=== PATIENT | male | born 1930 | race Caucasian/White ===

== ENCOUNTER 2018-12-07 16:25 | Inpatient (IN) | payer MEDICARE, BC, MEDICAID ==
--- NOTE | 2018-12-07 17:21 | PCM.HP ---
H&P History of Present Illness - General Date of Service: 12/07/18 Admit Problem/Dx: Admission Diagnosis/Problem Admission Diagnosis/Problem COPD, Severe chronic obstructive pulmonary disease Source of Information: Patient, Family, Old Records History Limitations: Reports: No Limitations - History of Present Illness Onset of Symptoms: Reports: Gradual Duration of Symptoms: Reports: Week(s):, Getting Worse Location: Reports: Chest Quality: Reports: Same as Previous Episode Severity: Severe Improves with: Reports: Medication (nebs, oxygen increased to 3L/m), Rest Worsens with: Reports: Other (talking, coughing), Movement Context: Reports: Other (exacerbation of chronic disease) Associated Symptoms: Reports: Cough, cough w sputum, Loss of Appetite, Malaise, Shortness of Breath, Weakness - Related Data Allergies/Adverse Reactions: Allergies Allergy/AdvReac Type Severity Reaction Status Date / Time Sulfa (Sulfonamide Allergy Cannot Verified 12/22/15 10:53 Antibiotics) Remember Home Medications: Home Meds Albuterol/Ipratropium [DuoNeb 3.0-0.5 MG/3 ML] 3 ml INH QID 01/12/15 [History] Aspirin [Halfprin] 81 mg PO DAILY 01/12/15 [History] Finasteride [Proscar] 5 mg PO DAILY 01/12/15 [History] Mometasone Furoate 100mcg [Asmanex HFA 100mcg] 2 puff INH BID 01/12/15 [History] Simvastatin [Zocor] 40 mg PO BEDTIME 01/12/15 [History] Budesonide [Pulmicort] 0.5 mg NEB BIDRT 05/29/15 [History] Albuterol/Ipratropium [DuoNeb 3.0-0.5 MG/3 ML] 3 ml NEB Q4HRRT PRN #1 box [Rx] Albuterol [Ventolin HFA] 2.5 gm INH Q2H PRN #1 inhaler 06/24/15 [Rx] Bisacodyl [Dulcolax] 10 mg PO DAILY PRN 12/22/15 [History] Fluticasone Propionate [Flonase] 1 spray NASBOTH BID 12/22/15 [History] Furosemide [Lasix] 40 mg PO DAILY 12/22/15 [History] Omeprazole 20 mg PO DAILY PRN 12/22/15 [History] Potassium Chloride [Klor-Con M20] 20 meq PO DAILY 12/22/15 [History] Prednisone [IJD: Prednisone] 2.5 mg PO DAILY 12/22/15 [History] Warfarin Sodium [Coumadin] 6 mg PO TU 12/22/15 [History] predniSONE 7 mg PO SUMOWETHFRSA 12/22/15 [History] Past Medical History HEENT History: Reports: Impaired Vision Other HEENT History: Glasses Cardiovascular History: Reports: Blood Clots/VTE/DVT, CAD, Heart Failure, High Cholesterol, Hypertension, SOB on Exertion Other Cardiovascular History: h/o DVT and PE Respiratory History: Reports: COPD, PE, Pulmonary Fibrosis, SOB Other Respiratory History: Oxygen-dependent Gastrointestinal History: Reports: GERD Genitourinary History: Reports: BPH Other Genitourinary History: Bilateral renal cysts Musculoskeletal History: Reports: Osteoarthritis, Other (See Below) Other Musculoskeletal History: Right rotator cuff tear on 12/10/08 Social & Family History - Tobacco Use Tobacco Use Within Last Twelve Months: No Used Tobacco, but Quit: Yes - Alcohol Use Alcohol Use History: Yes Alcohol Use Frequency: Rarely - Recreational Drug Use Recreational Drug Use: No - Living Situation & Occupation Living situation: Reports: , with Family Occupation: Retired H&P Review of Systems - Review of Systems: Review Of Systems: See Below General: Reports: Weakness, Fatigue HEENT: Reports: No Symptoms Pulmonary: Reports: Shortness of Breath, Wheezing, Cough, Sputum Cardiovascular: Reports: No Symptoms Gastrointestinal: Reports: No Symptoms Genitourinary: Reports: No Symptoms Musculoskeletal: Reports: No Symptoms Skin: Reports: No Symptoms Psychiatric: Reports: No Symptoms Neurological: Reports: No Symptoms Hematologic/Lymphatic: Reports: Easy Bruising (chronic) Immunologic: Reports: No Symptoms Exam - Exam Exam: See Below - Vital Signs Vital Signs: Last Vital Signs Temp 99.1 F 12/07/18 16:58 Pulse 99 12/07/18 16:58 Resp 24 H 12/07/18 16:58 BP 155/75 H 12/07/18 16:58 Pulse Ox 93 L 12/07/18 16:58 - Exam Quality Assessment: Supplemental Oxygen, DVT Prophylaxis (on warfarin) General: Alert, Oriented, Moderate Distress HEENT: EOMI, Hearing Intact, Mucosa Moist & [place], Glasses Neck: Supple, Trachea Midline Lungs: Decreased Breath Sounds, Rhonchi, Wheezing GI/Abdominal Exam: Normal Bowel Sounds, Soft, Non-Tender, No Distention (Male) Exam: Deferred Rectal (Males) Exam: Deferred Back Exam: Normal Inspection Extremities: Pedal Edema (minimal) Skin: Warm, Dry, Intact Neuro Extensive - Mental Status: Alert, Oriented x3, Normal Mood/Affect, Normal Cognition, Memory Intact Psychiatric: Alert, Normal Affect, Normal Mood - Problem List (1) Pulmonary fibrosis SNOMED Code(s): 65516824 ICD Code: J84.10 - PULMONARY FIBROSIS, UNSPECIFIED Status: Chronic Priority: High Current Visit: Yes Problem Details: 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, oxygen-dependent (2) Comfort measures only status SNOMED Code(s): 33549108883242 ICD Code: Z51.5 - ENCOUNTER FOR PALLIATIVE CARE Status: Chronic Priority : Medium Current Visit: Yes Problem List Initiated/Reviewed/Updated: Yes Orders Last 24hrs: Active Orders 24 hr Category Date Time Status Patient Status [ADT] Routine ADT 12/07/18 16:42 Active Antiembolic Devices [RC] PER UNIT ROUTINE Care 12/07/18 16:48 Active Height and Weight [RC] DAILY Care 12/07/18 16:42 Active Intake and Output [RC] QSHIFT Care 12/07/18 16:46 Active May Shower [RC] ASDIRECTED Care 12/07/18 16:42 Active Oxygen Therapy [RC] 2300 Care 12/07/18 16:42 Active Peripheral IV Care [RC] . DIRECTED Care 12/07/18 16:48 Active Pulse Oximetry [RC] PRN Care 12/07/18 16:46 Active Up With Assistance [RC] ASDIRECTED Care 12/07/18 16:42 Active VTE/DVT Education [RC] PER UNIT ROUTINE Care 12/07/18 16:42 Active Vital Signs [RC] QID Care 12/07/18 16:42 Active Regular Diet [DIET] Diet 12/07/18 Dinner Active Chest 2V [CR] Routine Exams 12/07/18 16:42 Ordered C-REACTIVE PROTEIN [CHEM] AM Lab 12/08/18 05:11 Ordered C-REACTIVE PROTEIN [CHEM] AM Lab 12/09/18 05:11 Ordered C-REACTIVE PROTEIN [CHEM] AM Lab 12/10/18 05:11 Ordered C-REACTIVE PROTEIN [CHEM] AM Lab 12/11/18 05:11 Ordered CBC WITH AUTO DIFF [HEME] AM Lab 12/08/18 05:11 Ordered CBC WITH AUTO DIFF [HEME] AM Lab 12/09/18 05:11 Ordered CBC WITH AUTO DIFF [HEME] AM Lab 12/10/18 05:11 Ordered CBC WITH AUTO DIFF [HEME] AM Lab 12/11/18 05:11 Ordered COMPREHENSIVE METABOLIC PN,CMP [CHEM] AM Lab 12/08/18 05:11 Ordered COMPREHENSIVE METABOLIC PN,CMP [CHEM] AM Lab 12/09/18 05:11 Ordered COMPREHENSIVE METABOLIC PN,CMP [CHEM] AM Lab 12/10/18 05:11 Ordered COMPREHENSIVE METABOLIC PN,CMP [CHEM] AM Lab 12/11/18 05:11 Ordered CULTURE BLOOD [BC] Stat Lab 12/07/18 16:48 Ordered CULTURE BLOOD [BC] Stat Lab 12/07/18 16:48 Ordered CULTURE SPUTUM + SMEAR [RM] Stat Lab 12/07/18 16:42 Ordered D Dimer [D-DIMER QUANTITATIVE] [COAG] Routine Lab 12/07/18 16:57 Ordered INR,PT,PROTHROMBIN TIME [COAG] AM Lab 12/08/18 05:11 Ordered INR,PT,PROTHROMBIN TIME [COAG] AM Lab 12/09/18 05:11 Ordered INR,PT,PROTHROMBIN TIME [COAG] AM Lab 12/10/18 05:11 Ordered INR,PT,PROTHROMBIN TIME [COAG] AM Lab 12/11/18 05:11 Ordered Azithromycin [Zithromax] 500 mg Med 12/07/18 17:15 Ordered Sodium Chloride 0.9% [Normal Saline] 250 ml IV Q24H Sodium Chloride 0.9% [Saline Flush] Med 12/07/18 16:42 Active 10 ml FLUSH ASDIRECTED PRN cefTAZidime Pentahydrate [Fortaz] Med 12/08/18 00:00 Ordered 1 gm IVPUSH Q8HR methylPREDNISolone Sod Succ [Solu-MEDROL] Med 12/07/18 17:00 Ordered 40 mg IVPUSH Q8H metroNIDAZOLE/Normal Saline [Flagyl 500 MG in NS 100 ML Med 12/07/18 17:15 Ordered ] 500 mg Premix Bag 1 bag IV Q8H Antiembolic Hose [OM.PC] Per Unit Routine Oth 12/07/18 16:47 Ordered Blood Culture x2 Reflex Set [OM.PC] Stat Oth 12/07/18 16:42 Ordered CHF Questionnaire [COMM] Routine Ot 12/07/18 16:55 Ordered Peripheral IV Insertion Adult [OM.PC] Routine Ot 12/07/18 16:42 Ordered Resuscitation Status Routine Resus Stat 12/07/18 16:42 Ordered Medication Orders Ceftazidime (Fortaz) 1 gm IVPUSH Q8HR THELMA Azithromycin 500 mg/ Sodium (Chloride) 250 mls @ 250 mls/hr IV Q24H THELMA Metronidazole 500 mg/ Premix 100 mls @ 100 mls/hr IV Q8H THELMA Methylprednisolone Sodium Succinate (Solu-Medrol) 40 mg IVPUSH Q8H THELMA Sodium Chloride (Saline Flush) 10 ml FLUSH ASDIRECTED PRN PRN Reason: Keep Vein Open Assessment/Plan Comment:: Mookie Blankenship PA-C 88 yr-old male admitted IP to Dr. Rocha for acute exacerbation of COPD/ pulmonary, oxygen-dependent and pneumonia with OP therapy failure. He was seen last Wednesday for same and recommended for hospitalization but refused, he was treated with steroids and antibiotics but did see his Home Health nurse today who called me to say he has not improved. His two daughters were with him in the home as well and are here now. He normally wears his O2 at 2L/m but has increased this to 3 and still feels SOB and is hypoxic. He denies CP at any time. INR 3.0 today via Home Health. Will monitor daily. Does say was coughing a lot at home. Starting IV Metronidazole for possible aspiration component to pneumonia, as well as IV Zithromax and Fortaz. IV Solu- Medrol started at 40mg Q8H. PT-OT consults ordered for strengthening. This elderly chronically ill gentleman will require at least 96 hours of IP care to be able to return home to previous baseline level of health. He does have multiple comorbidities. One daughter has now moved into his house with him , and another one lives next door to him and has cared for him for years, and they will remain very involved in his health care. He also has Home Health services.
[2018-12-07] MEDS ORDERED: Albuterol/Ipratropium 3.0-0.5 MG/3 ML Neb Soln NEB PRN (17:46)
[2018-12-07] MEDS ORDERED: Albuterol 8 GM Inhaler INH PRN (17:46)
[2018-12-07] MEDS ORDERED: Benzonatate 100 MG Cap PO PRN (17:46)
[2018-12-07] MEDS ORDERED: methylPREDNISolone Sodium Succinate 40 MG/1 ML SDV IVPUSH SCH (18:00)
[2018-12-07] MEDS ORDERED: Mometasone Furoate HFA 100mcg/Puff 13 GM Inhaler INH SCH (18:00)
[2018-12-07] MEDS: Fluticasone Propionate Nasal Spray 16 GM Bottle NASBOTH SCH (18:42)
[2018-12-07] MEDS: Bisacodyl 5 MG Tab PO PRN (18:42)
[2018-12-07] MEDS: Warfarin 2 MG Tab PO SCH (18:42)
[2018-12-07] MEDS: metroNIDAZOLE/Normal Saline 500 MG in Premix Bag 1 BAG IV SCH (18:42)
[2018-12-07] MEDS: Sodium Chloride 0.9% 10 ML Syringe FLUSH PRN (18:43)
[2018-12-07] MEDS: Azithromycin 500 MG in Sodium Chloride 0.9% 250 ML IV SCH (19:45)
[2018-12-07] MEDS: Albuterol/Ipratropium 3.0-0.5 MG/3 ML Neb Soln INH SCH (19:46)
[2018-12-07] MEDS: Budesonide 0.5 MG/2 ML Neb Susp NEB SCH (19:46)
[2018-12-08] MEDS: Sodium Chloride 0.9% 10 ML Syringe FLUSH PRN ×7 (01:37→17:21)
[2018-12-08] MEDS: metroNIDAZOLE/Normal Saline 500 MG in Premix Bag 1 BAG IV SCH ×3 (01:37→17:18)
[2018-12-08] MEDS: cefTAZidime 1 GM Vial IVPUSH SCH ×3 (01:38→16:12)
[2018-12-08 07:19] LABS: CHLORIDE,CL 102 mmol/L (98-107); SODIUM,NA 142 mmol/L (136-145)
[2018-12-08] MEDS: Budesonide 0.5 MG/2 ML Neb Susp NEB SCH ×2 (07:56→22:51)
[2018-12-08] MEDS: Furosemide 40 MG/4 ML VIAL IVPUSH SCH (07:58)
[2018-12-08] MEDS: Fluticasone Propionate Nasal Spray 16 GM Bottle NASBOTH SCH ×2 (08:01→17:18)
[2018-12-08] MEDS: Albuterol/Ipratropium 3.0-0.5 MG/3 ML Neb Soln INH SCH ×4 (08:15→22:50)
[2018-12-08] MEDS: methylPREDNISolone Sodium Succinate 40 MG/1 ML SDV IVPUSH SCH ×2 (08:23→22:51)
[2018-12-08] MEDS ORDERED: Sodium Chloride 0.9% 10 ML Syringe FLUSH PRN (08:26)
[2018-12-08] MEDS ORDERED: Iopamidol 612 MG/ML 100 ML Bottle IVPUSH ONE (08:26)
[2018-12-08] MEDS: Finasteride 5 MG Tab PO SCH (11:00)
[2018-12-08] MEDS: Potassium Chloride 20 MEQ Tab.ER PO SCH (11:00)
[2018-12-08] MEDS: Aspirin 81 MG Tab.EC PO SCH (11:01)
--- NOTE | 2018-12-08 17:35 | PCM.PN ---
- General Info Date of Service: 12/08/18 Admission Dx/Problem (Free Text): Admission Diagnosis/Problem Admission Diagnosis/Problem COPD, Severe chronic obstructive pulmonary disease Functional Status: Reports: Pain Controlled, Tolerating Diet, Ambulating - Review of Systems General: Reports: Weakness HEENT: Reports: No Symptoms Pulmonary: Reports: Shortness of Breath, Cough Cardiovascular: Reports: No Symptoms Gastrointestinal: Reports: No Symptoms Genitourinary: Reports: No Symptoms Musculoskeletal: Reports: No Symptoms Skin: Reports: No Symptoms Neurological: Reports: No Symptoms Psychiatric: Reports: No Symptoms - Patient Data Vitals - Most Recent: Last Vital Signs Temp 97.0 F 12/08/18 16:00 Pulse 70 12/08/18 16:00 Resp 17 12/08/18 16:00 BP 143/69 H 12/08/18 16:00 Pulse Ox 96 12/08/18 16:00 Weight - Most Recent: 151 lb 4.8 oz I&O - Last 24 Hours: Intake & Output 12/08/18 12/08/18 12/08/18 06:59 14:59 22:59 Intake Total 765 Output Total 400 1400 Balance -400 -635 Lab Results Last 24 Hours: Laboratory Results - last 24 hr 12/07/18 12/08/18 12/08/18 Range/Units 17:00 07:00 07:00 WBC 6.5 (4.0-10.2) K/uL RBC 4.33 (4.33-5.41) M/uL Hgb 13.8 (13.1-16.8) g/dL Hct 43.5 (39.0-49.0) % MCV 100.5 H (84.0-98.0) fL MCH 31.9 (28.2-33.3) pg MCHC 31.7 (31.7-36.0) g/dL RDW 13.3 (11.2-14.1) % Plt Count 180 (150-350) K/uL Neut % (Auto) 94.2 H (45.0-80.0) % Lymph % (Auto) 3.1 L (10.0-50.0) % [place] % (Auto) 2.5 (2.0-14.0) % Eos % (Auto) 0.0 (0.0-5.0) % Baso % (Auto) 0.2 (0.0-2.0) % Neut # (Auto) 6.11 (1.40-7.00) K/uL Lymph # (Auto) 0.20 L (0.50-3.50) K/uL [place] # (Auto) 0.16 (0.00-1.00) K/uL Eos # (Auto) 0.00 (0.00-0.50) K/uL Baso # (Auto) 0.01 (0.00-0.20) K/uL PT (9.5-12.0) SEC INR D-Dimer, Quantitative < 100 (0-400) ng/mL Sodium 142 (136-145) mmol/L Potassium 4.8 (3.5-5.1) mmol/L Chloride 102 (98-107) mmol/L Carbon Dioxide 38.9 H (21.0-32.0) mmol/L BUN 17 (7-18) mg/dL Creatinine 0.56 (0.51-1.17) mg/dL Est Cr Clr Drug Dosing 94.69 mL/min Estimated GFR (MDRD) > 60 mL/min Glucose 246 H (74-106) mg/dL Calcium 8.9 (8.5-10.1) mg/dL Total Bilirubin 0.4 (0.2-1.0) mg/dL AST 20 (15-37) U/L ALT 31 (12-78) U/L Alkaline Phosphatase 90 (46-116) IU/L C-Reactive Protein 2.3 H (<=0.9) mg/dL Total Protein 6.0 L (6.4-8.2) g/dL Albumin 3.0 L (3.4-5.0) g/dL 12/08/18 Range/Units 07:00 WBC (4.0-10.2) K/uL RBC (4.33-5.41) M/uL Hgb (13.1-16.8) g/dL Hct (39.0-49.0) % MCV (84.0-98.0) fL MCH (28.2-33.3) pg MCHC (31.7-36.0) g/dL RDW (11.2-14.1) % Plt Count (150-350) K/uL Neut % (Auto) (45.0-80.0) % Lymph % (Auto) (10.0-50.0) % [place] % (Auto) (2.0-14.0) % Eos % (Auto) (0.0-5.0) % Baso % (Auto) (0.0-2.0) % Neut # (Auto) (1.40-7.00) K/uL Lymph # (Auto) (0.50-3.50) K/uL [place] # (Auto) (0.00-1.00) K/uL Eos # (Auto) (0.00-0.50) K/uL Baso # (Auto) (0.00-0.20) K/uL PT 28.1 H (9.5-12.0) SEC INR 2.6 D-Dimer, Quantitative (0-400) ng/mL Sodium (136-145) mmol/L Potassium (3.5-5.1) mmol/L Chloride (98-107) mmol/L Carbon Dioxide (21.0-32.0) mmol/L BUN (7-18) mg/dL Creatinine (0.51-1.17) mg/dL Est Cr Clr Drug Dosing mL/min Estimated GFR (MDRD) mL/min Glucose (74-106) mg/dL Calcium (8.5-10.1) mg/dL Total Bilirubin (0.2-1.0) mg/dL AST (15-37) U/L ALT (12-78) U/L Alkaline Phosphatase (46-116) IU/L C-Reactive Protein (<=0.9) mg/dL Total Protein (6.4-8.2) g/dL Albumin (3.4-5.0) g/dL Jarret Results Last 24 Hours: Microbiology 12/07/18 17:10 Aerobic Blood Culture - Preliminary Blood - Venous - Lab Draw NO GROWTH AFTER 1 DAY Anaerobic Blood Culture - Preliminary NO GROWTH AFTER 1 DAY 12/07/18 17:00 Aerobic Blood Culture - Preliminary Blood - Venous NO GROWTH AFTER 1 DAY Anaerobic Blood Culture - Preliminary NO GROWTH AFTER 1 DAY 12/07/18 16:42 Gram Stain - Final Sputum - Expectorated Med Orders - Current: Current Medications Albuterol/Ipratropium (Duoneb 3.0-0.5 Mg/3 Ml) 3 ml INH QID THELMA Last Admin: 05/02/19 16:12 Dose: 3 ml Albuterol/Ipratropium (Duoneb 3.0-0.5 Mg/3 Ml) 3 ml NEB Q4HRRT PRN PRN Reason: Shortness of Breath Last Admin: 12/08/18 05:34 Dose: 3 ml Aspirin (Halfprin) 81 mg PO DAILY [facility] Last Admin: 12/08/18 11:01 Dose: 81 mg Benzonatate (Tessalon Perles) 200 mg PO TID PRN PRN Reason: Cough Bisacodyl (Dulcolax) 10 mg PO BEDTIME PRN PRN Reason: Constipation Last Admin: 12/07/18 18:42 Dose: 10 mg Budesonide (Pulmicort) 0.5 mg NEB BIDRT [facility] Last Admin: 12/08/18 07:56 Dose: 0.5 mg Ceftazidime (Fortaz) 1 gm IVPUSH Q8HR [facility] Last Admin: 12/08/18 16:12 Dose: 1 gm Finasteride (Proscar) 5 mg PO DAILY [facility] Last Admin: 12/08/18 11:00 Dose: 5 mg Fluticasone Propionate (Flonase) 0 gm NASBOTH BID [facility] Last Admin: 12/08/18 17:18 Dose: 1 spray Furosemide (Lasix) 40 mg IVPUSH DAILY [facility] Last Admin: 12/08/18 07:58 Dose: 40 mg Azithromycin 500 mg/ Sodium (Chloride) 250 mls @ 250 mls/hr IV Q24H [facility] Last Admin: 12/07/18 19:45 Dose: 250 mls/hr Metronidazole 500 mg/ Premix 100 mls @ 100 mls/hr IV Q8H [facility] Last Admin: 12/08/18 17:18 Dose: 100 mls/hr Methylprednisolone Sodium Succinate (Solu-Medrol) 40 mg IVPUSH Q12HR [facility] Last Admin: 12/08/18 08:23 Dose: 40 mg Potassium Chloride (Klor-Con M20) 20 meq PO DAILY [facility] Last Admin: 12/08/18 11:00 Dose: 20 meq Sodium Chloride (Saline Flush) 10 ml FLUSH ASDIRECTED PRN PRN Reason: Keep Vein Open Last Admin: 12/08/18 17:21 Dose: 10 ml Warfarin Sodium (Coumadin) 6 mg PO DAILY@1800 [facility] Last Admin: 12/07/18 18:42 Dose: 6 mg Discontinued Medications Iopamidol (Isovue-300 (61%)) 100 ml IVPUSH ONETIME ONE Stop: 12/08/18 08:27 Last Admin: 12/08/18 09:55 Dose: 100 ml Methylprednisolone Sodium Succinate (Solu-Medrol) 40 mg IVPUSH Q8H [facility] Last Admin: 12/07/18 18:42 Dose: 40 mg - Exam Quality Assessment: Supplemental Oxygen General: Alert, Oriented, Cooperative HEENT: Pupils Equal, Pupils Reactive Neck: Supple, Trachea Midline Lungs: Normal Respiratory Effort, Decreased Breath Sounds, Wheezing Cardiovascular: Regular Rate, Regular Rhythm GI/Abdominal Exam: Normal Bowel Sounds, Soft, Non-Tender, No Organomegaly Back Exam: Normal Inspection, Full Range of Motion Extremities: Normal Inspection, Normal Range of Motion, Non-Tender, Normal Capillary Refill Peripheral Pulses: 1+: Dorsalis Pedis (L), Dorsalis Pedis (R) Skin: Warm, Dry, Intact Neurological: No New Focal Deficit Psy/Mental Status: Alert, Normal Affect, Normal Mood - Problem List & Annotations (1) Pneumonia SNOMED Code(s): 273283441 Code(s): J18.9 - PNEUMONIA, UNSPECIFIED ORGANISM Status: Acute Current Visit: No Annotation/Comment:: Continue with the antibiotics. WBC increased however could be reflection from pneumonia as well as blood clots in the lung. (2) COPD (chronic obstructive pulmonary disease) SNOMED Code(s): 08052065 Code(s): J44.9 - CHRONIC OBSTRUCTIVE PULMONARY DISEASE, UNSPECIFIED Status : Acute Current Visit: No Qualifiers: COPD type: COPD with acute lower respiratory infection Qualified Code(s): J44.0 - Chronic obstructive pulmonary disease with acute lower respiratory infection (3) Pulmonary nodules SNOMED Code(s): 581441002 Code(s): R91.8 - OTHER NONSPECIFIC ABNORMAL FINDING OF LUNG FIELD Status: Chronic Priority: High Current Visit: No - Problem List Review Problem List Initiated/Reviewed/Updated: Yes - My Orders Last 24 Hours: My Active Orders 12/08/18 Lunch Regular Diet [DIET] - Plan Plan:: Mookie Blankenship PA-C 88 yr-old male admitted IP to Dr. Rocha for acute exacerbation of COPD/ pulmonary, oxygen-dependent and pneumonia with OP therapy failure. He was seen last Wednesday for same and recommended for hospitalization but refused, he was treated with steroids and antibiotics but did see his Home Health nurse today who called me to say he has not improved. His two daughters were with him in the home as well and are here now. He normally wears his O2 at 2L/m but has increased this to 3 and still feels SOB and is hypoxic. He denies CP at any time. INR 3.0 today via Home Health. Will monitor daily. Does say was coughing a lot at home. Starting IV Metronidazole for possible aspiration component to pneumonia, as well as IV Zithromax and Fortaz. IV Solu- Medrol started at 40mg Q8H. PT-OT consults ordered for strengthening. This elderly chronically ill gentleman will require at least 96 hours of IP care to be able to return home to previous baseline level of health. He does have multiple comorbidities. One daughter has now moved into his house with him , and another one lives next door to him and has cared for him for years, and they will remain very involved in his health care. He also has Home Health services. 12/08/2018 Patient still short of breath, but some better. Chest CT scan this morning showed some new nodules in the right lobe, possible cyst on pancreatic head will need further imaging. will discuss with Dr Rocha. Discussed labs and chest CT scan findings with patient and daughter. Patient states he was seen by pulmonology years ago for possible cancer, but he cant remember what they said to him. will continue to treat with IV antibiotics and steroids. Patient having issues with swallowing and coughing, ordered speech consult. PT seeing the patient but states the patient doesnt qualify for swingbed. Recheck labs in morning. patient has lesion on left ear lobe, will need to follow this up at the clinic. Nohelia Cohen,[employer]
[2018-12-08] MEDS: Warfarin 2 MG Tab PO SCH (18:11)
[2018-12-08] MEDS: Azithromycin 500 MG in Sodium Chloride 0.9% 250 ML IV SCH (18:19)
[2018-12-09] MEDS: cefTAZidime 1 GM Vial IVPUSH SCH ×3 (01:14→16:02)
[2018-12-09] MEDS: Sodium Chloride 0.9% 10 ML Syringe FLUSH PRN ×7 (01:14→19:26)
[2018-12-09] MEDS: metroNIDAZOLE/Normal Saline 500 MG in Premix Bag 1 BAG IV SCH ×3 (01:14→17:07)
[2018-12-09 07:37] LABS: CHLORIDE,CL 100 mmol/L (98-107); SODIUM,NA 140 mmol/L (136-145)
[2018-12-09] MEDS: Finasteride 5 MG Tab PO SCH (08:28)
[2018-12-09] MEDS: Aspirin 81 MG Tab.EC PO SCH (08:28)
[2018-12-09] MEDS: methylPREDNISolone Sodium Succinate 40 MG/1 ML SDV IVPUSH SCH ×2 (08:28→19:26)
[2018-12-09] MEDS: Potassium Chloride 20 MEQ Tab.ER PO SCH (08:28)
[2018-12-09] MEDS: Furosemide 40 MG/4 ML VIAL IVPUSH SCH (08:29)
[2018-12-09] MEDS: Fluticasone Propionate Nasal Spray 16 GM Bottle NASBOTH SCH ×2 (08:29→17:06)
[2018-12-09] MEDS: Albuterol/Ipratropium 3.0-0.5 MG/3 ML Neb Soln INH SCH ×4 (08:29→19:26)
[2018-12-09] MEDS: Budesonide 0.5 MG/2 ML Neb Susp NEB SCH (08:29)
--- NOTE | 2018-12-09 15:25 | PCM.PN ---
- General Info Date of Service: 12/09/18 Admission Dx/Problem (Free Text): Admission Diagnosis/Problem Admission Diagnosis/Problem COPD, Severe chronic obstructive pulmonary disease Functional Status: Reports: Tolerating Diet, Ambulating - Review of Systems General: Reports: No Symptoms HEENT: Reports: No Symptoms Pulmonary: Reports: No Symptoms Cardiovascular: Reports: No Symptoms Gastrointestinal: Reports: No Symptoms Genitourinary: Reports: No Symptoms Musculoskeletal: Reports: No Symptoms Skin: Reports: No Symptoms Neurological: Reports: No Symptoms Psychiatric: Reports: No Symptoms - Patient Data Vitals - Most Recent: Last Vital Signs Temp 97.2 F 12/09/18 11:12 Pulse 88 12/09/18 11:12 Resp 18 12/09/18 11:12 BP 150/86 H 12/09/18 11:12 Pulse Ox 92 L 12/09/18 11:12 Weight - Most Recent: 152 lb 11.216 oz I&O - Last 24 Hours: Intake & Output 12/09/18 12/09/18 12/09/18 06:59 14:59 22:59 Intake Total 480 Output Total 100 1100 Balance -100 -620 Lab Results Last 24 Hours: Laboratory Results - last 24 hr 12/09/18 12/09/18 12/09/18 Range/Units 07:02 07:02 07:02 WBC 10.0 (4.0-10.2) K/uL RBC 4.44 (4.33-5.41) M/uL Hgb 14.3 (13.1-16.8) g/dL Hct 44.3 (39.0-49.0) % MCV 99.8 H (84.0-98.0) fL MCH 32.2 (28.2-33.3) pg MCHC 32.3 (31.7-36.0) g/dL RDW 13.3 (11.2-14.1) % Plt Count 212 (150-350) K/uL Neut % (Auto) 89.8 H (45.0-80.0) % Lymph % (Auto) 3.9 L (10.0-50.0) % [place] % (Auto) 6.2 (2.0-14.0) % Eos % (Auto) 0.0 (0.0-5.0) % Baso % (Auto) 0.1 (0.0-2.0) % Neut # (Auto) 9.01 H (1.40-7.00) K/uL Lymph # (Auto) 0.39 L (0.50-3.50) K/uL [place] # (Auto) 0.62 (0.00-1.00) K/uL Eos # (Auto) 0.00 (0.00-0.50) K/uL Baso # (Auto) 0.01 (0.00-0.20) K/uL PT 34.1 H (9.5-12.0) SEC INR 3.2 Sodium 140 (136-145) mmol/L Potassium 4.8 (3.5-5.1) mmol/L Chloride 100 (98-107) mmol/L Carbon Dioxide 40.0 H (21.0-32.0) mmol/L BUN 25 H (7-18) mg/dL Creatinine 0.62 (0.51-1.17) mg/dL Est Cr Clr Drug Dosing 83.02 mL/min Estimated GFR (MDRD) > 60 mL/min Glucose 228 H (74-106) mg/dL Calcium 9.1 (8.5-10.1) mg/dL Total Bilirubin 0.4 (0.2-1.0) mg/dL AST 17 (15-37) U/L ALT 32 (12-78) U/L Alkaline Phosphatase 92 (46-116) IU/L C-Reactive Protein 1.2 H (<=0.9) mg/dL Total Protein 6.2 L (6.4-8.2) g/dL Albumin 3.2 L (3.4-5.0) g/dL Jarret Results Last 24 Hours: Microbiology 12/07/18 16:42 Gram Stain - Final Sputum - Expectorated Sputum Culture - Preliminary 12/07/18 17:10 Aerobic Blood Culture - Preliminary Blood - Venous - Lab Draw NO GROWTH AFTER 1 DAY Anaerobic Blood Culture - Preliminary NO GROWTH AFTER 1 DAY 12/07/18 17:00 Aerobic Blood Culture - Preliminary Blood - Venous NO GROWTH AFTER 1 DAY Anaerobic Blood Culture - Preliminary NO GROWTH AFTER 1 DAY Med Orders - Current: Current Medications Albuterol/Ipratropium (Duoneb 3.0-0.5 Mg/3 Ml) 3 ml INH QID THELMA Last Admin: 12/09/18 11:01 Dose: 3 ml Albuterol/Ipratropium (Duoneb 3.0-0.5 Mg/3 Ml) 3 ml NEB Q4HRRT PRN PRN Reason: Shortness of Breath Last Admin: 12/08/18 05:34 Dose: 3 ml Aspirin (Halfprin) 81 mg PO DAILY [facility] Last Admin: 12/09/18 08:28 Dose: 81 mg Benzonatate (Tessalon Perles) 200 mg PO TID PRN PRN Reason: Cough Bisacodyl (Dulcolax) 10 mg PO BEDTIME PRN PRN Reason: Constipation Last Admin: 12/07/18 18:42 Dose: 10 mg Ceftazidime (Fortaz) 1 gm IVPUSH Q8HR [facility] Last Admin: 12/09/18 08:29 Dose: 1 gm Finasteride (Proscar) 5 mg PO DAILY [facility] Last Admin: 12/09/18 08:28 Dose: 5 mg Fluticasone Propionate (Flonase) 0 gm NASBOTH BID [facility] Last Admin: 12/09/18 08:29 Dose: 1 spray Furosemide (Lasix) 40 mg IVPUSH DAILY [facility] Last Admin: 12/09/18 08:29 Dose: 40 mg Azithromycin 500 mg/ Sodium (Chloride) 250 mls @ 250 mls/hr IV Q24H [facility] Last Admin: 12/08/18 18:19 Dose: 250 mls/hr Metronidazole 500 mg/ Premix 100 mls @ 100 mls/hr IV Q8H [facility] Last Admin: 12/09/18 11:01 Dose: 100 mls/hr Methylprednisolone Sodium Succinate (Solu-Medrol) 40 mg IVPUSH Q12HR [facility] Last Admin: 12/09/18 08:28 Dose: 40 mg Potassium Chloride (Klor-Con M20) 20 meq PO DAILY [facility] Last Admin: 12/09/18 08:28 Dose: 20 meq Sodium Chloride (Saline Flush) 10 ml FLUSH ASDIRECTED PRN PRN Reason: Keep Vein Open Last Admin: 12/09/18 11:04 Dose: 10 ml Discontinued Medications Budesonide (Pulmicort) 0.5 mg NEB BIDRT [facility] Last Admin: 12/09/18 08:29 Dose: 0.5 mg Iopamidol (Isovue-300 (61%)) 100 ml IVPUSH ONETIME ONE Stop: 12/08/18 08:27 Last Admin: 12/08/18 09:55 Dose: 100 ml Methylprednisolone Sodium Succinate (Solu-Medrol) 40 mg IVPUSH Q8H [facility] Last Admin: 12/07/18 18:42 Dose: 40 mg Warfarin Sodium (Coumadin) 6 mg PO DAILY@1800 [facility] Last Admin: 12/08/18 18:11 Dose: 6 mg - Exam Quality Assessment: DVT Prophylaxis (coumadin) General: Alert, Cooperative, No Acute Distress HEENT: Mucous Membr. Moist/[place] Neck: Trachea Midline, No JVD Lungs: Normal Respiratory Effort, Decreased Breath Sounds Cardiovascular: Regular Rate, Regular Rhythm GI/Abdominal Exam: Soft, Non-Tender, No Distention (Male) Exam: Deferred Back Exam: Normal Inspection Extremities: Normal Inspection, Non-Tender Skin: Warm, Dry, Intact, Ecchymosis Neurological: No New Focal Deficit Psy/Mental Status: Alert, Normal Affect, Normal Mood - Problem List & Annotations (1) Comfort measures only status SNOMED Code(s): 97444112245491 Code(s): Z51.5 - ENCOUNTER FOR PALLIATIVE CARE Status: Chronic Priority: Medium Current Visit: Yes (2) Pulmonary fibrosis SNOMED Code(s): 09329838 Code(s): J84.10 - PULMONARY FIBROSIS, UNSPECIFIED Status: Chronic Priority: High Current Visit: Yes Annotation/Comment:: 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, oxygen-dependent (3) CHF (congestive heart failure) SNOMED Code(s): 07883794 Code(s): I50.9 - HEART FAILURE, UNSPECIFIED Status: Acute Current Visit: No Qualifiers: Qualified Code(s): I50.9 - Heart failure, unspecified (4) COPD (chronic obstructive pulmonary disease) SNOMED Code(s): 43687258 Code(s): J44.9 - CHRONIC OBSTRUCTIVE PULMONARY DISEASE, UNSPECIFIED Status : Acute Current Visit: No Qualifiers: COPD type: COPD with acute lower respiratory infection Qualified Code(s): J44.0 - Chronic obstructive pulmonary disease with acute lower respiratory infection (5) Osteoarthritis SNOMED Code(s): 007569450 Code(s): M19.90 - UNSPECIFIED OSTEOARTHRITIS, UNSPECIFIED SITE Status: Acute Current Visit: No Qualifiers: Osteoarthritis location: multiple joints Osteoarthritis type: primary Qualified Code(s): M15.0 - Primary generalized (osteo)arthritis (6) Weakness generalized SNOMED Code(s): 17642844 Code(s): R53.1 - WEAKNESS Status: Acute Current Visit: No (7) Heart disease SNOMED Code(s): 58054259 Code(s): I51.9 - HEART DISEASE, UNSPECIFIED Status: Chronic Priority: High Current Visit: No Onset Date: 06/04/15 (8) Peptic reflux disease SNOMED Code(s): 227405915 Code(s): K21.9 - GASTRO-ESOPHAGEAL REFLUX DISEASE WITHOUT ESOPHAGITIS Status: Chronic Priority: High Current Visit: No Onset Date: 06/04/15 (9) Pulmonary nodules SNOMED Code(s): 259496715 Code(s): R91.8 - OTHER NONSPECIFIC ABNORMAL FINDING OF LUNG FIELD Status: Chronic Priority: High Current Visit: No - Problem List Review Problem List Initiated/Reviewed/Updated: Yes - My Orders Last 24 Hours: My Active Orders 12/10/18 05:11 MYCOPLASMA IGM RAPID [MREF] Routine - Plan Plan:: Mookie Blankenship PA-C 88 yr-old male admitted IP to Dr. Rocha for acute exacerbation of COPD/ pulmonary, oxygen-dependent and pneumonia with OP therapy failure. He was seen last Wednesday for same and recommended for hospitalization but refused, he was treated with steroids and antibiotics but did see his Home Health nurse today who called me to say he has not improved. His two daughters were with him in the home as well and are here now. He normally wears his O2 at 2L/m but has increased this to 3 and still feels SOB and is hypoxic. He denies CP at any time. INR 3.0 today via Home Health. Will monitor daily. Does say was coughing a lot at home. Starting IV Metronidazole for possible aspiration component to pneumonia, as well as IV Zithromax and Fortaz. IV Solu- Medrol started at 40mg Q8H. PT-OT consults ordered for strengthening. This elderly chronically ill gentleman will require at least 96 hours of IP care to be able to return home to previous baseline level of health. He does have multiple comorbidities. One daughter has now moved into his house with him , and another one lives next door to him and has cared for him for years, and they will remain very involved in his health care. He also has Home Health services. 12/08/2018 Patient still short of breath, but some better. Chest CT scan this morning showed some new nodules in the right lobe, possible cyst on pancreatic head will need further imaging. will discuss with Dr Rocha. Discussed labs and chest CT scan findings with patient and daughter. Patient states he was seen by pulmonology years ago for possible cancer, but he cant remember what they said to him. will continue to treat with IV antibiotics and steroids. Patient having issues with swallowing and coughing, ordered speech consult. PT seeing the patient but states the patient doesnt qualify for swingbed. Recheck labs in morning. patient has lesion on left ear lobe, will need to follow this up at the clinic. Nohelia Cohen,SHANA 12/09/18 Aj Small MD fells better. Continue medical regiment.
[2018-12-09] MEDS: Azithromycin 500 MG in Sodium Chloride 0.9% 250 ML IV SCH (19:26)
[2018-12-10] MEDS: metroNIDAZOLE/Normal Saline 500 MG in Premix Bag 1 BAG IV SCH ×3 (01:01→17:10)
[2018-12-10] MEDS: Sodium Chloride 0.9% 10 ML Syringe FLUSH PRN (01:02)
[2018-12-10] MEDS: cefTAZidime 1 GM Vial IVPUSH SCH ×2 (01:02→07:34)
[2018-12-10] MEDS: Fluticasone Propionate Nasal Spray 16 GM Bottle NASBOTH SCH ×2 (07:31→17:17)
[2018-12-10] MEDS: Albuterol/Ipratropium 3.0-0.5 MG/3 ML Neb Soln INH SCH ×5 (07:31→19:37)
[2018-12-10] MEDS: Finasteride 5 MG Tab PO SCH (07:32)
[2018-12-10] MEDS: Potassium Chloride 20 MEQ Tab.ER PO SCH (07:32)
[2018-12-10] MEDS: Aspirin 81 MG Tab.EC PO SCH (07:32)
[2018-12-10] MEDS: Furosemide 40 MG/4 ML VIAL IVPUSH SCH (07:37)
[2018-12-10 07:39] LABS: CHLORIDE,CL 100 mmol/L (98-107); SODIUM,NA 140 mmol/L (136-145)
[2018-12-10] MEDS: methylPREDNISolone Sodium Succinate 40 MG/1 ML SDV IVPUSH SCH (07:39)
--- NOTE | 2018-12-10 08:16 | PCM.PN ---
- General Info Date of Service: 12/10/18 Admission Dx/Problem (Free Text): Admission Diagnosis/Problem Admission Diagnosis/Problem COPD, Severe chronic obstructive pulmonary disease Functional Status: Reports: Pain Controlled, Tolerating Diet, Ambulating - Review of Systems General: Reports: Weakness HEENT: Reports: No Symptoms Pulmonary: Reports: Shortness of Breath, Cough, Sputum Cardiovascular: Reports: No Symptoms Gastrointestinal: Reports: No Symptoms Genitourinary: Reports: No Symptoms Musculoskeletal: Reports: No Symptoms Skin: Reports: No Symptoms Neurological: Reports: No Symptoms Psychiatric: Reports: No Symptoms - Patient Data Vitals - Most Recent: Last Vital Signs Temp 98.0 F 12/10/18 07:42 Pulse 93 12/10/18 07:42 Resp 18 12/10/18 07:42 BP 141/90 H 12/10/18 07:42 Pulse Ox 95 12/10/18 07:42 Weight - Most Recent: 153 lb I&O - Last 24 Hours: Intake & Output 12/09/18 12/10/18 12/10/18 22:59 06:59 14:59 Intake Total 1330 500 Output Total 750 800 Balance 580 -300 Lab Results Last 24 Hours: Laboratory Results - last 24 hr 12/10/18 12/10/18 12/10/18 Range/Units 07:10 07:10 07:10 WBC 10.1 (4.0-10.2) K/uL RBC 4.63 (4.33-5.41) M/uL Hgb 14.8 (13.1-16.8) g/dL Hct 46.1 (39.0-49.0) % MCV 99.6 H (84.0-98.0) fL MCH 32.0 (28.2-33.3) pg MCHC 32.1 (31.7-36.0) g/dL RDW 13.3 (11.2-14.1) % Plt Count 214 (150-350) K/uL Neut % (Auto) 88.6 H (45.0-80.0) % Lymph % (Auto) 3.7 L (10.0-50.0) % [place] % (Auto) 7.6 (2.0-14.0) % Eos % (Auto) 0.0 (0.0-5.0) % Baso % (Auto) 0.1 (0.0-2.0) % Neut # (Auto) 8.94 H (1.40-7.00) K/uL Lymph # (Auto) 0.37 L (0.50-3.50) K/uL [place] # (Auto) 0.77 (0.00-1.00) K/uL Eos # (Auto) 0.00 (0.00-0.50) K/uL Baso # (Auto) 0.01 (0.00-0.20) K/uL PT 31.2 H (9.5-12.0) SEC INR 2.9 Sodium 140 (136-145) mmol/L Potassium 5.0 (3.5-5.1) mmol/L Chloride 100 (98-107) mmol/L Carbon Dioxide 40.5 H* (21.0-32.0) mmol/L BUN 25 H (7-18) mg/dL Creatinine 0.61 (0.51-1.17) mg/dL Est Cr Clr Drug Dosing 85.16 mL/min Estimated GFR (MDRD) > 60 mL/min Glucose 241 H (74-106) mg/dL Calcium 9.1 (8.5-10.1) mg/dL Total Bilirubin 0.5 (0.2-1.0) mg/dL AST 18 (15-37) U/L ALT 33 (12-78) U/L Alkaline Phosphatase 97 (46-116) IU/L C-Reactive Protein 0.6 (<=0.9) mg/dL Total Protein 6.6 (6.4-8.2) g/dL Albumin 3.4 (3.4-5.0) g/dL Jarret Results Last 24 Hours: Microbiology 12/07/18 17:10 Aerobic Blood Culture - Preliminary Blood - Venous - Lab Draw NO GROWTH AFTER 2 DAYS Anaerobic Blood Culture - Preliminary NO GROWTH AFTER 2 DAYS 12/07/18 17:00 Aerobic Blood Culture - Preliminary Blood - Venous NO GROWTH AFTER 2 DAYS Anaerobic Blood Culture - Preliminary NO GROWTH AFTER 2 DAYS 12/07/18 16:42 Gram Stain - Final Sputum - Expectorated Sputum Culture - Preliminary Med Orders - Current: Current Medications Albuterol/Ipratropium (Duoneb 3.0-0.5 Mg/3 Ml) 3 ml INH QID [facility] Last Admin: 12/10/18 07:31 Dose: 3 ml Albuterol/Ipratropium (Duoneb 3.0-0.5 Mg/3 Ml) 3 ml NEB Q4HRRT PRN PRN Reason: Shortness of Breath Last Admin: 12/08/18 05:34 Dose: 3 ml Aspirin (Halfprin) 81 mg PO DAILY [facility] Last Admin: 12/10/18 07:32 Dose: 81 mg Benzonatate (Tessalon Perles) 200 mg PO TID PRN PRN Reason: Cough Bisacodyl (Dulcolax) 10 mg PO BEDTIME PRN PRN Reason: Constipation Last Admin: 12/07/18 18:42 Dose: 10 mg Ceftazidime (Fortaz) 1 gm IVPUSH Q8HR [facility] Last Admin: 12/10/18 07:34 Dose: 1 gm Finasteride (Proscar) 5 mg PO DAILY [facility] Last Admin: 12/10/18 07:32 Dose: 5 mg Fluticasone Propionate (Flonase) 0 gm NASBOTH BID [facility] Last Admin: 12/10/18 07:31 Dose: 1 spray Furosemide (Lasix) 40 mg IVPUSH DAILY [facility] Last Admin: 12/10/18 07:37 Dose: 40 mg Azithromycin 500 mg/ Sodium (Chloride) 250 mls @ 250 mls/hr IV Q24H [facility] Last Admin: 12/09/18 19:26 Dose: 250 mls/hr Metronidazole 500 mg/ Premix 100 mls @ 100 mls/hr IV Q8H [facility] Last Admin: 12/10/18 01:01 Dose: 100 mls/hr Methylprednisolone Sodium Succinate (Solu-Medrol) 40 mg IVPUSH Q12HR [facility] Last Admin: 12/10/18 07:39 Dose: 40 mg Potassium Chloride (Klor-Con M20) 20 meq PO DAILY [facility] Last Admin: 12/10/18 07:32 Dose: 20 meq Sodium Chloride (Saline Flush) 10 ml FLUSH ASDIRECTED PRN PRN Reason: Keep Vein Open Last Admin: 12/10/18 01:02 Dose: 10 ml Discontinued Medications Budesonide (Pulmicort) 0.5 mg NEB BIDRT [facility] Last Admin: 12/09/18 08:29 Dose: 0.5 mg Iopamidol (Isovue-300 (61%)) 100 ml IVPUSH ONETIME ONE Stop: 12/08/18 08:27 Last Admin: 12/08/18 09:55 Dose: 100 ml Methylprednisolone Sodium Succinate (Solu-Medrol) 40 mg IVPUSH Q8H [facility] Last Admin: 12/07/18 18:42 Dose: 40 mg Warfarin Sodium (Coumadin) 6 mg PO DAILY@1800 [facility] Last Admin: 12/08/18 18:11 Dose: 6 mg - Exam Quality Assessment: Supplemental Oxygen General: Alert, Oriented, Cooperative, No Acute Distress HEENT: Pupils Equal, Pupils Reactive, EOMI, Mucous Membr. Moist/[place] Neck: Supple Lungs: Normal Respiratory Effort, Decreased Breath Sounds Cardiovascular: Regular Rate, Regular Rhythm GI/Abdominal Exam: Normal Bowel Sounds, Soft, Non-Tender Peripheral Pulses: 1+: Dorsalis Pedis (L), Dorsalis Pedis (R) Skin: Warm, Dry, Intact Neurological: No New Focal Deficit Psy/Mental Status: Alert, Normal Affect, Normal Mood - Problem List & Annotations (1) Pneumonia SNOMED Code(s): 277952762 Code(s): J18.9 - PNEUMONIA, UNSPECIFIED ORGANISM Status: Acute Current Visit: No Annotation/Comment:: Continue with IV antibiotics (2) COPD (chronic obstructive pulmonary disease) SNOMED Code(s): 41751220 Code(s): J44.9 - CHRONIC OBSTRUCTIVE PULMONARY DISEASE, UNSPECIFIED Status : Acute Current Visit: No Qualifiers: COPD type: COPD with acute lower respiratory infection Qualified Code(s): J44.0 - Chronic obstructive pulmonary disease with acute lower respiratory infection (3) Pulmonary nodules SNOMED Code(s): 850337641 Code(s): R91.8 - OTHER NONSPECIFIC ABNORMAL FINDING OF LUNG FIELD Status: Chronic Priority: High Current Visit: No - Problem List Review Problem List Initiated/Reviewed/Updated: Yes - Plan Plan:: Mookie Blankenship PA-C 88 yr-old male admitted IP to Dr. Rocha for acute exacerbation of COPD/ pulmonary, oxygen-dependent and pneumonia with OP therapy failure. He was seen last Wednesday for same and recommended for hospitalization but refused, he was treated with steroids and antibiotics but did see his Home Health nurse today who called me to say he has not improved. His two daughters were with him in the home as well and are here now. He normally wears his O2 at 2L/m but has increased this to 3 and still feels SOB and is hypoxic. He denies CP at any time. INR 3.0 today via Home Health. Will monitor daily. Does say was coughing a lot at home. Starting IV Metronidazole for possible aspiration component to pneumonia, as well as IV Zithromax and Fortaz. IV Solu- Medrol started at 40mg Q8H. PT-OT consults ordered for strengthening. This elderly chronically ill gentleman will require at least 96 hours of IP care to be able to return home to previous baseline level of health. He does have multiple comorbidities. One daughter has now moved into his house with him , and another one lives next door to him and has cared for him for years, and they will remain very involved in his health care. He also has Home Health services. 12/08/2018 Patient still short of breath, but some better. Chest CT scan this morning showed some new nodules in the right lobe, possible cyst on pancreatic head will need further imaging. will discuss with Dr Rocha. Discussed labs and chest CT scan findings with patient and daughter. Patient states he was seen by pulmonology years ago for possible cancer, but he cant remember what they said to him. will continue to treat with IV antibiotics and steroids. Patient having issues with swallowing and coughing, ordered speech consult. PT seeing the patient but states the patient doesnt qualify for swingbed. Recheck labs in morning. patient has lesion on left ear lobe, will need to follow this up at the clinic. Nohelia Cohen CNP 12/09/18 Aj Small MD fells better. Continue medical regiment. 12/10/2018 Patient continues with shortness of breath especially going to the bathroom. Patient was on 3 liters per nc, CO2 level increasing, will try to taper down to 2 liters today which is the patient's baseline. Patient states turning up his oxygen to 3 liters a few days prior to coming into the hospital. Discussion held with the patient and daughter in regards to the findings on the chest CT scan and pancreas. Patient is not sure if he wants to do MRI of abdomen but will talk to his daughters. Patient needing continual inpatient status for the treatment of pneumonia due to his end stage COPD and now with increasing CO2 levels. Recheck labs in the morning. Nohelia Cohen CNP
[2018-12-10] MEDS: Azithromycin 250 MG Tab PO SCH (19:37)
[2018-12-10] MEDS: Sodium Chloride 0.9% 10 ML Syringe FLUSH SCH (19:38)
[2018-12-10] MEDS: Bisacodyl 5 MG Tab PO PRN (19:43)
[2018-12-11] MEDS: metroNIDAZOLE/Normal Saline 500 MG in Premix Bag 1 BAG IV SCH ×3 (01:52→17:42)
[2018-12-11] MEDS: Sodium Chloride 0.9% 10 ML Syringe FLUSH PRN ×4 (01:53→17:51)
[2018-12-11 07:17] LABS: O2 DELIVERY DEVICE NASAL CANNULA
[2018-12-11 07:18] LABS: BASE EXCESS VENOUS 19 mmol/L ((-2)-3); BICARBONATE,VENOUS 45 mmol/L (23-28); O2 SATURATION VENOUS 73 %; PCO2 VENOUS 79 mmHG (41-51); PH,VENOUS 7.36 (7.31-7.41); PO2 VENOUS 43 mmHG
[2018-12-11] MEDS: Fluticasone Propionate Nasal Spray 16 GM Bottle NASBOTH SCH ×2 (07:25→17:44)
[2018-12-11] MEDS: Albuterol/Ipratropium 3.0-0.5 MG/3 ML Neb Soln INH SCH ×4 (07:25→19:16)
[2018-12-11] MEDS: Finasteride 5 MG Tab PO SCH (07:25)
[2018-12-11] MEDS: Aspirin 81 MG Tab.EC PO SCH (07:25)
[2018-12-11] MEDS: Sodium Chloride 0.9% 10 ML Syringe FLUSH SCH ×2 (07:27→19:16)
[2018-12-11] MEDS: Furosemide 40 MG/4 ML VIAL IVPUSH SCH (07:28)
[2018-12-11] MEDS: methylPREDNISolone Sodium Succinate 40 MG/1 ML SDV IVPUSH SCH (07:31)
[2018-12-11 07:34] LABS: CHLORIDE,CL 98 mmol/L (98-107); SODIUM,NA 141 mmol/L (136-145)
--- NOTE | 2018-12-11 09:08 | PCM.PN ---
- General Info Date of Service: 12/11/18 Admission Dx/Problem (Free Text): Admission Diagnosis/Problem Admission Diagnosis/Problem COPD, Severe chronic obstructive pulmonary disease Functional Status: Reports: Pain Controlled, Tolerating Diet, Ambulating - Review of Systems General: Reports: Weakness HEENT: Reports: No Symptoms Pulmonary: Reports: Cough, Sputum Cardiovascular: Reports: No Symptoms Gastrointestinal: Reports: No Symptoms Genitourinary: Reports: No Symptoms Musculoskeletal: Reports: No Symptoms Skin: Reports: No Symptoms Neurological: Reports: No Symptoms Psychiatric: Reports: No Symptoms - Patient Data Vitals - Most Recent: Last Vital Signs Temp 97.7 F 12/11/18 07:33 Pulse 105 H 12/11/18 07:33 Resp 17 12/11/18 07:33 BP 161/95 H 12/11/18 07:33 Pulse Ox 89 L 12/11/18 07:33 Weight - Most Recent: 152 lb 7 oz I&O - Last 24 Hours: Intake & Output 12/10/18 12/11/18 12/11/18 22:59 06:59 14:59 Intake Total 400 Output Total 400 500 Balance -400 -100 Lab Results Last 24 Hours: Laboratory Results - last 24 hr 12/11/18 12/11/18 12/11/18 Range/Units 07:10 07:10 07:10 WBC 11.0 H (4.0-10.2) K/uL RBC 4.41 (4.33-5.41) M/uL Hgb 14.1 (13.1-16.8) g/dL Hct 43.8 (39.0-49.0) % MCV 99.3 H (84.0-98.0) fL MCH 32.0 (28.2-33.3) pg MCHC 32.2 (31.7-36.0) g/dL RDW 13.1 (11.2-14.1) % Plt Count 218 (150-350) K/uL Neut % (Auto) 84.5 H (45.0-80.0) % Lymph % (Auto) 4.7 L (10.0-50.0) % Cooper % (Auto) 10.5 (2.0-14.0) % Eos % (Auto) 0.2 (0.0-5.0) % Baso % (Auto) 0.1 (0.0-2.0) % Neut # (Auto) 9.31 H (1.40-7.00) K/uL Lymph # (Auto) 0.52 (0.50-3.50) K/uL Cooper # (Auto) 1.16 H (0.00-1.00) K/uL Eos # (Auto) 0.02 (0.00-0.50) K/uL Baso # (Auto) 0.01 (0.00-0.20) K/uL PT 22.3 H (9.5-12.0) SEC INR 2.1 VBG pH (7.31-7.41) VBG pCO2 (41-51) mmHG VBG pO2 mmHG VBG HCO3 (23-28) mmol/L VBG Total CO2 mmol/L VBG O2 Saturation % VBG Base Excess ((-2)-3) mmol/L O2 Delivery Device Sodium 141 (136-145) mmol/L Potassium 4.5 (3.5-5.1) mmol/L Chloride 98 (98-107) mmol/L Carbon Dioxide 41.4 H* (21.0-32.0) mmol/L BUN 25 H (7-18) mg/dL Creatinine 0.62 (0.51-1.17) mg/dL Est Cr Clr Drug Dosing 83.64 mL/min Estimated GFR (MDRD) > 60 mL/min Glucose 176 H (74-106) mg/dL Calcium 9.0 (8.5-10.1) mg/dL Total Bilirubin 0.6 (0.2-1.0) mg/dL AST 18 (15-37) U/L ALT 32 (12-78) U/L Alkaline Phosphatase 85 (46-116) IU/L C-Reactive Protein 0.5 (<=0.9) mg/dL Total Protein 5.9 L (6.4-8.2) g/dL Albumin 3.0 L (3.4-5.0) g/dL 12/11/18 Range/Units 07:10 WBC (4.0-10.2) K/uL RBC (4.33-5.41) M/uL Hgb (13.1-16.8) g/dL Hct (39.0-49.0) % MCV (84.0-98.0) fL MCH (28.2-33.3) pg MCHC (31.7-36.0) g/dL RDW (11.2-14.1) % Plt Count (150-350) K/uL Neut % (Auto) (45.0-80.0) % Lymph % (Auto) (10.0-50.0) % Cooper % (Auto) (2.0-14.0) % Eos % (Auto) (0.0-5.0) % Baso % (Auto) (0.0-2.0) % Neut # (Auto) (1.40-7.00) K/uL Lymph # (Auto) (0.50-3.50) K/uL Cooper # (Auto) (0.00-1.00) K/uL Eos # (Auto) (0.00-0.50) K/uL Baso # (Auto) (0.00-0.20) K/uL PT (9.5-12.0) SEC INR VBG pH 7.36 (7.31-7.41) VBG pCO2 79 H (41-51) mmHG VBG pO2 43 mmHG VBG HCO3 45 H (23-28) mmol/L VBG Total CO2 47 mmol/L VBG O2 Saturation 73 % VBG Base Excess 19 H ((-2)-3) mmol/L O2 Delivery Device Nasal cannula Sodium (136-145) mmol/L Potassium (3.5-5.1) mmol/L Chloride (98-107) mmol/L Carbon Dioxide (21.0-32.0) mmol/L BUN (7-18) mg/dL Creatinine (0.51-1.17) mg/dL Est Cr Clr Drug Dosing mL/min Estimated GFR (MDRD) mL/min Glucose (74-106) mg/dL Calcium (8.5-10.1) mg/dL Total Bilirubin (0.2-1.0) mg/dL AST (15-37) U/L ALT (12-78) U/L Alkaline Phosphatase (46-116) IU/L C-Reactive Protein (<=0.9) mg/dL Total Protein (6.4-8.2) g/dL Albumin (3.4-5.0) g/dL Jarret Results Last 24 Hours: Microbiology 12/07/18 17:10 Aerobic Blood Culture - Preliminary Blood - Venous - Lab Draw NO GROWTH AFTER 3 DAYS Anaerobic Blood Culture - Preliminary NO GROWTH AFTER 3 DAYS 12/07/18 17:00 Aerobic Blood Culture - Preliminary Blood - Venous NO GROWTH AFTER 3 DAYS Anaerobic Blood Culture - Preliminary NO GROWTH AFTER 3 DAYS 12/07/18 16:42 Gram Stain - Final Sputum - Expectorated Sputum Culture - Preliminary (Mrsa) Staphylococcus Aureus Gram Negative Rods Med Orders - Current: Current Medications Albuterol/Ipratropium (Duoneb 3.0-0.5 Mg/3 Ml) 3 ml INH QID [facility] Last Admin: 12/11/18 07:25 Dose: 3 ml Albuterol/Ipratropium (Duoneb 3.0-0.5 Mg/3 Ml) 3 ml NEB Q4HRRT PRN PRN Reason: Shortness of Breath Last Admin: 12/08/18 05:34 Dose: 3 ml Aspirin (Halfprin) 81 mg PO DAILY [facility] Last Admin: 12/11/18 07:25 Dose: 81 mg Azithromycin (Zithromax) 500 mg PO DAILY@1900 [facility] Last Admin: 12/10/18 19:37 Dose: 500 mg Benzonatate (Tessalon Perles) 200 mg PO TID PRN PRN Reason: Cough Bisacodyl (Dulcolax) 10 mg PO BEDTIME PRN PRN Reason: Constipation Last Admin: 12/10/18 19:43 Dose: 10 mg Finasteride (Proscar) 5 mg PO DAILY [facility] Last Admin: 12/11/18 07:25 Dose: 5 mg Fluticasone Propionate (Flonase) 0 gm NASBOTH BID [facility] Last Admin: 12/11/18 07:25 Dose: 1 spray Furosemide (Lasix) 40 mg IVPUSH DAILY [facility] Last Admin: 12/11/18 07:28 Dose: 40 mg Metronidazole 500 mg/ Premix 100 mls @ 100 mls/hr IV Q8H [facility] Last Admin: 12/11/18 01:52 Dose: 100 mls/hr Vancomycin HCl 1 gm/ Sodium (Chloride) 250 mls @ 165 mls/hr IV Q24H [facility] Last Admin: 12/10/18 13:19 Dose: 165 mls/hr Methylprednisolone Sodium Succinate (Solu-Medrol) 40 mg IVPUSH DAILY [facility] Last Admin: 12/11/18 07:31 Dose: 40 mg Sodium Chloride (Saline Flush) 10 ml FLUSH ASDIRECTED PRN PRN Reason: Keep Vein Open Last Admin: 12/11/18 07:32 Dose: 10 ml Sodium Chloride (Saline Flush) 10 ml FLUSH Q12HR [facility] Last Admin: 12/11/18 07:27 Dose: 10 ml Vancomycin HCl (Pharmacy To Dose - Vancomycin) 1 dose .XX ASDIRECTED [facility] Discontinued Medications Budesonide (Pulmicort) 0.5 mg NEB BIDRT [facility] Last Admin: 12/09/18 08:29 Dose: 0.5 mg Ceftazidime (Fortaz) 1 gm IVPUSH Q8HR [facility] Last Admin: 12/10/18 07:34 Dose: 1 gm Azithromycin 500 mg/ Sodium (Chloride) 250 mls @ 250 mls/hr IV Q24H [facility] Last Admin: 12/09/18 19:26 Dose: 250 mls/hr Iopamidol (Isovue-300 (61%)) 100 ml IVPUSH ONETIME ONE Stop: 12/08/18 08:27 Last Admin: 12/08/18 09:55 Dose: 100 ml Methylprednisolone Sodium Succinate (Solu-Medrol) 40 mg IVPUSH Q8H [facility] Last Admin: 12/07/18 18:42 Dose: 40 mg Methylprednisolone Sodium Succinate (Solu-Medrol) 40 mg IVPUSH Q12HR [facility] Last Admin: 12/10/18 07:39 Dose: 40 mg Pharmacy Consult (Consult To Pharmacy) 1 each .XX ASDIRECTED [facility] Potassium Chloride (Klor-Con M20) 20 meq PO DAILY [facility] Last Admin: 12/10/18 07:32 Dose: 20 meq Warfarin Sodium (Coumadin) 6 mg PO DAILY@1800 [facility] Last Admin: 12/08/18 18:11 Dose: 6 mg - Exam Quality Assessment: Supplemental Oxygen General: Alert, Oriented, Cooperative, No Acute Distress HEENT: Pupils Equal, Pupils Reactive, EOMI, Mucous Membr. Moist/[place] Neck: Supple, Trachea Midline Lungs: Normal Respiratory Effort, Decreased Breath Sounds, Crackles (crackles throughout lung marquez with expiratory wheezes noted to upper lobes) GI/Abdominal Exam: Normal Bowel Sounds Peripheral Pulses: 1+: Dorsalis Pedis (L), Dorsalis Pedis (R) Skin: Warm, Dry, Intact Neurological: No New Focal Deficit Psy/Mental Status: Alert, Normal Affect, Normal Mood - Problem List & Annotations (1) Pneumonia SNOMED Code(s): 486336918 Code(s): J18.9 - PNEUMONIA, UNSPECIFIED ORGANISM Status: Acute Current Visit: No Annotation/Comment:: Continue with IV antibiotics, pnuemonia due to MRSA. Antibiotics changed to IV vanco (2) COPD (chronic obstructive pulmonary disease) SNOMED Code(s): 85343913 Code(s): J44.9 - CHRONIC OBSTRUCTIVE PULMONARY DISEASE, UNSPECIFIED Status : Acute Current Visit: No Qualifiers: COPD type: COPD with acute lower respiratory infection Qualified Code(s): J44.0 - Chronic obstructive pulmonary disease with acute lower respiratory infection (3) Pulmonary nodules SNOMED Code(s): 099420545 Code(s): R91.8 - OTHER NONSPECIFIC ABNORMAL FINDING OF LUNG FIELD Status: Chronic Priority: High Current Visit: No - Problem List Review Problem List Initiated/Reviewed/Updated: Yes - My Orders Last 24 Hours: My Active Orders 12/10/18 19:00 Azithromycin [Zithromax] 500 mg PO DAILY@1900 - Plan Plan:: Mookie Blankenship PA-C 88 yr-old male admitted IP to Dr. Rocha for acute exacerbation of COPD/ pulmonary, oxygen-dependent and pneumonia with OP therapy failure. He was seen last Wednesday for same and recommended for hospitalization but refused, he was treated with steroids and antibiotics but did see his Home Health nurse today who called me to say he has not improved. His two daughters were with him in the home as well and are here now. He normally wears his O2 at 2L/m but has increased this to 3 and still feels SOB and is hypoxic. He denies CP at any time. INR 3.0 today via Home Health. Will monitor daily. Does say was coughing a lot at home. Starting IV Metronidazole for possible aspiration component to pneumonia, as well as IV Zithromax and Fortaz. IV Solu- Medrol started at 40mg Q8H. PT-OT consults ordered for strengthening. This elderly chronically ill gentleman will require at least 96 hours of IP care to be able to return home to previous baseline level of health. He does have multiple comorbidities. One daughter has now moved into his house with him , and another one lives next door to him and has cared for him for years, and they will remain very involved in his health care. He also has Home Health services. 12/08/2018 Patient still short of breath, but some better. Chest CT scan this morning showed some new nodules in the right lobe, possible cyst on pancreatic head will need further imaging. will discuss with Dr Rocha. Discussed labs and chest CT scan findings with patient and daughter. Patient states he was seen by pulmonology years ago for possible cancer, but he cant remember what they said to him. will continue to treat with IV antibiotics and steroids. Patient having issues with swallowing and coughing, ordered speech consult. PT seeing the patient but states the patient doesnt qualify for swingbed. Recheck labs in morning. patient has lesion on left ear lobe, will need to follow this up at the clinic. Nohelia Cohen CNP 12/09/18 Aj Small MD fells better. Continue medical regiment. 12/10/2018 Patient continues with shortness of breath especially going to the bathroom. Patient was on 3 liters per nc, CO2 level increasing, will try to taper down to 2 liters today which is the patient's baseline. Patient states turning up his oxygen to 3 liters a few days prior to coming into the hospital. Discussion held with the patient and daughter in regards to the findings on the chest CT scan and pancreas. Patient is not sure if he wants to do MRI of abdomen but will talk to his daughters. Patient needing continual inpatient status for the treatment of pneumonia due to his end stage COPD and now with increasing CO2 levels. Recheck labs in the morning. Nohelia Cohen CNP 12/11/2018 Some shortness of breath with activity, CO2 continues to rise. Oxygen as 2 liters per nasal cannula, patient alert and oriented. Culture final obtained yesterday which showed MRSA. antibiotics changed and patient started on IV Vanco. Discussed with patient and family the plan of care, patient is needing further inpatient stay due to change in antibiotics and his complexity increases due to his age and COPD with increasing CO2 levels. Will consult with Dr Rocha. Start percussion to see if that would help for the patient to cough up sputum, his daughter would do this at home with improvement. Patient is refusing to go to [place]. Nohelia Cohen CNP
[2018-12-11] MEDS: guaiFENesin 600 MG Tab.ER PO SCH (17:41)
[2018-12-11] MEDS: Azithromycin 250 MG Tab PO SCH (19:15)
[2018-12-11] MEDS: Bisacodyl 5 MG Tab PO SCH (19:16)
[2018-12-11] MEDS ORDERED: Warfarin 2 MG Tab PO ONE (21:04)
[2018-12-12] MEDS: Sodium Chloride 0.9% 10 ML Syringe FLUSH PRN ×4 (01:48→17:29)
[2018-12-12] MEDS: metroNIDAZOLE/Normal Saline 500 MG in Premix Bag 1 BAG IV SCH ×3 (01:48→17:28)
[2018-12-12 07:01] LABS: O2 DELIVERY DEVICE NASAL CANNULA
[2018-12-12 07:05] LABS: BASE EXCESS VENOUS 19 mmol/L ((-2)-3); BICARBONATE,VENOUS 44 mmol/L (23-28); O2 SATURATION VENOUS 65 %; PCO2 VENOUS 83 mmHG (41-51); PH,VENOUS 7.34 (7.31-7.41); PO2 VENOUS 38 mmHG
[2018-12-12] MEDS: guaiFENesin 600 MG Tab.ER PO SCH ×2 (07:35→17:28)
[2018-12-12] MEDS: Furosemide 40 MG/4 ML VIAL IVPUSH SCH (07:36)
[2018-12-12] MEDS: Finasteride 5 MG Tab PO SCH (07:36)
[2018-12-12] MEDS: Albuterol/Ipratropium 3.0-0.5 MG/3 ML Neb Soln INH SCH ×4 (07:36→20:01)
[2018-12-12] MEDS: Aspirin 81 MG Tab.EC PO SCH (07:36)
[2018-12-12] MEDS: methylPREDNISolone Sodium Succinate 40 MG/1 ML SDV IVPUSH SCH (07:36)
[2018-12-12] MEDS: Fluticasone Propionate Nasal Spray 16 GM Bottle NASBOTH SCH ×2 (07:36→17:36)
[2018-12-12] MEDS: Sodium Chloride 0.9% 10 ML Syringe FLUSH SCH ×2 (07:37→20:02)
[2018-12-12 07:55] LABS: CHLORIDE,CL 100 mmol/L (98-107); SODIUM,NA 142 mmol/L (136-145)
[2018-12-12] MEDS ORDERED: Warfarin 2 MG Tab PO SCH (18:00)
[2018-12-12] MEDS: Bisacodyl 5 MG Tab PO SCH (20:00)
[2018-12-12] MEDS: Azithromycin 250 MG Tab PO SCH (20:00)
--- NOTE | 2018-12-13 00:19 | PCM.PN ---
- General Info Date of Service: 12/12/18 Admission Dx/Problem (Free Text): Admission Diagnosis/Problem Admission Diagnosis/Problem COPD, Severe chronic obstructive pulmonary disease Functional Status: Reports: Ambulating - Review of Systems General: Reports: Other (still with deep cough) HEENT: Reports: No Symptoms Pulmonary: Reports: Shortness of Breath, Cough, Sputum Cardiovascular: Reports: No Symptoms Gastrointestinal: Reports: No Symptoms Genitourinary: Reports: No Symptoms Musculoskeletal: Reports: No Symptoms Skin: Reports: No Symptoms Neurological: Reports: Weakness Psychiatric: Reports: No Symptoms - Patient Data Vitals - Most Recent: Last Vital Signs Temp 97.9 F 12/12/18 20:00 Pulse 110 H 12/12/18 20:00 Resp 24 H 12/12/18 20:00 BP 157/81 H 12/12/18 20:00 Pulse Ox 95 12/12/18 20:00 Weight - Most Recent: 152 lb 1.6 oz I&O - Last 24 Hours: Intake & Output 12/12/18 12/12/18 12/13/18 14:59 22:59 06:59 Intake Total 1380 340 300 Output Total 450 450 Balance 930 -110 300 Lab Results Last 24 Hours: Laboratory Results - last 24 hr 12/12/18 12/12/18 12/12/18 Range/Units 06:55 06:55 06:55 WBC 9.2 (4.0-10.2) K/uL RBC 4.44 (4.33-5.41) M/uL Hgb 14.0 (13.1-16.8) g/dL Hct 44.2 (39.0-49.0) % MCV 99.5 H (84.0-98.0) fL MCH 31.5 (28.2-33.3) pg MCHC 31.7 (31.7-36.0) g/dL RDW 13.0 (11.2-14.1) % Plt Count 220 (150-350) K/uL Neut % (Auto) 81.4 H (45.0-80.0) % Lymph % (Auto) 5.0 L (10.0-50.0) % [place] % (Auto) 13.2 (2.0-14.0) % Eos % (Auto) 0.3 (0.0-5.0) % Baso % (Auto) 0.1 (0.0-2.0) % Neut # (Auto) 7.44 H (1.40-7.00) K/uL Lymph # (Auto) 0.46 L (0.50-3.50) K/uL Frederick # (Auto) 1.21 H (0.00-1.00) K/uL Eos # (Auto) 0.03 (0.00-0.50) K/uL Baso # (Auto) 0.01 (0.00-0.20) K/uL PT 16.1 H (9.5-12.0) SEC INR 1.5 VBG pH (7.31-7.41) VBG pCO2 (41-51) mmHG VBG pO2 mmHG VBG HCO3 (23-28) mmol/L VBG Total CO2 mmol/L VBG O2 Saturation % VBG Base Excess ((-2)-3) mmol/L O2 Delivery Device Sodium 142 (136-145) mmol/L Potassium 4.8 (3.5-5.1) mmol/L Chloride 100 (98-107) mmol/L Carbon Dioxide 42.9 H* (21.0-32.0) mmol/L BUN 22 H (7-18) mg/dL Creatinine 0.60 (0.51-1.17) mg/dL Est Cr Clr Drug Dosing 86.24 mL/min Estimated GFR (MDRD) > 60 mL/min Glucose 180 H (74-106) mg/dL Calcium 8.7 (8.5-10.1) mg/dL Total Bilirubin 0.5 (0.2-1.0) mg/dL AST 17 (15-37) U/L ALT 29 (12-78) U/L Alkaline Phosphatase 82 (46-116) IU/L C-Reactive Protein < 0.1 (<=0.9) mg/dL Total Protein 5.7 L (6.4-8.2) g/dL Albumin 2.9 L (3.4-5.0) g/dL Vitamin B12 683 (193-986) pg/mL Folate (8.6-58.9) ng/mL 12/12/18 12/12/18 Range/Units 06:55 06:55 WBC (4.0-10.2) K/uL RBC (4.33-5.41) M/uL Hgb (13.1-16.8) g/dL Hct (39.0-49.0) % MCV (84.0-98.0) fL MCH (28.2-33.3) pg MCHC (31.7-36.0) g/dL RDW (11.2-14.1) % Plt Count (150-350) K/uL Neut % (Auto) (45.0-80.0) % Lymph % (Auto) (10.0-50.0) % Frederick % (Auto) (2.0-14.0) % Eos % (Auto) (0.0-5.0) % Baso % (Auto) (0.0-2.0) % Neut # (Auto) (1.40-7.00) K/uL Lymph # (Auto) (0.50-3.50) K/uL Frederick # (Auto) (0.00-1.00) K/uL Eos # (Auto) (0.00-0.50) K/uL Baso # (Auto) (0.00-0.20) K/uL PT (9.5-12.0) SEC INR VBG pH 7.34 (7.31-7.41) VBG pCO2 83 H (41-51) mmHG VBG pO2 38 mmHG VBG HCO3 44 H (23-28) mmol/L VBG Total CO2 47 mmol/L VBG O2 Saturation 65 % VBG Base Excess 19 H ((-2)-3) mmol/L O2 Delivery Device Nasal cannula Sodium (136-145) mmol/L Potassium (3.5-5.1) mmol/L Chloride (98-107) mmol/L Carbon Dioxide (21.0-32.0) mmol/L BUN (7-18) mg/dL Creatinine (0.51-1.17) mg/dL Est Cr Clr Drug Dosing mL/min Estimated GFR (MDRD) mL/min Glucose (74-106) mg/dL Calcium (8.5-10.1) mg/dL Total Bilirubin (0.2-1.0) mg/dL AST (15-37) U/L ALT (12-78) U/L Alkaline Phosphatase (46-116) IU/L C-Reactive Protein (<=0.9) mg/dL Total Protein (6.4-8.2) g/dL Albumin (3.4-5.0) g/dL Vitamin B12 (193-986) pg/mL Folate 10.9 (8.6-58.9) ng/mL Jarret Results Last 24 Hours: Microbiology 12/07/18 17:10 Aerobic Blood Culture - Final Blood - Venous - Lab Draw NO GROWTH AFTER 5 DAYS Anaerobic Blood Culture - Final NO GROWTH AFTER 5 DAYS 12/07/18 17:00 Aerobic Blood Culture - Final Blood - Venous NO GROWTH AFTER 5 DAYS Anaerobic Blood Culture - Final NO GROWTH AFTER 5 DAYS 12/07/18 16:42 Bacterial Identification - Preliminary Sputum - Expectorated Gram Negative Rods Med Orders - Current: Current Medications Albuterol/Ipratropium (Duoneb 3.0-0.5 Mg/3 Ml) 3 ml INH QID [facility] Last Admin: 12/12/18 20:01 Dose: 3 ml Albuterol/Ipratropium (Duoneb 3.0-0.5 Mg/3 Ml) 3 ml NEB Q4HRRT PRN PRN Reason: Shortness of Breath Last Admin: 12/08/18 05:34 Dose: 3 ml Aspirin (Halfprin) 81 mg PO DAILY [facility] Last Admin: 12/12/18 07:36 Dose: 81 mg Azithromycin (Zithromax) 500 mg PO DAILY@1900 [facility] Last Admin: 12/12/18 20:00 Dose: 500 mg Benzonatate (Tessalon Perles) 200 mg PO TID PRN PRN Reason: Cough Bisacodyl (Dulcolax) 10 mg PO BEDTIME [facility] Last Admin: 12/12/18 20:00 Dose: 10 mg Finasteride (Proscar) 5 mg PO DAILY [facility] Last Admin: 12/12/18 07:36 Dose: 5 mg Fluticasone Propionate (Flonase) 0 gm NASBOTH BID [facility] Last Admin: 12/12/18 17:36 Dose: 1 spray Furosemide (Lasix) 40 mg IVPUSH DAILY [facility] Last Admin: 12/12/18 07:36 Dose: 40 mg Guaifenesin (Mucinex) 600 mg PO BID [facility] Last Admin: 12/12/18 17:28 Dose: 600 mg Metronidazole 500 mg/ Premix 100 mls @ 100 mls/hr IV Q8H [facility] Last Admin: 12/12/18 17:28 Dose: 100 mls/hr Vancomycin HCl 1 gm/ Sodium (Chloride) 250 mls @ 165 mls/hr IV Q24H [facility] Last Admin: 12/12/18 13:28 Dose: 165 mls/hr Methylprednisolone Sodium Succinate (Solu-Medrol) 40 mg IVPUSH DAILY [facility] Last Admin: 12/12/18 07:36 Dose: 40 mg Sodium Chloride (Saline Flush) 10 ml FLUSH ASDIRECTED PRN PRN Reason: Keep Vein Open Last Admin: 12/12/18 17:29 Dose: 10 ml Sodium Chloride (Saline Flush) 10 ml FLUSH Q12HR [facility] Last Admin: 12/12/18 20:02 Dose: 10 ml Vancomycin HCl (Pharmacy To Dose - Vancomycin) 1 dose .XX ASDIRECTED [facility] Warfarin Sodium (Coumadin) 6 mg PO DAILY@1800 [facility] Last Admin: 12/12/18 17:28 Dose: 6 mg Discontinued Medications Bisacodyl (Dulcolax) 10 mg PO BEDTIME PRN PRN Reason: Constipation Last Admin: 12/10/18 19:43 Dose: 10 mg Budesonide (Pulmicort) 0.5 mg NEB BIDRT [facility] Last Admin: 12/09/18 08:29 Dose: 0.5 mg Ceftazidime (Fortaz) 1 gm IVPUSH Q8HR [facility] Last Admin: 12/10/18 07:34 Dose: 1 gm Azithromycin 500 mg/ Sodium (Chloride) 250 mls @ 250 mls/hr IV Q24H [facility] Last Admin: 12/09/18 19:26 Dose: 250 mls/hr Iopamidol (Isovue-300 (61%)) 100 ml IVPUSH ONETIME ONE Stop: 12/08/18 08:27 Last Admin: 12/08/18 09:55 Dose: 100 ml Methylprednisolone Sodium Succinate (Solu-Medrol) 40 mg IVPUSH Q8H [facility] Last Admin: 12/07/18 18:42 Dose: 40 mg Methylprednisolone Sodium Succinate (Solu-Medrol) 40 mg IVPUSH Q12HR [facility] Last Admin: 12/10/18 07:39 Dose: 40 mg Pharmacy Consult (Consult To Pharmacy) 1 each .XX ASDIRECTED [facility] Potassium Chloride (Klor-Con M20) 20 meq PO DAILY [facility] Last Admin: 12/10/18 07:32 Dose: 20 meq Warfarin Sodium (Coumadin) 6 mg PO DAILY@1800 [facility] Last Admin: 12/08/18 18:11 Dose: 6 mg Warfarin Sodium (Coumadin) 6 mg PO ONETIME ONE Stop: 12/11/18 21:05 Last Admin: 12/11/18 21:45 Dose: 6 mg - Exam Quality Assessment: Supplemental Oxygen, DVT Prophylaxis (on coumadin) General: Alert, Cooperative HEENT: Mucous Membr. Moist/[place] Neck: Trachea Midline, No JVD Lungs: Normal Respiratory Effort, Decreased Breath Sounds Cardiovascular: Regular Rate, Regular Rhythm GI/Abdominal Exam: Non-Tender (Male) Exam: Deferred Back Exam: Normal Inspection Extremities: Non-Tender Skin: Warm, Dry, Intact Neurological: No New Focal Deficit Psy/Mental Status: Alert, Normal Affect, Normal Mood - Problem List & Annotations (1) MRSA (methicillin resistant staphylococcus aureus) pneumonia SNOMED Code(s): 130861291561049 Code(s): J15.212 - PNEUMONIA DUE TO METHICILLIN RESISTANT STAPHYLOCOCCUS AUREUS Status: Acute Priority: High Current Visit: Yes Qualifiers: Laterality: bilateral Lung location: lower lobe of lung Qualified Code(s) : J15.212 - Pneumonia due to Methicillin resistant Staphylococcus aureus (2) Pulmonary fibrosis SNOMED Code(s): 53579055 Code(s): J84.10 - PULMONARY FIBROSIS, UNSPECIFIED Status: Chronic Priority: High Current Visit: Yes Annotation/Comment:: 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, oxygen-dependent (3) Comfort measures only status SNOMED Code(s): 32069060596782 Code(s): Z51.5 - ENCOUNTER FOR PALLIATIVE CARE Status: Chronic Priority: Medium Current Visit: Yes (4) CHF (congestive heart failure) SNOMED Code(s): 95601642 Code(s): I50.9 - HEART FAILURE, UNSPECIFIED Status: Acute Current Visit: No Qualifiers: Qualified Code(s): I50.9 - Heart failure, unspecified (5) COPD (chronic obstructive pulmonary disease) SNOMED Code(s): 35230254 Code(s): J44.9 - CHRONIC OBSTRUCTIVE PULMONARY DISEASE, UNSPECIFIED Status : Acute Current Visit: No Qualifiers: COPD type: COPD with acute lower respiratory infection Qualified Code(s): J44.0 - Chronic obstructive pulmonary disease with acute lower respiratory infection (6) Osteoarthritis SNOMED Code(s): 534118096 Code(s): M19.90 - UNSPECIFIED OSTEOARTHRITIS, UNSPECIFIED SITE Status: Acute Current Visit: No Qualifiers: Osteoarthritis location: multiple joints Osteoarthritis type: primary Qualified Code(s): M15.0 - Primary generalized (osteo)arthritis (7) Weakness generalized SNOMED Code(s): 61738997 Code(s): R53.1 - WEAKNESS Status: Acute Current Visit: No (8) Heart disease SNOMED Code(s): 68382315 Code(s): I51.9 - HEART DISEASE, UNSPECIFIED Status: Chronic Priority: High Current Visit: No Onset Date: 06/04/15 (9) Peptic reflux disease SNOMED Code(s): 056028072 Code(s): K21.9 - GASTRO-ESOPHAGEAL REFLUX DISEASE WITHOUT ESOPHAGITIS Status: Chronic Priority: High Current Visit: No Onset Date: 06/04/15 (10) Pulmonary nodules SNOMED Code(s): 450161635 Code(s): R91.8 - OTHER NONSPECIFIC ABNORMAL FINDING OF LUNG FIELD Status: Chronic Priority: High Current Visit: No (11) Cyst of pancreas SNOMED Code(s): 29369255 Code(s): K86.2 - CYST OF PANCREAS Status: Acute Priority: Medium Current Visit: Yes (12) Metabolic alkalosis with respiratory acidosis SNOMED Code(s): 155146042 Code(s): E87.4 - MIXED DISORDER OF ACID-BASE BALANCE Status: Acute Priority: High Current Visit: Yes (13) Compensated respiratory acidosis SNOMED Code(s): 92397735 Code(s): E87.2 - ACIDOSIS Status: Acute Priority: High Current Visit: Yes (14) Compensated metabolic alkalosis SNOMED Code(s): 5759391 Code(s): E87.3 - ALKALOSIS Status: Acute Priority: High Current Visit: Yes - Problem List Review Problem List Initiated/Reviewed/Updated: Yes - My Orders Last 24 Hours: My Active Orders 12/12/18 18:00 Warfarin [Coumadin] 6 mg PO DAILY@1800 - Plan Plan:: Mookie Blankenship PA-C 88 yr-old male admitted IP to Dr. Rocha for acute exacerbation of COPD/ pulmonary, oxygen-dependent and pneumonia with OP therapy failure. He was seen last Wednesday for same and recommended for hospitalization but refused, he was treated with steroids and antibiotics but did see his Home Health nurse today who called me to say he has not improved. His two daughters were with him in the home as well and are here now. He normally wears his O2 at 2L/m but has increased this to 3 and still feels SOB and is hypoxic. He denies CP at any time. INR 3.0 today via Home Health. Will monitor daily. Does say was coughing a lot at home. Starting IV Metronidazole for possible aspiration component to pneumonia, as well as IV Zithromax and Fortaz. IV Solu- Medrol started at 40mg Q8H. PT-OT consults ordered for strengthening. This elderly chronically ill gentleman will require at least 96 hours of IP care to be able to return home to previous baseline level of health. He does have multiple comorbidities. One daughter has now moved into his house with him , and another one lives next door to him and has cared for him for years, and they will remain very involved in his health care. He also has Home Health services. 12/08/2018 Patient still short of breath, but some better. Chest CT scan this morning showed some new nodules in the right lobe, possible cyst on pancreatic head will need further imaging. will discuss with Dr Rocha. Discussed labs and chest CT scan findings with patient and daughter. Patient states he was seen by pulmonology years ago for possible cancer, but he cant remember what they said to him. will continue to treat with IV antibiotics and steroids. Patient having issues with swallowing and coughing, ordered speech consult. PT seeing the patient but states the patient doesnt qualify for swingbed. Recheck labs in morning. patient has lesion on left ear lobe, will need to follow this up at the clinic. Nohelia Cohen,SHANA 12/09/18 Aj Small MD fells better. Continue medical regiment. 12/10/2018 Patient continues with shortness of breath especially going to the bathroom. Patient was on 3 liters per nc, CO2 level increasing, will try to taper down to 2 liters today which is the patient's baseline. Patient states turning up his oxygen to 3 liters a few days prior to coming into the hospital. Discussion held with the patient and daughter in regards to the findings on the chest CT scan and pancreas. Patient is not sure if he wants to do MRI of abdomen but will talk to his daughters. Patient needing continual inpatient status for the treatment of pneumonia due to his end stage COPD and now with increasing CO2 levels. Recheck labs in the morning. Nohelia Cohen CNP 12/11/2018 Some shortness of breath with activity, CO2 continues to rise. Oxygen as 2 liters per nasal cannula, patient alert and oriented. Culture final obtained yesterday which showed MRSA. antibiotics changed and patient started on IV Vanco. Discussed with patient and family the plan of care, patient is needing further inpatient stay due to change in antibiotics and his complexity increases due to his age and COPD with increasing CO2 levels. Will consult with Dr Rocha. Start percussion to see if that would help for the patient to cough up sputum, his daughter would do this at home with improvement. Patient is refusing to go to [facility]. Nohelia Cohen CNP 12/12/18 late entry Aj Small MD Still with cough. MRSA pneumonia. He needs to continue IV vancomycin. Also sputum culture showing gram negative rods which are not identified and mycoplasma is still pending. He may need another adjustment in his antibiotics. CO2 retention. Respiratory acidosis with compensating metabolic alkalosis. Cough is looser on current medical regiment and chest percussion. Aspiration is an issue so he is requiring speech therapy. He needs to continue IV metronidazole. Video swallow ordered. CT confirms severe panlobilar emphysema. He is requiring continued inpatient status for continued complexity of medical illness, IV antibiotics, IV solumedrol and speech therapy.
[2018-12-13] MEDS: Sodium Chloride 0.9% 10 ML Syringe FLUSH PRN (01:31)
[2018-12-13] MEDS: metroNIDAZOLE/Normal Saline 500 MG in Premix Bag 1 BAG IV SCH ×2 (01:31→09:18)
[2018-12-13] MEDS: Finasteride 5 MG Tab PO SCH (07:35)
[2018-12-13] MEDS: Furosemide 40 MG/4 ML VIAL IVPUSH SCH (07:35)
[2018-12-13] MEDS: methylPREDNISolone Sodium Succinate 40 MG/1 ML SDV IVPUSH SCH (07:35)
[2018-12-13] MEDS: Albuterol/Ipratropium 3.0-0.5 MG/3 ML Neb Soln INH SCH ×2 (07:36→12:07)
[2018-12-13] MEDS: Sodium Chloride 0.9% 10 ML Syringe FLUSH SCH (07:36)
[2018-12-13] MEDS: Aspirin 81 MG Tab.EC PO SCH (07:36)
[2018-12-13] MEDS: Fluticasone Propionate Nasal Spray 16 GM Bottle NASBOTH SCH (07:36)
[2018-12-13] MEDS: guaiFENesin 600 MG Tab.ER PO SCH (07:36)
[2018-12-13 11:51] VITALS: BP 145/80
--- NOTE | 2018-12-13 23:29 | PCM.PN ---
- General Info Date of Service: 12/13/18 Admission Dx/Problem (Free Text): Admission Diagnosis/Problem Admission Diagnosis/Problem COPD, Severe chronic obstructive pulmonary disease Functional Status: Reports: Pain Controlled - Review of Systems General: Reports: Weakness HEENT: Reports: No Symptoms Pulmonary: Reports: Shortness of Breath, Cough, Sputum Cardiovascular: Reports: No Symptoms Gastrointestinal: Reports: No Symptoms Genitourinary: Reports: No Symptoms Musculoskeletal: Reports: No Symptoms Skin: Reports: No Symptoms Neurological: Reports: Weakness Psychiatric: Reports: No Symptoms - Patient Data Vitals - Most Recent: Last Vital Signs Temp 96.9 F 12/13/18 11:49 Pulse 104 H 12/13/18 11:49 Resp 22 H 12/13/18 11:49 BP 145/80 H 12/13/18 11:49 Pulse Ox 94 L 12/13/18 11:49 Weight - Most Recent: 154 lb 12.8 oz I&O - Last 24 Hours: Intake & Output 12/13/18 12/13/18 12/14/18 14:59 22:59 06:59 Intake Total 780 Output Total 725 Balance 55 Lab Results Last 24 Hours: Laboratory Results - last 24 hr 12/13/18 12/13/18 12/13/18 Range/Units 12:26 12:26 12:26 ESR 0 (0-30) mm/hr PT 18.7 H (9.5-12.0) SEC INR 1.7 Vancomycin Trough 4.8 L (10-20) ug/mL Jarret Results Last 24 Hours: Microbiology 12/10/18 07:10 Mycoplasma Serology - Final Blood Med Orders - Current: Current Medications Discontinued Medications Albuterol/Ipratropium (Duoneb 3.0-0.5 Mg/3 Ml) 3 ml INH QID [facility] Last Admin: 12/13/18 12:07 Dose: 3 ml Albuterol/Ipratropium (Duoneb 3.0-0.5 Mg/3 Ml) 3 ml NEB Q4HRRT PRN PRN Reason: Shortness of Breath Last Admin: 12/08/18 05:34 Dose: 3 ml Aspirin (Halfprin) 81 mg PO DAILY [facility] Last Admin: 12/13/18 07:36 Dose: 81 mg Azithromycin (Zithromax) 500 mg PO DAILY@1900 [facility] Last Admin: 12/12/18 20:00 Dose: 500 mg Benzonatate (Tessalon Perles) 200 mg PO TID PRN PRN Reason: Cough Bisacodyl (Dulcolax) 10 mg PO BEDTIME PRN PRN Reason: Constipation Last Admin: 12/10/18 19:43 Dose: 10 mg Bisacodyl (Dulcolax) 10 mg PO BEDTIME [facility] Last Admin: 12/12/18 20:00 Dose: 10 mg Budesonide (Pulmicort) 0.5 mg NEB BIDRT [facility] Last Admin: 12/09/18 08:29 Dose: 0.5 mg Ceftazidime (Fortaz) 1 gm IVPUSH Q8HR [facility] Last Admin: 12/10/18 07:34 Dose: 1 gm Finasteride (Proscar) 5 mg PO DAILY [facility] Last Admin: 12/13/18 07:35 Dose: 5 mg Fluticasone Propionate (Flonase) 0 gm NASBOTH BID [facility] Last Admin: 12/13/18 07:36 Dose: 1 spray Furosemide (Lasix) 40 mg IVPUSH DAILY [facility] Last Admin: 12/13/18 07:35 Dose: 40 mg Guaifenesin (Mucinex) 600 mg PO BID [facility] Last Admin: 12/13/18 07:36 Dose: 600 mg Azithromycin 500 mg/ Sodium (Chloride) 250 mls @ 250 mls/hr IV Q24H [facility] Last Admin: 12/09/18 19:26 Dose: 250 mls/hr Metronidazole 500 mg/ Premix 100 mls @ 100 mls/hr IV Q8H [facility] Last Admin: 12/13/18 09:18 Dose: 100 mls/hr Vancomycin HCl 1 gm/ Sodium (Chloride) 250 mls @ 165 mls/hr IV Q24H [facility] Last Admin: 12/12/18 13:28 Dose: 165 mls/hr Vancomycin HCl 1.5 gm/ Sodium (Chloride) 250 mls @ 170 mls/hr IV Q24H [facility] Last Admin: 12/13/18 13:49 Dose: 170 mls/hr Iopamidol (Isovue-300 (61%)) 100 ml IVPUSH ONETIME ONE Stop: 12/08/18 08:27 Last Admin: 12/08/18 09:55 Dose: 100 ml Methylprednisolone Sodium Succinate (Solu-Medrol) 40 mg IVPUSH Q8H [facility] Last Admin: 12/07/18 18:42 Dose: 40 mg Methylprednisolone Sodium Succinate (Solu-Medrol) 40 mg IVPUSH Q12HR [facility] Last Admin: 12/10/18 07:39 Dose: 40 mg Methylprednisolone Sodium Succinate (Solu-Medrol) 40 mg IVPUSH DAILY [facility] Last Admin: 12/13/18 07:35 Dose: 40 mg Pharmacy Consult (Consult To Pharmacy) 1 each .XX ASDIRECTED [facility] Potassium Chloride (Klor-Con M20) 20 meq PO DAILY [facility] Last Admin: 12/10/18 07:32 Dose: 20 meq Sodium Chloride (Saline Flush) 10 ml FLUSH ASDIRECTED PRN PRN Reason: Keep Vein Open Last Admin: 12/13/18 01:31 Dose: 10 ml Sodium Chloride (Saline Flush) 10 ml FLUSH Q12HR [facility] Last Admin: 12/13/18 07:36 Dose: 10 ml Vancomycin HCl (Pharmacy To Dose - Vancomycin) 1 dose .XX ASDIRECTED [facility] Warfarin Sodium (Coumadin) 6 mg PO DAILY@1800 [facility] Last Admin: 12/08/18 18:11 Dose: 6 mg Warfarin Sodium (Coumadin) 6 mg PO ONETIME ONE Stop: 12/11/18 21:05 Last Admin: 12/11/18 21:45 Dose: 6 mg Warfarin Sodium (Coumadin) 6 mg PO DAILY@1800 [facility] Last Admin: 12/12/18 17:28 Dose: 6 mg - Exam Quality Assessment: Supplemental Oxygen, DVT Prophylaxis (coumadin) General: Alert, Cooperative HEENT: EOMI, Mucous Membr. Moist/[place] Neck: Trachea Midline, No JVD Lungs: Normal Respiratory Effort, Decreased Breath Sounds Cardiovascular: Regular Rate, Regular Rhythm GI/Abdominal Exam: Soft, Non-Tender, No Distention (Male) Exam: Deferred Back Exam: Normal Inspection Extremities: Normal Inspection, Non-Tender Skin: Warm, Dry, Intact Neurological: No New Focal Deficit, Other (generalized weakness) Psy/Mental Status: Alert, Normal Affect, Normal Mood - Problem List & Annotations (1) MRSA (methicillin resistant staphylococcus aureus) pneumonia SNOMED Code(s): 097754563269126 Code(s): J15.212 - PNEUMONIA DUE TO METHICILLIN RESISTANT STAPHYLOCOCCUS AUREUS Status: Acute Priority: High Qualifiers: Laterality: bilateral Lung location: lower lobe of lung Qualified Code(s) : J15.212 - Pneumonia due to Methicillin resistant Staphylococcus aureus (2) Weakness generalized SNOMED Code(s): 79582354 Code(s): R53.1 - WEAKNESS Status: Acute (3) Pulmonary fibrosis SNOMED Code(s): 72231008 Code(s): J84.10 - PULMONARY FIBROSIS, UNSPECIFIED Status: Chronic Priority: High Annotation/Comment:: 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, oxygen-dependent (4) Comfort measures only status SNOMED Code(s): 47957729341271 Code(s): Z51.5 - ENCOUNTER FOR PALLIATIVE CARE Status: Chronic Priority: Medium (5) CHF (congestive heart failure) SNOMED Code(s): 29489897 Code(s): I50.9 - HEART FAILURE, UNSPECIFIED Status: Acute Qualifiers: Qualified Code(s): I50.9 - Heart failure, unspecified (6) COPD (chronic obstructive pulmonary disease) SNOMED Code(s): 56846235 Code(s): J44.9 - CHRONIC OBSTRUCTIVE PULMONARY DISEASE, UNSPECIFIED Status : Acute Priority: High Qualifiers: COPD type: COPD with acute lower respiratory infection Qualified Code(s): J44.0 - Chronic obstructive pulmonary disease with acute lower respiratory infection (7) Osteoarthritis SNOMED Code(s): 338868471 Code(s): M19.90 - UNSPECIFIED OSTEOARTHRITIS, UNSPECIFIED SITE Status: Acute Qualifiers: Osteoarthritis location: multiple joints Osteoarthritis type: primary Qualified Code(s): M15.0 - Primary generalized (osteo)arthritis (8) Heart disease SNOMED Code(s): 88477410 Code(s): I51.9 - HEART DISEASE, UNSPECIFIED Status: Chronic Priority: High Onset Date: 06/04/15 (9) Peptic reflux disease SNOMED Code(s): 230552799 Code(s): K21.9 - GASTRO-ESOPHAGEAL REFLUX DISEASE WITHOUT ESOPHAGITIS Status: Chronic Priority: High Onset Date: 06/04/15 (10) Pulmonary nodules SNOMED Code(s): 135948461 Code(s): R91.8 - OTHER NONSPECIFIC ABNORMAL FINDING OF LUNG FIELD Status: Chronic Priority: High (11) Cyst of pancreas SNOMED Code(s): 54178630 Code(s): K86.2 - CYST OF PANCREAS Status: Acute Priority: Medium (12) Metabolic alkalosis with respiratory acidosis SNOMED Code(s): 871840822 Code(s): E87.4 - MIXED DISORDER OF ACID-BASE BALANCE Status: Acute Priority: High (13) Compensated respiratory acidosis SNOMED Code(s): 14216055 Code(s): E87.2 - ACIDOSIS Status: Acute Priority: High (14) Compensated metabolic alkalosis SNOMED Code(s): 7691128 Code(s): E87.3 - ALKALOSIS Status: Acute Priority: High (15) Hypoxemia SNOMED Code(s): 688452946 Code(s): R09.02 - HYPOXEMIA Status: Acute Priority: High - Problem List Review Problem List Initiated/Reviewed/Updated: Yes - My Orders Last 24 Hours: My Active Orders 12/13/18 15:57 Ready for Discharge [RC] PER UNIT ROUTINE - Plan Plan:: Mookie Blankenship PA-C 88 yr-old male admitted IP to Dr. Rocha for acute exacerbation of COPD/ pulmonary, oxygen-dependent and pneumonia with OP therapy failure. He was seen last Wednesday for same and recommended for hospitalization but refused, he was treated with steroids and antibiotics but did see his Home Health nurse today who called me to say he has not improved. His two daughters were with him in the home as well and are here now. He normally wears his O2 at 2L/m but has increased this to 3 and still feels SOB and is hypoxic. He denies CP at any time. INR 3.0 today via Home Health. Will monitor daily. Does say was coughing a lot at home. Starting IV Metronidazole for possible aspiration component to pneumonia, as well as IV Zithromax and Fortaz. IV Solu- Medrol started at 40mg Q8H. PT-OT consults ordered for strengthening. This elderly chronically ill gentleman will require at least 96 hours of IP care to be able to return home to previous baseline level of health. He does have multiple comorbidities. One daughter has now moved into his house with him , and another one lives next door to him and has cared for him for years, and they will remain very involved in his health care. He also has Home Health services. 12/08/2018 Patient still short of breath, but some better. Chest CT scan this morning showed some new nodules in the right lobe, possible cyst on pancreatic head will need further imaging. will discuss with Dr Rocha. Discussed labs and chest CT scan findings with patient and daughter. Patient states he was seen by pulmonology years ago for possible cancer, but he cant remember what they said to him. will continue to treat with IV antibiotics and steroids. Patient having issues with swallowing and coughing, ordered speech consult. PT seeing the patient but states the patient doesnt qualify for swingbed. Recheck labs in morning. patient has lesion on left ear lobe, will need to follow this up at the clinic. Nohelia Cohen CNP 12/09/18 Aj Small MD fells better. Continue medical regiment. 12/10/2018 Patient continues with shortness of breath especially going to the bathroom. Patient was on 3 liters per nc, CO2 level increasing, will try to taper down to 2 liters today which is the patient's baseline. Patient states turning up his oxygen to 3 liters a few days prior to coming into the hospital. Discussion held with the patient and daughter in regards to the findings on the chest CT scan and pancreas. Patient is not sure if he wants to do MRI of abdomen but will talk to his daughters. Patient needing continual inpatient status for the treatment of pneumonia due to his end stage COPD and now with increasing CO2 levels. Recheck labs in the morning. Nohelia Cohen CNP 12/11/2018 Some shortness of breath with activity, CO2 continues to rise. Oxygen as 2 liters per nasal cannula, patient alert and oriented. Culture final obtained yesterday which showed MRSA. antibiotics changed and patient started on IV Vanco. Discussed with patient and family the plan of care, patient is needing further inpatient stay due to change in antibiotics and his complexity increases due to his age and COPD with increasing CO2 levels. Will consult with Dr Rocha. Start percussion to see if that would help for the patient to cough up sputum, his daughter would do this at home with improvement. Patient is refusing to go to [place]. Nohelia Cohen CNP 12/12/18 late entry Aj Small MD Still with cough. MRSA pneumonia. He needs to continue IV vancomycin. Also sputum culture showing gram negative rods which are not identified and mycoplasma is still pending. He may need another adjustment in his antibiotics. CO2 retention. Respiratory acidosis with compensating metabolic alkalosis. Cough is looser on current medical regiment and chest percussion. Aspiration is an issue so he is requiring speech therapy. He needs to continue IV metronidazole. Video swallow ordered. CT confirms severe panlobilar emphysema. He is requiring continued inpatient status for continued complexity of medical illness, IV antibiotics, IV solumedrol and speech therapy. 12/13/18 Aj Small MD Still with cough deep and harsh. Knees buckled last night and he is weak. He needs longer IV antibiotics and PT-OT-ST so he qualifies for swing bed status.
--- NOTE | 2018-12-13 23:31 | PCM.DCSUM1 ---
Discharge Summary - Hospital Course Diagnosis: Stroke: No - Discharge Data Discharge Date: 12/13/18 Discharge Disposition: DC/Tfer W/I Hosp To Swing 61 Condition: Good - Discharge Diagnosis/Problem(s) (1) MRSA (methicillin resistant staphylococcus aureus) pneumonia SNOMED Code(s): 639682842470877 ICD Code: J15.212 - PNEUMONIA DUE TO METHICILLIN RESISTANT STAPHYLOCOCCUS AUREUS Status: Acute Priority: High Qualifiers: Laterality: bilateral Lung location: lower lobe of lung Qualified Code(s) : J15.212 - Pneumonia due to Methicillin resistant Staphylococcus aureus (2) Weakness generalized SNOMED Code(s): 34447285 ICD Code: R53.1 - WEAKNESS Status: Acute (3) Pulmonary fibrosis SNOMED Code(s): 41806506 ICD Code: J84.10 - PULMONARY FIBROSIS, UNSPECIFIED Status: Chronic Priority: High Problem Details: 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, oxygen-dependent (4) Comfort measures only status SNOMED Code(s): 45112710460255 ICD Code: Z51.5 - ENCOUNTER FOR PALLIATIVE CARE Status: Chronic Priority : Medium (5) CHF (congestive heart failure) SNOMED Code(s): 20748515 ICD Code: I50.9 - HEART FAILURE, UNSPECIFIED Status: Acute Qualifiers: Qualified Code(s): I50.9 - Heart failure, unspecified (6) COPD (chronic obstructive pulmonary disease) SNOMED Code(s): 61929226 ICD Code: J44.9 - CHRONIC OBSTRUCTIVE PULMONARY DISEASE, UNSPECIFIED Status : Acute Priority: High Qualifiers: COPD type: COPD with acute lower respiratory infection Qualified Code(s): J44.0 - Chronic obstructive pulmonary disease with acute lower respiratory infection (7) Osteoarthritis SNOMED Code(s): 326822100 ICD Code: M19.90 - UNSPECIFIED OSTEOARTHRITIS, UNSPECIFIED SITE Status: Acute Qualifiers: Osteoarthritis location: multiple joints Osteoarthritis type: primary Qualified Code(s): M15.0 - Primary generalized (osteo)arthritis (8) Heart disease SNOMED Code(s): 22759998 ICD Code: I51.9 - HEART DISEASE, UNSPECIFIED Status: Chronic Priority: High Onset Date: 06/04/15 (9) Peptic reflux disease SNOMED Code(s): 701086281 ICD Code: K21.9 - GASTRO-ESOPHAGEAL REFLUX DISEASE WITHOUT ESOPHAGITIS Status: Chronic Priority: High Onset Date: 06/04/15 (10) Pulmonary nodules SNOMED Code(s): 403351907 ICD Code: R91.8 - OTHER NONSPECIFIC ABNORMAL FINDING OF LUNG FIELD Status: Chronic Priority: High (11) Cyst of pancreas SNOMED Code(s): 07888068 ICD Code: K86.2 - CYST OF PANCREAS Status: Acute Priority: Medium (12) Metabolic alkalosis with respiratory acidosis SNOMED Code(s): 666140804 ICD Code: E87.4 - MIXED DISORDER OF ACID-BASE BALANCE Status: Acute Priority: High (13) Compensated respiratory acidosis SNOMED Code(s): 47426072 ICD Code: E87.2 - ACIDOSIS Status: Acute Priority: High (14) Compensated metabolic alkalosis SNOMED Code(s): 7691998 ICD Code: E87.3 - ALKALOSIS Status: Acute Priority: High (15) Hypoxemia SNOMED Code(s): 248836067 ICD Code: R09.02 - HYPOXEMIA Status: Acute Priority: High - Patient Summary/Data Consults: Consultations 12/08/18 17:42 Consult to Speech Language Pathology [[employer] Evaluation and Treatment] [CONS] Routine 12/13/18 08:41 PT Evaluation and Treatment [CONS] Routine 12/13/18 08:42 OT Evaluation and Treatment [CONS] Routine - Patient Instructions Diet: Regular Diet as Tolerated Activity: As Tolerated, Cough & Deep Breathe Driving: Do Not Drive Showering/Bathing: May Shower - Discharge Plan *PRESCRIPTION DRUG MONITORING PROGRAM REVIEWED*: Not Applicable *COPY OF PRESCRIPTION DRUG MONITORING REPORT IN PATIENT OLENA: Not Applicable Home Medications: Home Meds Albuterol/Ipratropium [DuoNeb 3.0-0.5 MG/3 ML] 3 ml INH QID 01/12/15 [History] Aspirin [Halfprin] 81 mg PO DAILY 01/12/15 [History] Finasteride [Proscar] 5 mg PO DAILY 01/12/15 [History] Albuterol/Ipratropium [DuoNeb 3.0-0.5 MG/3 ML] 3 ml NEB Q4HRRT PRN #1 box [Rx] Bisacodyl [Dulcolax] 10 mg PO BEDTIME PRN 12/22/15 [History] Fluticasone Propionate [Flonase] 1 spray NASBOTH BID 12/22/15 [History] Furosemide [Lasix] 40 mg PO DAILY 12/22/15 [History] Warfarin Sodium [Coumadin] 6 mg PO DAILY@1800 12/22/15 [History] Benzonatate 200 mg PO TID PRN 12/07/18 [History] Azithromycin 500 mg PO DAILY@1800 12/12/18 [History] Sodium Chloride 0.9% [Saline Flush] 10 ml FLUSH ASDIRECTED 12/12/18 [History] Sodium Chloride 0.9% [Saline Flush] 10 ml FLUSH Q12HR 12/12/18 [History] Vancomycin/0.9 % Sod Chloride [Vanco 1 Gram/250 ml-0.9% NaCl] 1 gm IV DAILY 01/25 [History] guaiFENesin [Mucinex] 600 mg PO BID@08,20 12/12/18 [History] methylPREDNISolone Sod Succ [Solu-MEDROL] 40 mg IVPUSH DAILY 12/12/18 [History] metroNIDAZOLE/Sodium Chloride [metroNIDAZOLE] 100 ml IV Q8HR 12/12/18 [History] Oxygen Therapy Mode: Nasal Cannula Oxygen Flow Rate (L/min): 2 - Discharge Summary/Plan Comment DC Time >30 min.: No - Patient Data Vitals - Most Recent: Last Vital Signs Temp 96.9 F 12/13/18 11:49 Pulse 104 H 12/13/18 11:49 Resp 22 H 12/13/18 11:49 BP 145/80 H 12/13/18 11:49 Pulse Ox 94 L 12/13/18 11:49 Weight - Most Recent: 154 lb 12.8 oz I&O - Last 24 hours: Intake & Output 12/13/18 12/13/18 12/14/18 14:59 22:59 06:59 Intake Total 780 Output Total 725 Balance 55 Lab Results - Last 24 hrs: Laboratory Results - last 24 hr 12/13/18 12/13/18 12/13/18 Range/Units 12:26 12:26 12:26 ESR 0 (0-30) mm/hr PT 18.7 H (9.5-12.0) SEC INR 1.7 Vancomycin Trough 4.8 L (10-20) ug/mL JEANINE Results - Last 24 hrs: Microbiology 12/10/18 07:10 Mycoplasma Serology - Final Blood Med Orders - Current: Current Medications Discontinued Medications Albuterol/Ipratropium (Duoneb 3.0-0.5 Mg/3 Ml) 3 ml INH QID [facility] Last Admin: 12/13/18 12:07 Dose: 3 ml Albuterol/Ipratropium (Duoneb 3.0-0.5 Mg/3 Ml) 3 ml NEB Q4HRRT PRN PRN Reason: Shortness of Breath Last Admin: 12/08/18 05:34 Dose: 3 ml Aspirin (Halfprin) 81 mg PO DAILY [facility] Last Admin: 12/13/18 07:36 Dose: 81 mg Azithromycin (Zithromax) 500 mg PO DAILY@1900 [facility] Last Admin: 12/12/18 20:00 Dose: 500 mg Benzonatate (Tessalon Perles) 200 mg PO TID PRN PRN Reason: Cough Bisacodyl (Dulcolax) 10 mg PO BEDTIME PRN PRN Reason: Constipation Last Admin: 12/10/18 19:43 Dose: 10 mg Bisacodyl (Dulcolax) 10 mg PO BEDTIME [facility] Last Admin: 12/12/18 20:00 Dose: 10 mg Budesonide (Pulmicort) 0.5 mg NEB BIDRT [facility] Last Admin: 12/09/18 08:29 Dose: 0.5 mg Ceftazidime (Fortaz) 1 gm IVPUSH Q8HR [facility] Last Admin: 12/10/18 07:34 Dose: 1 gm Finasteride (Proscar) 5 mg PO DAILY [facility] Last Admin: 12/13/18 07:35 Dose: 5 mg Fluticasone Propionate (Flonase) 0 gm NASBOTH BID [facility] Last Admin: 12/13/18 07:36 Dose: 1 spray Furosemide (Lasix) 40 mg IVPUSH DAILY [facility] Last Admin: 12/13/18 07:35 Dose: 40 mg Guaifenesin (Mucinex) 600 mg PO BID [facility] Last Admin: 12/13/18 07:36 Dose: 600 mg Azithromycin 500 mg/ Sodium (Chloride) 250 mls @ 250 mls/hr IV Q24H [facility] Last Admin: 12/09/18 19:26 Dose: 250 mls/hr Metronidazole 500 mg/ Premix 100 mls @ 100 mls/hr IV Q8H [facility] Last Admin: 12/13/18 09:18 Dose: 100 mls/hr Vancomycin HCl 1 gm/ Sodium (Chloride) 250 mls @ 165 mls/hr IV Q24H [facility] Last Admin: 12/12/18 13:28 Dose: 165 mls/hr Vancomycin HCl 1.5 gm/ Sodium (Chloride) 250 mls @ 170 mls/hr IV Q24H [facility] Last Admin: 12/13/18 13:49 Dose: 170 mls/hr Iopamidol (Isovue-300 (61%)) 100 ml IVPUSH ONETIME ONE Stop: 12/08/18 08:27 Last Admin: 12/08/18 09:55 Dose: 100 ml Methylprednisolone Sodium Succinate (Solu-Medrol) 40 mg IVPUSH Q8H [facility] Last Admin: 12/07/18 18:42 Dose: 40 mg Methylprednisolone Sodium Succinate (Solu-Medrol) 40 mg IVPUSH Q12HR [facility] Last Admin: 12/10/18 07:39 Dose: 40 mg Methylprednisolone Sodium Succinate (Solu-Medrol) 40 mg IVPUSH DAILY [facility] Last Admin: 12/13/18 07:35 Dose: 40 mg Pharmacy Consult (Consult To Pharmacy) 1 each .XX ASDIRECTED [facility] Potassium Chloride (Klor-Con M20) 20 meq PO DAILY [facility] Last Admin: 12/10/18 07:32 Dose: 20 meq Sodium Chloride (Saline Flush) 10 ml FLUSH ASDIRECTED PRN PRN Reason: Keep Vein Open Last Admin: 12/13/18 01:31 Dose: 10 ml Sodium Chloride (Saline Flush) 10 ml FLUSH Q12HR [facility] Last Admin: 12/13/18 07:36 Dose: 10 ml Vancomycin HCl (Pharmacy To Dose - Vancomycin) 1 dose .XX ASDIRECTED [facility] Warfarin Sodium (Coumadin) 6 mg PO DAILY@1800 [facility] Last Admin: 12/08/18 18:11 Dose: 6 mg Warfarin Sodium (Coumadin) 6 mg PO ONETIME ONE Stop: 12/11/18 21:05 Last Admin: 12/11/18 21:45 Dose: 6 mg Warfarin Sodium (Coumadin) 6 mg PO DAILY@1800 [facility] Last Admin: 12/12/18 17:28 Dose: 6 mg
== END 2018-12-13 16:00 | disposition swing bed (61) | DRG 178 ==
LOC: LL.MS 16:25 → UNDODISIN 12-12 17:49
PROVIDERS: ADMIT Physician Assistant; ATTEND Family Medicine
DX: J15.212 Pneumonia due to Methicillin resistant Staphylococcus aureus (principal); J44.0 Chronic obstructive pulmonary disease with (acute) lower respiratory infection; K86.2 Cyst of pancreas; E87.2 Acidosis; J44.1 Chronic obstructive pulmonary disease with (acute) exacerbation; H54.7 Unspecified visual loss; E78.00 Pure hypercholesterolemia, unspecified; K21.9 Gastro-esophageal reflux disease without esophagitis; M19.91 Primary osteoarthritis, unspecified site; I50.9 Heart failure, unspecified; I25.10 Atherosclerotic heart disease of native coronary artery without angina pectoris; Z51.5 Encounter for palliative care; J84.10 Pulmonary fibrosis, unspecified; R09.02 Hypoxemia; Z86.718 Personal history of other venous thrombosis and embolism; Z88.2 Allergy status to sulfonamides; Z79.82 Long term (current) use of aspirin; Z79.01 Long term (current) use of anticoagulants; Z79.52 Long term (current) use of systemic steroids; Z86.711 Personal history of pulmonary embolism
CPT/HCPCS: 36415; 71046; 71260; 80053; 80202; 82607; 82746; 82803; 85025; 85379; 85610; 85652; 86140; 86738; 87040; 87070; 87077; 87186; 87205; 92526-GN; 92610-GN; 94640; 94667; 94668; 97116-GP; 97161-GP; 97164-GP; 97530-GP; A9270-GY; J0456; J0713; J1940; J2920; J3370; J3490; J7050; J7620-GY; Q9967

== ENCOUNTER 2018-12-12 17:08 | Inpatient (IN) | payer MEDICARE, BC, MEDICAID ==
[2018-12-13] MEDS ORDERED: Albuterol/Ipratropium 3.0-0.5 MG/3 ML Neb Soln NEB PRN (14:41)
[2018-12-13] MEDS ORDERED: Benzonatate 100 MG Cap PO PRN (14:41)
[2018-12-13] MEDS ORDERED: Sodium Chloride 0.9% 10 ML Syringe FLUSH PRN (14:41)
[2018-12-13] MEDS: guaiFENesin 600 MG Tab.ER PO SCH (17:17)
[2018-12-13] MEDS: metroNIDAZOLE/Normal Saline 500 MG in Premix Bag 1 BAG IV SCH (17:19)
[2018-12-13] MEDS: Albuterol/Ipratropium 3.0-0.5 MG/3 ML Neb Soln INH SCH ×2 (17:19→20:05)
[2018-12-13] MEDS: Fluticasone Propionate Nasal Spray 16 GM Bottle NASBOTH SCH (17:54)
[2018-12-13] MEDS ORDERED: Warfarin 2 MG Tab PO SCH (18:00)
[2018-12-13] MEDS ORDERED: Azithromycin 250 MG Tab PO SCH (19:00)
[2018-12-13] MEDS: Sodium Chloride 0.9% 10 ML Syringe FLUSH SCH (20:05)
[2018-12-13] MEDS: Bisacodyl 5 MG Tab PO SCH (20:05)
--- NOTE | 2018-12-13 23:13 | PCM.HP ---
H&P History of Present Illness - General Date of Service: 12/13/18 Admit Problem/Dx: Admission Diagnosis/Problem Admission Diagnosis/Problem COPD, Severe chronic obstructive pulmonary disease Source of Information: Patient, Family, Old Records History Limitations: Reports: No Limitations - History of Present Illness Initial Comments - Free Text/Narative: 88 year old white male with known advanced emphysema, oxygen dependent, coughing and increasing shortness of breath and requiring more oxygen even though he is CO2 retainer. He was hospitalized and sputum grew MRSA and gram negative rods not yet identified and aspiration pneumonia. Last night his knees buckled. Associated Symptoms: Reports: Cough, cough w sputum, Shortness of Breath - Related Data Allergies/Adverse Reactions: Allergies Allergy/AdvReac Type Severity Reaction Status Date / Time Sulfa (Sulfonamide Allergy Cannot Verified 12/22/15 10:53 Antibiotics) Remember Home Medications: Home Meds Albuterol/Ipratropium [DuoNeb 3.0-0.5 MG/3 ML] 3 ml INH QID 01/12/15 [History] Aspirin [Halfprin] 81 mg PO DAILY 01/12/15 [History] Finasteride [Proscar] 5 mg PO DAILY 01/12/15 [History] Albuterol/Ipratropium [DuoNeb 3.0-0.5 MG/3 ML] 3 ml NEB Q4HRRT PRN #1 box [Rx] Bisacodyl [Dulcolax] 10 mg PO BEDTIME PRN 12/22/15 [History] Fluticasone Propionate [Flonase] 1 spray NASBOTH BID 12/22/15 [History] Furosemide [Lasix] 40 mg PO DAILY 12/22/15 [History] Warfarin Sodium [Coumadin] 6 mg PO DAILY@1800 12/22/15 [History] Benzonatate 200 mg PO TID PRN 12/07/18 [History] Azithromycin 500 mg PO DAILY@1800 12/12/18 [History] Sodium Chloride 0.9% [Saline Flush] 10 ml FLUSH ASDIRECTED 12/12/18 [History] Sodium Chloride 0.9% [Saline Flush] 10 ml FLUSH Q12HR 12/12/18 [History] Vancomycin/0.9 % Sod Chloride [Vanco 1 Gram/250 ml-0.9% NaCl] 1 gm IV DAILY 01/25 [History] guaiFENesin [Mucinex] 600 mg PO BID@08,20 12/12/18 [History] methylPREDNISolone Sod Succ [Solu-MEDROL] 40 mg IVPUSH DAILY 12/12/18 [History] metroNIDAZOLE/Sodium Chloride [metroNIDAZOLE] 100 ml IV Q8HR 12/12/18 [History] Past Medical History HEENT History: Reports: Impaired Vision Other HEENT History: Glasses Cardiovascular History: Reports: Blood Clots/VTE/DVT, CAD, Heart Failure, High Cholesterol, Hypertension, SOB on Exertion Other Cardiovascular History: h/o DVT and PE Respiratory History: Reports: COPD, PE, Pulmonary Fibrosis, SOB Other Respiratory History: Oxygen-dependent Gastrointestinal History: Reports: GERD Genitourinary History: Reports: BPH Other Genitourinary History: Bilateral renal cysts Musculoskeletal History: Reports: Osteoarthritis, Other (See Below) Other Musculoskeletal History: Right rotator cuff tear on 12/10/08 Social & Family History - Family History Family Medical History: Unobtainable - Tobacco Use Used Tobacco, but Quit: No Second Hand Smoke Exposure: No - Caffeine Use Caffeine Use: Reports: None - Recreational Drug Use Recreational Drug Use: No - Living Situation & Occupation Living situation: Reports: , with Family Occupation: Retired H&P Review of Systems - Review of Systems: Review Of Systems: See Below General: Reports: Weakness HEENT: Reports: Glasses Pulmonary: Reports: Shortness of Breath, Cough, Sputum Cardiovascular: Reports: No Symptoms Gastrointestinal: Reports: No Symptoms Genitourinary: Reports: No Symptoms Musculoskeletal: Reports: No Symptoms Skin: Reports: No Symptoms Psychiatric: Reports: No Symptoms Neurological: Reports: Weakness Hematologic/Lymphatic: Reports: No Symptoms Immunologic: Reports: No Symptoms Exam - Exam Exam: See Below - Vital Signs Vital Signs: Last Vital Signs Temp 97.6 F 12/13/18 16:22 Pulse 101 H 12/13/18 16:22 Resp 19 12/13/18 16:22 BP 140/89 12/13/18 16:22 Pulse Ox 97 12/13/18 16:22 Weight: 154 lb - Exam Quality Assessment: Supplemental Oxygen, DVT Prophylaxis (coumadin) General: Alert, Cooperative HEENT: Conjunctiva Clear, Hearing Intact, Mucosa Moist & [place] Neck: Trachea Midline Lungs: Normal Respiratory Effort, Decreased Breath Sounds Cardiovascular: Regular Rate, Regular Rhythm GI/Abdominal Exam: Soft, Non-Tender, No Distention (Male) Exam: Deferred Rectal (Males) Exam: Deferred Back Exam: Normal Inspection Extremities: Non-Tender Skin: Warm, Dry, Intact Neuro Extensive - Mental Status: Alert, Normal Mood/Affect, Normal Cognition Psychiatric: Alert, Normal Affect, Normal Mood *Q Meaningful Use (ADM) - VTE *Q VTE Mechanical Contraindications *Q: Tx/Proc Refused byPt - Problem List (1) MRSA (methicillin resistant staphylococcus aureus) pneumonia SNOMED Code(s): 445098520124854 ICD Code: J15.212 - PNEUMONIA DUE TO METHICILLIN RESISTANT STAPHYLOCOCCUS AUREUS Status: Acute Priority: High Current Visit: No Qualifiers: Laterality: bilateral Lung location: lower lobe of lung Qualified Code(s) : J15.212 - Pneumonia due to Methicillin resistant Staphylococcus aureus (2) COPD (chronic obstructive pulmonary disease) SNOMED Code(s): 96149011 ICD Code: J44.9 - CHRONIC OBSTRUCTIVE PULMONARY DISEASE, UNSPECIFIED Status : Acute Priority: High Current Visit: No Qualifiers: COPD type: COPD with acute lower respiratory infection Qualified Code(s): J44.0 - Chronic obstructive pulmonary disease with acute lower respiratory infection (3) CHF (congestive heart failure) SNOMED Code(s): 10948388 ICD Code: I50.9 - HEART FAILURE, UNSPECIFIED Status: Acute Current Visit : No Qualifiers: Qualified Code(s): I50.9 - Heart failure, unspecified (4) Compensated metabolic alkalosis SNOMED Code(s): 3228606 ICD Code: E87.3 - ALKALOSIS Status: Acute Priority: High Current Visit : No (5) Compensated respiratory acidosis SNOMED Code(s): 69530118 ICD Code: E87.2 - ACIDOSIS Status: Acute Priority: High Current Visit: No (6) Cyst of pancreas SNOMED Code(s): 61466057 ICD Code: K86.2 - CYST OF PANCREAS Status: Acute Priority: Medium Current Visit: No (7) Metabolic alkalosis with respiratory acidosis SNOMED Code(s): 840744103 ICD Code: E87.4 - MIXED DISORDER OF ACID-BASE BALANCE Status: Acute Priority: High Current Visit: No (8) Osteoarthritis SNOMED Code(s): 633538359 ICD Code: M19.90 - UNSPECIFIED OSTEOARTHRITIS, UNSPECIFIED SITE Status: Acute Current Visit: No Qualifiers: Osteoarthritis location: multiple joints Osteoarthritis type: primary Qualified Code(s): M15.0 - Primary generalized (osteo)arthritis (9) Weakness generalized SNOMED Code(s): 81817907 ICD Code: R53.1 - WEAKNESS Status: Acute Current Visit: No (10) Comfort measures only status SNOMED Code(s): 80526084519695 ICD Code: Z51.5 - ENCOUNTER FOR PALLIATIVE CARE Status: Chronic Priority : Medium Current Visit: No (11) Heart disease SNOMED Code(s): 86026829 ICD Code: I51.9 - HEART DISEASE, UNSPECIFIED Status: Chronic Priority: High Current Visit: No Onset Date: 06/04/15 (12) Peptic reflux disease SNOMED Code(s): 673565966 ICD Code: K21.9 - GASTRO-ESOPHAGEAL REFLUX DISEASE WITHOUT ESOPHAGITIS Status: Chronic Priority: High Current Visit: No Onset Date: 06/04/15 (13) Pulmonary fibrosis SNOMED Code(s): 82060442 ICD Code: J84.10 - PULMONARY FIBROSIS, UNSPECIFIED Status: Chronic Priority: High Current Visit: No Problem Details: 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, oxygen-dependent (14) Pulmonary nodules SNOMED Code(s): 443881440 ICD Code: R91.8 - OTHER NONSPECIFIC ABNORMAL FINDING OF LUNG FIELD Status: Chronic Priority: High Current Visit: No (15) Dysphagia SNOMED Code(s): 48562204, 555344152 ICD Code: R13.10 - DYSPHAGIA, UNSPECIFIED Status: Acute Priority: High Current Visit: Yes Qualifiers: Dysphagia type: unspecified Qualified Code(s): R13.10 - Dysphagia, unspecified (16) BPH loc w/o ur obs/LUTS SNOMED Code(s): 592728875 ICD Code: N40.0 - BENIGN PROSTATIC HYPERPLASIA WITHOUT LOWER URINRY TRACT SYMP Status: Acute Priority: Medium Current Visit: Yes Problem List Initiated/Reviewed/Updated: Yes Orders Last 24hrs: Active Orders 24 hr Category Date Time Status Patient Status [ADT] Routine ADT 12/13/18 14:45 Active Antiembolic Devices [RC] PER UNIT ROUTINE Care 12/13/18 14:41 Active Antiembolic Devices [RC] PER UNIT ROUTINE Care 12/13/18 14:41 Inactive Communication Order [RC] ,18 Care 12/13/18 14:41 Active Communication Order [RC] STAT Care 12/13/18 14:41 Active Height and Weight [RC] DAILY Care 12/13/18 14:41 Active Intake and Output [RC] QSHIFT Care 12/13/18 14:41 Inactive May Shower [RC] ASDIRECTED Care 12/13/18 14:41 Active Oxygen Therapy [RC] 23 Care 12/13/18 14:41 Active Peripheral IV Care [RC] . DIRECTED Care 12/13/18 14:41 Active Peripheral IV Care [RC] . DIRECTED Care 12/13/18 14:41 Inactive Pulse Oximetry [RC] PRN Care 12/13/18 14:41 Active RT Aerosol Therapy [RC] 08,12,16,20 Care 12/13/18 14:41 Active Up With Assistance [RC] ASDIRECTED Care 12/13/18 14:41 Active VTE/DVT Education [RC] PER UNIT ROUTINE Care 12/13/18 14:41 Active Vital Signs [RC] BID Care 12/13/18 16:00 Active Consult to Speech Language Pathology [STORES ASSISTANT Evaluation Cons 12/13/18 14:41 Active and Treatment] [CONS] Routine OT Evaluation and Treatment [CONS] Routine Cons 12/13/18 14:41 Active PT Evaluation and Treatment [CONS] Routine Cons 12/13/18 14:41 Active Regular Diet [DIET] Diet 12/13/18 Dinner Active Swallowing Function w Video [CR] Routine Exams 12/15/18 09:00 Ordered INR,PT,PROTHROMBIN TIME [COAG] Routine Lab 12/15/18 12:30 Ordered VANCOMYCIN TROUGH [CHEM] Routine Lab 12/15/18 12:30 Ordered Albuterol/Ipratropium [DuoNeb 3.0-0.5 MG/3 ML] Med 12/13/18 16:00 Active 3 ml INH QID Albuterol/Ipratropium [DuoNeb 3.0-0.5 MG/3 ML] Med 12/13/18 14:41 Active 3 ml NEB Q4HRRT PRN Aspirin [Halfprin] Med 12/14/18 08:00 Active 81 mg PO DAILY Azithromycin [Zithromax] Med 12/13/18 19:00 Active 500 mg PO DAILY@1900 Benzonatate [Tessalon Perles] Med 12/13/18 14:41 Active 200 mg PO TID PRN Bisacodyl [Dulcolax] Med 12/13/18 20:00 Active 10 mg PO BEDTIME Finasteride [Proscar] Med 12/14/18 08:00 Active 5 mg PO DAILY Fluticasone Propionate [Flonase] Med 12/13/18 18:00 Active 0 gm NASBOTH BID Furosemide [Lasix] Med 12/14/18 08:00 Active 40 mg IVPUSH DAILY Pharmacy to Dose - Vancomycin Med 12/13/18 14:41 Pending 1 dose .XX ASDIRECTED Sodium Chloride 0.9% [Saline Flush] Med 12/13/18 14:41 Active 10 ml FLUSH ASDIRECTED PRN Sodium Chloride 0.9% [Saline Flush] Med 12/13/18 20:00 Active 10 ml FLUSH Q12HR Vancomycin 1.5 gm Med 12/14/18 13:00 Active Sodium Chloride 0.9% [Normal Saline] 250 ml IV Q24H Warfarin [Coumadin] Med 12/13/18 18:00 Active 6 mg PO DAILY@1800 guaiFENesin [Mucinex] Med 12/13/18 18:00 Active 600 mg PO BID methylPREDNISolone Sod Succ [Solu-MEDROL] Med 12/14/18 08:00 Active 40 mg IVPUSH DAILY metroNIDAZOLE/Normal Saline [Flagyl 500 MG in NS 100 ML Med 12/13/18 18:00 Active ] 500 mg Premix Bag 1 bag IV Q8H CHF Questionnaire [COMM] Routine Oth 12/13/18 14:41 Ordered Peripheral IV Insertion Adult [OM.PC] Routine Oth 12/13/18 14:41 Ordered Resuscitation Status Routine Resus Stat 12/13/18 14:44 Ordered Medication Orders Albuterol/Ipratropium (Duoneb 3.0-0.5 Mg/3 Ml) 3 ml INH QID [facility] Last Admin: 12/13/18 20:05 Dose: 3 ml Admin: 12/13/18 17:19 Dose: 3 ml Albuterol/Ipratropium (Duoneb 3.0-0.5 Mg/3 Ml) 3 ml NEB Q4HRRT PRN PRN Reason: Shortness of Breath Aspirin (Halfprin) 81 mg PO DAILY [facility] Azithromycin (Zithromax) 500 mg PO DAILY@1900 [facility] Last Admin: 12/13/18 18:36 Dose: 500 mg Benzonatate (Tessalon Perles) 200 mg PO TID PRN PRN Reason: Cough Bisacodyl (Dulcolax) 10 mg PO BEDTIME [facility] Last Admin: 12/13/18 20:05 Dose: 10 mg Finasteride (Proscar) 5 mg PO DAILY [facility] Fluticasone Propionate (Flonase) 0 gm NASBOTH BID [facility] Last Admin: 12/13/18 17:54 Dose: 2 inh Furosemide (Lasix) 40 mg IVPUSH DAILY [facility] Guaifenesin (Mucinex) 600 mg PO BID [facility] Last Admin: 12/13/18 17:17 Dose: 600 mg Metronidazole 500 mg/ Premix 100 mls @ 100 mls/hr IV Q8H [facility] Last Admin: 12/13/18 17:19 Dose: 100 mls/hr Vancomycin HCl 1.5 gm/ Sodium (Chloride) 250 mls @ 170 mls/hr IV Q24H [facility] Methylprednisolone Sodium Succinate (Solu-Medrol) 40 mg IVPUSH DAILY [facility] Sodium Chloride (Saline Flush) 10 ml FLUSH ASDIRECTED PRN PRN Reason: Keep Vein Open Sodium Chloride (Saline Flush) 10 ml FLUSH Q12HR [facility] Last Admin: 12/13/18 20:05 Dose: Vancomycin HCl (Pharmacy To Dose - Vancomycin) 1 dose .XX ASDIRECTED [facility] Warfarin Sodium (Coumadin) 6 mg PO DAILY@1800 [facility] Last Admin: 12/13/18 17:17 Dose: 6 mg Assessment/Plan Comment:: 12/13/18 Aj Small MD Admitted to swing bed status for IV antibiotics, PT, OT, ST,
[2018-12-14] MEDS: metroNIDAZOLE/Normal Saline 500 MG in Premix Bag 1 BAG IV SCH ×2 (01:53→10:50)
[2018-12-14] MEDS: Sodium Chloride 0.9% 10 ML Syringe FLUSH PRN ×3 (01:54→15:15)
[2018-12-14] MEDS: Fluticasone Propionate Nasal Spray 16 GM Bottle NASBOTH SCH ×2 (07:37→17:34)
[2018-12-14] MEDS: Furosemide 40 MG/4 ML VIAL IVPUSH SCH (07:37)
[2018-12-14] MEDS: Albuterol/Ipratropium 3.0-0.5 MG/3 ML Neb Soln INH SCH ×4 (07:37→19:37)
[2018-12-14] MEDS: Aspirin 81 MG Tab.EC PO SCH (07:37)
[2018-12-14] MEDS: Finasteride 5 MG Tab PO SCH (07:38)
[2018-12-14] MEDS: guaiFENesin 600 MG Tab.ER PO SCH ×2 (07:38→17:34)
[2018-12-14] MEDS: methylPREDNISolone Sodium Succinate 40 MG/1 ML SDV IVPUSH SCH (07:38)
[2018-12-14] MEDS: Sodium Chloride 0.9% 10 ML Syringe FLUSH SCH ×2 (07:39→19:37)
[2018-12-14] MEDS: cefTAZidime 1 GM Vial IVPUSH SCH (15:15)
[2018-12-14] MEDS: Levofloxacin/Dextrose 5%-Water 500 MG in Premix Bag 1 BAG IV SCH (15:16)
[2018-12-14] MEDS: metroNIDAZOLE 500 MG Tab PO SCH (17:34)
[2018-12-14] MEDS: Bisacodyl 5 MG Tab PO SCH (19:36)
[2018-12-15] MEDS: cefTAZidime 1 GM Vial IVPUSH SCH (04:52)
[2018-12-15] MEDS: Finasteride 5 MG Tab PO SCH (08:04)
[2018-12-15] MEDS: metroNIDAZOLE 500 MG Tab PO SCH (08:04)
[2018-12-15] MEDS: Aspirin 81 MG Tab.EC PO SCH (08:04)
[2018-12-15] MEDS: guaiFENesin 600 MG Tab.ER PO SCH ×2 (08:04→17:31)
[2018-12-15] MEDS: Furosemide 40 MG/4 ML VIAL IVPUSH SCH (08:04)
[2018-12-15] MEDS: methylPREDNISolone Sodium Succinate 40 MG/1 ML SDV IVPUSH SCH (08:04)
[2018-12-15] MEDS: Albuterol/Ipratropium 3.0-0.5 MG/3 ML Neb Soln INH SCH ×4 (08:04→19:20)
[2018-12-15] MEDS: Fluticasone Propionate Nasal Spray 16 GM Bottle NASBOTH SCH ×2 (08:05→17:31)
[2018-12-15] MEDS: Sodium Chloride 0.9% 10 ML Syringe FLUSH SCH ×2 (12:45→19:20)
[2018-12-15 12:50] LABS: CHLORIDE,CL 93 mmol/L (98-107); SODIUM,NA 134 mmol/L (136-145)
[2018-12-15] MEDS ORDERED: Furosemide 40 MG/4 ML VIAL IVPUSH ONE (13:06)
[2018-12-15] MEDS ORDERED: Insulin Lispro 100 Units/ML 3 ML Vial SUBCUT ONE (14:00)
[2018-12-15] MEDS: Sodium Chloride 0.9% 10 ML Syringe FLUSH PRN ×3 (14:13→17:31)
[2018-12-15] MEDS ORDERED: Insulin Lispro 100 Units/ML 3 ML Vial ONE (14:26)
[2018-12-15] MEDS: Levofloxacin/Dextrose 5%-Water 500 MG in Premix Bag 1 BAG IV SCH (16:13)
[2018-12-15] MEDS: Bisacodyl 5 MG Tab PO SCH (19:19)
[2018-12-16] MEDS: Sodium Chloride 0.9% 10 ML Syringe FLUSH PRN ×2 (00:16→15:57)
[2018-12-16] MEDS: predniSONE 20 MG Tab PO SCH (09:00)
[2018-12-16] MEDS: Finasteride 5 MG Tab PO SCH (09:00)
[2018-12-16] MEDS: guaiFENesin 600 MG Tab.ER PO SCH ×2 (09:00→17:54)
[2018-12-16] MEDS: Albuterol/Ipratropium 3.0-0.5 MG/3 ML Neb Soln INH SCH ×4 (09:00→19:09)
[2018-12-16] MEDS: Fluticasone Propionate Nasal Spray 16 GM Bottle NASBOTH SCH ×2 (09:00→17:54)
[2018-12-16] MEDS: Sodium Chloride 0.9% 10 ML Syringe FLUSH SCH ×2 (09:01→19:09)
[2018-12-16] MEDS: Furosemide 40 MG/4 ML VIAL IVPUSH SCH (09:01)
[2018-12-16] MEDS: Levofloxacin/Dextrose 5%-Water 500 MG in Premix Bag 1 BAG IV SCH (15:57)
[2018-12-16] MEDS ORDERED: Insulin Lispro 100 Units/ML 3 ML Vial SUBCUT ONE (18:00)
[2018-12-16] MEDS: Bisacodyl 5 MG Tab PO SCH (19:09)
[2018-12-17] MEDS: Sodium Chloride 0.9% 10 ML Syringe FLUSH PRN (01:26)
[2018-12-17] MEDS: Furosemide 40 MG/4 ML VIAL IVPUSH SCH (07:25)
[2018-12-17] MEDS: predniSONE 20 MG Tab PO SCH (07:25)
[2018-12-17] MEDS: guaiFENesin 600 MG Tab.ER PO SCH ×2 (07:25→17:39)
[2018-12-17] MEDS: Finasteride 5 MG Tab PO SCH (07:25)
[2018-12-17] MEDS: Sodium Chloride 0.9% 10 ML Syringe FLUSH SCH ×3 (07:26→19:03)
[2018-12-17] MEDS: Albuterol/Ipratropium 3.0-0.5 MG/3 ML Neb Soln INH SCH ×4 (07:26→19:02)
[2018-12-17] MEDS: Fluticasone Propionate Nasal Spray 16 GM Bottle NASBOTH SCH ×2 (07:32→17:39)
[2018-12-17] MEDS: Acetaminophen 650 MG Tab.ER PO PRN (10:54)
[2018-12-17 12:47] LABS: CHLORIDE,CL 96 mmol/L (98-107); SODIUM,NA 136 mmol/L (136-145)
[2018-12-17] MEDS: Levofloxacin/Dextrose 5%-Water 500 MG in Premix Bag 1 BAG IV SCH (15:40)
[2018-12-17] MEDS ORDERED: Insulin Lispro 100 Units/ML 3 ML Vial SUBCUT ONE (16:15)
[2018-12-17] MEDS: Warfarin 2 MG Tab PO SCH (17:53)
[2018-12-17] MEDS: Bisacodyl 5 MG Tab PO SCH (19:02)
[2018-12-18] MEDS: Sodium Chloride 0.9% 10 ML Syringe FLUSH PRN (00:48)
[2018-12-18] MEDS: Furosemide 40 MG/4 ML VIAL IVPUSH SCH (07:38)
[2018-12-18] MEDS: Sodium Chloride 0.9% 10 ML Syringe FLUSH SCH ×3 (07:38→19:54)
[2018-12-18] MEDS: Fluticasone Propionate Nasal Spray 16 GM Bottle NASBOTH SCH ×2 (07:38→17:56)
[2018-12-18] MEDS: Albuterol/Ipratropium 3.0-0.5 MG/3 ML Neb Soln INH SCH ×4 (07:39→19:56)
[2018-12-18] MEDS: predniSONE 20 MG Tab PO SCH (07:39)
[2018-12-18] MEDS: Finasteride 5 MG Tab PO SCH (07:39)
[2018-12-18] MEDS: guaiFENesin 600 MG Tab.ER PO SCH ×2 (07:39→17:56)
[2018-12-18] MEDS: Acetaminophen 650 MG Tab.ER PO PRN ×2 (08:10→19:53)
[2018-12-18] MEDS: Levofloxacin/Dextrose 5%-Water 500 MG in Premix Bag 1 BAG IV SCH (15:18)
[2018-12-18] MEDS ORDERED: Insulin Lispro 100 Units/ML 3 ML Vial SUBCUT STA (17:35)
[2018-12-18] MEDS: Warfarin 2 MG Tab PO SCH (17:57)
[2018-12-18] MEDS: Bisacodyl 5 MG Tab PO SCH (19:53)
[2018-12-19] MEDS: Fluticasone Propionate Nasal Spray 16 GM Bottle NASBOTH SCH ×2 (07:35→18:02)
[2018-12-19] MEDS: Sodium Chloride 0.9% 10 ML Syringe FLUSH SCH ×2 (07:36→19:48)
[2018-12-19] MEDS: Albuterol/Ipratropium 3.0-0.5 MG/3 ML Neb Soln INH SCH ×4 (07:36→19:48)
[2018-12-19] MEDS: Finasteride 5 MG Tab PO SCH (07:36)
[2018-12-19] MEDS: predniSONE 5 MG Tab PO SCH (07:36)
[2018-12-19] MEDS: guaiFENesin 600 MG Tab.ER PO SCH ×2 (07:36→18:01)
[2018-12-19] MEDS: Furosemide 40 MG/4 ML VIAL IVPUSH SCH (07:36)
[2018-12-19] MEDS: Acetaminophen 650 MG Tab.ER PO PRN ×2 (07:55→19:50)
[2018-12-19 13:08] LABS: CHLORIDE,CL 97 mmol/L (98-107); SODIUM,NA 137 mmol/L (136-145)
[2018-12-19] MEDS: Sodium Chloride 0.9% 10 ML Syringe FLUSH PRN ×2 (13:31→15:56)
[2018-12-19] MEDS ORDERED: Insulin Lispro 100 Units/ML 3 ML Vial SUBCUT ONE (14:30)
[2018-12-19] MEDS: Levofloxacin/Dextrose 5%-Water 500 MG in Premix Bag 1 BAG IV SCH (15:56)
[2018-12-19] MEDS: Warfarin 2 MG Tab PO SCH (18:01)
[2018-12-19] MEDS: Bisacodyl 5 MG Tab PO SCH (19:48)
--- NOTE | 2018-12-19 22:56 | PCM.PN ---
- General Info Date of Service: 12/19/18 Admission Dx/Problem (Free Text): Admission Diagnosis/Problem Admission Diagnosis/Problem COPD, Severe chronic obstructive pulmonary disease Functional Status: Reports: Tolerating Diet - Review of Systems General: Reports: No Symptoms HEENT: Reports: No Symptoms Pulmonary: Reports: Cough Cardiovascular: Reports: No Symptoms Gastrointestinal: Reports: No Symptoms Genitourinary: Reports: No Symptoms Musculoskeletal: Reports: No Symptoms Skin: Reports: No Symptoms Neurological: Reports: No Symptoms Psychiatric: Reports: No Symptoms - Patient Data Vitals - Most Recent: Last Vital Signs Temp 98.8 F 12/19/18 19:39 Pulse 109 H 12/19/18 19:39 Resp 15 12/19/18 19:39 BP 137/57 L 12/19/18 19:39 Pulse Ox 96 12/19/18 19:39 Weight - Most Recent: 158 lb 8 oz I&O - Last 24 Hours: Intake & Output 12/19/18 12/19/18 12/19/18 06:59 14:59 22:59 Intake Total 249 1600 1950 Output Total 550 Balance 249 1600 1400 Lab Results Last 24 Hours: Laboratory Results - last 24 hr 12/19/18 12/19/18 12/19/18 Range/Units 07:10 12:31 12:31 WBC 14.3 H (4.0-10.2) K/uL RBC 4.40 (4.33-5.41) M/uL Hgb 14.0 (13.1-16.8) g/dL Hct 43.9 (39.0-49.0) % MCV 99.8 H (84.0-98.0) fL MCH 31.8 (28.2-33.3) pg MCHC 31.9 (31.7-36.0) g/dL RDW 13.4 (11.2-14.1) % Plt Count 215 (150-350) K/uL Neut % (Auto) 93.5 H (45.0-80.0) % Lymph % (Auto) 1.8 L (10.0-50.0) % [place] % (Auto) 4.5 (2.0-14.0) % Eos % (Auto) 0.1 (0.0-5.0) % Baso % (Auto) 0.1 (0.0-2.0) % Neut # (Auto) 13.42 H (1.40-7.00) K/uL Lymph # (Auto) 0.26 L (0.50-3.50) K/uL [place] # (Auto) 0.64 (0.00-1.00) K/uL Eos # (Auto) 0.01 (0.00-0.50) K/uL Baso # (Auto) 0.01 (0.00-0.20) K/uL PT (9.5-12.0) SEC INR Sodium 137 (136-145) mmol/L Potassium 4.7 (3.5-5.1) mmol/L Chloride 97 L (98-107) mmol/L Carbon Dioxide 36.6 H (21.0-32.0) mmol/L BUN 25 H (7-18) mg/dL Creatinine 0.68 (0.51-1.17) mg/dL Est Cr Clr Drug Dosing 75.72 mL/min Estimated GFR (MDRD) > 60 mL/min Glucose 415 H* (74-106) mg/dL POC Glucose 194 H (65-110) mg/dl Calcium 8.7 (8.5-10.1) mg/dL Total Bilirubin 0.5 (0.2-1.0) mg/dL AST 24 (15-37) U/L ALT 36 (12-78) U/L Alkaline Phosphatase 78 (46-116) IU/L Total Protein 6.0 L (6.4-8.2) g/dL Albumin 3.0 L (3.4-5.0) g/dL Vancomycin Trough 17.7 (10-20) ug/mL 12/19/18 12/19/18 Range/Units 12:31 17:24 WBC (4.0-10.2) K/uL RBC (4.33-5.41) M/uL Hgb (13.1-16.8) g/dL Hct (39.0-49.0) % MCV (84.0-98.0) fL MCH (28.2-33.3) pg MCHC (31.7-36.0) g/dL RDW (11.2-14.1) % Plt Count (150-350) K/uL Neut % (Auto) (45.0-80.0) % Lymph % (Auto) (10.0-50.0) % [place] % (Auto) (2.0-14.0) % Eos % (Auto) (0.0-5.0) % Baso % (Auto) (0.0-2.0) % Neut # (Auto) (1.40-7.00) K/uL Lymph # (Auto) (0.50-3.50) K/uL [place] # (Auto) (0.00-1.00) K/uL Eos # (Auto) (0.00-0.50) K/uL Baso # (Auto) (0.00-0.20) K/uL PT 11.7 (9.5-12.0) SEC INR 1.1 Sodium (136-145) mmol/L Potassium (3.5-5.1) mmol/L Chloride (98-107) mmol/L Carbon Dioxide (21.0-32.0) mmol/L BUN (7-18) mg/dL Creatinine (0.51-1.17) mg/dL Est Cr Clr Drug Dosing mL/min Estimated GFR (MDRD) mL/min Glucose (74-106) mg/dL POC Glucose 327 H* (65-110) mg/dl Calcium (8.5-10.1) mg/dL Total Bilirubin (0.2-1.0) mg/dL AST (15-37) U/L ALT (12-78) U/L Alkaline Phosphatase (46-116) IU/L Total Protein (6.4-8.2) g/dL Albumin (3.4-5.0) g/dL Vancomycin Trough (10-20) ug/mL Med Orders - Current: Current Medications Acetaminophen (Tylenol Arthritis Pain) 650 mg PO Q8H PRN PRN Reason: Pain Last Admin: 12/19/18 19:50 Dose: 650 mg Albuterol/Ipratropium (Duoneb 3.0-0.5 Mg/3 Ml) 3 ml INH QID [facility] Last Admin: 12/19/18 19:48 Dose: 3 ml Albuterol/Ipratropium (Duoneb 3.0-0.5 Mg/3 Ml) 3 ml NEB Q4HRRT PRN PRN Reason: Shortness of Breath Benzonatate (Tessalon Perles) 200 mg PO TID PRN PRN Reason: Cough Bisacodyl (Dulcolax) 10 mg PO BEDTIME [facility] Last Admin: 12/19/18 19:48 Dose: 10 mg Finasteride (Proscar) 5 mg PO DAILY [facility] Last Admin: 12/19/18 07:36 Dose: 5 mg Fluticasone Propionate (Flonase) 0 gm NASBOTH BID [facility] Last Admin: 12/19/18 18:02 Dose: 1 spray Furosemide (Lasix) 40 mg IVPUSH DAILY [facility] Last Admin: 12/19/18 07:36 Dose: 40 mg Guaifenesin (Mucinex) 600 mg PO BID [facility] Last Admin: 12/19/18 18:01 Dose: 600 mg Levofloxacin/Dextrose 500 mg/ (Premix) 100 mls @ 100 mls/hr IV Q24H [facility] Stop: 12/21/18 15:01 Last Admin: 12/19/18 15:56 Dose: 100 mls/hr Vancomycin HCl 1 gm/ Sodium (Chloride) 250 mls @ 165 mls/hr IV Q12H [facility] Stop: 12/23/18 02:31 Last Admin: 12/19/18 13:31 Dose: 165 mls/hr Prednisone (Prednisone) 10 mg PO WITHBREAKFAST [facility] Last Admin: 12/19/18 07:36 Dose: 10 mg Sodium Chloride (Saline Flush) 10 ml FLUSH ASDIRECTED PRN PRN Reason: Keep Vein Open Last Admin: 12/19/18 15:56 Dose: 10 ml Sodium Chloride (Saline Flush) 10 ml FLUSH Q12HR [facility] Last Admin: 12/19/18 19:48 Dose: 10 ml Vancomycin HCl (Pharmacy To Dose - Vancomycin) 1 dose .XX ASDIRECTED [facility] Warfarin Sodium (Coumadin) 6 mg PO DAILY@1800 [facility] Last Admin: 12/19/18 18:01 Dose: 6 mg Discontinued Medications Aspirin (Halfprin) 81 mg PO DAILY [facility] Last Admin: 12/15/18 08:04 Dose: 81 mg Azithromycin (Zithromax) 500 mg PO DAILY@1900 [facility] Last Admin: 12/13/18 18:36 Dose: 500 mg Ceftazidime (Fortaz) 1 gm IVPUSH Q12H [facility] Stop: 12/21/18 15:01 Last Admin: 12/15/18 04:52 Dose: Not Given Furosemide (Lasix) 40 mg IVPUSH NOW ONE Stop: 12/15/18 13:07 Last Admin: 12/15/18 14:12 Dose: 40 mg Metronidazole 500 mg/ Premix 100 mls @ 100 mls/hr IV Q8H [facility] Last Admin: 12/14/18 10:50 Dose: 100 mls/hr Vancomycin HCl 1.5 gm/ Sodium (Chloride) 250 mls @ 170 mls/hr IV Q24H [facility] Stop: 12/21/18 13:01 Last Admin: 12/15/18 14:12 Dose: Not Given Insulin Human Lispro (Humalog) 8 unit SUBCUT ONETIME ONE Stop: 12/15/18 14:01 Last Admin: 12/15/18 14:29 Dose: 8 units Insulin Human Lispro (Humalog) Confirm Administered Dose 300 unit .ROUTE .STK- MED ONE Stop: 12/15/18 14:27 Last Admin: 12/15/18 14:36 Dose: Not Given Insulin Human Lispro (Humalog) 5 unit SUBCUT ONETIME ONE; Protocol Stop: 12/16/18 18:01 Last Admin: 12/16/18 17:58 Dose: 5 unit Insulin Human Lispro (Humalog) 5 unit SUBCUT ONETIME ONE Stop: 12/17/18 16:16 Last Admin: 12/17/18 17:39 Dose: 5 units Insulin Human Lispro (Humalog) 5 unit SUBCUT ONETIME [facility] Stop: 12/18/18 17:36 Last Admin: 12/18/18 17:58 Dose: 5 units Insulin Human Lispro (Humalog) 6 unit SUBCUT ONETIME ONE Stop: 12/19/18 14:31 Last Admin: 12/19/18 15:58 Dose: 6 units Methylprednisolone Sodium Succinate (Solu-Medrol) 40 mg IVPUSH DAILY [facility] Last Admin: 12/15/18 08:04 Dose: 40 mg Metronidazole (Flagyl) 500 mg PO TID [facility] Stop: 12/21/18 18:01 Last Admin: 12/15/18 08:04 Dose: 500 mg Prednisone (Prednisone) 20 mg PO WITHBREAKFAST [facility] Last Admin: 12/18/18 07:39 Dose: 20 mg Warfarin Sodium (Coumadin) 6 mg PO DAILY@1800 [facility] Last Admin: 12/13/18 17:17 Dose: 6 mg - Exam Quality Assessment: Supplemental Oxygen, DVT Prophylaxis General: Alert, Cooperative HEENT: Mucous Membr. Moist/[place] Neck: Trachea Midline, No JVD Lungs: Normal Respiratory Effort, Decreased Breath Sounds Cardiovascular: Regular Rate, Regular Rhythm GI/Abdominal Exam: Soft, Non-Tender, No Distention (Male) Exam: Deferred Back Exam: Normal Inspection Extremities: Non-Tender Skin: Warm, Dry, Intact Neurological: No New Focal Deficit Psy/Mental Status: Alert, Normal Affect, Normal Mood - Problem List & Annotations (1) MRSA (methicillin resistant staphylococcus aureus) pneumonia SNOMED Code(s): 160316475377253 Code(s): J15.212 - PNEUMONIA DUE TO METHICILLIN RESISTANT STAPHYLOCOCCUS AUREUS Status: Acute Priority: High Current Visit: No Qualifiers: Laterality: bilateral Lung location: lower lobe of lung Qualified Code(s) : J15.212 - Pneumonia due to Methicillin resistant Staphylococcus aureus (2) COPD (chronic obstructive pulmonary disease) SNOMED Code(s): 81961859 Code(s): J44.9 - CHRONIC OBSTRUCTIVE PULMONARY DISEASE, UNSPECIFIED Status : Acute Priority: High Current Visit: No Qualifiers: COPD type: COPD with acute lower respiratory infection Qualified Code(s): J44.0 - Chronic obstructive pulmonary disease with acute lower respiratory infection (3) CHF (congestive heart failure) SNOMED Code(s): 80685582 Code(s): I50.9 - HEART FAILURE, UNSPECIFIED Status: Acute Current Visit: No (4) Compensated metabolic alkalosis SNOMED Code(s): 8694962 Code(s): E87.3 - ALKALOSIS Status: Acute Priority: High Current Visit: No (5) Compensated respiratory acidosis SNOMED Code(s): 66935123 Code(s): E87.2 - ACIDOSIS Status: Acute Priority: High Current Visit: No (6) Cyst of pancreas SNOMED Code(s): 32400509 Code(s): K86.2 - CYST OF PANCREAS Status: Acute Priority: Medium Current Visit: No (7) Metabolic alkalosis with respiratory acidosis SNOMED Code(s): 126661189 Code(s): E87.4 - MIXED DISORDER OF ACID-BASE BALANCE Status: Acute Priority: High Current Visit: No (8) Osteoarthritis SNOMED Code(s): 187755200 Code(s): M19.90 - UNSPECIFIED OSTEOARTHRITIS, UNSPECIFIED SITE Status: Acute Current Visit: No Qualifiers: Osteoarthritis location: multiple joints Osteoarthritis type: primary Qualified Code(s): M15.0 - Primary generalized (osteo)arthritis (9) Weakness generalized SNOMED Code(s): 82876385 Code(s): R53.1 - WEAKNESS Status: Acute Current Visit: No (10) Comfort measures only status SNOMED Code(s): 74952023407739 Code(s): Z51.5 - ENCOUNTER FOR PALLIATIVE CARE Status: Chronic Priority: Medium Current Visit: No (11) Heart disease SNOMED Code(s): 07354149 Code(s): I51.9 - HEART DISEASE, UNSPECIFIED Status: Chronic Priority: High Current Visit: No Onset Date: 06/04/15 (12) Peptic reflux disease SNOMED Code(s): 397167327 Code(s): K21.9 - GASTRO-ESOPHAGEAL REFLUX DISEASE WITHOUT ESOPHAGITIS Status: Chronic Priority: High Current Visit: No Onset Date: 06/04/15 (13) Pulmonary fibrosis SNOMED Code(s): 59311178 Code(s): J84.10 - PULMONARY FIBROSIS, UNSPECIFIED Status: Chronic Priority: High Current Visit: No Annotation/Comment:: 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, oxygen-dependent (14) Pulmonary nodules SNOMED Code(s): 139317980 Code(s): R91.8 - OTHER NONSPECIFIC ABNORMAL FINDING OF LUNG FIELD Status: Chronic Priority: High Current Visit: No (15) Dysphagia SNOMED Code(s): 47350548, 657199668 Code(s): R13.10 - DYSPHAGIA, UNSPECIFIED Status: Acute Priority: High Current Visit: Yes Qualifiers: Dysphagia type: unspecified Qualified Code(s): R13.10 - Dysphagia, unspecified (16) BPH loc w/o ur obs/LUTS SNOMED Code(s): 598541124 Code(s): N40.0 - BENIGN PROSTATIC HYPERPLASIA WITHOUT LOWER URINRY TRACT SYMP Status: Acute Priority: Medium Current Visit: Yes - Problem List Review Problem List Initiated/Reviewed/Updated: Yes - My Orders Last 24 Hours: My Active Orders 12/19/18 08:00 predniSONE 10 mg PO WITHBREAKFAST 12/21/18 05:11 Chest 2V [CR] Routine 12/21/18 12:30 VANCOMYCIN TROUGH [CHEM] Routine - Plan Plan:: 12/13/18 Aj Small MD Admitted to swing bed status for IV antibiotics, PT, OT, ST, 12/19/18 Aj Small MD Still with deep harsh cough but he is feeling better. Daughter Paris here also. Medical therapy discussed and tentative discharge plans discussed.
[2018-12-20] MEDS: Sodium Chloride 0.9% 10 ML Syringe FLUSH PRN ×2 (01:38→12:19)
[2018-12-20] MEDS: Furosemide 40 MG/4 ML VIAL IVPUSH SCH (07:51)
[2018-12-20] MEDS: Fluticasone Propionate Nasal Spray 16 GM Bottle NASBOTH SCH ×2 (07:51→17:37)
[2018-12-20] MEDS: predniSONE 5 MG Tab PO SCH (07:52)
[2018-12-20] MEDS: Albuterol/Ipratropium 3.0-0.5 MG/3 ML Neb Soln INH SCH ×4 (07:52→20:00)
[2018-12-20] MEDS: guaiFENesin 600 MG Tab.ER PO SCH ×2 (07:52→17:37)
[2018-12-20] MEDS: Acetaminophen 650 MG Tab.ER PO PRN ×2 (07:52→17:37)
[2018-12-20] MEDS: Finasteride 5 MG Tab PO SCH (07:52)
[2018-12-20] MEDS: Sodium Chloride 0.9% 10 ML Syringe FLUSH SCH ×2 (07:52→20:00)
[2018-12-20] MEDS: Levofloxacin/Dextrose 5%-Water 500 MG in Premix Bag 1 BAG IV SCH (14:25)
[2018-12-20 15:26] LABS: CHLORIDE,CL 98 mmol/L (98-107); SODIUM,NA 136 mmol/L (136-145)
[2018-12-20] MEDS: Warfarin 2 MG Tab PO SCH (17:36)
[2018-12-20] MEDS: Bisacodyl 5 MG Tab PO SCH (20:00)
[2018-12-21] MEDS: Sodium Chloride 0.9% 10 ML Syringe FLUSH PRN ×4 (00:43→15:52)
[2018-12-21] MEDS: Fluticasone Propionate Nasal Spray 16 GM Bottle NASBOTH SCH ×2 (07:42→17:18)
[2018-12-21] MEDS: predniSONE 5 MG Tab PO SCH (07:42)
[2018-12-21] MEDS: Finasteride 5 MG Tab PO SCH (07:42)
[2018-12-21] MEDS: guaiFENesin 600 MG Tab.ER PO SCH ×2 (07:42→17:20)
[2018-12-21] MEDS: Furosemide 40 MG/4 ML VIAL IVPUSH SCH (07:44)
[2018-12-21] MEDS: Albuterol/Ipratropium 3.0-0.5 MG/3 ML Neb Soln INH SCH ×4 (07:45→19:16)
[2018-12-21] MEDS: Sodium Chloride 0.9% 10 ML Syringe FLUSH SCH ×2 (07:45→19:17)
[2018-12-21] MEDS: Acetaminophen 650 MG Tab.ER PO PRN ×2 (07:54→17:20)
[2018-12-21 12:48] LABS: CHLORIDE,CL 97 mmol/L (98-107); SODIUM,NA 138 mmol/L (136-145)
--- NOTE | 2018-12-21 12:59 | PCM.SN ---
- Free Text/Narrative Note: 12-21-18 Mookie Blankenship PA-C RN called to say BS 413, Humalog 4 units subcut given now. Accu-cheks changed to TIDmeals.
[2018-12-21] MEDS ORDERED: Insulin Lispro 100 Units/ML 3 ML Vial SUBCUT ONE (13:05)
[2018-12-21] MEDS: Levofloxacin/Dextrose 5%-Water 500 MG in Premix Bag 1 BAG IV SCH (15:51)
[2018-12-21] MEDS: Warfarin 2 MG Tab PO SCH (17:19)
[2018-12-21] MEDS: Bisacodyl 5 MG Tab PO SCH (19:16)
[2018-12-22] MEDS: Sodium Chloride 0.9% 10 ML Syringe FLUSH PRN (01:15)
[2018-12-22] MEDS: guaiFENesin 600 MG Tab.ER PO SCH ×2 (08:07→18:42)
[2018-12-22] MEDS: Albuterol/Ipratropium 3.0-0.5 MG/3 ML Neb Soln INH SCH ×4 (08:07→21:02)
[2018-12-22] MEDS: Furosemide 40 MG/4 ML VIAL IVPUSH SCH (08:07)
[2018-12-22] MEDS: Fluticasone Propionate Nasal Spray 16 GM Bottle NASBOTH SCH ×2 (08:07→18:42)
[2018-12-22] MEDS: Sodium Chloride 0.9% 10 ML Syringe FLUSH SCH ×2 (08:08→21:02)
[2018-12-22] MEDS: predniSONE 5 MG Tab PO SCH (08:08)
[2018-12-22] MEDS: Finasteride 5 MG Tab PO SCH (08:08)
[2018-12-22] MEDS: Warfarin 2 MG Tab PO SCH (18:42)
[2018-12-22] MEDS ORDERED: Insulin Lispro 100 Units/ML 3 ML Vial SUBCUT ONE (19:25)
[2018-12-22] MEDS: Bisacodyl 5 MG Tab PO SCH (21:02)
--- NOTE | 2018-12-22 23:25 | PCM.PN ---
- General Info Date of Service: 12/22/18 Admission Dx/Problem (Free Text): Admission Diagnosis/Problem Admission Diagnosis/Problem COPD, Severe chronic obstructive pulmonary disease Functional Status: Reports: Pain Controlled - Review of Systems General: Reports: No Symptoms HEENT: Reports: No Symptoms Pulmonary: Reports: Cough (improved) Cardiovascular: Reports: No Symptoms Gastrointestinal: Reports: No Symptoms Genitourinary: Reports: No Symptoms Musculoskeletal: Reports: No Symptoms Skin: Reports: No Symptoms Neurological: Reports: No Symptoms Psychiatric: Reports: No Symptoms - Patient Data Vitals - Most Recent: Last Vital Signs Temp 98.4 F 12/22/18 20:00 Pulse 104 H 12/22/18 20:00 Resp 17 12/22/18 20:00 BP 148/78 H 12/22/18 20:00 Pulse Ox 93 L 12/22/18 20:00 Weight - Most Recent: 161 lb 1.6 oz I&O - Last 24 Hours: Intake & Output 12/22/18 12/22/18 12/23/18 14:59 22:59 06:59 Intake Total 960 500 Balance 960 500 Lab Results Last 24 Hours: Laboratory Results - last 24 hr 12/22/18 12/22/18 12/22/18 Range/Units 07:15 11:13 17:09 POC Glucose 203 H 277 H* 407 H* (65-110) mg/dl 12/22/18 Range/Units 22:57 POC Glucose 134 H (65-110) mg/dl Med Orders - Current: Current Medications Acetaminophen (Tylenol Arthritis Pain) 650 mg PO Q8H PRN PRN Reason: Pain Last Admin: 12/21/18 17:20 Dose: 650 mg Albuterol/Ipratropium (Duoneb 3.0-0.5 Mg/3 Ml) 3 ml INH QID [facility] Last Admin: 12/22/18 21:02 Dose: Not Given Albuterol/Ipratropium (Duoneb 3.0-0.5 Mg/3 Ml) 3 ml NEB Q4HRRT PRN PRN Reason: Shortness of Breath Benzonatate (Tessalon Perles) 200 mg PO TID PRN PRN Reason: Cough Bisacodyl (Dulcolax) [address] [facility] Last Admin: 12/22/18 21:02 Dose: Not Given Finasteride (Proscar) [address] [facility] Last Admin: 12/22/18 08:08 Dose: 5 mg Fluticasone Propionate (Flonase) [address] [facility] Last Admin: 12/22/18 18:42 Dose: 1 spray Furosemide (Lasix) [address] [facility] Last Admin: 12/22/18 08:07 Dose: 40 mg Guaifenesin (Mucinex) [address] [facility] Last Admin: 12/22/18 18:42 Dose: 600 mg Vancomycin HCl 1 gm/ Sodium (Chloride) 250 mls @ 165 mls/hr IV Q12H [facility] Stop: 12/23/18 14:31 Last Admin: 12/22/18 13:06 Dose: 165 mls/hr Prednisone (Prednisone) [address] [facility] Last Admin: 12/22/18 08:08 Dose: 10 mg Sodium Chloride (Saline Flush) 10 ml FLUSH ASDIRECTED PRN PRN Reason: Keep Vein Open Last Admin: 12/22/18 01:15 Dose: 10 ml Sodium Chloride (Saline Flush) [address] [facility] Last Admin: 12/22/18 21:02 Dose: Not Given Vancomycin HCl (Pharmacy To Dose - Vancomycin) [address] [facility] Warfarin Sodium (Coumadin) 6 mg PO DAILY@1800 [facility] Last Admin: 12/22/18 18:42 Dose: 6 mg Discontinued Medications Aspirin (Halfprin) [address] [facility] Last Admin: 12/15/18 08:04 Dose: 81 mg Azithromycin (Zithromax) 500 mg PO DAILY@1900 [facility] Last Admin: 12/13/18 18:36 Dose: 500 mg Ceftazidime (Fortaz) [address] [facility] Stop: 12/21/18 15:01 Last Admin: 12/15/18 04:52 Dose: Not Given Furosemide (Lasix) 40 mg IVPUSH NOW ONE Stop: 12/15/18 13:07 Last Admin: 12/15/18 14:12 Dose: 40 mg Metronidazole 500 mg/ Premix 100 mls @ 100 mls/hr IV Q8H [facility] Last Admin: 12/14/18 10:50 Dose: 100 mls/hr Vancomycin HCl 1.5 gm/ Sodium (Chloride) 250 mls @ 170 mls/hr IV Q24H [facility] Stop: 12/21/18 13:01 Last Admin: 12/15/18 14:12 Dose: Not Given Levofloxacin/Dextrose 500 mg/ (Premix) 100 mls @ 100 mls/hr IV Q24H [facility] Stop: 12/21/18 15:01 Last Admin: 12/21/18 15:51 Dose: 100 mls/hr Insulin Human Lispro (Humalog) 8 unit SUBCUT ONETIME ONE Stop: 12/15/18 14:01 Last Admin: 12/15/18 14:29 Dose: 8 units Insulin Human Lispro (Humalog) Confirm Administered Dose 300 unit .ROUTE .STK- MED ONE Stop: 12/15/18 14:27 Last Admin: 12/15/18 14:36 Dose: Not Given Insulin Human Lispro (Humalog) 5 unit SUBCUT ONETIME ONE; Protocol Stop: 12/16/18 18:01 Last Admin: 12/16/18 17:58 Dose: 5 unit Insulin Human Lispro (Humalog) 5 unit SUBCUT ONETIME ONE Stop: 12/17/18 16:16 Last Admin: 12/17/18 17:39 Dose: 5 units Insulin Human Lispro (Humalog) 5 unit SUBCUT ONETIME [facility] Stop: 12/18/18 17:36 Last Admin: 12/18/18 17:58 Dose: 5 units Insulin Human Lispro (Humalog) 6 unit SUBCUT ONETIME ONE Stop: 12/19/18 14:31 Last Admin: 12/19/18 15:58 Dose: 6 units Insulin Human Lispro (Humalog) 4 unit SUBCUT NOW ONE Stop: 12/21/18 13:06 Last Admin: 12/21/18 13:25 Dose: 4 unit Insulin Human Lispro (Humalog) 5 unit SUBCUT ONETIME ONE Stop: 12/22/18 19:26 Last Admin: 12/22/18 22:54 Dose: Not Given Methylprednisolone Sodium Succinate (Solu-Medrol) [address] [facility] Last Admin: 12/15/18 08:04 Dose: 40 mg Metronidazole (Flagyl) [address] [facility] Stop: 12/21/18 18:01 Last Admin: 12/15/18 08:04 Dose: 500 mg Prednisone (Prednisone) [address] [facility] Last Admin: 12/18/18 07:39 Dose: 20 mg Warfarin Sodium (Coumadin) 6 mg PO DAILY@1800 [facility] Last Admin: 12/13/18 17:17 Dose: 6 mg - Exam Quality Assessment: Supplemental Oxygen General: Alert, Cooperative, No Acute Distress HEENT: EOMI, Mucous Membr. Moist/[place] Neck: Trachea Midline, No JVD Lungs: Normal Respiratory Effort, Decreased Breath Sounds Cardiovascular: Regular Rate, Regular Rhythm GI/Abdominal Exam: Soft, Non-Tender, No Distention (Male) Exam: Deferred Back Exam: Normal Inspection Extremities: Pedal Edema Skin: Warm, Dry, Intact, Ecchymosis Neurological: No New Focal Deficit Psy/Mental Status: Alert, Normal Affect, Normal Mood - Problem List & Annotations (1) MRSA (methicillin resistant staphylococcus aureus) pneumonia SNOMED Code(s): 550378596424152 Code(s): J15.212 - PNEUMONIA DUE TO METHICILLIN RESISTANT STAPHYLOCOCCUS AUREUS Status: Acute Priority: High Current Visit: No Qualifiers: Laterality: bilateral Lung location: lower lobe of lung Qualified Code(s) : J15.212 - Pneumonia due to Methicillin resistant Staphylococcus aureus (2) COPD (chronic obstructive pulmonary disease) SNOMED Code(s): 08290745 Code(s): J44.9 - CHRONIC OBSTRUCTIVE PULMONARY DISEASE, UNSPECIFIED Status : Acute Priority: High Current Visit: No Qualifiers: COPD type: COPD with acute lower respiratory infection Qualified Code(s): J44.0 - Chronic obstructive pulmonary disease with acute lower respiratory infection (3) CHF (congestive heart failure) SNOMED Code(s): 09124851 Code(s): I50.9 - HEART FAILURE, UNSPECIFIED Status: Acute Current Visit: No (4) Compensated metabolic alkalosis SNOMED Code(s): 5736427 Code(s): E87.3 - ALKALOSIS Status: Acute Priority: High Current Visit: No (5) Compensated respiratory acidosis SNOMED Code(s): 01336446 Code(s): E87.2 - ACIDOSIS Status: Acute Priority: High Current Visit: No (6) Cyst of pancreas SNOMED Code(s): 20173353 Code(s): K86.2 - CYST OF PANCREAS Status: Acute Priority: Medium Current Visit: No (7) Metabolic alkalosis with respiratory acidosis SNOMED Code(s): 502226930 Code(s): E87.4 - MIXED DISORDER OF ACID-BASE BALANCE Status: Acute Priority: High Current Visit: No (8) Osteoarthritis SNOMED Code(s): 684708829 Code(s): M19.90 - UNSPECIFIED OSTEOARTHRITIS, UNSPECIFIED SITE Status: Acute Current Visit: No Qualifiers: Osteoarthritis location: multiple joints Osteoarthritis type: primary Qualified Code(s): M15.0 - Primary generalized (osteo)arthritis (9) Weakness generalized SNOMED Code(s): 31559005 Code(s): R53.1 - WEAKNESS Status: Acute Current Visit: No (10) Comfort measures only status SNOMED Code(s): 56744196263462 Code(s): Z51.5 - ENCOUNTER FOR PALLIATIVE CARE Status: Chronic Priority: Medium Current Visit: No (11) Heart disease SNOMED Code(s): 59770521 Code(s): I51.9 - HEART DISEASE, UNSPECIFIED Status: Chronic Priority: High Current Visit: No Onset Date: 06/04/15 (12) Peptic reflux disease SNOMED Code(s): 426671138 Code(s): K21.9 - GASTRO-ESOPHAGEAL REFLUX DISEASE WITHOUT ESOPHAGITIS Status: Chronic Priority: High Current Visit: No Onset Date: 06/04/15 (13) Pulmonary fibrosis SNOMED Code(s): 61701257 Code(s): J84.10 - PULMONARY FIBROSIS, UNSPECIFIED Status: Chronic Priority: High Current Visit: No Annotation/Comment:: 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, oxygen-dependent (14) Pulmonary nodules SNOMED Code(s): 043997748 Code(s): R91.8 - OTHER NONSPECIFIC ABNORMAL FINDING OF LUNG FIELD Status: Chronic Priority: High Current Visit: No (15) Dysphagia SNOMED Code(s): 51326529, 973561354 Code(s): R13.10 - DYSPHAGIA, UNSPECIFIED Status: Acute Priority: High Current Visit: Yes Qualifiers: Dysphagia type: unspecified Qualified Code(s): R13.10 - Dysphagia, unspecified (16) BPH loc w/o ur obs/LUTS SNOMED Code(s): 230063517 Code(s): N40.0 - BENIGN PROSTATIC HYPERPLASIA WITHOUT LOWER URINRY TRACT SYMP Status: Acute Priority: Medium Current Visit: Yes - Problem List Review Problem List Initiated/Reviewed/Updated: Yes - Plan Plan:: 12/13/18 Aj Small MD Admitted to swing bed status for IV antibiotics, PT, OT, ST, 12/19/18 Aj Small MD Still with deep harsh cough but he is feeling better. Daughter Paris here also. Medical therapy discussed and tentative discharge plans discussed. 12/22/18 Aj Small MD Feels better. Breathing better. Ankle edema but he thinks because he does not have his legs elevated like he does at home. Discharge plans discussed with him , daughter Paris and son-in-law.
[2018-12-23] MEDS: Sodium Chloride 0.9% 10 ML Syringe FLUSH PRN ×2 (00:52→13:16)
[2018-12-23] MEDS: predniSONE 5 MG Tab PO SCH (08:50)
[2018-12-23] MEDS: Fluticasone Propionate Nasal Spray 16 GM Bottle NASBOTH SCH (08:50)
[2018-12-23] MEDS: guaiFENesin 600 MG Tab.ER PO SCH (08:51)
[2018-12-23] MEDS: Finasteride 5 MG Tab PO SCH (08:51)
[2018-12-23] MEDS: Acetaminophen 650 MG Tab.ER PO PRN (08:51)
[2018-12-23] MEDS: Furosemide 40 MG/4 ML VIAL IVPUSH SCH (08:52)
[2018-12-23] MEDS: Albuterol/Ipratropium 3.0-0.5 MG/3 ML Neb Soln INH SCH ×2 (08:52→12:31)
[2018-12-23] MEDS: Sodium Chloride 0.9% 10 ML Syringe FLUSH SCH (08:52)
[2018-12-23 09:17] VITALS: BP 125/74
--- NOTE | 2018-12-23 23:47 | PCM.DCSUM1 ---
Discharge Summary - Hospital Course Diagnosis: Stroke: No - Discharge Data Discharge Date: 12/23/18 Discharge Disposition: Home, [facility] Condition: Good - Discharge Diagnosis/Problem(s) (1) MRSA (methicillin resistant staphylococcus aureus) pneumonia SNOMED Code(s): 651000157459826 ICD Code: J15.212 - PNEUMONIA DUE TO METHICILLIN RESISTANT STAPHYLOCOCCUS AUREUS Status: Acute Priority: High Qualifiers: Laterality: bilateral Lung location: lower lobe of lung Qualified Code(s) : J15.212 - Pneumonia due to Methicillin resistant Staphylococcus aureus (2) COPD (chronic obstructive pulmonary disease) SNOMED Code(s): 26886112 ICD Code: J44.9 - CHRONIC OBSTRUCTIVE PULMONARY DISEASE, UNSPECIFIED Status : Acute Priority: High Qualifiers: COPD type: COPD with acute lower respiratory infection Qualified Code(s): J44.0 - Chronic obstructive pulmonary disease with acute lower respiratory infection (3) CHF (congestive heart failure) SNOMED Code(s): 56465551 ICD Code: I50.9 - HEART FAILURE, UNSPECIFIED Status: Acute (4) Compensated metabolic alkalosis SNOMED Code(s): 0647786 ICD Code: E87.3 - ALKALOSIS Status: Acute Priority: High (5) Compensated respiratory acidosis SNOMED Code(s): 45937731 ICD Code: E87.2 - ACIDOSIS Status: Acute Priority: High (6) Cyst of pancreas SNOMED Code(s): 24581038 ICD Code: K86.2 - CYST OF PANCREAS Status: Acute Priority: Medium (7) Metabolic alkalosis with respiratory acidosis SNOMED Code(s): 662033380 ICD Code: E87.4 - MIXED DISORDER OF ACID-BASE BALANCE Status: Acute Priority: High (8) Osteoarthritis SNOMED Code(s): 146781376 ICD Code: M19.90 - UNSPECIFIED OSTEOARTHRITIS, UNSPECIFIED SITE Status: Acute Qualifiers: Osteoarthritis location: multiple joints Osteoarthritis type: primary Qualified Code(s): M15.0 - Primary generalized (osteo)arthritis (9) Weakness generalized SNOMED Code(s): 20228710 ICD Code: R53.1 - WEAKNESS Status: Acute (10) Comfort measures only status SNOMED Code(s): 71604217181767 ICD Code: Z51.5 - ENCOUNTER FOR PALLIATIVE CARE Status: Chronic Priority : Medium (11) Heart disease SNOMED Code(s): 10679029 ICD Code: I51.9 - HEART DISEASE, UNSPECIFIED Status: Chronic Priority: High Onset Date: 06/04/15 (12) Peptic reflux disease SNOMED Code(s): 034818388 ICD Code: K21.9 - GASTRO-ESOPHAGEAL REFLUX DISEASE WITHOUT ESOPHAGITIS Status: Chronic Priority: High Onset Date: 06/04/15 (13) Pulmonary fibrosis SNOMED Code(s): 39173138 ICD Code: J84.10 - PULMONARY FIBROSIS, UNSPECIFIED Status: Chronic Priority: High Problem Details: 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, oxygen-dependent (14) Pulmonary nodules SNOMED Code(s): 904997765 ICD Code: R91.8 - OTHER NONSPECIFIC ABNORMAL FINDING OF LUNG FIELD Status: Chronic Priority: High (15) Dysphagia SNOMED Code(s): 72077008, 917034129 ICD Code: R13.10 - DYSPHAGIA, UNSPECIFIED Status: Acute Priority: High Qualifiers: Dysphagia type: unspecified Qualified Code(s): R13.10 - Dysphagia, unspecified (16) BPH loc w/o ur obs/LUTS SNOMED Code(s): 534874097 ICD Code: N40.0 - BENIGN PROSTATIC HYPERPLASIA WITHOUT LOWER URINRY TRACT SYMP Status: Acute Priority: Medium - Patient Summary/Data Consults: Consultations 12/13/18 14:41 Consult to Speech Language Pathology [[employer] INSIDE Evaluation and Treatment] [CONS] Routine OT Evaluation and Treatment [CONS] Routine PT Evaluation and Treatment [CONS] Routine - Patient Instructions Diet: Diabetic Diet Activity: As Tolerated Driving: Do Not Drive Showering/Bathing: May Shower - Discharge Plan *PRESCRIPTION DRUG MONITORING PROGRAM REVIEWED*: Not Applicable *COPY OF PRESCRIPTION DRUG MONITORING REPORT IN PATIENT OLENA: Not Applicable Prescriptions/Med Rec: predniSONE [Prednisone] 10 mg PO DAILY #90 [email or web address] Home Medications: Home Meds Albuterol/Ipratropium [DuoNeb 3.0-0.5 MG/3 ML] 3 ml INH QID 01/12/15 [History] Aspirin [Halfprin] 81 mg PO DAILY 01/12/15 [History] Finasteride [Proscar] 5 mg PO DAILY 01/12/15 [History] Albuterol/Ipratropium [DuoNeb 3.0-0.5 MG/3 ML] 3 ml NEB Q4HRRT PRN #1 box 10/26/ 15 [Rx] Bisacodyl [Dulcolax] 10 mg PO BEDTIME PRN 12/22/15 [History] Fluticasone Propionate [Flonase] 1 spray NASBOTH BID 12/22/15 [History] Furosemide [Lasix] 40 mg PO DAILY 12/22/15 [History] Warfarin Sodium [Coumadin] 6 mg PO DAILY@1800 12/22/15 [History] Benzonatate 200 mg PO TID PRN 12/07/18 [History] guaiFENesin [Mucinex] 600 mg PO BID@08,20 12/12/18 [History] Bisacodyl [Dulcolax] 10 mg PO BEDTIME tablet 12/23/18 [Rx] predniSONE [Prednisone] 10 mg PO DAILY #90 tab.[email or web address] 12/23/18 [Rx] Oxygen Therapy Mode: Nasal Cannula Oxygen Flow Rate (L/min): 2 Patient Handouts: Levofloxacin injection, Ceftazidime injection, Vancomycin injection, Metronidazole tablets or capsules - Discharge Summary/Plan Comment DC Time >30 min.: No - Patient Data Vitals - Most Recent: Last Vital Signs Temp 97.6 F 12/23/18 08:00 Pulse 95 12/23/18 08:00 Resp 17 12/23/18 08:00 BP 125/74 12/23/18 08:00 Pulse Ox 99 12/23/18 08:00 Weight - Most Recent: 160 lb 8 oz I&O - Last 24 hours: Intake & Output 12/23/18 12/23/18 12/24/18 14:59 22:59 06:59 Intake Total 720 Balance 720 Lab Results - Last 24 hrs: Laboratory Results - last 24 hr 12/23/18 12/23/18 Range/Units 07:16 11:23 POC Glucose 188 H 268 H* (65-110) mg/dl Med Orders - Current: Current Medications Discontinued Medications Acetaminophen (Tylenol Arthritis Pain) 650 mg PO Q8H PRN PRN Reason: Pain Last Admin: 12/23/18 08:51 Dose: 650 mg Albuterol/Ipratropium (Duoneb 3.0-0.5 Mg/3 Ml) 3 ml INH QID [facility] Last Admin: 12/23/18 12:31 Dose: 3 ml Albuterol/Ipratropium (Duoneb 3.0-0.5 Mg/3 Ml) 3 ml NEB Q4HRRT PRN PRN Reason: Shortness of Breath Aspirin (Halfprin) 81 mg PO DAILY [facility] Last Admin: 12/15/18 08:04 Dose: 81 mg Azithromycin (Zithromax) 500 mg PO DAILY@1900 [facility] Last Admin: 12/13/18 18:36 Dose: 500 mg Benzonatate (Tessalon Perles) 200 mg PO TID PRN PRN Reason: Cough Bisacodyl (Dulcolax) 10 mg PO BEDTIME [facility] Last Admin: 12/22/18 21:02 Dose: Not Given Ceftazidime (Fortaz) 1 gm IVPUSH Q12H [facility] Stop: 12/21/18 15:01 Last Admin: 12/15/18 04:52 Dose: Not Given Finasteride (Proscar) 5 mg PO DAILY [facility] Last Admin: 12/23/18 08:51 Dose: 5 mg Fluticasone Propionate (Flonase) 0 gm NASBOTH BID [facility] Last Admin: 12/23/18 08:50 Dose: 1 spray Furosemide (Lasix) 40 mg IVPUSH DAILY [facility] Last Admin: 12/23/18 08:52 Dose: 40 mg Furosemide (Lasix) 40 mg IVPUSH NOW ONE Stop: 12/15/18 13:07 Last Admin: 12/15/18 14:12 Dose: 40 mg Guaifenesin (Mucinex) 600 mg PO BID [facility] Last Admin: 12/23/18 08:51 Dose: 600 mg Metronidazole 500 mg/ Premix 100 mls @ 100 mls/hr IV Q8H [facility] Last Admin: 12/14/18 10:50 Dose: 100 mls/hr Vancomycin HCl 1.5 gm/ Sodium (Chloride) 250 mls @ 170 mls/hr IV Q24H [facility] Stop: 12/21/18 13:01 Last Admin: 12/15/18 14:12 Dose: Not Given Levofloxacin/Dextrose 500 mg/ (Premix) 100 mls @ 100 mls/hr IV Q24H [facility] Stop: 12/21/18 15:01 Last Admin: 12/21/18 15:51 Dose: 100 mls/hr Vancomycin HCl 1 gm/ Sodium (Chloride) 250 mls @ 165 mls/hr IV Q12H [facility] Stop: 12/23/18 14:31 Last Admin: 12/23/18 13:15 Dose: 165 mls/hr Insulin Human Lispro (Humalog) 8 unit SUBCUT ONETIME ONE Stop: 12/15/18 14:01 Last Admin: 12/15/18 14:29 Dose: 8 units Insulin Human Lispro (Humalog) Confirm Administered Dose 300 unit .ROUTE .STK- MED ONE Stop: 12/15/18 14:27 Last Admin: 12/15/18 14:36 Dose: Not Given Insulin Human Lispro (Humalog) 5 unit SUBCUT ONETIME ONE; Protocol Stop: 12/16/18 18:01 Last Admin: 12/16/18 17:58 Dose: 5 unit Insulin Human Lispro (Humalog) 5 unit SUBCUT ONETIME ONE Stop: 12/17/18 16:16 Last Admin: 12/17/18 17:39 Dose: 5 units Insulin Human Lispro (Humalog) 5 unit SUBCUT ONETIME STA Stop: 12/18/18 17:36 Last Admin: 12/18/18 17:58 Dose: 5 units Insulin Human Lispro (Humalog) 6 unit SUBCUT ONETIME ONE Stop: 12/19/18 14:31 Last Admin: 12/19/18 15:58 Dose: 6 units Insulin Human Lispro (Humalog) 4 unit SUBCUT NOW ONE Stop: 12/21/18 13:06 Last Admin: 12/21/18 13:25 Dose: 4 unit Insulin Human Lispro (Humalog) 5 unit SUBCUT ONETIME ONE Stop: 12/22/18 19:26 Last Admin: 12/22/18 22:54 Dose: Not Given Methylprednisolone Sodium Succinate (Solu-Medrol) 40 mg IVPUSH DAILY [facility] Last Admin: 12/15/18 08:04 Dose: 40 mg Metronidazole (Flagyl) 500 mg PO TID [facility] Stop: 12/21/18 18:01 Last Admin: 12/15/18 08:04 Dose: 500 mg Prednisone (Prednisone) 20 mg PO WITHBREAKFAST [facility] Last Admin: 12/18/18 07:39 Dose: 20 mg Prednisone (Prednisone) 10 mg PO WITHBREAKFAST [facility] Last Admin: 12/23/18 08:50 Dose: 10 mg Sodium Chloride (Saline Flush) 10 ml FLUSH ASDIRECTED PRN PRN Reason: Keep Vein Open Last Admin: 12/23/18 13:16 Dose: 10 ml Sodium Chloride (Saline Flush) 10 ml FLUSH Q12HR [facility] Last Admin: 12/23/18 08:52 Dose: 10 ml Vancomycin HCl (Pharmacy To Dose - Vancomycin) 1 dose .XX ASDIRECTED [facility] Warfarin Sodium (Coumadin) 6 mg PO DAILY@1800 [facility] Last Admin: 12/13/18 17:17 Dose: 6 mg Warfarin Sodium (Coumadin) 6 mg PO DAILY@1800 [facility] Last Admin: 12/22/18 18:42 Dose: 6 mg *Q Meaningful Use (DIS) - VTE *Q VTE Mechanical Contraindications *Q: Tx/Proc Refused byPt
== END 2018-12-23 15:25 | disposition home health service (06) | DRG 178 ==
LOC: LL.MS 12-13 16:04
PROVIDERS: ADMIT Family Medicine; ATTEND Family Medicine
DX: J15.212 Pneumonia due to Methicillin resistant Staphylococcus aureus (principal); E87.3 Alkalosis; K86.2 Cyst of pancreas; E87.4 Mixed disorder of acid-base balance; I50.9 Heart failure, unspecified; M15.0 Primary generalized (osteo)arthritis; Z51.5 Encounter for palliative care; K21.9 Gastro-esophageal reflux disease without esophagitis; J84.10 Pulmonary fibrosis, unspecified; R91.8 Other nonspecific abnormal finding of lung field; R13.10 Dysphagia, unspecified; N40.0 Benign prostatic hyperplasia without lower urinary tract symptoms; H54.7 Unspecified visual loss; I25.10 Atherosclerotic heart disease of native coronary artery without angina pectoris; E78.00 Pure hypercholesterolemia, unspecified; Z79.82 Long term (current) use of aspirin; Z79.01 Long term (current) use of anticoagulants; Z99.81 Dependence on supplemental oxygen; Z88.2 Allergy status to sulfonamides; Z86.711 Personal history of pulmonary embolism; Z86.718 Personal history of other venous thrombosis and embolism
CPT/HCPCS: 36415; 71046; 74230; 80048; 80053; 80202; 82962; 83880; 85025; 85610; 92526-GN; 92611-GN; 94640; 94761; 97110-GO; 97110-GP; 97161-GP; 97165-GO; 97530-GO; 97530-GP; 97535-GO; A4217; A9270-GY; J0713; J1815; J1940; J1956; J2920; J3370; J3490; J7050; J7620-GY

== ENCOUNTER 2019-05-09 08:00 | Inpatient (IN) | payer MEDICARE, BC ==
[2019-05-09] MEDS ORDERED: Albuterol/Ipratropium 3.0-0.5 MG/3 ML Neb Soln NEB ONE (08:18)
[2019-05-09] MEDS ORDERED: Albuterol/Ipratropium 3.0-0.5 MG/3 ML Neb Soln ONE (08:20)
[2019-05-09] MEDS ORDERED: Budesonide 0.25 MG/2 ML Neb Susp NEB ONE (08:22)
[2019-05-09 09:17] LABS: CHLORIDE,CL 98 mmol/L (98-107); SODIUM,NA 140 mmol/L (136-145)
--- NOTE | 2019-05-09 09:17 | EDM.PDOC ---
ED HPI GENERAL MEDICAL PROBLEM - General Chief Complaint: General Stated Complaint: Tachycardia, Weakness Time Seen by Provider: 05/09/19 08:10 Source of Information: Reports: Patient, Family History Limitations: Reports: No Limitations, Respiratory Distress - History of Present Illness INITIAL COMMENTS - FREE TEXT/NARRATIVE: Kiet is a 88-year-old gentleman who is well known to myself history of COPD tachycardia yesterday presented at home generalized weakness daughter had a hard time managing him so they called 911 and was brought to the hospital for evaluation at this time Kiet feels warm to touch white count elevated so we proceeded with a chest x-ray that revealed upper lobe pneumonia we have concerns because of his past medical history of pulmonary embolus and will proceed with a CAT scan of the chest. 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 Treatments, Oxygen - Related Data Allergies Allergy/AdvReac Type Severity Reaction Status Date / Time Sulfa (Sulfonamide Allergy Cannot Verified 05/09/19 09:10 Antibiotics) Remember Home Meds: Home Meds Albuterol/Ipratropium [DuoNeb 3.0-0.5 MG/3 ML] 3 ml INH QID 01/12/15 [History] Aspirin [Halfprin] 81 mg PO DAILY 01/12/15 [History] Finasteride [Proscar] 5 mg PO DAILY 01/12/15 [History] Albuterol/Ipratropium [DuoNeb 3.0-0.5 MG/3 ML] 3 ml NEB Q4HRRT PRN #1 box [Rx] Fluticasone Propionate [Flonase] 1 spray NASBOTH BID 12/22/15 [History] Warfarin Sodium [Coumadin] 6 mg PO SUTUWETHFRSA@1800 12/22/15 [History] Benzonatate 200 mg PO TID PRN 12/07/18 [History] Bisacodyl [Dulcolax] 10 mg PO BEDTIME tablet 12/23/18 [Rx] predniSONE [Prednisone] 10 mg PO DAILY #90 tab.ds.pk 12/23/18 [Rx] Acetaminophen [Tylenol] 650 mg PO Q4H PRN tablet 05/09/19 [Rx] Albuterol [Ventolin HFA] 2 puff INH Q2H PRN 05/09/19 [History] Azithromycin [Zithromax] 500 mg IV Q24H vial 05/09/19 [Rx] Budesonide [Pulmicort] 0.5 mg INH BID 05/09/19 [History] Mometasone Furoate [Asmanex 220 MCG] 2 puff INH BID 05/09/19 [History] Morphine 1 mg IVPUSH Q2H PRN syringe 05/09/19 [Rx] Piperacillin/Tazobactam [Zosyn] 3.375 gm IV Q6H vial 05/09/19 [Rx] Potassium Chloride [Klor-Con M20] 20 meq PO DAILY 05/09/19 [History] Simvastatin [Zocor] 40 mg PO BEDTIME 05/09/19 [History] Sodium Chloride 0.9% [Saline Flush] 10 ml FLUSH ASDIRECTED PRN syringe [Rx] Warfarin Sodium [Coumadin] 5 mg PO MO@1800 05/09/19 [History] Past Medical History HEENT History: Reports: Impaired Vision Other HEENT History: Glasses Cardiovascular History: Reports: Blood Clots/VTE/DVT, CAD, Heart Failure, High Cholesterol, Hypertension, SOB on Exertion Other Cardiovascular History: h/o DVT and PE Respiratory History: Reports: COPD, PE, Pulmonary Fibrosis, SOB Other Respiratory History: Oxygen-dependent Gastrointestinal History: Reports: GERD Genitourinary History: Reports: BPH Other Genitourinary History: Bilateral renal cysts Musculoskeletal History: Reports: Osteoarthritis, Other (See Below) Other Musculoskeletal History: Right rotator cuff tear on 12/10/08 - Infectious Disease History Infectious Disease History: Reports: MRSA - Past Surgical History Cardiovascular Surgical History: Reports: None Social & Family History - Family History Family Medical History: Unobtainable - Caffeine Use Caffeine Use: Reports: Coffee - Living Situation & Occupation Living situation: Reports: , with Family Occupation: Retired ED ROS GENERAL - Review of Systems Review Of Systems: See Below Constitutional: Reports: Fever, Weakness HEENT: Reports: No Symptoms Respiratory: Reports: Shortness of Breath, Cough Cardiovascular: Reports: Dyspnea on Exertion, Orthopnea, Palpitations Endocrine: Reports: High Glucose GI/Abdominal: Reports: No Symptoms : Reports: No Symptoms Musculoskeletal: Reports: Joint Pain, Joint Swelling Skin: Reports: Other (Warm) Neurological: Reports: No Symptoms Psychiatric: Reports: No Symptoms Hematologic/Lymphatic: Reports: No Symptoms Immunologic: Reports: No Symptoms ED EXAM, GENERAL - Physical Exam Exam: See Below Exam Limited By: No Limitations General Appearance: Alert, WD/WN, Moderate Distress Ears: Normal External Exam, Normal Canal, Hearing Grossly Normal, Normal TMs Nose: Normal Inspection, Normal Mucosa, No Blood Throat/Mouth: Normal Inspection, Normal Lips, Normal Teeth, Normal Gums, Normal Oropharynx, Normal Voice, No Airway Compromise Head: Atraumatic, Normocephalic Neck: Normal Inspection Respiratory/Chest: Respiratory Distress, Decreased Breath Sounds Cardiovascular: Tachycardia, Irregularly Irregular GI/Abdominal: Normal Bowel Sounds, Soft, Non-Tender, No Organomegaly, No Distention, No Abnormal Bruit, No Mass (Male) Exam: Deferred Rectal (Males) Exam: Deferred Back Exam: Normal Inspection, Full Range of Motion, NT Extremities: Joint Swelling Neurological: Alert, Oriented, CN II-XII Intact, Normal Cognition, Normal Gait, Normal Reflexes, No Motor/Sensory Deficits Psychiatric: Normal Affect, Normal Mood Skin Exam: Warm, Dry, Intact, Normal Color, No Rash Lymphatic: No Adenopathy Course - Vital Signs Last Recorded V/S: Last Vital Signs Temp 97.9 F 05/09/19 10:18 Pulse 119 H 05/09/19 10:18 Resp 40 H 05/09/19 10:18 BP 115/57 L 05/09/19 10:18 Pulse Ox 93 L 05/09/19 10:18 - Orders/Labs/Meds Orders: Active Orders 24 hr Category Date Time Status Blood Glucose Check, Bedside [RC] TIDMEALS Care 05/09/19 09:29 Inactive Cardiac Monitoring [RC] CONTINUOUS Care 05/09/19 09:32 Inactive Communication Order [RC] ROUTINE Care 05/09/19 09:44 Active EKG Documentation Completion [RC] ASDIRECTED Care 05/09/19 08:40 Active Oxygen Therapy [RC] PRN Care 05/09/19 09:30 Inactive RT Aerosol Therapy [RC] ASDIRECTED Care 05/09/19 08:18 Active RT Aerosol Therapy [RC] ASDIRECTED Care 05/09/19 08:22 Active VTE/DVT Education [RC] PER UNIT ROUTINE Care 05/09/19 09:30 Inactive Ang Chest [CT] Stat Exams 05/09/19 08:52 Taken Chest 1V Frontal [CR] Stat Exams 05/09/19 08:37 Taken CULTURE BLOOD [BC] Stat Lab 05/09/19 08:40 Received CULTURE BLOOD [BC] Stat Lab 05/09/19 08:40 Received TROPONIN I [CHEM] Timed Lab 05/09/19 15:00 Ordered Acetaminophen [Tylenol] Med 05/09/19 09:29 Active 650 mg PO Q4H PRN Morphine Med 05/09/19 09:29 Active 1 mg IVPUSH Q2H PRN Sodium Chloride 0.9% [Saline Flush] Med 05/09/19 09:29 Active 10 ml FLUSH ASDIRECTED PRN Blood Culture x2 Reflex Set [OM.PC] Stat Oth 05/09/19 08:53 Ordered Saline Lock Insert [OM.PC] Routine Oth 05/09/19 09:29 Ordered Resuscitation Status Routine Resus Stat 05/09/19 09:29 Ordered Medication Orders Acetaminophen (Tylenol) 650 mg PO Q4H PRN PRN Reason: Pain (Mild 1-3)/fever Last Admin: 05/09/19 11:21 Dose: 650 mg Albuterol (Proventil Neb Soln) 2.5 mg NEB Q2H PRN PRN Reason: Dyspnea Albuterol/Ipratropium (Duoneb 3.0-0.5 Mg/3 Ml) 3 ml INH QID THELMA Albuterol/Ipratropium (Duoneb 3.0-0.5 Mg/3 Ml) 3 ml NEB Q4HRRT PRN PRN Reason: Shortness of Breath Benzonatate (Tessalon Perles) 200 mg PO TID PRN PRN Reason: Cough Bisacodyl (Dulcolax) 10 mg PO BEDTIME THELMA Fluticasone Propionate (Flonase) 0 gm NASBOTH BID THELMA Azithromycin 500 mg/ Sodium (Chloride) 250 mls @ 250 mls/hr IV Q24H THELMA Stop: 05/13/19 11:01 Last Admin: 05/09/19 11:16 Dose: 250 mls/hr Piperacillin Sod/Tazobactam (Sod 3.375 gm/ Sodium Chloride) 100 mls @ 200 mls/ hr IV Q6H [facility] Last Admin: 05/09/19 11:30 Dose: 200 mls/hr Metronidazole 500 mg/ Premix 100 mls @ 100 mls/hr IV Q8H [facility] Last Admin: 05/09/19 14:26 Dose: 100 mls/hr Methylprednisolone Sodium Succinate (Solu-Medrol) 40 mg IVPUSH Q12H [facility] Last Admin: 05/09/19 14:26 Dose: 40 mg Morphine Sulfate (Morphine) 1 mg IVPUSH Q2H PRN PRN Reason: Pain (severe 7-10) Last Admin: 05/09/19 11:26 Dose: 1 mg Sodium Chloride (Saline Flush) 10 ml FLUSH ASDIRECTED PRN PRN Reason: Keep Vein Open Last Admin: 05/09/19 14:26 Dose: 10 ml Admin: 05/09/19 11:33 Dose: 10 ml Admin: 05/09/19 11:20 Dose: 10 ml Sodium Chloride (Saline Flush) 10 ml FLUSH Q12HR [facility] Labs: Laboratory Tests 05/09/19 05/09/19 05/09/19 Range/Units 08:40 08:40 08:40 WBC 14.2 H (4.0-10.2) K/uL RBC 4.46 (4.33-5.41) M/uL Hgb 14.4 (13.1-16.8) g/dL Hct 45.1 (39.0-49.0) % MCV 101.1 H (84.0-98.0) fL MCH 32.3 (28.2-33.3) pg MCHC 31.9 (31.7-36.0) g/dL RDW 13.6 (11.2-14.1) % Plt Count 213 (150-350) K/uL Neut % (Auto) 84.3 H (45.0-80.0) % Lymph % (Auto) 6.9 L (10.0-50.0) % Rush % (Auto) 8.3 (2.0-14.0) % Eos % (Auto) 0.2 (0.0-5.0) % Baso % (Auto) 0.3 (0.0-2.0) % Neut # (Auto) 11.97 H (1.40-7.00) K/uL Lymph # (Auto) 0.98 (0.50-3.50) K/uL Rush # (Auto) 1.18 H (0.00-1.00) K/uL Eos # (Auto) 0.03 (0.00-0.50) K/uL Baso # (Auto) 0.04 (0.00-0.20) K/uL PT 16.5 H D (9.5-12.0) SEC INR 1.5 D-Dimer, Quantitative (0-400) ng/mL Sodium 140 (136-145) mmol/L Potassium 4.1 (3.5-5.1) mmol/L Chloride 98 (98-107) mmol/L Carbon Dioxide 34.8 H (21.0-32.0) mmol/L BUN 21 H (7-18) mg/dL Creatinine 0.73 (0.51-1.17) mg/dL Est Cr Clr Drug Dosing TNP Estimated GFR (MDRD) > 60 mL/min Glucose 239 H (74-106) mg/dL Lactic Acid (0.4-2.0) mmol/L Calcium 9.3 (8.5-10.1) mg/dL Total Bilirubin 1.2 H (0.2-1.0) mg/dL AST 28 (15-37) U/L ALT 35 (12-78) U/L Alkaline Phosphatase 86 (46-116) IU/L Troponin I (0.000-0.056) ng/mL C-Reactive Protein (<=0.9) mg/dL NT-Pro-B Natriuret Pep 402 H (0-125) pg/mL Total Protein 6.8 (6.4-8.2) g/dL Albumin 3.4 (3.4-5.0) g/dL 05/09/19 05/09/19 05/09/19 Range/Units 08:40 08:40 08:40 WBC (4.0-10.2) K/uL RBC (4.33-5.41) M/uL Hgb (13.1-16.8) g/dL Hct (39.0-49.0) % MCV (84.0-98.0) fL MCH (28.2-33.3) pg MCHC (31.7-36.0) g/dL RDW (11.2-14.1) % Plt Count (150-350) K/uL Neut % (Auto) (45.0-80.0) % Lymph % (Auto) (10.0-50.0) % Rush % (Auto) (2.0-14.0) % Eos % (Auto) (0.0-5.0) % Baso % (Auto) (0.0-2.0) % Neut # (Auto) (1.40-7.00) K/uL Lymph # (Auto) (0.50-3.50) K/uL Rush # (Auto) (0.00-1.00) K/uL Eos # (Auto) (0.00-0.50) K/uL Baso # (Auto) (0.00-0.20) K/uL PT (9.5-12.0) SEC INR D-Dimer, Quantitative 267 (0-400) ng/mL Sodium (136-145) mmol/L Potassium (3.5-5.1) mmol/L Chloride (98-107) mmol/L Carbon Dioxide (21.0-32.0) mmol/L BUN (7-18) mg/dL Creatinine (0.51-1.17) mg/dL Est Cr Clr Drug Dosing Estimated GFR (MDRD) mL/min Glucose (74-106) mg/dL Lactic Acid 1.1 (0.4-2.0) mmol/L Calcium (8.5-10.1) mg/dL Total Bilirubin (0.2-1.0) mg/dL AST (15-37) U/L ALT (12-78) U/L Alkaline Phosphatase (46-116) IU/L Troponin I 0.034 (0.000-0.056) ng/mL C-Reactive Protein (<=0.9) mg/dL NT-Pro-B Natriuret Pep (0-125) pg/mL Total Protein (6.4-8.2) g/dL Albumin (3.4-5.0) g/dL 05/09/19 Range/Units 08:40 WBC (4.0-10.2) K/uL RBC (4.33-5.41) M/uL Hgb (13.1-16.8) g/dL Hct (39.0-49.0) % MCV (84.0-98.0) fL MCH (28.2-33.3) pg MCHC (31.7-36.0) g/dL RDW (11.2-14.1) % Plt Count (150-350) K/uL Neut % (Auto) (45.0-80.0) % Lymph % (Auto) (10.0-50.0) % Rush % (Auto) (2.0-14.0) % Eos % (Auto) (0.0-5.0) % Baso % (Auto) (0.0-2.0) % Neut # (Auto) (1.40-7.00) K/uL Lymph # (Auto) (0.50-3.50) K/uL Rush # (Auto) (0.00-1.00) K/uL Eos # (Auto) (0.00-0.50) K/uL Baso # (Auto) (0.00-0.20) K/uL PT (9.5-12.0) SEC INR D-Dimer, Quantitative (0-400) ng/mL Sodium (136-145) mmol/L Potassium (3.5-5.1) mmol/L Chloride (98-107) mmol/L Carbon Dioxide (21.0-32.0) mmol/L BUN (7-18) mg/dL Creatinine (0.51-1.17) mg/dL Est Cr Clr Drug Dosing Estimated GFR (MDRD) mL/min Glucose (74-106) mg/dL Lactic Acid (0.4-2.0) mmol/L Calcium (8.5-10.1) mg/dL Total Bilirubin (0.2-1.0) mg/dL AST (15-37) U/L ALT (12-78) U/L Alkaline Phosphatase (46-116) IU/L Troponin I (0.000-0.056) ng/mL C-Reactive Protein 11.8 H (<=0.9) mg/dL NT-Pro-B Natriuret Pep (0-125) pg/mL Total Protein (6.4-8.2) g/dL Albumin (3.4-5.0) g/dL Meds: Medications Generic Name Dose Route Start Last Admin Trade Name Freq PRN Reason Stop Dose Admin Acetaminophen 650 mg 05/09/19 09:29 05/09/19 11:21 Tylenol PO 650 mg Q4H PRN Administration Pain (Mild 1-3)/fever Albuterol 2.5 mg 05/09/19 13:30 Proventil Neb Soln NEB Q2H PRN Dyspnea Albuterol/Ipratropium 3 ml 05/09/19 16:00 Duoneb 3.0-0.5 Mg/3 Ml INH QID THELMA Albuterol/Ipratropium 3 ml 05/09/19 13:22 Duoneb 3.0-0.5 Mg/3 Ml NEB Q4HRRT PRN Shortness of Breath Benzonatate 200 mg 05/09/19 13:22 Tessalon Perles PO TID PRN Cough Bisacodyl 10 mg 05/09/19 20:00 Dulcolax PO BEDTIME THELMA Fluticasone Propionate 0 gm 05/09/19 18:00 Flonase NASBOTH BID THELMA Azithromycin 500 mg/ Sodium 250 mls @ 250 mls/hr 05/09/19 11:00 05/09/19 11: 16 Chloride IV 05/13/19 11:01 250 mls/hr Q24H THELMA Administration Piperacillin Sod/Tazobactam 100 mls @ 200 mls/hr 05/09/19 12:00 05/09/19 11: 30 Sod 3.375 gm/ Sodium Chloride IV 200 mls/hr Q6H THELMA Administration Metronidazole 500 mg/ Premix 100 mls @ 100 mls/hr 05/09/19 15:00 05/09/19 14: 26 IV 100 mls/hr Q8H THELMA Administration Methylprednisolone Sodium Succinate 40 mg 05/09/19 15:00 05/09/19 14:26 Solu-Medrol IVPUSH 40 mg Q12H THELMA Administration Morphine Sulfate 1 mg 05/09/19 09:29 05/09/19 11:26 Morphine IVPUSH 1 mg Q2H PRN Administration Pain (severe 7-10) Sodium Chloride 10 ml 05/09/19 09:29 05/09/19 14:26 Saline Flush FLUSH 10 ml ASDIRECTED PRN Administration Keep Vein Open Sodium Chloride 10 ml 05/09/19 20:00 Saline Flush FLUSH Q12HR THELMA Discontinued Medications Generic Name Dose Route Start Last Admin Trade Name Torq PRN Reason Stop Dose Admin Albuterol/Ipratropium 3 ml 05/09/19 08:18 05/09/19 08:20 Duoneb 3.0-0.5 Mg/3 Ml NEB 05/09/19 08:19 3 ml ONETIME ONE Administration Albuterol/Ipratropium Confirm 05/09/19 08:20 05/09/19 10:54 Duoneb 3.0-0.5 Mg/3 Ml Administered 05/09/19 08:21 Not Given Dose 3 ml .ROUTE .STK-MED ONE Budesonide 0.25 mg 05/09/19 08:22 05/09/19 08:28 Pulmicort NEB 05/09/19 08:23 0.25 mg ONETIME ONE Administration Piperacillin Sod/Tazobactam 100 mls @ 200 mls/hr 05/09/19 09:45 05/09/19 11: 05 Sod 3.375 gm/ Sodium Chloride IV Not Given Q6H THELMA Azithromycin 500 mg/ Sodium 250 mls @ 250 mls/hr 05/09/19 09:45 05/09/19 11: 06 Chloride IV 05/13/19 23:00 Not Given Q24H THELMA Iopamidol 100 ml 05/09/19 09:21 05/09/19 09:43 Isovue-370 (76%) IVPUSH 05/09/19 09:22 100 ml ONETIME ONE Administration Departure - Departure Time of Disposition: 10:06 Disposition: Admitted As Inpatient 68 Clinical Impression: Pneumonia Qualifiers: Pneumonia type: due to unspecified organism Laterality: right Lung location: upper lobe of lung Qualified Code(s): J18.1 - Lobar pneumonia, unspecified organism - Discharge Information *PRESCRIPTION DRUG MONITORING PROGRAM REVIEWED*: Not Applicable *COPY OF PRESCRIPTION DRUG MONITORING REPORT IN PATIENT OLENA: Not Applicable - Problem List & Annotations (1) Pneumonia SNOMED Code(s): 770123897 Code(s): J18.9 - PNEUMONIA, UNSPECIFIED ORGANISM Status: Acute Current Visit: Yes Qualifiers: Pneumonia type: due to unspecified organism Laterality: right Lung location: upper lobe of lung Qualified Code(s): J18.1 - Lobar pneumonia, unspecified organism (2) Palliative care patient SNOMED Code(s): 091758712 Code(s): Z51.5 - ENCOUNTER FOR PALLIATIVE CARE Status: Acute Current Visit: Yes Annotation/Comment:: patient is receiving antibiotics. If he doesnt respond, we will consult hospice. Family in agreement of this plan. - Problem List Review Problem List Initiated/Reviewed/Updated: Yes - My Orders Last 24 Hours: My Active Orders 05/09/19 08:18 RT Aerosol Therapy [RC] ASDIRECTED 05/09/19 08:22 RT Aerosol Therapy [RC] ASDIRECTED 05/09/19 08:37 Chest 1V Frontal [CR] Stat 05/09/19 08:40 EKG Documentation Completion [RC] ASDIRECTED CULTURE BLOOD [BC] Stat CULTURE BLOOD [BC] Stat 05/09/19 08:52 Ang Chest [CT] Stat 05/09/19 08:53 Blood Culture x2 Reflex Set [OM.PC] Stat 05/09/19 09:29 Blood Glucose Check, Bedside [RC] TIDMEALS Acetaminophen [Tylenol] 650 mg PO Q4H PRN Morphine 1 mg IVPUSH Q2H PRN Sodium Chloride 0.9% [Saline Flush] 10 ml FLUSH ASDIRECTED PRN Saline Lock Insert [OM.PC] Routine Resuscitation Status Routine 05/09/19 09:30 Oxygen Therapy [RC] PRN VTE/DVT Education [RC] PER UNIT ROUTINE 05/09/19 09:32 Cardiac Monitoring [RC] CONTINUOUS 05/09/19 09:44 Communication Order [RC] ROUTINE 05/09/19 15:00 TROPONIN I [CHEM] Timed - Assessment/Plan Admission H&P: Please use this note as an admission H&P Last 24 Hours: My Active Orders 05/09/19 08:18 RT Aerosol Therapy [RC] ASDIRECTED 05/09/19 08:22 RT Aerosol Therapy [RC] ASDIRECTED 05/09/19 08:37 Chest 1V Frontal [CR] Stat 05/09/19 08:40 EKG Documentation Completion [RC] ASDIRECTED CULTURE BLOOD [BC] Stat CULTURE BLOOD [BC] Stat 05/09/19 08:52 Ang Chest [CT] Stat 05/09/19 08:53 Blood Culture x2 Reflex Set [OM.PC] Stat 05/09/19 09:29 Blood Glucose Check, Bedside [RC] TIDMEALS Acetaminophen [Tylenol] 650 mg PO Q4H PRN Morphine 1 mg IVPUSH Q2H PRN Sodium Chloride 0.9% [Saline Flush] 10 ml FLUSH ASDIRECTED PRN Saline Lock Insert [OM.PC] Routine Resuscitation Status Routine 05/09/19 09:30 Oxygen Therapy [RC] PRN VTE/DVT Education [RC] PER UNIT ROUTINE 05/09/19 09:32 Cardiac Monitoring [RC] CONTINUOUS 05/09/19 09:44 Communication Order [RC] ROUTINE 05/09/19 15:00 TROPONIN I [CHEM] Timed Plan: Admit patient to inpatient for antibiotic treatment. if patient does not respond to antibiotics he will be placed to hospice care. Spoke with family and they agreed. Patient is on breathing treatments as well.
[2019-05-09] MEDS ORDERED: Iopamidol 755 Mg/ML 100 ML Bottle IVPUSH ONE (09:21)
[2019-05-09] MEDS ORDERED: Azithromycin 500 MG in Sodium Chloride 0.9% 250 ML IV SCH (09:45)
[2019-05-09] MEDS ORDERED: Piperacillin/Tazobactam 3.375 GM in Sodium Chloride 0.9% 100 ML IV SCH (09:45)
[2019-05-09] MEDS: Azithromycin 500 MG in Sodium Chloride 0.9% 250 ML IV SCH (11:16)
[2019-05-09] MEDS: Sodium Chloride 0.9% 10 ML Syringe FLUSH PRN ×5 (11:20→23:21)
[2019-05-09] MEDS: Acetaminophen 325 MG Tab PO PRN (11:21)
[2019-05-09] MEDS: Morphine 2 MG/ML Syringe IVPUSH PRN ×2 (11:26→18:26)
[2019-05-09] MEDS: Piperacillin/Tazobactam 3.375 GM in Sodium Chloride 0.9% 100 ML IV SCH ×2 (11:30→18:25)
[2019-05-09] MEDS ORDERED: Benzonatate 100 MG Cap PO PRN (13:22)
[2019-05-09] MEDS ORDERED: Albuterol/Ipratropium 3.0-0.5 MG/3 ML Neb Soln NEB PRN (13:22)
[2019-05-09] MEDS ORDERED: Albuterol 0.083% 2.5 MG/3 ML Neb Soln NEB PRN (13:30)
[2019-05-09] MEDS: methylPREDNISolone Sodium Succinate 40 MG/1 ML SDV IVPUSH SCH (14:26)
[2019-05-09] MEDS: metroNIDAZOLE/Normal Saline 500 MG in Premix Bag 1 BAG IV SCH ×2 (14:26→23:20)
[2019-05-09] MEDS: Albuterol/Ipratropium 3.0-0.5 MG/3 ML Neb Soln INH SCH ×2 (16:27→19:23)
[2019-05-09] MEDS: Fluticasone Propionate Nasal Spray 16 GM Bottle NASBOTH SCH (18:24)
[2019-05-09] MEDS: Bisacodyl 5 MG Tab PO SCH (19:23)
[2019-05-09] MEDS: Sodium Chloride 0.9% 10 ML Syringe FLUSH SCH (19:23)
[2019-05-10] MEDS: Piperacillin/Tazobactam 3.375 GM in Sodium Chloride 0.9% 100 ML IV SCH ×4 (00:21→17:43)
[2019-05-10] MEDS: Sodium Chloride 0.9% 10 ML Syringe FLUSH PRN ×5 (03:01→15:23)
[2019-05-10] MEDS: methylPREDNISolone Sodium Succinate 40 MG/1 ML SDV IVPUSH SCH ×2 (03:01→15:22)
[2019-05-10] MEDS: Fluticasone Propionate Nasal Spray 16 GM Bottle NASBOTH SCH ×2 (08:12→17:44)
[2019-05-10] MEDS: metroNIDAZOLE/Normal Saline 500 MG in Premix Bag 1 BAG IV SCH ×2 (08:12→15:22)
[2019-05-10] MEDS: Albuterol/Ipratropium 3.0-0.5 MG/3 ML Neb Soln INH SCH ×4 (08:13→19:23)
[2019-05-10] MEDS: Sodium Chloride 0.9% 10 ML Syringe FLUSH SCH ×2 (08:13→19:22)
[2019-05-10 09:28] LABS: CHLORIDE,CL 102 mmol/L (98-107); SODIUM,NA 141 mmol/L (136-145)
[2019-05-10] MEDS: Azithromycin 500 MG in Sodium Chloride 0.9% 250 ML IV SCH (11:15)
[2019-05-10] MEDS ORDERED: Insulin Isophane NPH, Human 100 Units/ML 3 ML Vial SQ ONE (17:47)
[2019-05-10] MEDS ORDERED: Insulin Lispro 100 Units/ML 3 ML Vial SUBCUT ONE ×2 (18:00→21:12)
--- NOTE | 2019-05-10 18:19 | PCM.PN ---
- General Info Date of Service: 05/10/19 Functional Status: Reports: Pain Controlled (knees feel much better), Tolerating Diet, Ambulating, Urinating - Review of Systems General: Reports: Weakness HEENT: Reports: No Symptoms Pulmonary: Reports: Shortness of Breath (improved), Cough (chronic) Cardiovascular: Reports: No Symptoms Gastrointestinal: Reports: No Symptoms Genitourinary: Reports: No Symptoms Musculoskeletal: Reports: Joint Pain (bilateral knees improved today) Skin: Reports: Bruising Neurological: Reports: Weakness Psychiatric: Reports: No Symptoms - Patient Data Vitals - Most Recent: Last Vital Signs Temp 98.4 F 05/10/19 16:00 Pulse 110 H 05/10/19 16:00 Resp 20 05/10/19 16:00 BP 141/71 H 05/10/19 16:00 Pulse Ox 98 05/10/19 16:00 Weight - Most Recent: 150 lb 0.005 oz I&O - Last 24 Hours: Intake & Output 05/10/19 05/10/19 05/10/19 06:59 14:59 22:59 Intake Total 906 250 4371 Output Total 350 100 Balance 536 318 2944 Lab Results Last 24 Hours: Laboratory Results - last 24 hr 05/10/19 05/10/19 05/10/19 Range/Units 07:04 07:04 07:04 WBC 13.4 H (4.0-10.2) K/uL RBC 4.17 L (4.33-5.41) M/uL Hgb 13.4 (13.1-16.8) g/dL Hct 42.3 (39.0-49.0) % MCV 101.4 H (84.0-98.0) fL MCH 32.1 (28.2-33.3) pg MCHC 31.7 (31.7-36.0) g/dL RDW 13.4 (11.2-14.1) % Plt Count 207 (150-350) K/uL Neut % (Auto) 93.8 H (45.0-80.0) % Lymph % (Auto) 1.8 L (10.0-50.0) % Harney % (Auto) 4.3 (2.0-14.0) % Eos % (Auto) 0.0 (0.0-5.0) % Baso % (Auto) 0.1 (0.0-2.0) % Neut # (Auto) 12.56 H (1.40-7.00) K/uL Lymph # (Auto) 0.24 L (0.50-3.50) K/uL Harney # (Auto) 0.57 (0.00-1.00) K/uL Eos # (Auto) 0.00 (0.00-0.50) K/uL Baso # (Auto) 0.02 (0.00-0.20) K/uL PT 14.0 H (9.5-12.0) SEC INR 1.3 Sodium 141 (136-145) mmol/L Potassium 4.4 (3.5-5.1) mmol/L Chloride 102 (98-107) mmol/L Carbon Dioxide 32.9 H (21.0-32.0) mmol/L BUN 29 H (7-18) mg/dL Creatinine 0.67 (0.51-1.17) mg/dL Est Cr Clr Drug Dosing 76.16 mL/min Estimated GFR (MDRD) > 60 mL/min Glucose 323 H (74-106) mg/dL POC Glucose (65-110) mg/dl Calcium 9.0 (8.5-10.1) mg/dL C-Reactive Protein 16.2 H (<=0.9) mg/dL 05/10/19 05/10/19 Range/Units 07:49 17:37 WBC (4.0-10.2) K/uL RBC (4.33-5.41) M/uL Hgb (13.1-16.8) g/dL Hct (39.0-49.0) % MCV (84.0-98.0) fL MCH (28.2-33.3) pg MCHC (31.7-36.0) g/dL RDW (11.2-14.1) % Plt Count (150-350) K/uL Neut % (Auto) (45.0-80.0) % Lymph % (Auto) (10.0-50.0) % Har[place] % (Auto) (2.0-14.0) % Eos % (Auto) (0.0-5.0) % Baso % (Auto) (0.0-2.0) % Neut # (Auto) (1.40-7.00) K/uL Lymph # (Auto) (0.50-3.50) K/uL Harney # (Auto) (0.00-1.00) K/uL Eos # (Auto) (0.00-0.50) K/uL Baso # (Auto) (0.00-0.20) K/uL PT (9.5-12.0) SEC INR Sodium (136-145) mmol/L Potassium (3.5-5.1) mmol/L Chloride (98-107) mmol/L Carbon Dioxide (21.0-32.0) mmol/L BUN (7-18) mg/dL Creatinine (0.51-1.17) mg/dL Est Cr Clr Drug Dosing mL/min Estimated GFR (MDRD) mL/min Glucose (74-106) mg/dL POC Glucose 313 H* > 500 H* (65-110) mg/dl Calcium (8.5-10.1) mg/dL C-Reactive Protein (<=0.9) mg/dL Jarret Results Last 24 Hours: Microbiology 05/09/19 08:40 Aerobic Blood Culture - Preliminary Blood - Venous - Lab Draw NO GROWTH AFTER 1 DAY Anaerobic Blood Culture - Preliminary NO GROWTH AFTER 1 DAY 05/09/19 08:40 Aerobic Blood Culture - Preliminary Blood - Venous NO GROWTH AFTER 1 DAY Anaerobic Blood Culture - Preliminary NO GROWTH AFTER 1 DAY Med Orders - Current: Current Medications Acetaminophen (Tylenol) 650 mg PO Q4H PRN PRN Reason: Pain (Mild 1-3)/fever Last Admin: 05/09/19 11:21 Dose: 650 mg Albuterol (Proventil Neb Soln) 2.5 mg NEB Q2H PRN PRN Reason: Dyspnea Albuterol/Ipratropium (Duoneb 3.0-0.5 Mg/3 Ml) 3 ml INH QID THELMA Last Admin: 05/10/19 15:22 Dose: 3 ml Albuterol/Ipratropium (Duoneb 3.0-0.5 Mg/3 Ml) 3 ml NEB Q4HRRT PRN PRN Reason: Shortness of Breath Azithromycin (Zithromax) 500 mg PO ONETIME ONE Stop: 05/11/19 12:01 Benzonatate (Tessalon Perles) 200 mg PO TID PRN PRN Reason: Cough Bisacodyl (Dulcolax) 10 mg PO BEDTIME [facility] Last Admin: 05/09/19 19:23 Dose: 10 mg Fluticasone Propionate (Flonase) 0 gm NASBOTH BID [facility] Last Admin: 05/10/19 17:44 Dose: 1 spray Piperacillin Sod/Tazobactam (Sod 3.375 gm/ Sodium Chloride) 100 mls @ 200 mls/ hr IV Q6H [facility] Last Admin: 05/10/19 17:43 Dose: 200 mls/hr Vancomycin HCl 1 gm/ Sodium (Chloride) 250 mls @ 165 mls/hr IV Q24H [facility] Last Admin: 05/10/19 13:30 Dose: 165 mls/hr Methylprednisolone Sodium Succinate (Solu-Medrol) 40 mg IVPUSH DAILY [facility] Metronidazole (Flagyl) 500 mg PO TID@0800,1400,2000 [facility] Morphine Sulfate (Morphine) 1 mg IVPUSH Q2H PRN PRN Reason: Pain (severe 7-10) Last Admin: 05/09/19 18:26 Dose: 1 mg Sodium Chloride (Saline Flush) 10 ml FLUSH ASDIRECTED PRN PRN Reason: Keep Vein Open Last Admin: 05/10/19 15:23 Dose: 10 ml Sodium Chloride (Saline Flush) 10 ml FLUSH Q12HR [facility] Last Admin: 05/10/19 08:13 Dose: 10 ml Vancomycin HCl (Pharmacy To Dose - Vancomycin) 1 dose .XX ASDIRECTED [facility] Discontinued Medications Albuterol/Ipratropium (Duoneb 3.0-0.5 Mg/3 Ml) 3 ml NEB ONETIME ONE Stop: 05/09/19 08:19 Last Admin: 05/09/19 08:20 Dose: 3 ml Albuterol/Ipratropium (Duoneb 3.0-0.5 Mg/3 Ml) Confirm Administered Dose 3 ml .ROUTE .STK-MED ONE Stop: 05/09/19 08:21 Last Admin: 05/09/19 10:54 Dose: Not Given Budesonide (Pulmicort) 0.25 mg NEB ONETIME ONE Stop: 05/09/19 08:23 Last Admin: 05/09/19 08:28 Dose: 0.25 mg Piperacillin Sod/Tazobactam (Sod 3.375 gm/ Sodium Chloride) 100 mls @ 200 mls/ hr IV Q6H [facility] Last Admin: 05/09/19 11:05 Dose: Not Given Azithromycin 500 mg/ Sodium (Chloride) 250 mls @ 250 mls/hr IV Q24H [facility] Stop: 05/13/19 23:00 Last Admin: 05/09/19 11:06 Dose: Not Given Azithromycin 500 mg/ Sodium (Chloride) 250 mls @ 250 mls/hr IV Q24H [facility] Stop: 05/13/19 11:01 Last Admin: 05/10/19 11:15 Dose: 250 mls/hr Metronidazole 500 mg/ Premix 100 mls @ 100 mls/hr IV Q8H [facility] Last Admin: 05/10/19 15:22 Dose: 100 mls/hr Influenza Virus Vaccine (Pharmacy To Dose - Influenza Vaccine) 1 each IM ONETIME ONE Stop: 05/10/19 16:55 Influenza Virus Vaccine (Fluzone High-Dose 2019-20 Syringe) 180 mcg IM .ONCE ONE Stop: 05/10/19 17:16 Insulin Human Lispro (Humalog) 20 unit SUBCUT ONETIME ONE Stop: 05/10/19 18:01 Insulin Human NPH (Humulin N) 30 unit SQ ONETIME ONE Stop: 05/10/19 17:48 Iopamidol (Isovue-370 (76%)) 100 ml IVPUSH ONETIME ONE Stop: 05/09/19 09:22 Last Admin: 05/09/19 09:43 Dose: 100 ml Methylprednisolone Sodium Succinate (Solu-Medrol) 40 mg IVPUSH Q12H [facility] Last Admin: 05/10/19 15:22 Dose: 40 mg - Exam Quality Assessment: Supplemental Oxygen General: Alert, Cooperative, No Acute Distress HEENT: Mucous Membr. Moist/[place] Neck: Trachea Midline, No JVD Lungs: Normal Respiratory Effort, Decreased Breath Sounds, Rhonchi (RUL), Wheezing (RUL) Cardiovascular: Regular Rate, Regular Rhythm GI/Abdominal Exam: Soft, Non-Tender, No Distention (Male) Exam: Deferred Back Exam: Normal Inspection Extremities: Normal Inspection, Non-Tender, No Pedal Edema Skin: Warm, Dry, Intact, Ecchymosis Neurological: No New Focal Deficit Psy/Mental Status: Alert, Normal Affect (joking and teasing), Normal Mood - Problem List & Annotations (1) Pneumonia SNOMED Code(s): 800492620 Code(s): J18.9 - PNEUMONIA, UNSPECIFIED ORGANISM Status: Acute Current Visit: Yes Qualifiers: Pneumonia type: due to unspecified organism Laterality: right Lung location: upper lobe of lung Qualified Code(s): J18.1 - Lobar pneumonia, unspecified organism (2) Emphysema lung SNOMED Code(s): 40060737 Code(s): J43.9 - EMPHYSEMA, UNSPECIFIED Status: Chronic Priority: High Current Visit: Yes Qualifiers: Emphysema type: panlobular Qualified Code(s): J43.1 - Panlobular emphysema (3) Palliative care patient SNOMED Code(s): 135099341 Code(s): Z51.5 - ENCOUNTER FOR PALLIATIVE CARE Status: Acute Current Visit: Yes Annotation/Comment:: patient is receiving antibiotics. If he doesnt respond, we will consult hospice. Family in agreement of this plan. (4) COPD (chronic obstructive pulmonary disease) SNOMED Code(s): 28283309 Code(s): J44.9 - CHRONIC OBSTRUCTIVE PULMONARY DISEASE, UNSPECIFIED Status : Acute Priority: High Current Visit: No Qualifiers: COPD type: COPD with acute lower respiratory infection Qualified Code(s): J44.0 - Chronic obstructive pulmonary disease with (acute) lower respiratory infection (5) CHF (congestive heart failure) SNOMED Code(s): 62645305 Code(s): I50.9 - HEART FAILURE, UNSPECIFIED Status: Acute Current Visit: No (6) Compensated metabolic alkalosis SNOMED Code(s): 3363126 Code(s): E87.3 - ALKALOSIS Status: Acute Priority: High Current Visit: No (7) Compensated respiratory acidosis SNOMED Code(s): 38212740 Code(s): E87.2 - ACIDOSIS Status: Acute Priority: High Current Visit: No (8) Osteoarthritis SNOMED Code(s): 671882868 Code(s): M19.90 - UNSPECIFIED OSTEOARTHRITIS, UNSPECIFIED SITE Status: Acute Current Visit: No Qualifiers: Osteoarthritis location: multiple joints Osteoarthritis type: primary Qualified Code(s): M15.0 - Primary generalized (osteo)arthritis (9) Weakness generalized SNOMED Code(s): 89278210 Code(s): R53.1 - WEAKNESS Status: Acute Current Visit: No (10) Comfort measures only status SNOMED Code(s): 76938837210195 Code(s): Z51.5 - ENCOUNTER FOR PALLIATIVE CARE Status: Chronic Priority: Medium Current Visit: No (11) Heart disease SNOMED Code(s): 28558926 Code(s): I51.9 - HEART DISEASE, UNSPECIFIED Status: Chronic Priority: High Current Visit: No Onset Date: 06/04/15 (12) Peptic reflux disease SNOMED Code(s): 744420593 Code(s): K21.9 - GASTRO-ESOPHAGEAL REFLUX DISEASE WITHOUT ESOPHAGITIS Status: Chronic Priority: High Current Visit: No Onset Date: 06/04/15 (13) Pulmonary fibrosis SNOMED Code(s): 85470667 Code(s): J84.10 - PULMONARY FIBROSIS, UNSPECIFIED Status: Chronic Priority: High Current Visit: No Annotation/Comment:: 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, oxygen-dependent (14) Pulmonary nodules SNOMED Code(s): 429414851 Code(s): R91.8 - OTHER NONSPECIFIC ABNORMAL FINDING OF LUNG FIELD Status: Chronic Priority: High Current Visit: No (15) BPH loc w/o ur obs/LUTS SNOMED Code(s): 757920852 Code(s): N40.0 - BENIGN PROSTATIC HYPERPLASIA WITHOUT LOWER URINRY TRACT SYMP Status: Acute Priority: Medium Current Visit: No - Problem List Review Problem List Initiated/Reviewed/Updated: Yes - My Orders Last 24 Hours: My Active Orders 05/09/19 18:00 Fluticasone Propionate [Flonase] 0 gm NASBOTH BID 05/09/19 20:00 Bisacodyl [Dulcolax] 10 mg PO BEDTIME Sodium Chloride 0.9% [Saline Flush] 10 ml FLUSH Q12HR 05/09/19 Dinner Regular Diet [DIET] 05/10/19 07:04 MYCOPLASMA IGM RAPID [MREF] Routine 05/10/19 12:00 Pharmacy to Dose - Vancomycin 1 dose .XX ASDIRECTED 05/10/19 12:30 Vancomycin 1 gm Sodium Chloride 0.9% [Normal Saline] 250 ml IV Q24H 05/10/19 16:54 Influenza Vaccine Charge [RC] .DISCHARGE 05/10/19 17:54 CULTURE SPUTUM + SMEAR [RM] Routine 05/10/19 20:00 metroNIDAZOLE [Flagyl] 500 mg PO TID@0800,1400,199905/10/19 21:00 Accu Check [Blood Glucose Check, Bedside] [RC] ONETIME 05/11/19 05:11 CRP [C-REACTIVE PROTEIN] [CHEM] DAILY 05/11/19 08:00 methylPREDNISolone Sod Succ [Solu-MEDROL] 40 mg IVPUSH DAILY 05/11/19 12:00 Azithromycin [Zithromax] 500 mg PO ONETIME ONE 05/12/19 05:11 CRP [C-REACTIVE PROTEIN] [CHEM] DAILY 05/12/19 12:00 VANCOMYCIN TROUGH [CHEM] Routine - Plan Plan:: 05/10/19 Aj Small MD He feels much better today. Joking and teasing. He was able to walk to bathroom and back. Still weak. Breathing about the same. Blood sugars elevated. Discussed with him and his sons x2. Will order insulin. Continue IV antibiotics but switch some to oral due to difficult IV access and decrease IV solumedrol.
[2019-05-10] MEDS: Bisacodyl 5 MG Tab PO SCH (19:21)
[2019-05-10] MEDS: metroNIDAZOLE 500 MG Tab PO SCH (19:22)
[2019-05-11 07:34] LABS: CHLORIDE,CL 105 mmol/L (98-107); SODIUM,NA 142 mmol/L (136-145)
[2019-05-11] MEDS ORDERED: Furosemide 20 MG/2 ML VIAL IVPUSH ONE (08:00)
[2019-05-11] MEDS: metroNIDAZOLE 500 MG Tab PO SCH ×3 (08:21→19:50)
[2019-05-11] MEDS: Albuterol/Ipratropium 3.0-0.5 MG/3 ML Neb Soln INH SCH ×4 (08:21→19:54)
[2019-05-11] MEDS: Fluticasone Propionate Nasal Spray 16 GM Bottle NASBOTH SCH ×2 (08:22→17:10)
[2019-05-11] MEDS: methylPREDNISolone Sodium Succinate 40 MG/1 ML SDV IVPUSH SCH (08:22)
[2019-05-11] MEDS: Sodium Chloride 0.9% 10 ML Syringe FLUSH SCH ×2 (08:22→20:54)
[2019-05-11] MEDS ORDERED: Azithromycin 250 MG Tab PO ONE (12:00)
[2019-05-11] MEDS ORDERED: Insulin Lispro 100 Units/ML 3 ML Vial SUBCUT ONE ×2 (12:18→17:03)
[2019-05-11] MEDS ORDERED: Insulin Isophane NPH, Human 100 Units/ML 3 ML Vial SQ ONE ×2 (13:00→13:15)
--- NOTE | 2019-05-11 13:49 | PCM.PN ---
- General Info Date of Service: 05/11/19 Functional Status: Reports: Tolerating Diet, Ambulating, Other (pain in knees L> R) - Review of Systems General: Reports: Weakness HEENT: Reports: No Symptoms Pulmonary: Reports: Shortness of Breath, Cough Cardiovascular: Reports: No Symptoms Gastrointestinal: Reports: No Symptoms Genitourinary: Reports: No Symptoms Musculoskeletal: Reports: Joint Pain (knees) Skin: Reports: Bruising Neurological: Reports: Weakness (L>R leg) Psychiatric: Reports: No Symptoms - Patient Data Vitals - Most Recent: Last Vital Signs Temp 97.5 F 05/11/19 07:15 Pulse 87 05/11/19 07:15 Resp 18 05/11/19 07:15 BP 121/60 05/11/19 07:15 Pulse Ox 95 05/10/19 19:53 Weight - Most Recent: 150 lb 0.005 oz I&O - Last 24 Hours: Intake & Output 05/10/19 05/11/19 05/11/19 22:59 06:59 14:59 Intake Total 1850 360 Output Total 50 Balance 1850 -50 360 Lab Results Last 24 Hours: Laboratory Results - last 24 hr 05/10/19 05/10/19 05/11/19 Range/Units 17:37 21:03 03:02 WBC (4.0-10.2) K/uL RBC (4.33-5.41) M/uL Hgb (13.1-16.8) g/dL Hct (39.0-49.0) % MCV (84.0-98.0) fL MCH (28.2-33.3) pg MCHC (31.7-36.0) g/dL RDW (11.2-14.1) % Plt Count (150-350) K/uL Neut % (Auto) (45.0-80.0) % Lymph % (Auto) (10.0-50.0) % [place] % (Auto) (2.0-14.0) % Eos % (Auto) (0.0-5.0) % Baso % (Auto) (0.0-2.0) % Neut # (Auto) (1.40-7.00) K/uL Lymph # (Auto) (0.50-3.50) K/uL [place] # (Auto) (0.00-1.00) K/uL Eos # (Auto) (0.00-0.50) K/uL Baso # (Auto) (0.00-0.20) K/uL Sodium (136-145) mmol/L Potassium (3.5-5.1) mmol/L Chloride (98-107) mmol/L Carbon Dioxide (21.0-32.0) mmol/L BUN (7-18) mg/dL Creatinine (0.51-1.17) mg/dL Est Cr Clr Drug Dosing mL/min Estimated GFR (MDRD) mL/min Glucose (74-106) mg/dL POC Glucose > 500 H* 459 H* 101 (65-110) mg/dl Calcium (8.5-10.1) mg/dL C-Reactive Protein (<=0.9) mg/dL 05/11/19 05/11/19 05/11/19 Range/Units 07:05 07:05 07:08 WBC 13.5 H (4.0-10.2) K/uL RBC 3.57 L (4.33-5.41) M/uL Hgb 11.5 L D (13.1-16.8) g/dL Hct 35.6 L (39.0-49.0) % MCV 99.7 H (84.0-98.0) fL MCH 32.2 (28.2-33.3) pg MCHC 32.3 (31.7-36.0) g/dL RDW 12.9 (11.2-14.1) % Plt Count 202 (150-350) K/uL Neut % (Auto) 89.0 H (45.0-80.0) % Lymph % (Auto) 3.5 L (10.0-50.0) % [place] % (Auto) 7.4 (2.0-14.0) % Eos % (Auto) 0.0 (0.0-5.0) % Baso % (Auto) 0.1 (0.0-2.0) % Neut # (Auto) 12.02 H (1.40-7.00) K/uL Lymph # (Auto) 0.47 L (0.50-3.50) K/uL [place] # (Auto) 1.00 (0.00-1.00) K/uL Eos # (Auto) 0.00 (0.00-0.50) K/uL Baso # (Auto) 0.01 (0.00-0.20) K/uL Sodium 142 (136-145) mmol/L Potassium 4.2 (3.5-5.1) mmol/L Chloride 105 (98-107) mmol/L Carbon Dioxide 35.2 H (21.0-32.0) mmol/L BUN 34 H (7-18) mg/dL Creatinine 0.64 (0.51-1.17) mg/dL Est Cr Clr Drug Dosing 79.73 mL/min Estimated GFR (MDRD) > 60 mL/min Glucose 113 H (74-106) mg/dL POC Glucose 108 (65-110) mg/dl Calcium 9.0 (8.5-10.1) mg/dL C-Reactive Protein 18.6 H (<=0.9) mg/dL 05/11/19 Range/Units 11:43 WBC (4.0-10.2) K/uL RBC (4.33-5.41) M/uL Hgb (13.1-16.8) g/dL Hct (39.0-49.0) % MCV (84.0-98.0) fL MCH (28.2-33.3) pg MCHC (31.7-36.0) g/dL RDW (11.2-14.1) % Plt Count (150-350) K/uL Neut % (Auto) (45.0-80.0) % Lymph % (Auto) (10.0-50.0) % [place] % (Auto) (2.0-14.0) % Eos % (Auto) (0.0-5.0) % Baso % (Auto) (0.0-2.0) % Neut # (Auto) (1.40-7.00) K/uL Lymph # (Auto) (0.50-3.50) K/uL [place] # (Auto) (0.00-1.00) K/uL Eos # (Auto) (0.00-0.50) K/uL Baso # (Auto) (0.00-0.20) K/uL Sodium (136-145) mmol/L Potassium (3.5-5.1) mmol/L Chloride (98-107) mmol/L Carbon Dioxide (21.0-32.0) mmol/L BUN (7-18) mg/dL Creatinine (0.51-1.17) mg/dL Est Cr Clr Drug Dosing mL/min Estimated GFR (MDRD) mL/min Glucose (74-106) mg/dL POC Glucose 397 H* (65-110) mg/dl Calcium (8.5-10.1) mg/dL C-Reactive Protein (<=0.9) mg/dL Jarret Results Last 24 Hours: Microbiology 05/10/19 07:04 Mycoplasma Serology - Final Blood 05/09/19 08:40 Aerobic Blood Culture - Preliminary Blood - Venous - Lab Draw NO GROWTH AFTER 2 DAYS Anaerobic Blood Culture - Preliminary NO GROWTH AFTER 2 DAYS 05/09/19 08:40 Aerobic Blood Culture - Preliminary Blood - Venous NO GROWTH AFTER 2 DAYS Anaerobic Blood Culture - Preliminary NO GROWTH AFTER 2 DAYS Med Orders - Current: Current Medications Acetaminophen (Tylenol) 650 mg PO Q4H PRN PRN Reason: Pain (Mild 1-3)/fever Last Admin: 05/09/19 11:21 Dose: 650 mg Acetaminophen (Tylenol Arthritis Pain) 1,300 mg PO BID [facility] Albuterol (Proventil Neb Soln) 2.5 mg NEB Q2H PRN PRN Reason: Dyspnea Albuterol/Ipratropium (Duoneb 3.0-0.5 Mg/3 Ml) 3 ml INH QID [facility] Last Admin: 05/11/19 13:06 Dose: 3 ml Albuterol/Ipratropium (Duoneb 3.0-0.5 Mg/3 Ml) 3 ml NEB Q4HRRT PRN PRN Reason: Shortness of Breath Azithromycin (Zithromax) 500 mg PO DAILY@1200 [facility] Stop: 05/18/19 12:01 Benzonatate (Tessalon Perles) 200 mg PO TID PRN PRN Reason: Cough Bisacodyl (Dulcolax) 10 mg PO BEDTIME [facility] Last Admin: 05/10/19 19:21 Dose: 10 mg Cefprozil (Cefzil) 500 mg PO Q12HR [facility] Last Admin: 05/11/19 08:21 Dose: 500 mg Fluticasone Propionate (Flonase) 0 gm NASBOTH BID [facility] Last Admin: 05/11/19 08:22 Dose: 1 spray Vancomycin HCl 1 gm/ Sodium (Chloride) 250 mls @ 165 mls/hr IV Q24H [facility] Last Admin: 05/11/19 13:06 Dose: 165 mls/hr Methylprednisolone Sodium Succinate (Solu-Medrol) 40 mg IVPUSH DAILY [facility] Last Admin: 05/11/19 08:22 Dose: 40 mg Metronidazole (Flagyl) 500 mg PO TID@0800,1400,2000 [facility] Last Admin: 05/11/19 13:06 Dose: 500 mg Morphine Sulfate (Morphine) 1 mg IVPUSH Q2H PRN PRN Reason: Pain (severe 7-10) Last Admin: 05/09/19 18:26 Dose: 1 mg Sodium Chloride (Saline Flush) 10 ml FLUSH ASDIRECTED PRN PRN Reason: Keep Vein Open Last Admin: 05/10/19 15:23 Dose: 10 ml Sodium Chloride (Saline Flush) 10 ml FLUSH Q12HR [facility] Last Admin: 05/11/19 08:22 Dose: 10 ml Vancomycin HCl (Pharmacy To Dose - Vancomycin) 1 dose .XX ASDIRECTED [facility] Discontinued Medications Albuterol/Ipratropium (Duoneb 3.0-0.5 Mg/3 Ml) 3 ml NEB ONETIME ONE Stop: 05/09/19 08:19 Last Admin: 05/09/19 08:20 Dose: 3 ml Albuterol/Ipratropium (Duoneb 3.0-0.5 Mg/3 Ml) Confirm Administered Dose 3 ml .ROUTE .STK-MED ONE Stop: 05/09/19 08:21 Last Admin: 05/09/19 10:54 Dose: Not Given Azithromycin (Zithromax) 500 mg PO ONETIME ONE Stop: 05/11/19 12:01 Last Admin: 05/11/19 13:06 Dose: 500 mg Budesonide (Pulmicort) 0.25 mg NEB ONETIME ONE Stop: 05/09/19 08:23 Last Admin: 05/09/19 08:28 Dose: 0.25 mg Furosemide (Lasix) 20 mg IVPUSH ONETIME ONE Stop: 05/11/19 08:01 Last Admin: 05/11/19 08:22 Dose: 20 mg Piperacillin Sod/Tazobactam (Sod 3.375 gm/ Sodium Chloride) 100 mls @ 200 mls/ hr IV Q6H [facility] Last Admin: 05/09/19 11:05 Dose: Not Given Azithromycin 500 mg/ Sodium (Chloride) 250 mls @ 250 mls/hr IV Q24H [facility] Stop: 05/13/19 23:00 Last Admin: 05/09/19 11:06 Dose: Not Given Azithromycin 500 mg/ Sodium (Chloride) 250 mls @ 250 mls/hr IV Q24H [facility] Stop: 05/13/19 11:01 Last Admin: 05/10/19 11:15 Dose: 250 mls/hr Piperacillin Sod/Tazobactam (Sod 3.375 gm/ Sodium Chloride) 100 mls @ 200 mls/ hr IV Q6H [facility] Last Admin: 05/10/19 17:43 Dose: 200 mls/hr Metronidazole 500 mg/ Premix 100 mls @ 100 mls/hr IV Q8H [facility] Last Admin: 05/10/19 15:22 Dose: 100 mls/hr Influenza Virus Vaccine (Pharmacy To Dose - Influenza Vaccine) 1 each IM ONETIME ONE Stop: 05/10/19 16:55 Influenza Virus Vaccine (Fluzone High-Dose 2019-20 Syringe) 180 mcg IM .ONCE ONE Stop: 05/10/19 17:16 Last Admin: 05/10/19 18:36 Dose: 180 mcg Insulin Human Lispro (Humalog) 20 unit SUBCUT ONETIME ONE Stop: 05/10/19 18:01 Last Admin: 05/10/19 18:37 Dose: 20 unit Insulin Human Lispro (Humalog) 15 unit SUBCUT ONETIME ONE Stop: 05/10/19 21:13 Last Admin: 05/10/19 21:38 Dose: 15 units Insulin Human Lispro (Humalog) 4 unit SUBCUT ONETIME ONE Stop: 05/11/19 12:19 Last Admin: 05/11/19 13:05 Dose: 4 units Insulin Human NPH (Humulin N) 30 unit SQ ONETIME ONE Stop: 05/10/19 17:48 Last Admin: 05/10/19 18:39 Dose: 30 unit Insulin Human NPH (Humulin N) 30 unit SQ ONETIME ONE Stop: 05/11/19 13:01 Last Admin: 05/11/19 13:21 Dose: 30 unit Insulin Human NPH (Humulin N) 20 unit SQ ONETIME ONE Stop: 05/11/19 13:16 Iopamidol (Isovue-370 (76%)) 100 ml IVPUSH ONETIME ONE Stop: 05/09/19 09:22 Last Admin: 05/09/19 09:43 Dose: 100 ml Methylprednisolone Sodium Succinate (Solu-Medrol) 40 mg IVPUSH Q12H [facility] Last Admin: 05/10/19 15:22 Dose: 40 mg - Exam Quality Assessment: Supplemental Oxygen, DVT Prophylaxis General: Alert, Cooperative, No Acute Distress HEENT: Mucous Membr. Moist/[place] Neck: Trachea Midline, No JVD Lungs: Normal Respiratory Effort, Decreased Breath Sounds, Rhonchi (RUL) GI/Abdominal Exam: Normal Bowel Sounds, Soft, Non-Tender, No Organomegaly, No Distention, No Abnormal Bruit, No Mass, Pelvis Stable (Male) Exam: Deferred Back Exam: Normal Inspection Extremities: Non-Tender, Pedal Edema (L>R) Skin: Warm, Dry, Intact, Ecchymosis Neurological: No New Focal Deficit Psy/Mental Status: Alert, Normal Affect, Normal Mood - Problem List & Annotations (1) Mycoplasma pneumoniae pneumonia SNOMED Code(s): 38978413 Code(s): J15.7 - PNEUMONIA DUE TO MYCOPLASMA PNEUMONIAE Status: Acute Priority: High Current Visit: Yes Qualifiers: Laterality: right Lung location: upper lobe of lung Qualified Code(s): J15.7 - Pneumonia due to Mycoplasma pneumoniae (2) Pneumonia SNOMED Code(s): 540151384 Code(s): J18.9 - PNEUMONIA, UNSPECIFIED ORGANISM Status: Acute Current Visit: Yes Qualifiers: Pneumonia type: due to unspecified organism Laterality: right Lung location: upper lobe of lung Qualified Code(s): J18.1 - Lobar pneumonia, unspecified organism (3) Emphysema lung SNOMED Code(s): 33145104 Code(s): J43.9 - EMPHYSEMA, UNSPECIFIED Status: Chronic Priority: High Current Visit: Yes Qualifiers: Emphysema type: panlobular Qualified Code(s): J43.1 - Panlobular emphysema (4) COPD (chronic obstructive pulmonary disease) SNOMED Code(s): 13256263 Code(s): J44.9 - CHRONIC OBSTRUCTIVE PULMONARY DISEASE, UNSPECIFIED Status : Acute Priority: High Current Visit: No Qualifiers: COPD type: COPD with acute lower respiratory infection Qualified Code(s): J44.0 - Chronic obstructive pulmonary disease with (acute) lower respiratory infection (5) CHF (congestive heart failure) SNOMED Code(s): 02301013 Code(s): I50.9 - HEART FAILURE, UNSPECIFIED Status: Acute Current Visit: No (6) Palliative care patient SNOMED Code(s): 814592020 Code(s): Z51.5 - ENCOUNTER FOR PALLIATIVE CARE Status: Acute Current Visit: Yes Annotation/Comment:: patient is receiving antibiotics. If he doesnt respond, we will consult hospice. Family in agreement of this plan. (7) Compensated metabolic alkalosis SNOMED Code(s): 1059491 Code(s): E87.3 - ALKALOSIS Status: Acute Priority: High Current Visit: No (8) Compensated respiratory acidosis SNOMED Code(s): 46116592 Code(s): E87.2 - ACIDOSIS Status: Acute Priority: High Current Visit: No (9) Weakness generalized SNOMED Code(s): 84916043 Code(s): R53.1 - WEAKNESS Status: Acute Current Visit: No (10) Osteoarthritis SNOMED Code(s): 255610854 Code(s): M19.90 - UNSPECIFIED OSTEOARTHRITIS, UNSPECIFIED SITE Status: Acute Current Visit: No Qualifiers: Osteoarthritis location: multiple joints Osteoarthritis type: primary Qualified Code(s): M15.0 - Primary generalized (osteo)arthritis (11) Comfort measures only status SNOMED Code(s): 31848534766768 Code(s): Z51.5 - ENCOUNTER FOR PALLIATIVE CARE Status: Chronic Priority: Medium Current Visit: No (12) Heart disease SNOMED Code(s): 59448297 Code(s): I51.9 - HEART DISEASE, UNSPECIFIED Status: Chronic Priority: High Current Visit: No Onset Date: 06/04/15 (13) Peptic reflux disease SNOMED Code(s): 330073051 Code(s): K21.9 - GASTRO-ESOPHAGEAL REFLUX DISEASE WITHOUT ESOPHAGITIS Status: Chronic Priority: High Current Visit: No Onset Date: 06/04/15 (14) Pulmonary fibrosis SNOMED Code(s): 86017189 Code(s): J84.10 - PULMONARY FIBROSIS, UNSPECIFIED Status: Chronic Priority: High Current Visit: No Annotation/Comment:: 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, oxygen-dependent (15) Pulmonary nodules SNOMED Code(s): 490328264 Code(s): R91.8 - OTHER NONSPECIFIC ABNORMAL FINDING OF LUNG FIELD Status: Chronic Priority: High Current Visit: No (16) BPH loc w/o ur obs/LUTS SNOMED Code(s): 168629356 Code(s): N40.0 - BENIGN PROSTATIC HYPERPLASIA WITHOUT LOWER URINRY TRACT SYMP Status: Acute Priority: Medium Current Visit: No - Problem List Review Problem List Initiated/Reviewed/Updated: Yes - My Orders Last 24 Hours: My Active Orders 05/10/19 16:54 Influenza Vaccine Charge [RC] .DISCHARGE 05/10/19 17:54 CULTURE SPUTUM + SMEAR [RM] Routine 05/10/19 20:00 metroNIDAZOLE [Flagyl] 500 mg PO TID@0800,1400,2000 05/10/19 21:00 Accu Check [Blood Glucose Check, Bedside] [] ONETIME 05/11/19 03:00 Blood Glucose Check, Bedside [RC] ONETIME 05/11/19 08:00 Cefprozil [Cefzil] 500 mg PO Q12HR methylPREDNISolone Sod Succ [Solu-MEDROL] 40 mg IVPUSH DAILY 05/11/19 18:00 Acetaminophen [Tylenol Arthritis Pain] 1,300 mg PO BID Enoxaparin [Lovenox] 40 mg SUBCUT DAILY@1800 05/12/19 05:11 CRP [C-REACTIVE PROTEIN] [CHEM] DAILY 05/12/19 12:00 VANCOMYCIN TROUGH [CHEM] Routine Azithromycin [Zithromax] 500 mg PO DAILY@1200 05/13/19 05:11 Chest 2V [CR] Routine - Plan Plan:: 05/10/19 Aj Small MD He feels much better today. Joking and teasing. He was able to walk to bathroom and back. Still weak. Breathing about the same. Blood sugars elevated. Discussed with him and his sons x2. Will order insulin. Continue IV antibiotics but switch some to oral due to difficult IV access and decrease IV solumedrol. 05/11/19 Aj Small MD Continues to clinically improve. Mycoplasma +. Continue zithromax Blood sugars still elevated and insulin being adjusted. Knees hurt today. WBC still elevated and CRP still increasing.
[2019-05-11] MEDS: Acetaminophen 650 MG Tab.ER PO SCH (17:09)
[2019-05-11] MEDS: Enoxaparin 40 MG/0.4 ML Syringe SUBCUT SCH (17:10)
[2019-05-11] MEDS: Bisacodyl 5 MG Tab PO SCH (19:51)
[2019-05-12] MEDS: Potassium Chloride 10 MEQ Tab.ER PO SCH (07:18)
[2019-05-12] MEDS: metroNIDAZOLE 500 MG Tab PO SCH ×3 (07:18→19:41)
[2019-05-12] MEDS: Albuterol/Ipratropium 3.0-0.5 MG/3 ML Neb Soln INH SCH ×4 (07:18→19:42)
[2019-05-12] MEDS: Fluticasone Propionate Nasal Spray 16 GM Bottle NASBOTH SCH ×2 (07:18→17:45)
[2019-05-12] MEDS: Acetaminophen 650 MG Tab.ER PO SCH ×2 (07:18→17:45)
[2019-05-12] MEDS: methylPREDNISolone Sodium Succinate 40 MG/1 ML SDV IVPUSH SCH (07:19)
[2019-05-12] MEDS: Furosemide 20 MG/2 ML VIAL IVPUSH SCH (07:19)
[2019-05-12] MEDS: Sodium Chloride 0.9% 10 ML Syringe FLUSH SCH ×2 (07:28→19:43)
[2019-05-12] MEDS: Azithromycin 250 MG Tab PO SCH (12:28)
[2019-05-12 12:32] LABS: CHLORIDE,CL 100 mmol/L (98-107); SODIUM,NA 138 mmol/L (136-145)
[2019-05-12] MEDS: Sodium Chloride 0.9% 10 ML Syringe FLUSH PRN (14:41)
[2019-05-12] MEDS: Vancomycin 1.5 GM in Sodium Chloride 0.9% 500 ML IV SCH (14:41)
--- NOTE | 2019-05-12 15:53 | PCM.PN ---
- General Info Date of Service: 05/12/19 Admission Dx/Problem (Free Text): Pneumonia Functional Status: Reports: Tolerating Diet, Ambulating, Urinating - Review of Systems General: Reports: Weakness (but improving) HEENT: Reports: No Symptoms Pulmonary: Reports: Shortness of Breath, Cough (minimal) Cardiovascular: Reports: No Symptoms Gastrointestinal: Reports: No Symptoms Genitourinary: Reports: No Symptoms Musculoskeletal: Reports: Leg Pain (some intermittent radha knee pain, improved from admit) Skin: Reports: Dryness, Bruising Neurological: Reports: No Symptoms Psychiatric: Reports: No Symptoms - Patient Data Vitals - Most Recent: Last Vital Signs Temp 99.1 F 05/12/19 15:39 Pulse 85 05/12/19 15:39 Resp 18 05/12/19 15:39 BP 124/77 05/12/19 15:39 Pulse Ox 100 05/12/19 15:39 Weight - Most Recent: 150 lb 0.005 oz I&O - Last 24 Hours: Intake & Output 05/12/19 05/12/19 05/12/19 06:59 14:59 22:59 Intake Total 840 530 Balance 840 530 Lab Results Last 24 Hours: Laboratory Results - last 24 hr 05/11/19 05/12/19 05/12/19 Range/Units 16:25 12:05 12:05 WBC 12.6 H (4.0-10.2) K/uL RBC 4.15 L (4.33-5.41) M/uL Hgb 13.1 D (13.1-16.8) g/dL Hct 41.9 (39.0-49.0) % MCV 101.0 H (84.0-98.0) fL MCH 31.6 (28.2-33.3) pg MCHC 31.3 L (31.7-36.0) g/dL RDW 13.3 (11.2-14.1) % Plt Count 245 (150-350) K/uL Neut % (Auto) 94.9 H (45.0-80.0) % Lymph % (Auto) 1.3 L (10.0-50.0) % [place] % (Auto) 3.7 (2.0-14.0) % Eos % (Auto) 0.0 (0.0-5.0) % Baso % (Auto) 0.1 (0.0-2.0) % Neut # (Auto) 11.95 H (1.40-7.00) K/uL Lymph # (Auto) 0.16 L (0.50-3.50) K/uL [place] # (Auto) 0.46 (0.00-1.00) K/uL Eos # (Auto) 0.00 (0.00-0.50) K/uL Baso # (Auto) 0.01 (0.00-0.20) K/uL Sodium 138 (136-145) mmol/L Potassium 4.8 (3.5-5.1) mmol/L Chloride 100 (98-107) mmol/L Carbon Dioxide 33.9 H (21.0-32.0) mmol/L BUN 35 H (7-18) mg/dL Creatinine 0.70 (0.51-1.17) mg/dL Est Cr Clr Drug Dosing 72.90 mL/min Estimated GFR (MDRD) > 60 mL/min Glucose 358 H (74-106) mg/dL POC Glucose 429 H* (65-110) mg/dl Calcium 9.3 (8.5-10.1) mg/dL C-Reactive Protein 11.9 H (<=0.9) mg/dL Vancomycin Trough (10-20) ug/mL 05/12/19 Range/Units 12:05 WBC (4.0-10.2) K/uL RBC (4.33-5.41) M/uL Hgb (13.1-16.8) g/dL Hct (39.0-49.0) % MCV (84.0-98.0) fL MCH (28.2-33.3) pg MCHC (31.7-36.0) g/dL RDW (11.2-14.1) % Plt Count (150-350) K/uL Neut % (Auto) (45.0-80.0) % Lymph % (Auto) (10.0-50.0) % [place] % (Auto) (2.0-14.0) % Eos % (Auto) (0.0-5.0) % Baso % (Auto) (0.0-2.0) % Neut # (Auto) (1.40-7.00) K/uL Lymph # (Auto) (0.50-3.50) K/uL [place] # (Auto) (0.00-1.00) K/uL Eos # (Auto) (0.00-0.50) K/uL Baso # (Auto) (0.00-0.20) K/uL Sodium (136-145) mmol/L Potassium (3.5-5.1) mmol/L Chloride (98-107) mmol/L Carbon Dioxide (21.0-32.0) mmol/L BUN (7-18) mg/dL Creatinine (0.51-1.17) mg/dL Est Cr Clr Drug Dosing mL/min Estimated GFR (MDRD) mL/min Glucose (74-106) mg/dL POC Glucose (65-110) mg/dl Calcium (8.5-10.1) mg/dL C-Reactive Protein (<=0.9) mg/dL Vancomycin Trough 6.0 L (10-20) ug/mL Jarret Results Last 24 Hours: Microbiology 05/09/19 08:40 Aerobic Blood Culture - Preliminary Blood - Venous - Lab Draw NO GROWTH AFTER 3 DAYS Anaerobic Blood Culture - Preliminary NO GROWTH AFTER 3 DAYS 05/09/19 08:40 Aerobic Blood Culture - Preliminary Blood - Venous NO GROWTH AFTER 3 DAYS Anaerobic Blood Culture - Preliminary NO GROWTH AFTER 3 DAYS Med Orders - Current: Current Medications Acetaminophen (Tylenol) 650 mg PO Q4H PRN PRN Reason: Pain (Mild 1-3)/fever Last Admin: 05/09/19 11:21 Dose: 650 mg Acetaminophen (Tylenol Arthritis Pain) 1,300 mg PO BID [facility] Last Admin: 05/12/19 07:18 Dose: 1,300 mg Albuterol (Proventil Neb Soln) 2.5 mg NEB Q2H PRN PRN Reason: Dyspnea Albuterol/Ipratropium (Duoneb 3.0-0.5 Mg/3 Ml) 3 ml INH QID [facility] Last Admin: 05/12/19 12:28 Dose: 3 ml Albuterol/Ipratropium (Duoneb 3.0-0.5 Mg/3 Ml) 3 ml NEB Q4HRRT PRN PRN Reason: Shortness of Breath Azithromycin (Zithromax) 500 mg PO DAILY@1200 [facility] Stop: 05/18/19 12:01 Last Admin: 05/12/19 12:28 Dose: 500 mg Benzonatate (Tessalon Perles) 200 mg PO TID PRN PRN Reason: Cough Bisacodyl (Dulcolax) 10 mg PO BEDTIME [facility] Last Admin: 05/11/19 19:51 Dose: 10 mg Cefprozil (Cefzil) 500 mg PO Q12HR [facility] Last Admin: 05/12/19 07:18 Dose: 500 mg Enoxaparin Sodium (Lovenox) 40 mg SUBCUT DAILY@1800 [facility] Last Admin: 05/11/19 17:10 Dose: 40 mg Fluticasone Propionate (Flonase) 0 gm NASBOTH BID [facility] Last Admin: 05/12/19 07:18 Dose: 1 spray Furosemide (Lasix) 20 mg IVPUSH DAILY [facility] Last Admin: 05/12/19 07:19 Dose: 20 mg Vancomycin HCl 1.5 gm/ Sodium (Chloride) 500 mls @ 220 mls/hr IV Q24H [facility] Last Admin: 05/12/19 14:41 Dose: 220 mls/hr Methylprednisolone Sodium Succinate (Solu-Medrol) 40 mg IVPUSH DAILY [facility] Last Admin: 05/12/19 07:19 Dose: 40 mg Metronidazole (Flagyl) 500 mg PO TID@0800,1400,2000 [facility] Last Admin: 05/12/19 14:41 Dose: 500 mg Morphine Sulfate (Morphine) 1 mg IVPUSH Q2H PRN PRN Reason: Pain (severe 7-10) Last Admin: 05/09/19 18:26 Dose: 1 mg Potassium Chloride (Klor-Con 10) 20 meq PO WITHBREAKFAST [facility] Last Admin: 05/12/19 07:18 Dose: 20 meq Sodium Chloride (Saline Flush) 10 ml FLUSH ASDIRECTED PRN PRN Reason: Keep Vein Open Last Admin: 05/12/19 14:41 Dose: 10 ml Sodium Chloride (Saline Flush) 10 ml FLUSH Q12HR [facility] Last Admin: 05/12/19 07:28 Dose: 10 ml Vancomycin HCl (Pharmacy To Dose - Vancomycin) 1 dose .XX ASDIRECTED [facility] Discontinued Medications Albuterol/Ipratropium (Duoneb 3.0-0.5 Mg/3 Ml) 3 ml NEB ONETIME ONE Stop: 05/09/19 08:19 Last Admin: 05/09/19 08:20 Dose: 3 ml Albuterol/Ipratropium (Duoneb 3.0-0.5 Mg/3 Ml) Confirm Administered Dose 3 ml .ROUTE .STK-MED ONE Stop: 05/09/19 08:21 Last Admin: 05/09/19 10:54 Dose: Not Given Azithromycin (Zithromax) 500 mg PO ONETIME ONE Stop: 05/11/19 12:01 Last Admin: 05/11/19 13:06 Dose: 500 mg Budesonide (Pulmicort) 0.25 mg NEB ONETIME ONE Stop: 05/09/19 08:23 Last Admin: 05/09/19 08:28 Dose: 0.25 mg Furosemide (Lasix) 20 mg IVPUSH ONETIME ONE Stop: 05/11/19 08:01 Last Admin: 05/11/19 08:22 Dose: 20 mg Piperacillin Sod/Tazobactam (Sod 3.375 gm/ Sodium Chloride) 100 mls @ 200 mls/ hr IV Q6H [facility] Last Admin: 05/09/19 11:05 Dose: Not Given Azithromycin 500 mg/ Sodium (Chloride) 250 mls @ 250 mls/hr IV Q24H [facility] Stop: 05/13/19 23:00 Last Admin: 05/09/19 11:06 Dose: Not Given Azithromycin 500 mg/ Sodium (Chloride) 250 mls @ 250 mls/hr IV Q24H [facility] Stop: 05/13/19 11:01 Last Admin: 05/10/19 11:15 Dose: 250 mls/hr Piperacillin Sod/Tazobactam (Sod 3.375 gm/ Sodium Chloride) 100 mls @ 200 mls/ hr IV Q6H [facility] Last Admin: 05/10/19 17:43 Dose: 200 mls/hr Metronidazole 500 mg/ Premix 100 mls @ 100 mls/hr IV Q8H [facility] Last Admin: 05/10/19 15:22 Dose: 100 mls/hr Vancomycin HCl 1 gm/ Sodium (Chloride) 250 mls @ 165 mls/hr IV Q24H [facility] Last Admin: 05/12/19 14:43 Dose: Not Given Influenza Virus Vaccine (Pharmacy To Dose - Influenza Vaccine) 1 each IM ONETIME ONE Stop: 05/10/19 16:55 Influenza Virus Vaccine (Fluzone High-Dose 2019-20 Syringe) 180 mcg IM .ONCE ONE Stop: 05/10/19 17:16 Last Admin: 05/10/19 18:36 Dose: 180 mcg Insulin Human Lispro (Humalog) 20 unit SUBCUT ONETIME ONE Stop: 05/10/19 18:01 Last Admin: 05/10/19 18:37 Dose: 20 unit Insulin Human Lispro (Humalog) 15 unit SUBCUT ONETIME ONE Stop: 05/10/19 21:13 Last Admin: 05/10/19 21:38 Dose: 15 units Insulin Human Lispro (Humalog) 4 unit SUBCUT ONETIME ONE Stop: 05/11/19 12:19 Last Admin: 05/11/19 13:05 Dose: 4 units Insulin Human Lispro (Humalog) 15 unit SUBCUT ONETIME ONE Stop: 05/11/19 17:04 Last Admin: 05/11/19 17:16 Dose: 15 units Insulin Human NPH (Humulin N) 30 unit SQ ONETIME ONE Stop: 05/10/19 17:48 Last Admin: 05/10/19 18:39 Dose: 30 unit Insulin Human NPH (Humulin N) 30 unit SQ ONETIME ONE Stop: 05/11/19 13:01 Last Admin: 05/11/19 13:21 Dose: 30 unit Insulin Human NPH (Humulin N) 20 unit SQ ONETIME ONE Stop: 05/11/19 13:16 Last Admin: 05/11/19 14:06 Dose: Not Given Iopamidol (Isovue-370 (76%)) 100 ml IVPUSH ONETIME ONE Stop: 05/09/19 09:22 Last Admin: 05/09/19 09:43 Dose: 100 ml Methylprednisolone Sodium Succinate (Solu-Medrol) 40 mg IVPUSH Q12H [facility] Last Admin: 05/10/19 15:22 Dose: 40 mg - Exam Quality Assessment: Supplemental Oxygen General: Alert, Oriented HEENT: EOMI Neck: Supple, Trachea Midline Lungs: Decreased Breath Sounds (but no adventitious sounds heard at this time) Cardiovascular: Regular Rate, Regular Rhythm GI/Abdominal Exam: Normal Bowel Sounds, Soft, Non-Tender (Male) Exam: Deferred Back Exam: Normal Inspection Extremities: Pedal Edema (2+ in the feet and low ankles) Skin: Ecchymosis (forearms, mostly chronic secondary to chronic steroid use) Neurological: No New Focal Deficit Psy/Mental Status: Alert, Normal Affect, Normal Mood - Problem List Review Problem List Initiated/Reviewed/Updated: Yes - Plan Plan:: 05/10/19 Aj Small MD He feels much better today. Joking and teasing. He was able to walk to bathroom and back. Still weak. Breathing about the same. Blood sugars elevated. Discussed with him and his sons x2. Will order insulin. Continue IV antibiotics but switch some to oral due to difficult IV access and decrease IV solumedrol. 05/11/19 Aj Small MD Continues to clinically improve. Mycoplasma +. Continue zithromax Blood sugars still elevated and insulin being adjusted. Knees hurt today. WBC still elevated and CRP still increasing. 05-12-19 Mookie Blankenship PA-C Labs slowly improving. Noted positive Mycoplasma. Son is with and both patient and son say he is certainly improved from admit, and I agree with them but explained that improvement is slow and my plan is to transfer to [facility] status tomorrow for continued medical therapy as well as to work with PT-OT for strengthening. No changes are made in current management. We did have discussion about ambulating a little more often as long as he has at least SBA, elevating his feet at least up on a footstool intermittently when he is up in the chair and laying in the bed for one afternoon nap daily to help prevent worsening edema in the feet and ankles.
[2019-05-12] MEDS ORDERED: Insulin Lispro 100 Units/ML 3 ML Vial SUBCUT SCH (17:30)
[2019-05-12] MEDS ORDERED: metFORMIN 500 MG Tab.ER PO SCH ×2 (17:30)
[2019-05-12] MEDS: Enoxaparin 40 MG/0.4 ML Syringe SUBCUT SCH (17:47)
[2019-05-12] MEDS: Bisacodyl 5 MG Tab PO SCH (19:41)
[2019-05-13] MEDS: Potassium Chloride 10 MEQ Tab.ER PO SCH (09:41)
[2019-05-13] MEDS: Albuterol/Ipratropium 3.0-0.5 MG/3 ML Neb Soln INH SCH ×2 (09:41→12:18)
[2019-05-13] MEDS: Acetaminophen 650 MG Tab.ER PO SCH (09:41)
[2019-05-13] MEDS: Sodium Chloride 0.9% 10 ML Syringe FLUSH SCH (09:42)
[2019-05-13] MEDS: Furosemide 20 MG/2 ML VIAL IVPUSH SCH (09:42)
[2019-05-13] MEDS: methylPREDNISolone Sodium Succinate 40 MG/1 ML SDV IVPUSH SCH (09:42)
[2019-05-13] MEDS: Sodium Chloride 0.9% 10 ML Syringe FLUSH PRN ×3 (09:43→13:58)
[2019-05-13] MEDS: metroNIDAZOLE 500 MG Tab PO SCH ×2 (09:43→13:54)
[2019-05-13] MEDS: Fluticasone Propionate Nasal Spray 16 GM Bottle NASBOTH SCH (09:43)
[2019-05-13] MEDS ORDERED: Insulin Lispro 100 Units/ML 3 ML Vial SUBCUT ONE (12:00)
--- NOTE | 2019-05-13 12:04 | PCM.PN ---
- General Info Date of Service: 05/13/19 Admission Dx/Problem (Free Text): Pneumonia Functional Status: Reports: Tolerating Diet, Ambulating, Urinating - Review of Systems General: Reports: Fatigue ("tired today from chasing the nurses yesterday!") HEENT: Reports: No Symptoms Pulmonary: Reports: Shortness of Breath (better but some SOB with ambulation) Cardiovascular: Reports: No Symptoms Gastrointestinal: Reports: No Symptoms Genitourinary: Reports: No Symptoms Musculoskeletal: Reports: Joint Pain (bilat knee pain comes and goes, better than on admit - wondering about steroid injections after discharge) Skin: Reports: Bruising (chronic) Neurological: Reports: No Symptoms Psychiatric: Reports: No Symptoms - Patient Data Vitals - Most Recent: Last Vital Signs Temp 98.9 F 05/13/19 08:00 Pulse 105 H 05/13/19 08:00 Resp 18 05/13/19 08:00 BP 131/63 05/13/19 08:00 Pulse Ox 96 05/13/19 08:00 Weight - Most Recent: 150 lb 0.005 oz I&O - Last 24 Hours: Intake & Output 05/12/19 05/13/19 05/13/19 22:59 06:59 14:59 Intake Total 1790 200 300 Balance 1790 200 300 Lab Results Last 24 Hours: Laboratory Results - last 24 hr 05/12/19 05/12/19 05/12/19 Range/Units 07:15 12:05 12:05 WBC 12.6 H (4.0-10.2) K/uL RBC 4.15 L (4.33-5.41) M/uL Hgb 13.1 D (13.1-16.8) g/dL Hct 41.9 (39.0-49.0) % MCV 101.0 H (84.0-98.0) fL MCH 31.6 (28.2-33.3) pg MCHC 31.3 L (31.7-36.0) g/dL RDW 13.3 (11.2-14.1) % Plt Count 245 (150-350) K/uL Neut % (Auto) 94.9 H (45.0-80.0) % Lymph % (Auto) 1.3 L (10.0-50.0) % [place] % (Auto) 3.7 (2.0-14.0) % Eos % (Auto) 0.0 (0.0-5.0) % Baso % (Auto) 0.1 (0.0-2.0) % Neut # (Auto) 11.95 H (1.40-7.00) K/uL Lymph # (Auto) 0.16 L (0.50-3.50) K/uL [place] # (Auto) 0.46 (0.00-1.00) K/uL Eos # (Auto) 0.00 (0.00-0.50) K/uL Baso # (Auto) 0.01 (0.00-0.20) K/uL Sodium 138 (136-145) mmol/L Potassium 4.8 (3.5-5.1) mmol/L Chloride 100 (98-107) mmol/L Carbon Dioxide 33.9 H (21.0-32.0) mmol/L BUN 35 H (7-18) mg/dL Creatinine 0.70 (0.51-1.17) mg/dL Est Cr Clr Drug Dosing 72.90 mL/min Estimated GFR (MDRD) > 60 mL/min Glucose 358 H (74-106) mg/dL POC Glucose 176 H (65-110) mg/dl Calcium 9.3 (8.5-10.1) mg/dL C-Reactive Protein 11.9 H (<=0.9) mg/dL Vancomycin Trough (10-20) ug/mL 05/12/19 05/12/19 05/13/19 Range/Units 12:05 17:07 09:08 WBC (4.0-10.2) K/uL RBC (4.33-5.41) M/uL Hgb (13.1-16.8) g/dL Hct (39.0-49.0) % MCV (84.0-98.0) fL MCH (28.2-33.3) pg MCHC (31.7-36.0) g/dL RDW (11.2-14.1) % Plt Count (150-350) K/uL Neut % (Auto) (45.0-80.0) % Lymph % (Auto) (10.0-50.0) % [place] % (Auto) (2.0-14.0) % Eos % (Auto) (0.0-5.0) % Baso % (Auto) (0.0-2.0) % Neut # (Auto) (1.40-7.00) K/uL Lymph # (Auto) (0.50-3.50) K/uL [place] # (Auto) (0.00-1.00) K/uL Eos # (Auto) (0.00-0.50) K/uL Baso # (Auto) (0.00-0.20) K/uL Sodium (136-145) mmol/L Potassium (3.5-5.1) mmol/L Chloride (98-107) mmol/L Carbon Dioxide (21.0-32.0) mmol/L BUN (7-18) mg/dL Creatinine (0.51-1.17) mg/dL Est Cr Clr Drug Dosing mL/min Estimated GFR (MDRD) mL/min Glucose (74-106) mg/dL POC Glucose 458 H* 167 H (65-110) mg/dl Calcium (8.5-10.1) mg/dL C-Reactive Protein (<=0.9) mg/dL Vancomycin Trough 6.0 L (10-20) ug/mL 05/13/19 Range/Units 11:51 WBC (4.0-10.2) K/uL RBC (4.33-5.41) M/uL Hgb (13.1-16.8) g/dL Hct (39.0-49.0) % MCV (84.0-98.0) fL MCH (28.2-33.3) pg MCHC (31.7-36.0) g/dL RDW (11.2-14.1) % Plt Count (150-350) K/uL Neut % (Auto) (45.0-80.0) % Lymph % (Auto) (10.0-50.0) % [place] % (Auto) (2.0-14.0) % Eos % (Auto) (0.0-5.0) % Baso % (Auto) (0.0-2.0) % Neut # (Auto) (1.40-7.00) K/uL Lymph # (Auto) (0.50-3.50) K/uL [place] # (Auto) (0.00-1.00) K/uL Eos # (Auto) (0.00-0.50) K/uL Baso # (Auto) (0.00-0.20) K/uL Sodium (136-145) mmol/L Potassium (3.5-5.1) mmol/L Chloride (98-107) mmol/L Carbon Dioxide (21.0-32.0) mmol/L BUN (7-18) mg/dL Creatinine (0.51-1.17) mg/dL Est Cr Clr Drug Dosing mL/min Estimated GFR (MDRD) mL/min Glucose (74-106) mg/dL POC Glucose 447 H* (65-110) mg/dl Calcium (8.5-10.1) mg/dL C-Reactive Protein (<=0.9) mg/dL Vancomycin Trough (10-20) ug/mL Jarret Results Last 24 Hours: Microbiology 05/09/19 08:40 Aerobic Blood Culture - Preliminary Blood - Venous - Lab Draw NO GROWTH AFTER 4 DAYS Anaerobic Blood Culture - Preliminary NO GROWTH AFTER 4 DAYS 05/09/19 08:40 Aerobic Blood Culture - Preliminary Blood - Venous NO GROWTH AFTER 4 DAYS Anaerobic Blood Culture - Preliminary NO GROWTH AFTER 4 DAYS Med Orders - Current: Current Medications Acetaminophen (Tylenol) 650 mg PO Q4H PRN PRN Reason: Pain (Mild 1-3)/fever Last Admin: 05/09/19 11:21 Dose: 650 mg Acetaminophen (Tylenol Arthritis Pain) 1,300 mg PO BID [facility] Last Admin: 05/13/19 09:41 Dose: 1,300 mg Albuterol (Proventil Neb Soln) 2.5 mg NEB Q2H PRN PRN Reason: Dyspnea Albuterol/Ipratropium (Duoneb 3.0-0.5 Mg/3 Ml) 3 ml INH QID [facility] Last Admin: 05/13/19 09:41 Dose: 3 ml Albuterol/Ipratropium (Duoneb 3.0-0.5 Mg/3 Ml) 3 ml NEB Q4HRRT PRN PRN Reason: Shortness of Breath Azithromycin (Zithromax) 500 mg PO DAILY@1200 [facility] Stop: 05/18/19 12:01 Last Admin: 05/12/19 12:28 Dose: 500 mg Benzonatate (Tessalon Perles) 200 mg PO TID PRN PRN Reason: Cough Bisacodyl (Dulcolax) 10 mg PO BEDTIME [facility] Last Admin: 05/12/19 19:41 Dose: 10 mg Cefprozil (Cefzil) 500 mg PO Q12HR [facility] Last Admin: 05/13/19 09:41 Dose: 500 mg Enoxaparin Sodium (Lovenox) 40 mg SUBCUT DAILY@1800 [facility] Last Admin: 05/12/19 17:47 Dose: 40 mg Fluticasone Propionate (Flonase) 0 gm NASBOTH BID [facility] Last Admin: 05/13/19 09:43 Dose: 1 spray Furosemide (Lasix) 20 mg IVPUSH DAILY [facility] Last Admin: 05/13/19 09:42 Dose: 20 mg Vancomycin HCl 1.5 gm/ Sodium (Chloride) 500 mls @ 220 mls/hr IV Q24H [facility] Last Admin: 05/12/19 14:41 Dose: 220 mls/hr Insulin Human Lispro (Humalog) 6 unit SUBCUT STAT [facility] Last Admin: 05/12/19 17:46 Dose: 6 units Insulin Human Lispro (Humalog) 6 unit SUBCUT STAT [facility] Metformin HCl (Glucophage Xr) 500 mg PO 1700 [facility] Last Admin: 05/12/19 17:45 Dose: 500 mg Methylprednisolone Sodium Succinate (Solu-Medrol) 40 mg IVPUSH DAILY [facility] Last Admin: 05/13/19 09:42 Dose: 40 mg Metronidazole (Flagyl) 500 mg PO TID@0800,1400,2000 [facility] Last Admin: 05/13/19 09:43 Dose: 500 mg Morphine Sulfate (Morphine) 1 mg IVPUSH Q2H PRN PRN Reason: Pain (severe 7-10) Last Admin: 05/09/19 18:26 Dose: 1 mg Potassium Chloride (Klor-Con 10) 20 meq PO WITHBREAKFAST [facility] Last Admin: 05/13/19 09:41 Dose: 20 meq Sodium Chloride (Saline Flush) 10 ml FLUSH ASDIRECTED PRN PRN Reason: Keep Vein Open Last Admin: 05/13/19 09:43 Dose: 10 ml Sodium Chloride (Saline Flush) 10 ml FLUSH Q12HR [facility] Last Admin: 05/13/19 09:42 Dose: 10 ml Vancomycin HCl (Pharmacy To Dose - Vancomycin) 1 dose .XX ASDIRECTED [facility] Discontinued Medications Albuterol/Ipratropium (Duoneb 3.0-0.5 Mg/3 Ml) 3 ml NEB ONETIME ONE Stop: 05/09/19 08:19 Last Admin: 05/09/19 08:20 Dose: 3 ml Albuterol/Ipratropium (Duoneb 3.0-0.5 Mg/3 Ml) Confirm Administered Dose 3 ml .ROUTE .STK-MED ONE Stop: 05/09/19 08:21 Last Admin: 05/09/19 10:54 Dose: Not Given Azithromycin (Zithromax) 500 mg PO ONETIME ONE Stop: 05/11/19 12:01 Last Admin: 05/11/19 13:06 Dose: 500 mg Budesonide (Pulmicort) 0.25 mg NEB ONETIME ONE Stop: 05/09/19 08:23 Last Admin: 05/09/19 08:28 Dose: 0.25 mg Furosemide (Lasix) 20 mg IVPUSH ONETIME ONE Stop: 05/11/19 08:01 Last Admin: 05/11/19 08:22 Dose: 20 mg Piperacillin Sod/Tazobactam (Sod 3.375 gm/ Sodium Chloride) 100 mls @ 200 mls/ hr IV Q6H [facility] Last Admin: 05/09/19 11:05 Dose: Not Given Azithromycin 500 mg/ Sodium (Chloride) 250 mls @ 250 mls/hr IV Q24H [facility] Stop: 05/13/19 23:00 Last Admin: 05/09/19 11:06 Dose: Not Given Azithromycin 500 mg/ Sodium (Chloride) 250 mls @ 250 mls/hr IV Q24H [facility] Stop: 05/13/19 11:01 Last Admin: 05/10/19 11:15 Dose: 250 mls/hr Piperacillin Sod/Tazobactam (Sod 3.375 gm/ Sodium Chloride) 100 mls @ 200 mls/ hr IV Q6H [facility] Last Admin: 05/10/19 17:43 Dose: 200 mls/hr Metronidazole 500 mg/ Premix 100 mls @ 100 mls/hr IV Q8H [facility] Last Admin: 05/10/19 15:22 Dose: 100 mls/hr Vancomycin HCl 1 gm/ Sodium (Chloride) 250 mls @ 165 mls/hr IV Q24H [facility] Last Admin: 05/12/19 14:43 Dose: Not Given Influenza Virus Vaccine (Pharmacy To Dose - Influenza Vaccine) 1 each IM ONETIME ONE Stop: 05/10/19 16:55 Influenza Virus Vaccine (Fluzone High-Dose 2019-20 Syringe) 180 mcg IM .ONCE ONE Stop: 05/10/19 17:16 Last Admin: 05/10/19 18:36 Dose: 180 mcg Insulin Human Lispro (Humalog) 20 unit SUBCUT ONETIME ONE Stop: 05/10/19 18:01 Last Admin: 05/10/19 18:37 Dose: 20 unit Insulin Human Lispro (Humalog) 15 unit SUBCUT ONETIME ONE Stop: 05/10/19 21:13 Last Admin: 05/10/19 21:38 Dose: 15 units Insulin Human Lispro (Humalog) 4 unit SUBCUT ONETIME ONE Stop: 05/11/19 12:19 Last Admin: 05/11/19 13:05 Dose: 4 units Insulin Human Lispro (Humalog) 15 unit SUBCUT ONETIME ONE Stop: 05/11/19 17:04 Last Admin: 05/11/19 17:16 Dose: 15 units Insulin Human NPH (Humulin N) 30 unit SQ ONETIME ONE Stop: 05/10/19 17:48 Last Admin: 05/10/19 18:39 Dose: 30 unit Insulin Human NPH (Humulin N) 30 unit SQ ONETIME ONE Stop: 05/11/19 13:01 Last Admin: 05/11/19 13:21 Dose: 30 unit Insulin Human NPH (Humulin N) 20 unit SQ ONETIME ONE Stop: 05/11/19 13:16 Last Admin: 05/11/19 14:06 Dose: Not Given Iopamidol (Isovue-370 (76%)) 100 ml IVPUSH ONETIME ONE Stop: 05/09/19 09:22 Last Admin: 05/09/19 09:43 Dose: 100 ml Methylprednisolone Sodium Succinate (Solu-Medrol) 40 mg IVPUSH Q12H [facility] Last Admin: 05/10/19 15:22 Dose: 40 mg - Exam Quality Assessment: Supplemental Oxygen General: Alert, Oriented, Cooperative, No Acute Distress HEENT: Pupils Reactive, Mucous Membr. Moist/[place] Neck: Supple, Trachea Midline, No JVD Lungs: Clear to Auscultation, Decreased Breath Sounds Cardiovascular: Regular Rate, Regular Rhythm GI/Abdominal Exam: Normal Bowel Sounds, Soft, Non-Tender (Male) Exam: Deferred Back Exam: Normal Inspection Extremities: Pedal Edema Skin: Warm, Dry, Intact, Ecchymosis Neurological: No New Focal Deficit Psy/Mental Status: Alert, Normal Affect, Normal Mood - Problem List Review Problem List Initiated/Reviewed/Updated: Yes - My Orders Last 24 Hours: My Active Orders 05/12/19 17:30 Insulin Lispro [HumaLOG] 6 unit SUBCUT STAT metFORMIN [Glucophage XR] 500 mg PO 1700 05/13/19 12:00 Insulin Lispro [HumaLOG] 6 unit SUBCUT STAT - Plan Plan:: 05/10/19 Aj Small MD He feels much better today. Joking and teasing. He was able to walk to bathroom and back. Still weak. Breathing about the same. Blood sugars elevated. Discussed with him and his sons x2. Will order insulin. Continue IV antibiotics but switch some to oral due to difficult IV access and decrease IV solumedrol. 05/11/19 Aj Small MD Continues to clinically improve. Mycoplasma +. Continue zithromax Blood sugars still elevated and insulin being adjusted. Knees hurt today. WBC still elevated and CRP still increasing. 05-12-19 Mookie Blankenship PA-C Labs slowly improving. Noted positive Mycoplasma. Son is with and both patient and son say he is certainly improved from admit, and I agree with them but explained that improvement is slow and my plan is to transfer to [facility] status tomorrow for continued medical therapy as well as to work with PT-OT for strengthening. No changes are made in current management. We did have discussion about ambulating a little more often as long as he has at least SBA, elevating his feet at least up on a footstool intermittently when he is up in the chair and laying in the bed for one afternoon nap daily to help prevent worsening edema in the feet and ankles. 05-13-19 Mookie Blankenship PA-C Patient continues slow clinical improvement. Lab also continues improving. Daughter Francesca is with him now, and we all discussed transfer to [facility] to continue medical therapy and work with PT. Will transfer status today. Ultimate discharge plan is to return home with close family support and involvement, and Home Health will continue to follow as well.
[2019-05-13] MEDS: Azithromycin 250 MG Tab PO SCH (12:17)
[2019-05-13 13:15] VITALS: BP 132/64; PULSE 101
[2019-05-13] MEDS: Vancomycin 1.5 GM in Sodium Chloride 0.9% 500 ML IV SCH (13:54)
[2019-05-13] MEDS: Acetaminophen 325 MG Tab PO PRN (13:55)
[2019-05-13] MEDS ORDERED: Insulin Isophane NPH, Human 100 Units/ML 3 ML Vial SQ ONE (14:00)
--- NOTE | 2019-05-13 15:25 | PCM.DCSUM1 ---
Discharge Summary - Hospital Course Diagnosis: Stroke: No - Discharge Data Discharge Date: 05/13/19 Discharge Disposition: DC/Tfer W/I Hosp To Swing 61 Condition: Fair - Referral to Home Health Primary Care Physician: Jessie Murillo MD - Discharge Diagnosis/Problem(s) (1) Mycoplasma pneumoniae pneumonia SNOMED Code(s): 11730917 ICD Code: J15.7 - PNEUMONIA DUE TO MYCOPLASMA PNEUMONIAE Status: Acute Priority: High Current Visit: Yes Qualifiers: Laterality: right Lung location: upper lobe of lung Qualified Code(s): J15.7 - Pneumonia due to Mycoplasma pneumoniae (2) Emphysema lung SNOMED Code(s): 68670660 ICD Code: J43.9 - EMPHYSEMA, UNSPECIFIED Status: Chronic Priority: High Current Visit: Yes Qualifiers: Emphysema type: panlobular Qualified Code(s): J43.1 - Panlobular emphysema (3) COPD (chronic obstructive pulmonary disease) SNOMED Code(s): 59146812 ICD Code: J44.9 - CHRONIC OBSTRUCTIVE PULMONARY DISEASE, UNSPECIFIED Status : Acute Priority: High Current Visit: No Qualifiers: COPD type: COPD with acute lower respiratory infection Qualified Code(s): J44.0 - Chronic obstructive pulmonary disease with (acute) lower respiratory infection (4) CHF (congestive heart failure) SNOMED Code(s): 27098118 ICD Code: I50.9 - HEART FAILURE, UNSPECIFIED Status: Acute Current Visit : No (5) Palliative care patient SNOMED Code(s): 845138423 ICD Code: Z51.5 - ENCOUNTER FOR PALLIATIVE CARE Status: Acute Current Visit: Yes Problem Details: patient is receiving antibiotics. If he doesnt respond, we will consult hospice. Family in agreement of this plan. (6) Compensated metabolic alkalosis SNOMED Code(s): 3039341 ICD Code: E87.3 - ALKALOSIS Status: Acute Priority: High Current Visit : No (7) Compensated respiratory acidosis SNOMED Code(s): 50121674 ICD Code: E87.2 - ACIDOSIS Status: Acute Priority: High Current Visit: No (8) Weakness generalized SNOMED Code(s): 47327070 ICD Code: R53.1 - WEAKNESS Status: Acute Current Visit: No (9) Osteoarthritis SNOMED Code(s): 063302596 ICD Code: M19.90 - UNSPECIFIED OSTEOARTHRITIS, UNSPECIFIED SITE Status: Acute Current Visit: No Qualifiers: Osteoarthritis location: multiple joints Osteoarthritis type: primary Qualified Code(s): M15.0 - Primary generalized (osteo)arthritis (10) Comfort measures only status SNOMED Code(s): 59645723157991 ICD Code: Z51.5 - ENCOUNTER FOR PALLIATIVE CARE Status: Chronic Priority : Medium Current Visit: No (11) Heart disease SNOMED Code(s): 63219796 ICD Code: I51.9 - HEART DISEASE, UNSPECIFIED Status: Chronic Priority: High Current Visit: No Onset Date: 06/04/15 (12) Peptic reflux disease SNOMED Code(s): 326736909 ICD Code: K21.9 - GASTRO-ESOPHAGEAL REFLUX DISEASE WITHOUT ESOPHAGITIS Status: Chronic Priority: High Current Visit: No Onset Date: 06/04/15 (13) Pulmonary fibrosis SNOMED Code(s): 34572865 ICD Code: J84.10 - PULMONARY FIBROSIS, UNSPECIFIED Status: Chronic Priority: High Current Visit: No Problem Details: 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, oxygen-dependent (14) Pulmonary nodules SNOMED Code(s): 616543656 ICD Code: R91.8 - OTHER NONSPECIFIC ABNORMAL FINDING OF LUNG FIELD Status: Chronic Priority: High Current Visit: No (15) BPH loc w/o ur obs/LUTS SNOMED Code(s): 676282882 ICD Code: N40.0 - BENIGN PROSTATIC HYPERPLASIA WITHOUT LOWER URINRY TRACT SYMP Status: Acute Priority: Medium Current Visit: No - Patient Summary/Data Consults: Consultations 05/09/19 13:41 Consult to Case Management/Claims Vice President [CONS] Routine 05/09/19 13:42 Consult to Physical Therapy [PT Evaluation and Treatment] [CONS] Routine 05/09/19 13:43 Consult to Occupational Therapy [OT Evaluation and Treatment] [CONS] Routine - Patient Instructions Diet: Diabetic Diet Activity: As Tolerated Driving: Do Not Drive Showering/Bathing: May Shower - Discharge Plan *PRESCRIPTION DRUG MONITORING PROGRAM REVIEWED*: Not Applicable *COPY OF PRESCRIPTION DRUG MONITORING REPORT IN PATIENT OLENA: Not Applicable Home Medications: Home Meds Albuterol/Ipratropium [DuoNeb 3.0-0.5 MG/3 ML] 3 ml INH QID 01/12/15 [History] Aspirin [Halfprin] 81 mg PO DAILY 01/12/15 [History] Finasteride [Proscar] 5 mg PO DAILY 01/12/15 [History] Albuterol/Ipratropium [DuoNeb 3.0-0.5 MG/3 ML] 3 ml NEB Q4HRRT PRN #1 box [Rx] Fluticasone Propionate [Flonase] 1 spray NASBOTH BID 12/22/15 [History] Warfarin Sodium [Coumadin] 6 mg PO SUTUWETHFRSA@1800 12/22/15 [History] Benzonatate 200 mg PO TID PRN 12/07/18 [History] Bisacodyl [Dulcolax] 10 mg PO BEDTIME tablet 12/23/18 [Rx] predniSONE [Prednisone] 10 mg PO DAILY #90 tab.ds.pk 12/23/18 [Rx] Acetaminophen [Tylenol] 650 mg PO Q4H PRN tablet 05/09/19 [Rx] Albuterol [Ventolin HFA] 2 puff INH Q2H PRN 05/09/19 [History] Azithromycin [Zithromax] 500 mg IV Q24H vial 05/09/19 [Rx] Budesonide [Pulmicort] 0.5 mg INH BID 05/09/19 [History] Mometasone Furoate [Asmanex 220 MCG] 2 puff INH BID 05/09/19 [History] Morphine 1 mg IVPUSH Q2H PRN syringe 05/09/19 [Rx] Piperacillin/Tazobactam [Zosyn] 3.375 gm IV Q6H vial 05/09/19 [Rx] Potassium Chloride [Klor-Con M20] 20 meq PO DAILY 05/09/19 [History] Simvastatin [Zocor] 40 mg PO BEDTIME 05/09/19 [History] Sodium Chloride 0.9% [Saline Flush] 10 ml FLUSH ASDIRECTED PRN syringe [Rx] Warfarin Sodium [Coumadin] 5 mg PO MO@1800 05/09/19 [History] Oxygen Therapy Mode: Nasal Cannula Oxygen Flow Rate (L/min): 2 Forms: ED Department Discharge Referrals: Sheets-Jessie Small MD [Primary Care Provider] - - Discharge Summary/Plan Comment DC Time >30 min.: No Discharge Summary/Plan Comment: 05/13/19 Aj Small MD He was admitted to inpatient status for weakness, pneumonia, acute COPD exacerbation. Treated with IV antibiotics, IV solumedrol, and PT-OT. He improved and now needs swingbed status to continue IV antibiotics and PT-OT. - Patient Data Vitals - Most Recent: Last Vital Signs Temp 97.3 F 05/13/19 12:00 Pulse 101 H 05/13/19 12:00 Resp 18 05/13/19 12:00 BP 132/64 05/13/19 12:00 Pulse Ox 98 05/13/19 12:00 Weight - Most Recent: 150 lb 0.005 oz I&O - Last 24 hours: Intake & Output 05/13/19 05/13/19 05/13/19 06:59 14:59 22:59 Intake Total 200 540 Balance 200 540 Lab Results - Last 24 hrs: Laboratory Results - last 24 hr 05/12/19 05/12/19 05/13/19 Range/Units 07:15 17:07 09:08 POC Glucose 176 H 458 H* 167 H (65-110) mg/dl 05/13/19 Range/Units 11:51 POC Glucose 447 H* (65-110) mg/dl JEANINE Results - Last 24 hrs: Microbiology 05/09/19 08:40 Aerobic Blood Culture - Preliminary Blood - Venous - Lab Draw NO GROWTH AFTER 4 DAYS Anaerobic Blood Culture - Preliminary NO GROWTH AFTER 4 DAYS 05/09/19 08:40 Aerobic Blood Culture - Preliminary Blood - Venous NO GROWTH AFTER 4 DAYS Anaerobic Blood Culture - Preliminary NO GROWTH AFTER 4 DAYS Med Orders - Current: Current Medications Acetaminophen (Tylenol) 650 mg PO Q4H PRN PRN Reason: Pain (Mild 1-3)/fever Last Admin: 05/13/19 13:55 Dose: 650 mg Acetaminophen (Tylenol Arthritis Pain) 1,300 mg PO BID THELMA Last Admin: 05/13/19 09:41 Dose: 1,300 mg Albuterol (Proventil Neb Soln) 2.5 mg NEB Q2H PRN PRN Reason: Dyspnea Albuterol/Ipratropium (Duoneb 3.0-0.5 Mg/3 Ml) 3 ml INH QID THELMA Last Admin: 05/13/19 12:18 Dose: 3 ml Albuterol/Ipratropium (Duoneb 3.0-0.5 Mg/3 Ml) 3 ml NEB Q4HRRT PRN PRN Reason: Shortness of Breath Azithromycin (Zithromax) 500 mg PO DAILY@1200 [facility] Stop: 05/18/19 12:01 Last Admin: 05/13/19 12:17 Dose: 500 mg Benzonatate (Tessalon Perles) 200 mg PO TID PRN PRN Reason: Cough Bisacodyl (Dulcolax) 10 mg PO BEDTIME [facility] Last Admin: 05/12/19 19:41 Dose: 10 mg Cefprozil (Cefzil) 500 mg PO Q12HR [facility] Last Admin: 05/13/19 09:41 Dose: 500 mg Enoxaparin Sodium (Lovenox) 40 mg SUBCUT DAILY@1800 [facility] Last Admin: 05/12/19 17:47 Dose: 40 mg Fluticasone Propionate (Flonase) 0 gm NASBOTH BID [facility] Last Admin: 05/13/19 09:43 Dose: 1 spray Furosemide (Lasix) 20 mg IVPUSH DAILY [facility] Last Admin: 05/13/19 09:42 Dose: 20 mg Vancomycin HCl 1.5 gm/ Sodium (Chloride) 500 mls @ 220 mls/hr IV Q24H [facility] Last Admin: 05/13/19 13:54 Dose: 220 mls/hr Insulin Human Lispro (Humalog) 6 unit SUBCUT STAT [facility] Last Admin: 05/12/19 17:46 Dose: 6 units Metformin HCl (Glucophage Xr) 500 mg PO 1700 [facility] Last Admin: 05/12/19 17:45 Dose: 500 mg Methylprednisolone Sodium Succinate (Solu-Medrol) 40 mg IVPUSH DAILY [facility] Last Admin: 05/13/19 09:42 Dose: 40 mg Metronidazole (Flagyl) 500 mg PO TID@0800,1400,2000 [facility] Last Admin: 05/13/19 13:54 Dose: 500 mg Morphine Sulfate (Morphine) 1 mg IVPUSH Q2H PRN PRN Reason: Pain (severe 7-10) Last Admin: 05/09/19 18:26 Dose: 1 mg Potassium Chloride (Klor-Con 10) 20 meq PO WITHBREAKFAST [facility] Last Admin: 05/13/19 09:41 Dose: 20 meq Sodium Chloride (Saline Flush) 10 ml FLUSH ASDIRECTED PRN PRN Reason: Keep Vein Open Last Admin: 05/13/19 13:58 Dose: 10 ml Sodium Chloride (Saline Flush) 10 ml FLUSH Q12HR [facility] Last Admin: 05/13/19 09:42 Dose: 10 ml Vancomycin HCl (Pharmacy To Dose - Vancomycin) 1 dose .XX ASDIRECTED THELMA Discontinued Medications Albuterol/Ipratropium (Duoneb 3.0-0.5 Mg/3 Ml) 3 ml NEB ONETIME ONE Stop: 05/09/19 08:19 Last Admin: 05/09/19 08:20 Dose: 3 ml Albuterol/Ipratropium (Duoneb 3.0-0.5 Mg/3 Ml) Confirm Administered Dose 3 ml .ROUTE .STK-MED ONE Stop: 05/09/19 08:21 Last Admin: 05/09/19 10:54 Dose: Not Given Azithromycin (Zithromax) 500 mg PO ONETIME ONE Stop: 05/11/19 12:01 Last Admin: 05/11/19 13:06 Dose: 500 mg Budesonide (Pulmicort) 0.25 mg NEB ONETIME ONE Stop: 05/09/19 08:23 Last Admin: 05/09/19 08:28 Dose: 0.25 mg Furosemide (Lasix) 20 mg IVPUSH ONETIME ONE Stop: 05/11/19 08:01 Last Admin: 05/11/19 08:22 Dose: 20 mg Piperacillin Sod/Tazobactam (Sod 3.375 gm/ Sodium Chloride) 100 mls @ 200 mls/ hr IV Q6H [facility] Last Admin: 05/09/19 11:05 Dose: Not Given Azithromycin 500 mg/ Sodium (Chloride) 250 mls @ 250 mls/hr IV Q24H [facility] Stop: 05/13/19 23:00 Last Admin: 05/09/19 11:06 Dose: Not Given Azithromycin 500 mg/ Sodium (Chloride) 250 mls @ 250 mls/hr IV Q24H [facility] Stop: 05/13/19 11:01 Last Admin: 05/10/19 11:15 Dose: 250 mls/hr Piperacillin Sod/Tazobactam (Sod 3.375 gm/ Sodium Chloride) 100 mls @ 200 mls/ hr IV Q6H [facility] Last Admin: 05/10/19 17:43 Dose: 200 mls/hr Metronidazole 500 mg/ Premix 100 mls @ 100 mls/hr IV Q8H [facility] Last Admin: 05/10/19 15:22 Dose: 100 mls/hr Vancomycin HCl 1 gm/ Sodium (Chloride) 250 mls @ 165 mls/hr IV Q24H [facility] Last Admin: 05/12/19 14:43 Dose: Not Given Influenza Virus Vaccine (Pharmacy To Dose - Influenza Vaccine) 1 each IM ONETIME ONE Stop: 05/10/19 16:55 Influenza Virus Vaccine (Fluzone High-Dose 2019-20 Syringe) 180 mcg IM .ONCE ONE Stop: 05/10/19 17:16 Last Admin: 05/10/19 18:36 Dose: 180 mcg Insulin Human Lispro (Humalog) 20 unit SUBCUT ONETIME ONE Stop: 05/10/19 18:01 Last Admin: 05/10/19 18:37 Dose: 20 unit Insulin Human Lispro (Humalog) 15 unit SUBCUT ONETIME ONE Stop: 05/10/19 21:13 Last Admin: 05/10/19 21:38 Dose: 15 units Insulin Human Lispro (Humalog) 4 unit SUBCUT ONETIME ONE Stop: 05/11/19 12:19 Last Admin: 05/11/19 13:05 Dose: 4 units Insulin Human Lispro (Humalog) 15 unit SUBCUT ONETIME ONE Stop: 05/11/19 17:04 Last Admin: 05/11/19 17:16 Dose: 15 units Insulin Human Lispro (Humalog) 6 unit SUBCUT STAT ONE Stop: 05/13/19 12:01 Last Admin: 05/13/19 12:18 Dose: 6 units Insulin Human NPH (Humulin N) 30 unit SQ ONETIME ONE Stop: 05/10/19 17:48 Last Admin: 05/10/19 18:39 Dose: 30 unit Insulin Human NPH (Humulin N) 30 unit SQ ONETIME ONE Stop: 05/11/19 13:01 Last Admin: 05/11/19 13:21 Dose: 30 unit Insulin Human NPH (Humulin N) 20 unit SQ ONETIME ONE Stop: 05/11/19 13:16 Last Admin: 05/11/19 14:06 Dose: Not Given Insulin Human NPH (Humulin N) 30 unit SQ ONETIME ONE Stop: 05/13/19 14:01 Last Admin: 05/13/19 14:06 Dose: 30 unit Iopamidol (Isovue-370 (76%)) 100 ml IVPUSH ONETIME ONE Stop: 05/09/19 09:22 Last Admin: 05/09/19 09:43 Dose: 100 ml Methylprednisolone Sodium Succinate (Solu-Medrol) 40 mg IVPUSH Q12H [facility] Last Admin: 05/10/19 15:22 Dose: 40 mg
== END 2019-05-13 15:28 | disposition swing bed (61) | DRG 194 ==
LOC: LL.ED 08:00 → LL.MS 10:06
PROVIDERS: ADMIT Family Medicine; ATTEND Family Medicine
DX: J15.7 Pneumonia due to Mycoplasma pneumoniae (principal); J18.1 Lobar pneumonia, unspecified organism; E87.3 Alkalosis; R53.1 Weakness; R00.0 Tachycardia, unspecified; J44.9 Chronic obstructive pulmonary disease, unspecified; R06.02 Shortness of breath; I10 Essential (primary) hypertension; E87.2 Acidosis; E78.00 Pure hypercholesterolemia, unspecified; J43.1 Panlobular emphysema; I50.9 Heart failure, unspecified; Z51.5 Encounter for palliative care; M15.0 Primary generalized (osteo)arthritis; K21.9 Gastro-esophageal reflux disease without esophagitis; J84.10 Pulmonary fibrosis, unspecified; R91.8 Other nonspecific abnormal finding of lung field; Z22.322 Carrier or suspected carrier of Methicillin resistant Staphylococcus aureus; N40.0 Benign prostatic hyperplasia without lower urinary tract symptoms; I25.10 Atherosclerotic heart disease of native coronary artery without angina pectoris; I11.0 Hypertensive heart disease with heart failure; H54.7 Unspecified visual loss; Z79.899 Other long term (current) drug therapy; Z79.82 Long term (current) use of aspirin; Z79.01 Long term (current) use of anticoagulants; Z88.2 Allergy status to sulfonamides; Z79.52 Long term (current) use of systemic steroids; Z86.718 Personal history of other venous thrombosis and embolism; Z86.711 Personal history of pulmonary embolism
CPT/HCPCS: 36000; 36415; 71045; 71275; 80053; 83605; 83880; 84484; 85025; 85379; 85610; 86140; 87040 ×2; 93005; 94640; 99285; Q9967; 71046; 80048; 80202; 82962; 86738; 90662; 97110-GO; 97110-GP; 97161-GP; 97165-GO; 97530-GO; 97530-GP; A9270-GY; J0456; J1650; J1815; J1940; J2270; J2543; J2920; J3370; J3490; J7040; J7050; J7620-GY

== ENCOUNTER 2019-05-13 08:49 | Inpatient (IN) | payer MEDICARE, BC ==
[2019-05-13] MEDS ORDERED: Albuterol/Ipratropium 3.0-0.5 MG/3 ML Neb Soln NEB PRN (14:08)
[2019-05-13] MEDS ORDERED: Insulin Lispro 100 Units/ML 3 ML Vial SUBCUT ONE ×2 (14:08→19:00)
[2019-05-13] MEDS ORDERED: Sodium Chloride 0.9% 10 ML Syringe FLUSH PRN (14:08)
[2019-05-13] MEDS ORDERED: Acetaminophen 325 MG Tab PO PRN (14:08)
[2019-05-13] MEDS ORDERED: Morphine 2 MG/ML Syringe IVPUSH PRN (14:08)
[2019-05-13] MEDS ORDERED: Albuterol 0.083% 2.5 MG/3 ML Neb Soln NEB PRN (14:08)
[2019-05-13] MEDS ORDERED: Benzonatate 100 MG Cap PO PRN (14:08)
--- NOTE | 2019-05-13 15:44 | PCM.HP.2 ---
H&P History of Present Illness - General Date of Service: 05/13/19 Admit Problem/Dx: Admission Diagnosis/Problem Admission Diagnosis/Problem Pneumonia Source of Information: Patient, Family, Old Records - History of Present Illness Onset of Symptoms: Reports: Sudden Symptom Onset Date: 05/09/19 Duration of Symptoms: Reports: Getting Worse Location: Reports: Lower Extremity, Left, Lower Extremity, Right Severity: Severe Improves with: Reports: None Worsens with: Reports: None Associated Symptoms: Reports: Weakness - Related Data Allergies/Adverse Reactions: Allergies Allergy/AdvReac Type Severity Reaction Status Date / Time Sulfa (Sulfonamide Allergy Cannot Verified 05/13/19 15:50 Antibiotics) Remember Home Medications: Home Meds Albuterol/Ipratropium [DuoNeb 3.0-0.5 MG/3 ML] 3 ml INH QID 01/12/15 [History] Aspirin [Halfprin] 81 mg PO DAILY 01/12/15 [History] Finasteride [Proscar] 5 mg PO DAILY 01/12/15 [History] Albuterol/Ipratropium [DuoNeb 3.0-0.5 MG/3 ML] 3 ml NEB Q4HRRT PRN #1 box [Rx] Fluticasone Propionate [Flonase] 1 spray NASBOTH BID 12/22/15 [History] Warfarin Sodium [Coumadin] 6 mg PO SUTUWETHFRSA@1800 12/22/15 [History] Benzonatate 200 mg PO TID PRN 12/07/18 [History] Bisacodyl [Dulcolax] 10 mg PO BEDTIME tablet 12/23/18 [Rx] predniSONE [Prednisone] 10 mg PO DAILY #90 tab.ds.pk 12/23/18 [Rx] Acetaminophen [Tylenol] 650 mg PO Q4H PRN tablet 05/09/19 [Rx] Albuterol [Ventolin HFA] 2 puff INH Q2H PRN 05/09/19 [History] Budesonide [Pulmicort] 0.5 mg INH BID 05/09/19 [History] Mometasone Furoate [Asmanex 220 MCG] 2 puff INH BID 05/09/19 [History] Potassium Chloride [Klor-Con M20] 20 meq PO DAILY 05/09/19 [History] Simvastatin [Zocor] 40 mg PO BEDTIME 05/09/19 [History] Warfarin Sodium [Coumadin] 5 mg PO MO@1800 05/09/19 [History] Past Medical History HEENT History: Reports: Impaired Vision Other HEENT History: Glasses Cardiovascular History: Reports: Blood Clots/VTE/DVT, CAD, Heart Failure, High Cholesterol, Hypertension, SOB on Exertion Other Cardiovascular History: h/o DVT and PE Respiratory History: Reports: COPD, PE, Pulmonary Fibrosis, SOB Other Respiratory History: Oxygen-dependent Gastrointestinal History: Reports: GERD Genitourinary History: Reports: BPH Other Genitourinary History: Bilateral renal cysts Musculoskeletal History: Reports: Osteoarthritis, Other (See Below) Other Musculoskeletal History: Right rotator cuff tear on 12/10/08 - Infectious Disease History Infectious Disease History: Reports: MRSA - Past Surgical History Cardiovascular Surgical History: Reports: None Social & Family History - Family History Family Medical History: Unobtainable - Caffeine Use Caffeine Use: Reports: Coffee - Living Situation & Occupation Living situation: Reports: , with Family Occupation: Retired H&P Review of Systems - Review of Systems: Review Of Systems: See Below General: Reports: Weakness HEENT: Reports: No Symptoms Pulmonary: Reports: Shortness of Breath, Cough Cardiovascular: Reports: No Symptoms Gastrointestinal: Reports: Anorexia Genitourinary: Reports: No Symptoms Musculoskeletal: Reports: Joint Pain (bilateral knee pain) Skin: Reports: Bruising Psychiatric: Reports: No Symptoms Neurological: Reports: Weakness Hematologic/Lymphatic: Reports: Easy Bleeding (on coumadin), Easy Bruising Immunologic: Reports: No Symptoms Exam - Exam Exam: See Below - Exam Quality Assessment: Supplemental Oxygen, DVT Prophylaxis General: Alert, Cooperative HEENT: Glasses Neck: Trachea Midline Lungs: Normal Respiratory Effort, Decreased Breath Sounds, Rhonchi (RUL) Cardiovascular: Regular Rate, Regular Rhythm GI/Abdominal Exam: Soft, Non-Tender (Male) Exam: Deferred Rectal (Males) Exam: Deferred Back Exam: Normal Inspection Extremities: Normal Inspection, Non-Tender Skin: Warm, Dry, Intact, Ecchymosis Neurological: Strength Equal Bilateral Neuro Extensive - Mental Status: Alert, Normal Mood/Affect Psychiatric: Alert, Normal Affect, Normal Mood - Problem List (1) Mycoplasma pneumoniae pneumonia SNOMED Code(s): 63315757 ICD Code: J15.7 - PNEUMONIA DUE TO MYCOPLASMA PNEUMONIAE Status: Acute Priority: High Qualifiers: Laterality: right Lung location: upper lobe of lung Qualified Code(s): J15.7 - Pneumonia due to Mycoplasma pneumoniae (2) COPD (chronic obstructive pulmonary disease) SNOMED Code(s): 09344273 ICD Code: J44.9 - CHRONIC OBSTRUCTIVE PULMONARY DISEASE, UNSPECIFIED Status : Acute Priority: High Qualifiers: COPD type: COPD with acute lower respiratory infection Qualified Code(s): J44.0 - Chronic obstructive pulmonary disease with (acute) lower respiratory infection (3) Hypoxemia SNOMED Code(s): 923457748 ICD Code: R09.02 - HYPOXEMIA Status: Acute Priority: High (4) Heart disease SNOMED Code(s): 23760561 ICD Code: I51.9 - HEART DISEASE, UNSPECIFIED Status: Chronic Priority: High Onset Date: 06/04/15 (5) CHF (congestive heart failure) SNOMED Code(s): 07935788 ICD Code: I50.9 - HEART FAILURE, UNSPECIFIED Status: Acute Priority: High (6) Compensated metabolic alkalosis SNOMED Code(s): 1302488 ICD Code: E87.3 - ALKALOSIS Status: Acute Priority: High (7) Compensated respiratory acidosis SNOMED Code(s): 12675921 ICD Code: E87.2 - ACIDOSIS Status: Acute Priority: High (8) BPH loc w/o ur obs/LUTS SNOMED Code(s): 495508307 ICD Code: N40.0 - BENIGN PROSTATIC HYPERPLASIA WITHOUT LOWER URINRY TRACT SYMP Status: Acute Priority: Medium (9) Osteoarthritis SNOMED Code(s): 539314219 ICD Code: M19.90 - UNSPECIFIED OSTEOARTHRITIS, UNSPECIFIED SITE Status: Acute Qualifiers: Osteoarthritis location: multiple joints Osteoarthritis type: primary Qualified Code(s): M15.0 - Primary generalized (osteo)arthritis (10) Weakness generalized SNOMED Code(s): 05208542 ICD Code: R53.1 - WEAKNESS Status: Acute (11) Palliative care patient SNOMED Code(s): 897784449 ICD Code: Z51.5 - ENCOUNTER FOR PALLIATIVE CARE Status: Acute Problem Details: patient is receiving antibiotics. If he doesnt respond, we will consult hospice. Family in agreement of this plan. (12) Comfort measures only status SNOMED Code(s): 74876709182409 ICD Code: Z51.5 - ENCOUNTER FOR PALLIATIVE CARE Status: Chronic Priority : Medium (13) Emphysema lung SNOMED Code(s): 52216973 ICD Code: J43.9 - EMPHYSEMA, UNSPECIFIED Status: Chronic Priority: High Qualifiers: Emphysema type: panlobular Qualified Code(s): J43.1 - Panlobular emphysema (14) Peptic reflux disease SNOMED Code(s): 170994476 ICD Code: K21.9 - GASTRO-ESOPHAGEAL REFLUX DISEASE WITHOUT ESOPHAGITIS Status: Chronic Priority: High Onset Date: 06/04/15 (15) Pulmonary fibrosis SNOMED Code(s): 53090558 ICD Code: J84.10 - PULMONARY FIBROSIS, UNSPECIFIED Status: Chronic Priority: High Problem Details: 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, oxygen-dependent (16) Pulmonary nodules SNOMED Code(s): 304332586 ICD Code: R91.8 - OTHER NONSPECIFIC ABNORMAL FINDING OF LUNG FIELD Status: Chronic Priority: High Problem List Initiated/Reviewed/Updated: Yes Orders Last 24hrs: Active Orders 24 hr Category Date Time Status Admission Status [Patient Status] [ADT] Routine ADT 05/13/19 14:13 Active Accu Check [Blood Glucose Check, Bedside] [RC] TIDMEALS Care 05/13/19 14:08 Active Blood Glucose Check, Bedside [RC] TIDMEALS Care 05/13/19 14:08 Active EKG Documentation Completion [RC] ASDIRECTED Care 05/13/19 14:08 Inactive Influenza Vaccine Charge [RC] .DISCHARGE Care 05/13/19 14:08 Inactive Oxygen Therapy [RC] ASDIRECTED Care 05/13/19 14:08 Active RT Aerosol Therapy [RC] 08,12,16,20 Care 05/13/19 14:08 Active RT Aerosol Therapy [RC] ASDIRECTED Care 05/13/19 14:08 Active RT Aerosol Therapy [RC] ASDIRECTED Care 05/13/19 14:08 Active RT Aerosol Therapy [RC] ASDIRECTED Care 05/13/19 14:08 Active Consult to Case Management/Television Script Writer [CONS] Cons 05/13/19 14:08 Active Routine Consult to Occupational Therapy [OT Evaluation and Cons 05/13/19 14:08 Active Treatment] [CONS] Routine Consult to Physical Therapy [PT Evaluation and Cons 05/13/19 14:08 Active Treatment] [CONS] Routine [employer] Diet [DIET] Diet 05/13/19 Dinner Active BASIC METABOLIC PANEL,BMP [CHEM] Routine Lab 05/15/19 13:30 Ordered CBC WITH AUTO DIFF [HEME] Routine Lab 05/15/19 13:30 Ordered CRP [C-REACTIVE PROTEIN] [CHEM] Routine Lab 05/15/19 13:30 Ordered VANCOMYCIN TROUGH [CHEM] Routine Lab 05/15/19 13:30 Ordered Acetaminophen [Tylenol Arthritis Pain] Med 05/13/19 18:00 Ordered 1,300 mg PO BID Acetaminophen [Tylenol] Med 05/13/19 14:08 Ordered 650 mg PO Q4H PRN Albuterol [Proventil Neb Soln] Med 05/13/19 14:08 Ordered 2.5 mg NEB Q2H PRN Albuterol/Ipratropium [DuoNeb 3.0-0.5 MG/3 ML] Med 05/13/19 16:00 Ordered 3 ml INH QID Albuterol/Ipratropium [DuoNeb 3.0-0.5 MG/3 ML] Med 05/13/19 14:08 Ordered 3 ml NEB Q4HRRT PRN Azithromycin [Zithromax] Med 05/14/19 12:00 Ordered 500 mg PO DAILY@1200 Benzonatate [Tessalon Perles] Med 05/13/19 14:08 Ordered 200 mg PO TID PRN Bisacodyl [Dulcolax] Med 05/13/19 20:00 Ordered 10 mg PO BEDTIME Cefprozil [Cefzil] Med 05/13/19 20:00 Ordered 500 mg PO Q12HR Enoxaparin [Lovenox] Med 05/13/19 18:00 Ordered 40 mg SUBCUT DAILY@1800 Fluticasone Propionate [Flonase] Med 05/13/19 18:00 Ordered 0 gm NASBOTH BID Furosemide [Lasix] Med 05/14/19 08:00 Ordered 20 mg IVPUSH DAILY Insulin Lispro [HumaLOG] Med 05/13/19 14:08 Ordered 6 unit SUBCUT STAT Morphine Med 05/13/19 14:08 Ordered 1 mg IVPUSH Q2H PRN Pharmacy to Dose - InFluenza V [Pharmacy to Dose - Med 05/13/19 14:08 Once InFluenza Vaccine] 1 each IM ONETIME ONE Pharmacy to Dose - Vancomycin Med 05/13/19 14:08 Pending 1 dose .XX ASDIRECTED Potassium Chloride [Klor-Con 10] Med 05/14/19 08:00 Ordered 20 meq PO WITHBREAKFAST Sodium Chloride 0.9% [Saline Flush] Med 05/13/19 14:08 Ordered 10 ml FLUSH ASDIRECTED PRN Sodium Chloride 0.9% [Saline Flush] Med 05/13/19 20:00 Ordered 10 ml FLUSH Q12HR Vancomycin 1.5 gm Med 05/14/19 14:00 Ordered Sodium Chloride 0.9% [Normal Saline] 500 ml IV Q24H metFORMIN [Glucophage XR] Med 05/13/19 17:00 Ordered 500 mg PO 1700 methylPREDNISolone Sod Succ [Solu-MEDROL] Med 05/14/19 08:00 Ordered 40 mg IVPUSH DAILY metroNIDAZOLE [Flagyl] Med 05/13/19 20:00 Ordered 500 mg PO TID@0800,1400,2000 Saline Lock Insert [OM.PC] Routine Oth 05/13/19 14:08 Ordered Code Status [Resuscitation Status] Routine Resus Stat 05/13/19 14:12 Ordered Medication Orders Acetaminophen (Tylenol) 650 mg PO Q4H PRN PRN Reason: Pain (Mild 1-3)/fever Acetaminophen (Tylenol Arthritis Pain) 1,300 mg PO BID [facility] Albuterol (Proventil Neb Soln) 2.5 mg NEB Q2H PRN PRN Reason: Dyspnea Albuterol/Ipratropium (Duoneb 3.0-0.5 Mg/3 Ml) 3 ml INH QID [facility] Albuterol/Ipratropium (Duoneb 3.0-0.5 Mg/3 Ml) 3 ml NEB Q4HRRT PRN PRN Reason: Shortness of Breath Azithromycin (Zithromax) 500 mg PO DAILY@1200 [facility] Stop: 05/18/19 12:01 Benzonatate (Tessalon Perles) 200 mg PO TID PRN PRN Reason: Cough Bisacodyl (Dulcolax) 10 mg PO BEDTIME [facility] Cefprozil (Cefzil) 500 mg PO Q12HR [facility] Enoxaparin Sodium (Lovenox) 40 mg SUBCUT DAILY@1800 [facility] Fluticasone Propionate (Flonase) 0 gm NASBOTH BID [facility] Furosemide (Lasix) 20 mg IVPUSH DAILY [facility] Vancomycin HCl 1.5 gm/ Sodium (Chloride) 500 mls @ 220 mls/hr IV Q24H [facility] Influenza Virus Vaccine (Pharmacy To Dose - Influenza Vaccine) 1 each IM ONETIME ONE Stop: 05/13/19 14:09 Insulin Human Lispro (Humalog) 6 unit SUBCUT STAT [facility] Metformin HCl (Glucophage Xr) 500 mg PO 1700 [facility] Methylprednisolone Sodium Succinate (Solu-Medrol) 40 mg IVPUSH DAILY [facility] Metronidazole (Flagyl) 500 mg PO TID@0800,1400,2000 [facility] Morphine Sulfate (Morphine) 1 mg IVPUSH Q2H PRN PRN Reason: Pain (severe 7-10) Potassium Chloride (Klor-Con 10) 20 meq PO WITHBREAKFAST [facility] Sodium Chloride (Saline Flush) 10 ml FLUSH Q12HR [facility] Sodium Chloride (Saline Flush) 10 ml FLUSH ASDIRECTED PRN PRN Reason: Keep Vein Open Vancomycin HCl (Pharmacy To Dose - Vancomycin) 1 dose .XX ASDIRECTED [facility] Assessment/Plan Comment:: 05/13/19 Aj Small MD He is admitted into swing bed status to continue IV antibiotics and PT-OT. - Mortality Measure Prognosis:: Poor (He is DNI/DNR)
[2019-05-13] MEDS: Albuterol/Ipratropium 3.0-0.5 MG/3 ML Neb Soln INH SCH ×2 (16:43→19:39)
[2019-05-13] MEDS: Fluticasone Propionate Nasal Spray 16 GM Bottle NASBOTH SCH (17:50)
[2019-05-13] MEDS: metFORMIN 500 MG Tab.ER PO SCH (17:50)
[2019-05-13] MEDS: Enoxaparin 40 MG/0.4 ML Syringe SUBCUT SCH (17:51)
[2019-05-13] MEDS: Acetaminophen 650 MG Tab.ER PO SCH (17:51)
[2019-05-13] MEDS: Bisacodyl 5 MG Tab PO SCH (19:40)
[2019-05-13] MEDS: metroNIDAZOLE 500 MG Tab PO SCH (19:40)
[2019-05-13] MEDS: Sodium Chloride 0.9% 10 ML Syringe FLUSH SCH (19:41)
[2019-05-14] MEDS ORDERED: Potassium Chloride 10 MEQ Tab.ER PO SCH (08:00)
[2019-05-14] MEDS: metroNIDAZOLE 500 MG Tab PO SCH ×3 (10:25→19:51)
[2019-05-14] MEDS: Albuterol/Ipratropium 3.0-0.5 MG/3 ML Neb Soln INH SCH ×4 (10:25→19:52)
[2019-05-14] MEDS: Acetaminophen 650 MG Tab.ER PO SCH ×2 (10:25→17:28)
[2019-05-14] MEDS: Fluticasone Propionate Nasal Spray 16 GM Bottle NASBOTH SCH ×2 (10:27→17:27)
[2019-05-14] MEDS: Furosemide 20 MG/2 ML VIAL IVPUSH SCH (10:28)
[2019-05-14] MEDS: methylPREDNISolone Sodium Succinate 40 MG/1 ML SDV IVPUSH SCH (10:28)
[2019-05-14] MEDS: Sodium Chloride 0.9% 10 ML Syringe FLUSH SCH ×2 (10:30→19:52)
[2019-05-14] MEDS: Insulin Isophane NPH, Human 100 Units/ML 3 ML Vial SQ SCH (10:36)
[2019-05-14] MEDS: Azithromycin 250 MG Tab PO SCH (12:14)
[2019-05-14] MEDS: Vancomycin 1.5 GM in Sodium Chloride 0.9% 500 ML IV SCH (14:00)
[2019-05-14] MEDS: Sodium Chloride 0.9% 10 ML Syringe FLUSH PRN ×2 (14:01→16:18)
[2019-05-14] MEDS: metFORMIN 500 MG Tab.ER PO SCH (17:27)
[2019-05-14] MEDS: Enoxaparin 40 MG/0.4 ML Syringe SUBCUT SCH (17:29)
[2019-05-14] MEDS: Bisacodyl 5 MG Tab PO SCH (19:52)
[2019-05-15] MEDS: methylPREDNISolone Sodium Succinate 40 MG/1 ML SDV IVPUSH SCH (07:39)
[2019-05-15] MEDS: Furosemide 20 MG/2 ML VIAL IVPUSH SCH (07:39)
[2019-05-15] MEDS: Sodium Chloride 0.9% 10 ML Syringe FLUSH SCH ×2 (07:40→19:13)
[2019-05-15] MEDS: Fluticasone Propionate Nasal Spray 16 GM Bottle NASBOTH SCH ×2 (07:40→18:04)
[2019-05-15] MEDS: Albuterol/Ipratropium 3.0-0.5 MG/3 ML Neb Soln INH SCH ×4 (07:40→19:13)
[2019-05-15] MEDS: metroNIDAZOLE 500 MG Tab PO SCH ×3 (07:41→19:12)
[2019-05-15] MEDS: Acetaminophen 650 MG Tab.ER PO SCH ×2 (07:42→18:05)
[2019-05-15] MEDS: Insulin Isophane NPH, Human 100 Units/ML 3 ML Vial SQ SCH (07:43)
[2019-05-15] MEDS: Sodium Chloride 0.9% 10 ML Syringe FLUSH PRN ×2 (07:47→15:15)
[2019-05-15] MEDS: Azithromycin 250 MG Tab PO SCH (11:18)
[2019-05-15] MEDS ORDERED: Albuterol 0.083% 2.5 MG/3 ML Neb Soln NEB PRN (12:13)
[2019-05-15] MEDS ORDERED: Sodium Chloride 0.9% 10 ML Syringe FLUSH PRN ×2 (12:13)
[2019-05-15] MEDS ORDERED: Acetaminophen 325 MG Tab PO PRN (12:13)
[2019-05-15] MEDS ORDERED: Benzonatate 100 MG Cap PO PRN (12:13)
[2019-05-15] MEDS ORDERED: Insulin Lispro 100 Units/ML 3 ML Vial SUBCUT SCH (12:13)
[2019-05-15] MEDS ORDERED: Albuterol/Ipratropium 3.0-0.5 MG/3 ML Neb Soln NEB PRN (12:13)
[2019-05-15] MEDS ORDERED: Morphine 2 MG/ML Syringe IVPUSH PRN (12:13)
[2019-05-15] MEDS ORDERED: Vancomycin 1.5 GM in Sodium Chloride 0.9% 500 ML IV SCH (14:00)
[2019-05-15] MEDS ORDERED: metroNIDAZOLE 500 MG Tab PO SCH (14:00)
[2019-05-15 14:18] LABS: CHLORIDE,CL 97 mmol/L (98-107); SODIUM,NA 137 mmol/L (136-145)
[2019-05-15] MEDS: Vancomycin 1.5 GM in Sodium Chloride 0.9% 500 ML IV SCH (14:29)
[2019-05-15] MEDS ORDERED: Albuterol/Ipratropium 3.0-0.5 MG/3 ML Neb Soln INH SCH (16:00)
[2019-05-15] MEDS ORDERED: metFORMIN 500 MG Tab.ER PO SCH (17:00)
[2019-05-15] MEDS ORDERED: Insulin Lispro 100 Units/ML 3 ML Vial SUBCUT ONE (17:42)
[2019-05-15] MEDS ORDERED: Acetaminophen 650 MG Tab.ER PO SCH (18:00)
[2019-05-15] MEDS ORDERED: Fluticasone Propionate Nasal Spray 16 GM Bottle NASBOTH SCH (18:00)
[2019-05-15] MEDS ORDERED: Enoxaparin 40 MG/0.4 ML Syringe SUBCUT SCH (18:00)
[2019-05-15] MEDS: metFORMIN 500 MG Tab.ER PO SCH (18:04)
[2019-05-15] MEDS: Enoxaparin 40 MG/0.4 ML Syringe SUBCUT SCH (18:06)
[2019-05-15] MEDS: Bisacodyl 5 MG Tab PO SCH (19:12)
[2019-05-15] MEDS ORDERED: Bisacodyl 5 MG Tab PO SCH (20:00)
[2019-05-15] MEDS ORDERED: Sodium Chloride 0.9% 10 ML Syringe FLUSH SCH (20:00)
[2019-05-16] MEDS ORDERED: methylPREDNISolone Sodium Succinate 40 MG/1 ML SDV IVPUSH SCH (08:00)
[2019-05-16] MEDS ORDERED: Potassium Chloride 10 MEQ Tab.ER PO SCH (08:00)
[2019-05-16] MEDS ORDERED: Furosemide 20 MG/2 ML VIAL IVPUSH SCH (08:00)
[2019-05-16] MEDS: Fluticasone Propionate Nasal Spray 16 GM Bottle NASBOTH SCH ×2 (08:44→17:01)
[2019-05-16] MEDS: metroNIDAZOLE 500 MG Tab PO SCH ×3 (08:45→19:31)
[2019-05-16] MEDS: predniSONE 20 MG Tab PO SCH (08:45)
[2019-05-16] MEDS: Furosemide 20 MG Tab PO SCH (08:46)
[2019-05-16] MEDS: Albuterol/Ipratropium 3.0-0.5 MG/3 ML Neb Soln INH SCH ×4 (08:46→19:31)
[2019-05-16] MEDS: Sodium Chloride 0.9% 10 ML Syringe FLUSH SCH (08:47)
[2019-05-16] MEDS: Acetaminophen 650 MG Tab.ER PO SCH ×2 (08:56→17:02)
[2019-05-16] MEDS: Insulin Glarg,Human.Rec.Analog 100 UNIT/ML ML SUBCUT SCH (08:59)
[2019-05-16] MEDS ORDERED: Morphine Oral Concentrate 20 MG/ML 30 ML Bottle PO PRN (10:00)
[2019-05-16] MEDS: Enoxaparin 40 MG/0.4 ML Syringe SUBCUT SCH (11:38)
[2019-05-16] MEDS: Azithromycin 250 MG Tab PO SCH (11:40)
[2019-05-16] MEDS ORDERED: Azithromycin 250 MG Tab PO SCH (12:00)
[2019-05-16] MEDS: metFORMIN 500 MG Tab.ER PO SCH (17:02)
[2019-05-16] MEDS: Warfarin 2 MG Tab PO SCH (17:03)
[2019-05-16] MEDS ORDERED: Insulin Lispro 100 Units/ML 3 ML Vial SUBCUT STA (17:32)
[2019-05-16] MEDS ORDERED: Insulin Lispro 100 Units/ML 3 ML Vial SUBCUT ONE (17:39)
[2019-05-16] MEDS: Bisacodyl 5 MG Tab PO SCH (19:31)
[2019-05-17] MEDS: Acetaminophen 650 MG Tab.ER PO SCH ×2 (09:06→17:16)
[2019-05-17] MEDS: Furosemide 20 MG Tab PO SCH (09:07)
[2019-05-17] MEDS: metroNIDAZOLE 500 MG Tab PO SCH ×3 (09:07→19:53)
[2019-05-17] MEDS: predniSONE 20 MG Tab PO SCH (09:07)
[2019-05-17] MEDS: Albuterol/Ipratropium 3.0-0.5 MG/3 ML Neb Soln INH SCH ×4 (09:08→19:53)
[2019-05-17] MEDS: Fluticasone Propionate Nasal Spray 16 GM Bottle NASBOTH SCH ×2 (09:08→17:18)
[2019-05-17] MEDS: Insulin Glarg,Human.Rec.Analog 100 UNIT/ML ML SUBCUT SCH (09:46)
[2019-05-17] MEDS: Azithromycin 250 MG Tab PO SCH (12:00)
[2019-05-17] MEDS: Enoxaparin 40 MG/0.4 ML Syringe SUBCUT SCH (12:01)
[2019-05-17] MEDS: Warfarin 2 MG Tab PO SCH (17:18)
[2019-05-17] MEDS: metFORMIN 500 MG Tab.ER PO SCH (17:18)
[2019-05-17] MEDS: Bisacodyl 5 MG Tab PO SCH (19:53)
[2019-05-17] MEDS ORDERED: metFORMIN 500 MG Tab.ER PO SCH (22:00)
[2019-05-18] MEDS: Furosemide 20 MG Tab PO SCH (07:13)
[2019-05-18] MEDS: Acetaminophen 650 MG Tab.ER PO SCH (07:17)
[2019-05-18] MEDS: Fluticasone Propionate Nasal Spray 16 GM Bottle NASBOTH SCH (07:17)
[2019-05-18] MEDS: Albuterol/Ipratropium 3.0-0.5 MG/3 ML Neb Soln INH SCH ×2 (07:17→11:04)
[2019-05-18] MEDS: metroNIDAZOLE 500 MG Tab PO SCH (07:18)
[2019-05-18] MEDS: predniSONE 20 MG Tab PO SCH (07:18)
[2019-05-18 07:59] LABS: CHLORIDE,CL 101 mmol/L (98-107); SODIUM,NA 141 mmol/L (136-145)
[2019-05-18 09:59] VITALS: BP 140/84; PULSE 100
[2019-05-18] MEDS: Enoxaparin 40 MG/0.4 ML Syringe SUBCUT SCH (11:04)
[2019-05-18] MEDS: Azithromycin 250 MG Tab PO SCH (11:04)
[2019-05-18] MEDS ORDERED: Insulin Glarg,Human.Rec.Analog 100 UNIT/ML ML SUBCUT SCH (20:00)
--- NOTE | 2019-05-18 21:53 | PCM.PN ---
- General Info Date of Service: 05/18/19 Admission Dx/Problem (Free Text): Admission Diagnosis/Problem Admission Diagnosis/Problem Pneumonia Functional Status: Reports: Pain Controlled, Tolerating Diet, Ambulating, Urinating - Review of Systems General: Reports: No Symptoms HEENT: Reports: No Symptoms Pulmonary: Reports: Shortness of Breath (chronic) Cardiovascular: Reports: No Symptoms Gastrointestinal: Reports: No Symptoms Genitourinary: Reports: No Symptoms Musculoskeletal: Reports: No Symptoms Skin: Reports: No Symptoms Neurological: Reports: No Symptoms Psychiatric: Reports: No Symptoms - Patient Data Vitals - Most Recent: Last Vital Signs Temp 98.3 F 05/18/19 08:00 Pulse 100 05/18/19 08:00 Resp 17 05/18/19 08:00 BP 140/84 05/18/19 08:00 Pulse Ox 100 05/18/19 08:00 Weight - Most Recent: 159 lb 4.791 oz I&O - Last 24 Hours: Intake & Output 05/18/19 05/18/19 05/18/19 06:59 14:59 22:59 Intake Total 1280 Balance 1280 Lab Results Last 24 Hours: Laboratory Results - last 24 hr 05/18/19 05/18/19 05/18/19 Range/Units 07:15 07:15 07:15 WBC 8.1 (4.0-10.2) K/uL RBC 4.13 L (4.33-5.41) M/uL Hgb 13.4 (13.1-16.8) g/dL Hct 40.6 (39.0-49.0) % MCV 98.3 H D (84.0-98.0) fL MCH 32.4 (28.2-33.3) pg MCHC 33.0 (31.7-36.0) g/dL RDW 13.3 (11.2-14.1) % Plt Count 283 (150-350) K/uL Neut % (Auto) 78.8 (45.0-80.0) % Lymph % (Auto) 11.2 (10.0-50.0) % [place] % (Auto) 8.5 (2.0-14.0) % Eos % (Auto) 1.1 (0.0-5.0) % Baso % (Auto) 0.4 (0.0-2.0) % Neut # (Auto) 6.42 (1.40-7.00) K/uL Lymph # (Auto) 0.91 (0.50-3.50) K/uL [place] # (Auto) 0.69 (0.00-1.00) K/uL Eos # (Auto) 0.09 (0.00-0.50) K/uL Baso # (Auto) 0.03 (0.00-0.20) K/uL PT 10.9 (9.5-12.0) SEC INR 1.0 APTT 28.0 (21.0-31.3) SEC Sodium 141 (136-145) mmol/L Potassium 4.1 (3.5-5.1) mmol/L Chloride 101 (98-107) mmol/L Carbon Dioxide 37.5 H (21.0-32.0) mmol/L BUN 15 (7-18) mg/dL Creatinine 0.53 (0.51-1.17) mg/dL Est Cr Clr Drug Dosing 97.15 mL/min Estimated GFR (MDRD) > 60 mL/min Glucose 80 (74-106) mg/dL POC Glucose (65-110) mg/dl Calcium 8.7 (8.5-10.1) mg/dL Total Bilirubin 0.3 (0.2-1.0) mg/dL AST 25 (15-37) U/L ALT 34 (12-78) U/L Alkaline Phosphatase 68 (46-116) IU/L C-Reactive Protein 1.7 H (<=0.9) mg/dL Total Protein 5.7 L (6.4-8.2) g/dL Albumin 2.5 L (3.4-5.0) g/dL 05/18/19 Range/Units 07:16 WBC (4.0-10.2) K/uL RBC (4.33-5.41) M/uL Hgb (13.1-16.8) g/dL Hct (39.0-49.0) % MCV (84.0-98.0) fL MCH (28.2-33.3) pg MCHC (31.7-36.0) g/dL RDW (11.2-14.1) % Plt Count (150-350) K/uL Neut % (Auto) (45.0-80.0) % Lymph % (Auto) (10.0-50.0) % [place] % (Auto) (2.0-14.0) % Eos % (Auto) (0.0-5.0) % Baso % (Auto) (0.0-2.0) % Neut # (Auto) (1.40-7.00) K/uL Lymph # (Auto) (0.50-3.50) K/uL [place] # (Auto) (0.00-1.00) K/uL Eos # (Auto) (0.00-0.50) K/uL Baso # (Auto) (0.00-0.20) K/uL PT (9.5-12.0) SEC INR APTT (21.0-31.3) SEC Sodium (136-145) mmol/L Potassium (3.5-5.1) mmol/L Chloride (98-107) mmol/L Carbon Dioxide (21.0-32.0) mmol/L BUN (7-18) mg/dL Creatinine (0.51-1.17) mg/dL Est Cr Clr Drug Dosing mL/min Estimated GFR (MDRD) mL/min Glucose (74-106) mg/dL POC Glucose 74 (65-110) mg/dl Calcium (8.5-10.1) mg/dL Total Bilirubin (0.2-1.0) mg/dL AST (15-37) U/L ALT (12-78) U/L Alkaline Phosphatase (46-116) IU/L C-Reactive Protein (<=0.9) mg/dL Total Protein (6.4-8.2) g/dL Albumin (3.4-5.0) g/dL Med Orders - Current: Current Medications Discontinued Medications Acetaminophen (Tylenol) 650 mg PO Q4H PRN PRN Reason: Pain (Mild 1-3)/fever Acetaminophen (Tylenol Arthritis Pain) 1,300 mg PO BID [facility] Last Admin: 05/18/19 07:17 Dose: 1,300 mg Albuterol (Proventil Neb Soln) 2.5 mg NEB Q2H PRN PRN Reason: Dyspnea Albuterol/Ipratropium (Duoneb 3.0-0.5 Mg/3 Ml) 3 ml INH QIDRT [facility] Last Admin: 05/18/19 11:04 Dose: 3 ml Albuterol/Ipratropium (Duoneb 3.0-0.5 Mg/3 Ml) 3 ml NEB Q4HRRT PRN PRN Reason: Shortness of Breath Azithromycin (Zithromax) 500 mg PO DAILY@1200 [facility] Stop: 05/18/19 12:01 Last Admin: 05/18/19 11:04 Dose: 500 mg Benzonatate (Tessalon Perles) 200 mg PO TID PRN PRN Reason: Cough Bisacodyl (Dulcolax) 10 mg PO BEDTIME [facility] Last Admin: 05/17/19 19:53 Dose: 10 mg Cefprozil (Cefzil) 500 mg PO Q12HR [facility] Stop: 05/18/19 20:01 Last Admin: 05/18/19 07:18 Dose: 500 mg Enoxaparin Sodium (Lovenox) 40 mg SUBCUT DAILY@1800 [facility] Last Admin: 05/15/19 18:06 Dose: 40 mg Enoxaparin Sodium (Lovenox) 40 mg SUBCUT DAILY@1200 [facility] Last Admin: 05/18/19 11:04 Dose: 40 mg Fluticasone Propionate (Flonase) 0 gm NASBOTH BID [facility] Last Admin: 05/18/19 07:17 Dose: 1 spray Furosemide (Lasix) 20 mg IVPUSH DAILY [facility] Last Admin: 05/15/19 07:39 Dose: 20 mg Furosemide (Lasix) 20 mg PO DAILY [facility] Last Admin: 05/18/19 07:13 Dose: 20 mg Vancomycin HCl 1.5 gm/ Sodium (Chloride) 500 mls @ 220 mls/hr IV Q24H [facility] Last Admin: 05/15/19 14:29 Dose: Not Given Vancomycin HCl 1 gm/ Sodium (Chloride) 250 mls @ 165 mls/hr IV Q12H [facility] Last Admin: 05/16/19 03:09 Dose: Not Given Influenza Virus Vaccine (Pharmacy To Dose - Influenza Vaccine) 1 each IM ONETIME ONE Stop: 05/13/19 14:09 Last Admin: 05/13/19 16:52 Dose: Not Given Influenza Virus Vaccine (Fluzone High-Dose 2019-20 Syringe) 180 mcg IM .ONCE ONE Stop: 05/14/19 09:01 Last Admin: 05/14/19 09:25 Dose: Not Given Insulin Glargine (Lantus) 20 unit SUBCUT DAILY [facility] Last Admin: 05/17/19 09:46 Dose: 20 units Insulin Glargine (Lantus) 0 unit SUBCUT BEDTIME [facility] Insulin Human Lispro (Humalog) 6 unit SUBCUT STAT ONE Stop: 05/13/19 14:09 Last Admin: 05/13/19 16:44 Dose: Not Given Insulin Human Lispro (Humalog) 10 unit SUBCUT ONETIME ONE Stop: 05/13/19 19:01 Last Admin: 05/13/19 19:40 Dose: 10 units Insulin Human Lispro (Humalog) 4 unit SUBCUT ONETIME ONE Stop: 05/16/19 17:40 Insulin Human Lispro (Humalog) 4 unit SUBCUT ONETIME ONE Stop: 05/15/19 17:43 Last Admin: 05/15/19 18:07 Dose: 4 units Insulin Human Lispro (Humalog) 4 unit SUBCUT NOW STA Stop: 05/16/19 17:33 Last Admin: 05/16/19 17:53 Dose: 4 units Insulin Human NPH (Humulin N) 30 unit SQ DAILY [facility] Last Admin: 05/15/19 07:43 Dose: 30 unit Metformin HCl (Glucophage Xr) 500 mg PO DAILY@1700 [facility] Last Admin: 05/17/19 17:18 Dose: 500 mg Metformin HCl (Glucophage Xr) 500 mg PO DAILY@1800 [facility] Last Admin: 05/17/19 23:16 Dose: Not Given Methylprednisolone Sodium Succinate (Solu-Medrol) 40 mg IVPUSH DAILY [facility] Last Admin: 05/15/19 07:39 Dose: 40 mg Metronidazole (Flagyl) 500 mg PO TID@0800,1400,2000 [facility] Stop: 05/18/19 20:01 Last Admin: 05/18/19 07:18 Dose: 500 mg Morphine Sulfate (Morphine) 1 mg IVPUSH Q2H PRN PRN Reason: Pain (severe 7-10) Morphine Sulfate (Morphine 20 Mg/Ml Soln) 2.5 mg PO Q4H PRN PRN Reason: Dyspnea Potassium Chloride (Klor-Con 10) 20 meq PO WITHBREAKFAST [facility] Prednisone (Prednisone) 20 mg PO WITHBREAKFAST [facility] Last Admin: 05/18/19 07:18 Dose: 20 mg Sodium Chloride (Saline Flush) 10 ml FLUSH ASDIRECTED PRN PRN Reason: Keep Vein Open Sodium Chloride (Saline Flush) 10 ml FLUSH Q12HR [facility] Last Admin: 05/16/19 08:47 Dose: Not Given Sodium Chloride (Saline Flush) 10 ml FLUSH ASDIRECTED PRN PRN Reason: Keep Vein Open Last Admin: 05/15/19 15:15 Dose: 10 ml Vancomycin HCl (Pharmacy To Dose - Vancomycin) 1 dose .XX ASDIRECTED [facility] Warfarin Sodium (Coumadin) 6 mg PO DAILY@1800 [facility] Last Admin: 05/17/19 17:18 Dose: 6 mg - Exam Quality Assessment: Supplemental Oxygen General: Alert, Cooperative, No Acute Distress HEENT: Mucous Membr. Moist/[place] Neck: Trachea Midline, No JVD Lungs: Normal Respiratory Effort, Decreased Breath Sounds, Rhonchi Cardiovascular: Regular Rate, Regular Rhythm GI/Abdominal Exam: Soft, Non-Tender, No Distention (Male) Exam: Deferred Back Exam: Normal Inspection Extremities: Non-Tender, Pedal Edema Skin: Warm, Dry, Intact Neurological: No New Focal Deficit Psy/Mental Status: Alert, Normal Affect, Normal Mood - Problem List & Annotations (1) Mycoplasma pneumoniae pneumonia SNOMED Code(s): 34346165 Code(s): J15.7 - PNEUMONIA DUE TO MYCOPLASMA PNEUMONIAE Status: Acute Priority: High Qualifiers: Laterality: right Lung location: upper lobe of lung Qualified Code(s): J15.7 - Pneumonia due to Mycoplasma pneumoniae (2) COPD (chronic obstructive pulmonary disease) SNOMED Code(s): 03820263 Code(s): J44.9 - CHRONIC OBSTRUCTIVE PULMONARY DISEASE, UNSPECIFIED Status : Acute Priority: High Qualifiers: COPD type: COPD with acute lower respiratory infection Qualified Code(s): J44.0 - Chronic obstructive pulmonary disease with (acute) lower respiratory infection (3) Hypoxemia SNOMED Code(s): 543864959 Code(s): R09.02 - HYPOXEMIA Status: Acute Priority: High (4) Heart disease SNOMED Code(s): 46075492 Code(s): I51.9 - HEART DISEASE, UNSPECIFIED Status: Chronic Priority: High Onset Date: 06/04/15 (5) CHF (congestive heart failure) SNOMED Code(s): 61198870 Code(s): I50.9 - HEART FAILURE, UNSPECIFIED Status: Acute Priority: High (6) Compensated metabolic alkalosis SNOMED Code(s): 5271023 Code(s): E87.3 - ALKALOSIS Status: Acute Priority: High (7) Compensated respiratory acidosis SNOMED Code(s): 22921285 Code(s): E87.2 - ACIDOSIS Status: Acute Priority: High (8) BPH loc w/o ur obs/LUTS SNOMED Code(s): 012142599 Code(s): N40.0 - BENIGN PROSTATIC HYPERPLASIA WITHOUT LOWER URINRY TRACT SYMP Status: Acute Priority: Medium (9) Osteoarthritis SNOMED Code(s): 386248693 Code(s): M19.90 - UNSPECIFIED OSTEOARTHRITIS, UNSPECIFIED SITE Status: Acute Qualifiers: Osteoarthritis location: multiple joints Osteoarthritis type: primary Qualified Code(s): M15.0 - Primary generalized (osteo)arthritis (10) Weakness generalized SNOMED Code(s): 84006685 Code(s): R53.1 - WEAKNESS Status: Acute (11) Palliative care patient SNOMED Code(s): 187046838 Code(s): Z51.5 - ENCOUNTER FOR PALLIATIVE CARE Status: Acute Annotation/ Comment:: patient is receiving antibiotics. If he doesnt respond, we will consult hospice. Family in agreement of this plan. (12) Comfort measures only status SNOMED Code(s): 67018894150512 Code(s): Z51.5 - ENCOUNTER FOR PALLIATIVE CARE Status: Chronic Priority: Medium (13) Emphysema lung SNOMED Code(s): 94766943 Code(s): J43.9 - EMPHYSEMA, UNSPECIFIED Status: Chronic Priority: High Qualifiers: Emphysema type: panlobular Qualified Code(s): J43.1 - Panlobular emphysema (14) Peptic reflux disease SNOMED Code(s): 604454634 Code(s): K21.9 - GASTRO-ESOPHAGEAL REFLUX DISEASE WITHOUT ESOPHAGITIS Status: Chronic Priority: High Onset Date: 06/04/15 (15) Pulmonary fibrosis SNOMED Code(s): 07180979 Code(s): J84.10 - PULMONARY FIBROSIS, UNSPECIFIED Status: Chronic Priority: High Annotation/Comment:: 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 05/18/19 Aj Small MD He is ready to go home. He is followed by [facility]. Discussed blood sugars. He does not want to start insulin at this time.
--- NOTE | 2019-05-18 21:54 | PCM.DCSUM1 ---
Discharge Summary - Hospital Course Diagnosis: Stroke: No - Discharge Data Discharge Date: 05/18/19 Discharge Disposition: Home, Self-Care 01 Condition: Fair - Referral to Home Health Primary Care Physician: MIMI Santillan - Discharge Diagnosis/Problem(s) (1) Mycoplasma pneumoniae pneumonia SNOMED Code(s): 33292896 ICD Code: J15.7 - PNEUMONIA DUE TO MYCOPLASMA PNEUMONIAE Status: Acute Priority: High Qualifiers: Laterality: right Lung location: upper lobe of lung Qualified Code(s): J15.7 - Pneumonia due to Mycoplasma pneumoniae (2) COPD (chronic obstructive pulmonary disease) SNOMED Code(s): 01611022 ICD Code: J44.9 - CHRONIC OBSTRUCTIVE PULMONARY DISEASE, UNSPECIFIED Status : Acute Priority: High Qualifiers: COPD type: COPD with acute lower respiratory infection Qualified Code(s): J44.0 - Chronic obstructive pulmonary disease with (acute) lower respiratory infection (3) Hypoxemia SNOMED Code(s): 100956687 ICD Code: R09.02 - HYPOXEMIA Status: Acute Priority: High (4) Heart disease SNOMED Code(s): 79182362 ICD Code: I51.9 - HEART DISEASE, UNSPECIFIED Status: Chronic Priority: High Onset Date: 06/04/15 (5) CHF (congestive heart failure) SNOMED Code(s): 92766316 ICD Code: I50.9 - HEART FAILURE, UNSPECIFIED Status: Acute Priority: High (6) Compensated metabolic alkalosis SNOMED Code(s): 8894088 ICD Code: E87.3 - ALKALOSIS Status: Acute Priority: High (7) Compensated respiratory acidosis SNOMED Code(s): 08738567 ICD Code: E87.2 - ACIDOSIS Status: Acute Priority: High (8) BPH loc w/o ur obs/LUTS SNOMED Code(s): 289136945 ICD Code: N40.0 - BENIGN PROSTATIC HYPERPLASIA WITHOUT LOWER URINRY TRACT SYMP Status: Acute Priority: Medium (9) Osteoarthritis SNOMED Code(s): 816931781 ICD Code: M19.90 - UNSPECIFIED OSTEOARTHRITIS, UNSPECIFIED SITE Status: Acute Qualifiers: Osteoarthritis location: multiple joints Osteoarthritis type: primary Qualified Code(s): M15.0 - Primary generalized (osteo)arthritis (10) Weakness generalized SNOMED Code(s): 73941285 ICD Code: R53.1 - WEAKNESS Status: Acute (11) Palliative care patient SNOMED Code(s): 041607209 ICD Code: Z51.5 - ENCOUNTER FOR PALLIATIVE CARE Status: Acute Problem Details: patient is receiving antibiotics. If he doesnt respond, we will consult hospice. Family in agreement of this plan. (12) Comfort measures only status SNOMED Code(s): 18726480349282 ICD Code: Z51.5 - ENCOUNTER FOR PALLIATIVE CARE Status: Chronic Priority : Medium (13) Emphysema lung SNOMED Code(s): 87995365 ICD Code: J43.9 - EMPHYSEMA, UNSPECIFIED Status: Chronic Priority: High Qualifiers: Emphysema type: panlobular Qualified Code(s): J43.1 - Panlobular emphysema (14) Peptic reflux disease SNOMED Code(s): 485786913 ICD Code: K21.9 - GASTRO-ESOPHAGEAL REFLUX DISEASE WITHOUT ESOPHAGITIS Status: Chronic Priority: High Onset Date: 06/04/15 (15) Pulmonary fibrosis SNOMED Code(s): 79615039 ICD Code: J84.10 - PULMONARY FIBROSIS, UNSPECIFIED Status: Chronic Priority: High Problem Details: 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, oxygen-dependent (16) Pulmonary nodules SNOMED Code(s): 644733659 ICD Code: R91.8 - OTHER NONSPECIFIC ABNORMAL FINDING OF LUNG FIELD Status: Chronic Priority: High - Patient Summary/Data Consults: Consultations 05/15/19 12:13 Consult to Case Management/Casino [employer] Person [CONS] Routine Consult to Occupational Therapy [OT Evaluation and Treatment] [CONS] Routine Consult to Physical Therapy [PT Evaluation and Treatment] [CONS] Routine - Patient Instructions Diet: Diabetic Diet Activity: As Tolerated Driving: Do Not Drive Showering/Bathing: May Shower Other/Special Instructions: Have [facility] Nurse check PT/INR and Accucheck (BS) next week and notify [facility]. - Discharge Plan *PRESCRIPTION DRUG MONITORING PROGRAM REVIEWED*: Not Applicable *COPY OF PRESCRIPTION DRUG MONITORING REPORT IN PATIENT OLENA: Not Applicable Prescriptions/Med Rec: Furosemide 40 mg PO DAILY #90 tablet metFORMIN [Glucophage XR] 500 mg PO BIDMEALS #180 tab.er Home Medications: Home Meds Albuterol/Ipratropium [DuoNeb 3.0-0.5 MG/3 ML] 3 ml INH QID 01/12/15 [History] Aspirin [Halfprin] 81 mg PO DAILY 01/12/15 [History] Finasteride [Proscar] 5 mg PO DAILY 01/12/15 [History] Albuterol/Ipratropium [DuoNeb 3.0-0.5 MG/3 ML] 3 ml NEB Q4HRRT PRN #1 box [Rx] Fluticasone Propionate [Flonase] 1 spray NASBOTH BID 12/22/15 [History] Warfarin Sodium [Coumadin] 6 mg PO SUTUWETHFRSA@1800 12/22/15 [History] Benzonatate 200 mg PO TID PRN 12/07/18 [History] Bisacodyl [Dulcolax] 10 mg PO BEDTIME tablet 12/23/18 [Rx] predniSONE [Prednisone] 10 mg PO DAILY #90 tab.ds.pk 12/23/18 [Rx] Acetaminophen [Tylenol] 650 mg PO Q4H PRN tablet 05/09/19 [Rx] Albuterol [Ventolin HFA] 2 puff INH Q2H PRN 05/09/19 [History] Budesonide [Pulmicort] 0.5 mg INH BID 05/09/19 [History] Mometasone Furoate [Asmanex 220 MCG] 2 puff INH BID 05/09/19 [History] Potassium Chloride [Klor-Con M20] 20 meq PO DAILY 05/09/19 [History] Simvastatin [Zocor] 40 mg PO BEDTIME 05/09/19 [History] Warfarin Sodium [Coumadin] 5 mg PO MO@1800 05/09/19 [History] Acetaminophen [Tylenol Arthritis Pain] 1,300 mg PO BID tab.er 05/18/19 [Rx] Furosemide 40 mg PO DAILY #90 tablet 05/18/19 [Rx] metFORMIN [Glucophage XR] 500 mg PO BIDMEALS #180 tab.er 05/18/19 [Rx] Oxygen Therapy Mode: Nasal Cannula Oxygen Flow Rate (L/min): 3 Patient Handouts: Community-Acquired Pneumonia, Adult, [id number] - Discharge Summary/Plan Comment DC Time >30 min.: No - Patient Data Vitals - Most Recent: Last Vital Signs Temp 98.3 F 05/18/19 08:00 Pulse 100 05/18/19 08:00 Resp 17 05/18/19 08:00 BP 140/84 05/18/19 08:00 Pulse Ox 100 05/18/19 08:00 Weight - Most Recent: 159 lb 4.791 oz I&O - Last 24 hours: Intake & Output 05/18/19 05/18/19 05/18/19 06:59 14:59 22:59 Intake Total 1280 Balance 1280 Lab Results - Last 24 hrs: Laboratory Results - last 24 hr 05/18/19 05/18/19 05/18/19 Range/Units 07:15 07:15 07:15 WBC 8.1 (4.0-10.2) K/uL RBC 4.13 L (4.33-5.41) M/uL Hgb 13.4 (13.1-16.8) g/dL Hct 40.6 (39.0-49.0) % MCV 98.3 H D (84.0-98.0) fL MCH 32.4 (28.2-33.3) pg MCHC 33.0 (31.7-36.0) g/dL RDW 13.3 (11.2-14.1) % Plt Count 283 (150-350) K/uL Neut % (Auto) 78.8 (45.0-80.0) % Lymph % (Auto) 11.2 (10.0-50.0) % [place] % (Auto) 8.5 (2.0-14.0) % Eos % (Auto) 1.1 (0.0-5.0) % Baso % (Auto) 0.4 (0.0-2.0) % Neut # (Auto) 6.42 (1.40-7.00) K/uL Lymph # (Auto) 0.91 (0.50-3.50) K/uL [place] # (Auto) 0.69 (0.00-1.00) K/uL Eos # (Auto) 0.09 (0.00-0.50) K/uL Baso # (Auto) 0.03 (0.00-0.20) K/uL PT 10.9 (9.5-12.0) SEC INR 1.0 APTT 28.0 (21.0-31.3) SEC Sodium 141 (136-145) mmol/L Potassium 4.1 (3.5-5.1) mmol/L Chloride 101 (98-107) mmol/L Carbon Dioxide 37.5 H (21.0-32.0) mmol/L BUN 15 (7-18) mg/dL Creatinine 0.53 (0.51-1.17) mg/dL Est Cr Clr Drug Dosing 97.15 mL/min Estimated GFR (MDRD) > 60 mL/min Glucose 80 (74-106) mg/dL POC Glucose (65-110) mg/dl Calcium 8.7 (8.5-10.1) mg/dL Total Bilirubin 0.3 (0.2-1.0) mg/dL AST 25 (15-37) U/L ALT 34 (12-78) U/L Alkaline Phosphatase 68 (46-116) IU/L C-Reactive Protein 1.7 H (<=0.9) mg/dL Total Protein 5.7 L (6.4-8.2) g/dL Albumin 2.5 L (3.4-5.0) g/dL 05/18/19 Range/Units 07:16 WBC (4.0-10.2) K/uL RBC (4.33-5.41) M/uL Hgb (13.1-16.8) g/dL Hct (39.0-49.0) % MCV (84.0-98.0) fL MCH (28.2-33.3) pg MCHC (31.7-36.0) g/dL RDW (11.2-14.1) % Plt Count (150-350) K/uL Neut % (Auto) (45.0-80.0) % Lymph % (Auto) (10.0-50.0) % [place] % (Auto) (2.0-14.0) % Eos % (Auto) (0.0-5.0) % Baso % (Auto) (0.0-2.0) % Neut # (Auto) (1.40-7.00) K/uL Lymph # (Auto) (0.50-3.50) K/uL [place] # (Auto) (0.00-1.00) K/uL Eos # (Auto) (0.00-0.50) K/uL Baso # (Auto) (0.00-0.20) K/uL PT (9.5-12.0) SEC INR APTT (21.0-31.3) SEC Sodium (136-145) mmol/L Potassium (3.5-5.1) mmol/L Chloride (98-107) mmol/L Carbon Dioxide (21.0-32.0) mmol/L BUN (7-18) mg/dL Creatinine (0.51-1.17) mg/dL Est Cr Clr Drug Dosing mL/min Estimated GFR (MDRD) mL/min Glucose (74-106) mg/dL POC Glucose 74 (65-110) mg/dl Calcium (8.5-10.1) mg/dL Total Bilirubin (0.2-1.0) mg/dL AST (15-37) U/L ALT (12-78) U/L Alkaline Phosphatase (46-116) IU/L C-Reactive Protein (<=0.9) mg/dL Total Protein (6.4-8.2) g/dL Albumin (3.4-5.0) g/dL Med Orders - Current: Current Medications Discontinued Medications Acetaminophen (Tylenol) 650 mg PO Q4H PRN PRN Reason: Pain (Mild 1-3)/fever Acetaminophen (Tylenol Arthritis Pain) 1,300 mg PO BID [facility] Last Admin: 05/18/19 07:17 Dose: 1,300 mg Albuterol (Proventil Neb Soln) 2.5 mg NEB Q2H PRN PRN Reason: Dyspnea Albuterol/Ipratropium (Duoneb 3.0-0.5 Mg/3 Ml) 3 ml INH QIDRT [facility] Last Admin: 05/18/19 11:04 Dose: 3 ml Albuterol/Ipratropium (Duoneb 3.0-0.5 Mg/3 Ml) 3 ml NEB Q4HRRT PRN PRN Reason: Shortness of Breath Azithromycin (Zithromax) 500 mg PO DAILY@1200 [facility] Stop: 05/18/19 12:01 Last Admin: 05/18/19 11:04 Dose: 500 mg Benzonatate (Tessalon Perles) 200 mg PO TID PRN PRN Reason: Cough Bisacodyl (Dulcolax) 10 mg PO BEDTIME [facility] Last Admin: 05/17/19 19:53 Dose: 10 mg Cefprozil (Cefzil) 500 mg PO Q12HR [facility] Stop: 05/18/19 20:01 Last Admin: 05/18/19 07:18 Dose: 500 mg Enoxaparin Sodium (Lovenox) 40 mg SUBCUT DAILY@1800 [facility] Last Admin: 05/15/19 18:06 Dose: 40 mg Enoxaparin Sodium (Lovenox) 40 mg SUBCUT DAILY@1200 [facility] Last Admin: 05/18/19 11:04 Dose: 40 mg Fluticasone Propionate (Flonase) 0 gm NASBOTH BID [facility] Last Admin: 05/18/19 07:17 Dose: 1 spray Furosemide (Lasix) 20 mg IVPUSH DAILY [facility] Last Admin: 05/15/19 07:39 Dose: 20 mg Furosemide (Lasix) 20 mg PO DAILY [facility] Last Admin: 05/18/19 07:13 Dose: 20 mg Vancomycin HCl 1.5 gm/ Sodium (Chloride) 500 mls @ 220 mls/hr IV Q24H [facility] Last Admin: 05/15/19 14:29 Dose: Not Given Vancomycin HCl 1 gm/ Sodium (Chloride) 250 mls @ 165 mls/hr IV Q12H [facility] Last Admin: 05/16/19 03:09 Dose: Not Given Influenza Virus Vaccine (Pharmacy To Dose - Influenza Vaccine) 1 each IM ONETIME ONE Stop: 05/13/19 14:09 Last Admin: 05/13/19 16:52 Dose: Not Given Influenza Virus Vaccine (Fluzone High-Dose 2019-20 Syringe) 180 mcg IM .ONCE ONE Stop: 05/14/19 09:01 Last Admin: 05/14/19 09:25 Dose: Not Given Insulin Glargine (Lantus) 20 unit SUBCUT DAILY [facility] Last Admin: 05/17/19 09:46 Dose: 20 units Insulin Glargine (Lantus) 0 unit SUBCUT BEDTIME [facility] Insulin Human Lispro (Humalog) 6 unit SUBCUT STAT ONE Stop: 05/13/19 14:09 Last Admin: 05/13/19 16:44 Dose: Not Given Insulin Human Lispro (Humalog) 10 unit SUBCUT ONETIME ONE Stop: 05/13/19 19:01 Last Admin: 05/13/19 19:40 Dose: 10 units Insulin Human Lispro (Humalog) 4 unit SUBCUT ONETIME ONE Stop: 05/16/19 17:40 Insulin Human Lispro (Humalog) 4 unit SUBCUT ONETIME ONE Stop: 05/15/19 17:43 Last Admin: 05/15/19 18:07 Dose: 4 units Insulin Human Lispro (Humalog) 4 unit SUBCUT NOW STA Stop: 05/16/19 17:33 Last Admin: 05/16/19 17:53 Dose: 4 units Insulin Human NPH (Humulin N) 30 unit SQ DAILY [facility] Last Admin: 05/15/19 07:43 Dose: 30 unit Metformin HCl (Glucophage Xr) 500 mg PO DAILY@1700 [facility] Last Admin: 05/17/19 17:18 Dose: 500 mg Metformin HCl (Glucophage Xr) 500 mg PO DAILY@1800 [facility] Last Admin: 05/17/19 23:16 Dose: Not Given Methylprednisolone Sodium Succinate (Solu-Medrol) 40 mg IVPUSH DAILY [facility] Last Admin: 05/15/19 07:39 Dose: 40 mg Metronidazole (Flagyl) 500 mg PO TID@0800,1400,2000 [facility] Stop: 05/18/19 20:01 Last Admin: 05/18/19 07:18 Dose: 500 mg Morphine Sulfate (Morphine) 1 mg IVPUSH Q2H PRN PRN Reason: Pain (severe 7-10) Morphine Sulfate (Morphine 20 Mg/Ml Soln) 2.5 mg PO Q4H PRN PRN Reason: Dyspnea Potassium Chloride (Klor-Con 10) 20 meq PO WITHBREAKFAST THELMA Prednisone (Prednisone) 20 mg PO WITHBREAKFAST [facility] Last Admin: 05/18/19 07:18 Dose: 20 mg Sodium Chloride (Saline Flush) 10 ml FLUSH ASDIRECTED PRN PRN Reason: Keep Vein Open Sodium Chloride (Saline Flush) 10 ml FLUSH Q12HR [facility] Last Admin: 05/16/19 08:47 Dose: Not Given Sodium Chloride (Saline Flush) 10 ml FLUSH ASDIRECTED PRN PRN Reason: Keep Vein Open Last Admin: 05/15/19 15:15 Dose: 10 ml Vancomycin HCl (Pharmacy To Dose - Vancomycin) 1 dose .XX ASDIRECTED [facility] Warfarin Sodium (Coumadin) 6 mg PO DAILY@1800 [facility] Last Admin: 05/17/19 17:18 Dose: 6 mg
== END 2019-05-18 14:55 | disposition home or self-care (01) | DRG 194 ==
LOC: LL.MS 14:13 → UNDOADMIN 15:34
PROVIDERS: ADMIT Physician Assistant; ATTEND Family Medicine
DX: J15.7 Pneumonia due to Mycoplasma pneumoniae (principal); E87.3 Alkalosis; E87.2 Acidosis; I50.9 Heart failure, unspecified; N40.0 Benign prostatic hyperplasia without lower urinary tract symptoms; Z51.5 Encounter for palliative care; M15.0 Primary generalized (osteo)arthritis; J43.1 Panlobular emphysema; K21.9 Gastro-esophageal reflux disease without esophagitis; I11.0 Hypertensive heart disease with heart failure; J84.10 Pulmonary fibrosis, unspecified; R91.8 Other nonspecific abnormal finding of lung field; E78.00 Pure hypercholesterolemia, unspecified; I25.10 Atherosclerotic heart disease of native coronary artery without angina pectoris; Z88.2 Allergy status to sulfonamides; Z79.82 Long term (current) use of aspirin; Z79.01 Long term (current) use of anticoagulants; Z79.52 Long term (current) use of systemic steroids; Z79.899 Other long term (current) drug therapy; Z86.718 Personal history of other venous thrombosis and embolism; Z86.711 Personal history of pulmonary embolism
CPT/HCPCS: 36415; 80048; 80053; 80202; 82962; 85025; 85610; 85730; 86140; 94640; 97161-GP; 97165-GO; 97530-GO; 97530-GP; 97535-GO; A9270-GY; J1650; J1815-GY; J1940; J2920; J3370; J7040; J7050; J7620-GY

== ENCOUNTER 2019-06-26 09:34 | Inpatient (IN) | payer MEDICARE, BC ==
[2019-06-26 10:14] LABS: CHLORIDE,CL 100 mmol/L (98-107); SODIUM,NA 140 mmol/L (136-145)
--- NOTE | 2019-06-26 10:39 | EDM.PDOC ---
ED HPI GENERAL MEDICAL PROBLEM - General Chief Complaint: Trauma Stated Complaint: Trauma Time Seen by Provider: 06/26/19 09:36 Source of Information: Reports: EMS, Family History Limitations: Reports: Altered Mental Status - History of Present Illness INITIAL COMMENTS - FREE TEXT/NARRATIVE: Patient brought to ER via EMS to be evaluated after he sustained a fall while apparently trying to get out of bed. Contusion forehead, some skin tears/ abrasions. Family notes only changes over last several days was that patient was more crabby than usual. Needed help getting into pickup yesterday. Otherwise was doing well/eating well/getting around. Hospitalized last month for pneumonia. Feels warm today. More confused. No obvious worsening cough/runny nose. No increased swelling/SOB/cough. No GI/ changes. No new pain complaints. - Related Data Allergies Allergy/AdvReac Type Severity Reaction Status Date / Time Sulfa (Sulfonamide Allergy Cannot Verified 06/26/19 09:41 Antibiotics) Remember Home Meds: Home Meds Albuterol/Ipratropium [DuoNeb 3.0-0.5 MG/3 ML] 3 ml INH QID 01/12/15 [History] Aspirin [Halfprin] 81 mg PO DAILY 01/12/15 [History] Finasteride [Proscar] 5 mg PO DAILY 01/12/15 [History] Albuterol/Ipratropium [DuoNeb 3.0-0.5 MG/3 ML] 3 ml NEB Q4HRRT PRN #1 box [Rx] Fluticasone Propionate [Flonase] 1 spray NASBOTH BID 12/22/15 [History] Warfarin Sodium [Coumadin] 6 mg PO SUTUWETHFRSA@1800 12/22/15 [History] Benzonatate 200 mg PO TID PRN 12/07/18 [History] Bisacodyl [Dulcolax] 10 mg PO BEDTIME tablet 12/23/18 [Rx] predniSONE [Prednisone] 10 mg PO DAILY #90 tab.ds.pk 12/23/18 [Rx] Albuterol [Ventolin HFA] 2 puff INH Q2H PRN 05/09/19 [History] Budesonide [Pulmicort] 0.5 mg INH BID 05/09/19 [History] Mometasone Furoate [Asmanex 220 MCG] 2 puff INH BID 05/09/19 [History] Potassium Chloride [Klor-Con M20] 20 meq PO DAILY 05/09/19 [History] Simvastatin [Zocor] 40 mg PO BEDTIME 05/09/19 [History] Warfarin Sodium [Coumadin] 5 mg PO MO@1800 05/09/19 [History] Furosemide 40 mg PO DAILY #90 tablet 05/18/19 [Rx] metFORMIN [Glucophage XR] 500 mg PO BIDMEALS #180 tab.er 05/18/19 [Rx] Acetaminophen [Acetaminophen Extra Strength] 500 mg PO BID 06/26/19 [History] Acetaminophen [Acetaminophen Extra Strength] 500 mg PO Q4HR PRN 06/26/19 [ History] Omeprazole 20 mg PO ASDIRECTED PRN 06/26/19 [History] Past Medical History HEENT History: Reports: Impaired Vision Other HEENT History: Glasses Cardiovascular History: Reports: Blood Clots/VTE/DVT, CAD, Heart Failure, High Cholesterol, Hypertension, SOB on Exertion Other Cardiovascular History: h/o DVT and PE Respiratory History: Reports: COPD, PE, Pulmonary Fibrosis, SOB Other Respiratory History: Oxygen-dependent Gastrointestinal History: Reports: GERD Genitourinary History: Reports: BPH Other Genitourinary History: Bilateral renal cysts Musculoskeletal History: Reports: Osteoarthritis, Other (See Below) Other Musculoskeletal History: Right rotator cuff tear on 12/10/08 Psychiatric History: Reports: Depression Endocrine/Metabolic History: Reports: Diabetes, Type II Other Oncologic History: Pt's daughter reports hx of skin cancer Other Dermatologic History: Pt's daughter states that the pt had skin cancer, but they aren't sure the degree - Infectious Disease History Infectious Disease History: Reports: MRSA - Past Surgical History Cardiovascular Surgical History: Reports: None Social & Family History - Family History Family Medical History: Unobtainable - Caffeine Use Caffeine Use: Reports: Coffee - Living Situation & Occupation Living situation: Reports: , with Family Occupation: Retired Review of Systems - Review of Systems Review Of Systems: See Below Constitutional: Reports: Fever, Weakness. Denies: Chills, Diaphoresis Eyes: Denies: Drainage, Vision Change Ears: Denies: Dizziness, Pain, Clear Discharge, Purulent Discharge, Serosanguinous Discharge Nose: Denies: Congestion, Epistaxis, Pain, Bloody Discharge, Clear Discharge, Purulent Discharge, Serosanguinous Discharge Mouth/Throat: Denies: Bleeding, Lip Swelling, Hoarse Voice Respiratory: Denies: Pleuritic Chest Pain, Cough, Sputum, Hemoptysis Cardiovascular: Denies: Chest Pain GI/Abdominal: Denies: Abdominal Pain, Decreased Appetite, Diarrhea, Hematemesis , Nausea, Vomiting Genitourinary: Denies: Dysuria, Hematuria Musculoskeletal: Reports: Other (has chronic pain from arthritis, no acute changes) Skin: Reports: Lesions (History of precancerous lesions/skin cancers. Has not been feeling well enough to take trip to [facility]. ), Other (skin tears left shoulder/elbow. Skinned knees ) Neurological: Reports: Confusion, Other (No focal weakness/acute speach changes) . Denies: Headache Psychiatric: Reports: Confusion. Denies: Hallucinations ED EXAM, GENERAL - Physical Exam Exam: See Below Exam Limited By: Physical Impairment General Appearance: Thin, Other (awakes when name is called/asked to open eyes. ) Eye Exam: Bilateral Eye: EOMI, PERRL Ears: Other (scattered crusty lesions on outter ears, no drainage from canals) Nose: No: Nasal Deformity, Nasal Swelling, Nasal Drainage Throat/Mouth: Normal Lips, Normal Voice, No Airway Compromise Head: Facial Swelling (forehead) Neck: Normal Inspection, Supple, Non-Tender, Full Range of Motion Respiratory/Chest: No Respiratory Distress, Chest Non-Tender, Decreased Breath Sounds (throughout). No: Crackles, Rhonchi, Wheezing, Stridor Cardiovascular: No Murmur, Tachycardia Peripheral Pulses: 2+: Radial (L), Radial (R) GI/Abdominal: Normal Bowel Sounds, Soft, Non-Tender, No Distention, No Mass, Pelvis Stable (Male) Exam: Deferred Rectal (Males) Exam: Deferred Back Exam: No: CVA Tenderness (L), CVA Tenderness (R), Muscle Spasm, Paraspinal Tenderness, Vertebral Tenderness Extremities: Normal Range of Motion (for age), Normal Capillary Refill, Other ( tender over skin tears upper and lower humerus) Neurological: Other (knows where he is but cannot recall date/president) Psychiatric: Normal Affect, Normal Mood Skin Exam: Warm, Dry, Other (bruise/swelling over forehead, skin tears x2 left arm, abrasions over knees. 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 ) EKG INTERPRETATION EKG Date: 06/26/19 Time: 09:42 Rhythm: Other (sinus tach) Rate (Beats/Min): 138 Parker: Normal P-Wave: Present QRS: Normal ST-T: Other (no obvious ischemic changes) QT: Normal Comparison: No Change Course - Vital Signs Last Recorded V/S: Last Vital Signs Temp 38.4 C H 06/26/19 09:34 Pulse 136 H 06/26/19 09:34 Resp 36 H 06/26/19 09:34 BP 104/55 L 06/26/19 09:34 Pulse Ox 94 L 06/26/19 09:34 - Orders/Labs/Meds Orders: Active Orders 24 hr Category Date Time Status EKG Documentation Completion [RC] ASDIRECTED Care 06/26/19 09:40 Ordered Cervical Spine wo Cont [CT] Stat Exams 06/26/19 09:39 Ordered Chest 1V Frontal [CR] Stat Exams 06/26/19 09:41 Ordered Head wo Cont [CT] Stat Exams 06/26/19 09:36 Ordered Shoulder 1V Lt [CR] Stat Exams 06/26/19 09:51 Ordered INR,PT,PROTHROMBIN TIME [COAG] Stat Lab 06/26/19 09:37 Ordered UA W/MICROSCOPIC [URIN] Stat Lab 06/26/19 09:37 Ordered Sodium Chloride 0.9% [Saline Flush] Med 06/26/19 09:37 Ordered 10 ml FLUSH ASDIRECTED PRN Saline Lock Insert [OM.PC] Stat Oth 06/26/19 09:37 Ordered Medication Orders Sodium Chloride (Saline Flush) 10 ml FLUSH ASDIRECTED PRN PRN Reason: Keep Vein Open Labs: Laboratory Tests 06/26/19 06/26/19 06/26/19 Range/Units 09:40 09:40 09:40 WBC 14.9 H (4.0-10.2) K/uL RBC 4.01 L (4.33-5.41) M/uL Hgb 12.7 L (13.1-16.8) g/dL Hct 40.0 (39.0-49.0) % MCV 99.8 H (84.0-98.0) fL MCH 31.7 (28.2-33.3) pg MCHC 31.8 (31.7-36.0) g/dL RDW 13.6 (11.2-14.1) % Plt Count 236 (150-350) K/uL Neut % (Auto) 89.4 H (45.0-80.0) % Lymph % (Auto) 5.1 L (10.0-50.0) % Dupage % (Auto) 4.9 (2.0-14.0) % Eos % (Auto) 0.3 (0.0-5.0) % Baso % (Auto) 0.3 (0.0-2.0) % Neut # (Auto) 13.31 H (1.40-7.00) K/uL Lymph # (Auto) 0.76 (0.50-3.50) K/uL Dupage # (Auto) 0.73 (0.00-1.00) K/uL Eos # (Auto) 0.05 (0.00-0.50) K/uL Baso # (Auto) 0.04 (0.00-0.20) K/uL Sodium 140 (136-145) mmol/L Potassium 4.6 (3.5-5.1) mmol/L Chloride 100 (98-107) mmol/L Carbon Dioxide 33.0 H (21.0-32.0) mmol/L BUN 21 H (7-18) mg/dL Creatinine 0.63 (0.51-1.17) mg/dL Est Cr Clr Drug Dosing TNP Estimated GFR (MDRD) > 60 mL/min Glucose 166 H (74-106) mg/dL Lactic Acid 1.8 (0.4-2.0) mmol/L Calcium 9.1 (8.5-10.1) mg/dL Magnesium 1.5 L (1.8-2.4) mg/dL Total Bilirubin 0.9 (0.2-1.0) mg/dL AST 19 (15-37) U/L ALT 24 (12-78) U/L Alkaline Phosphatase 84 (46-116) IU/L Troponin I 0.017 (0.000-0.056) ng/mL NT-Pro-B Natriuret Pep 426 H (0-125) pg/mL Total Protein 6.7 (6.4-8.2) g/dL Albumin 3.2 L (3.4-5.0) g/dL Meds: Medications Generic Name Dose Route Start Last Admin Trade Name Torq PRN Reason Stop Dose Admin Sodium Chloride 10 ml 06/26/19 09:37 Saline Flush FLUSH ASDIRECTED PRN Keep Vein Open - Radiology Interpretation Free Text/Narrative:: Chest xray continues to show changes in right lung field, which are more prominent when compared to film from May. No obvious fracture of left shoulder/humerus noted. CT Results Date: 06/26/19 CT Results Time: 10:48 (No acute changes noted head/neck CT. Increased small vessel disease in brain. ) - Re-Assessments/Exams Free Text/Narrative Re-Assessment/Exam: WBC elevated. Fever. Increased changes noted on chest film in right side. BNP only mildly elevated. INR 1.9 Lactic acid normal. Troponin normal. Glu 166. Mag low at 1.5. Review of previous films/CT reports show Radiology mentioned not being able to exclude malignancy in right lung based on previous CT. Radiology today recommended repeat CT of chest to reassess as superior right lung caught on cervical CT showed worsening changes. Will treat for pneumonia given the xray changes in addition to fever/elevated WBC. CT is down for rest of today. Can obtain repeat CT of chest once it is available again. Will also provide supplemental Mag. Family does not want patient to be transferred to [place] and continues to request comfort care. They are ok with obtaining a CT to help assess if there is a malignancy present in addition to pneumonia. Hospice care was discussed given overall decline pt is experiencing. Consult to Hospice. Departure - Departure Time of Disposition: 10:31 Disposition: Admitted As Inpatient 68 Condition: Fair Clinical Impression: Pneumonia, Palliative care patient - Discharge Information *PRESCRIPTION DRUG MONITORING PROGRAM REVIEWED*: Not Applicable *COPY OF PRESCRIPTION DRUG MONITORING REPORT IN PATIENT OLENA: Not Applicable Referrals: Sheets-Jessie Small MD [Primary Care Provider] - - Problem List & Annotations (1) Pneumonia SNOMED Code(s): 884331602 Code(s): J18.9 - PNEUMONIA, UNSPECIFIED ORGANISM Status: Acute Priority: High Current Visit: Yes Annotation/Comment:: Suspected pneumonia given fever and chest xray changes. Will initiate Zithromax and Rocephin for now. Cannot rule out malignancy in right lung per Radiology. Will obtain repeat chest CT for comparison. (2) Fall SNOMED Code(s): 1376134, 661804405 Code(s): W19.XXXA - UNSPECIFIED FALL, INITIAL ENCOUNTER Status: Acute Priority: High Current Visit: Yes Annotation/Comment:: Fall at home by bed. Noted to be weak/have fever (3) Head contusion SNOMED Code(s): 550127569 Code(s): S00.93XA - CONTUSION OF UNSPECIFIED PART OF HEAD, INITIAL ENCOUNTER Status: Acute Priority: High Current Visit: Yes Onset Date: 06/26/19 Annotation/Comment:: Contusion of forehead. No acute changes noted on head CT Qualifiers: Laterality: unspecified laterality (4) Skin tear SNOMED Code(s): 056162830 Code(s): BOX9414 - Status: Acute Priority: Medium Current Visit: Yes Onset Date: 06/26/19 Annotation/Comment:: Scattered skin tears left arm in addition to skinned knees. Bandaged in ER. (5) Pulmonary nodules SNOMED Code(s): 090297154 Code(s): R91.8 - OTHER NONSPECIFIC ABNORMAL FINDING OF LUNG FIELD Status: Chronic Priority: High Current Visit: Yes Annotation/Comment:: Concern for malignancy per previous CT performed in May. Will repeat CT for comparison as noted above. (6) Hypomagnesemia SNOMED Code(s): 797956949 Code(s): E83.42 - HYPOMAGNESEMIA Status: Acute Priority: Medium Current Visit: Yes Annotation/Comment:: Replacement ordered. (7) Palliative care patient SNOMED Code(s): 175232829 Code(s): Z51.5 - ENCOUNTER FOR PALLIATIVE CARE Status: Acute Priority: High Current Visit: Yes Annotation/Comment:: Consult hospice. Patient would likely benefit from involvement given persistent declining health. (8) Weakness generalized SNOMED Code(s): 24635168 Code(s): R53.1 - WEAKNESS Status: Chronic Priority: Medium Current Visit: Yes Annotation/Comment:: Chronic issues with weakess. Worsened over last 24 hours (9) CHF (congestive heart failure) SNOMED Code(s): 58021831 Code(s): I50.9 - HEART FAILURE, UNSPECIFIED Status: Chronic Priority: Low Current Visit: No Annotation/Comment:: Appears to be stable. ProBNP 426 (10) Heart disease SNOMED Code(s): 24207527 Code(s): I51.9 - HEART DISEASE, UNSPECIFIED Status: Chronic Priority: Low Current Visit: No Onset Date: 06/04/15 Annotation/Comment:: Appears to be stable at this time. (11) Osteoarthritis SNOMED Code(s): 499848057 Code(s): M19.90 - UNSPECIFIED OSTEOARTHRITIS, UNSPECIFIED SITE Status: Chronic Priority: Low Current Visit: No Annotation/Comment:: Overall has been stable. Qualifiers: Osteoarthritis location: multiple joints Osteoarthritis type: primary Qualified Code(s): M15.0 - Primary generalized (osteo)arthritis (12) Peptic reflux disease SNOMED Code(s): 776372133 Code(s): K21.9 - GASTRO-ESOPHAGEAL REFLUX DISEASE WITHOUT ESOPHAGITIS Status: Chronic Priority: Low Current Visit: No Onset Date: 06/04/15 Annotation/Comment:: stable at this time (13) COPD (chronic obstructive pulmonary disease) SNOMED Code(s): 07419176 Code(s): J44.9 - CHRONIC OBSTRUCTIVE PULMONARY DISEASE, UNSPECIFIED Status : Chronic Priority: Medium Current Visit: Yes Annotation/Comment:: Continue nebs Qualifiers: COPD type: COPD with acute lower respiratory infection Qualified Code(s): J44.0 - Chronic obstructive pulmonary disease with (acute) lower respiratory infection (14) Pulmonary fibrosis SNOMED Code(s): 58327603 Code(s): J84.10 - PULMONARY FIBROSIS, UNSPECIFIED Status: Chronic Priority: Medium Current Visit: Yes Annotation/Comment:: 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, oxygen-dependent (15) Diabetes SNOMED Code(s): 33955070 Code(s): E11.9 - TYPE 2 DIABETES MELLITUS WITHOUT COMPLICATIONS Status: Chronic Priority: Low Current Visit: Yes Annotation/Comment:: last Hgb A1C 9 Qualifiers: Diabetes mellitus type: type 2 Diabetes mellitus fci insulin use: without joint terminal attack controller use (16) Warfarin anticoagulation SNOMED Code(s): 61481791, 918227947, 644916106 Code(s): Z79.01 - ANGER CONTROL COUNSELOR (CURRENT) USE OF ANTICOAGULANTS Status: Chronic Priority: Low Current Visit: Yes Annotation/Comment:: INR 1.9 today. Will not acutely change patient's dose as side effect of antiobiotics may increase INR. Monitor closely. - Problem List Review Problem List Initiated/Reviewed/Updated: Yes - My Orders Last 24 Hours: My Active Orders 06/26/19 09:36 Head wo Cont [CT] Stat 06/26/19 09:37 INR,PT,PROTHROMBIN TIME [COAG] Stat UA W/MICROSCOPIC [URIN] Stat Sodium Chloride 0.9% [Saline Flush] 10 ml FLUSH ASDIRECTED PRN Saline Lock Insert [OM.PC] Stat 06/26/19 09:39 Cervical Spine wo Cont [CT] Stat 06/26/19 09:40 EKG Documentation Completion [RC] ASDIRECTED 06/26/19 09:41 Chest 1V Frontal [CR] Stat 06/26/19 09:51 Shoulder 1V Lt [CR] Stat - Assessment/Plan Last 24 Hours: My Active Orders 06/26/19 09:36 Head wo Cont [CT] Stat 06/26/19 09:37 INR,PT,PROTHROMBIN TIME [COAG] Stat UA W/MICROSCOPIC [URIN] Stat Sodium Chloride 0.9% [Saline Flush] 10 ml FLUSH ASDIRECTED PRN Saline Lock Insert [OM.PC] Stat 06/26/19 09:39 Cervical Spine wo Cont [CT] Stat 06/26/19 09:40 EKG Documentation Completion [RC] ASDIRECTED 06/26/19 09:41 Chest 1V Frontal [CR] Stat 06/26/19 09:51 Shoulder 1V Lt [CR] Stat
[2019-06-26] MEDS ORDERED: Omeprazole 20 MG Cap.CR PO PRN (10:40)
[2019-06-26] MEDS ORDERED: Acetaminophen 500 MG Tab PO PRN (10:40)
[2019-06-26] MEDS ORDERED: Albuterol/Ipratropium 3.0-0.5 MG/3 ML Neb Soln NEB PRN (10:40)
[2019-06-26] MEDS ORDERED: Sodium Chloride 0.9% 500 ML IV SCH (10:45)
[2019-06-26] MEDS: cefTRIAXone 1 GM in Sodium Chloride 0.9% 100 ML IV SCH (11:09)
[2019-06-26] MEDS: Albuterol/Ipratropium 3.0-0.5 MG/3 ML Neb Soln INH SCH ×3 (11:09→19:58)
[2019-06-26] MEDS: Sodium Chloride 0.9% 10 ML Syringe FLUSH PRN (11:09)
[2019-06-26] MEDS: Azithromycin 500 MG in Sodium Chloride 0.9% 250 ML IV SCH (11:44)
[2019-06-26] MEDS: Sodium Chloride 0.9% 1,000 ML IV SCH ×2 (11:45→13:19)
[2019-06-26] MEDS: Acetaminophen 500 MG Tab PO SCH (17:25)
[2019-06-26] MEDS: metFORMIN 500 MG Tab.ER PO SCH (17:25)
[2019-06-26] MEDS: Mometasone Furoate Powder 220 MCG/Puff 14 Dose Inhaler INH SCH (17:26)
[2019-06-26] MEDS: Fluticasone Propionate Nasal Spray 16 GM Bottle NASBOTH SCH (17:28)
[2019-06-26] MEDS ORDERED: Warfarin 5 MG Tab PO SCH (18:00)
[2019-06-26] MEDS: Bisacodyl 5 MG Tab PO SCH (19:58)
[2019-06-26] MEDS: Budesonide 0.5 MG/2 ML Neb Susp INH SCH (19:58)
[2019-06-26] MEDS: Simvastatin 20 MG Tab PO SCH (19:58)
[2019-06-27] MEDS: Sodium Chloride 0.9% 1,000 ML IV SCH ×4 (00:21→23:14)
[2019-06-27] MEDS: Fluticasone Propionate Nasal Spray 16 GM Bottle NASBOTH SCH ×2 (07:37→17:59)
[2019-06-27] MEDS: Mometasone Furoate Powder 220 MCG/Puff 14 Dose Inhaler INH SCH ×2 (07:37→17:58)
[2019-06-27] MEDS: Finasteride 5 MG Tab PO SCH (07:38)
[2019-06-27] MEDS: Aspirin 81 MG Tab.EC PO SCH (07:38)
[2019-06-27] MEDS: Budesonide 0.5 MG/2 ML Neb Susp INH SCH ×2 (07:38→20:53)
[2019-06-27] MEDS: Albuterol/Ipratropium 3.0-0.5 MG/3 ML Neb Soln INH SCH ×4 (07:38→20:44)
[2019-06-27] MEDS: predniSONE 5 MG Tab PO SCH (07:39)
[2019-06-27] MEDS: Acetaminophen 500 MG Tab PO SCH ×2 (07:39→18:01)
[2019-06-27] MEDS: metFORMIN 500 MG Tab.ER PO SCH ×2 (07:39→17:59)
[2019-06-27] MEDS: Furosemide 40 MG Tab PO SCH (07:39)
[2019-06-27] MEDS: Potassium Chloride 20 MEQ Tab.ER PO SCH (07:40)
[2019-06-27 08:07] LABS: CHLORIDE,CL 102 mmol/L (98-107); SODIUM,NA 139 mmol/L (136-145)
[2019-06-27] MEDS: cefTRIAXone 1 GM in Sodium Chloride 0.9% 100 ML IV SCH (11:11)
[2019-06-27] MEDS: Azithromycin 500 MG in Sodium Chloride 0.9% 250 ML IV SCH (12:02)
[2019-06-27] MEDS: Warfarin 2 MG Tab PO SCH (18:01)
[2019-06-27] MEDS: Bisacodyl 5 MG Tab PO SCH (20:40)
[2019-06-27] MEDS: Simvastatin 20 MG Tab PO SCH (20:41)
--- NOTE | 2019-06-27 22:28 | PCM.PN ---
- General Info Date of Service: 06/27/19 Functional Status: Reports: Pain Controlled - Review of Systems General: Reports: Weakness HEENT: Reports: Other (hematoma) Pulmonary: Reports: Shortness of Breath, Cough Cardiovascular: Reports: No Symptoms Gastrointestinal: Reports: No Symptoms Genitourinary: Reports: No Symptoms Musculoskeletal: Reports: No Symptoms Skin: Reports: Bruising Neurological: Reports: Difficulty Walking, Weakness Psychiatric: Reports: No Symptoms - Patient Data Vitals - Most Recent: Last Vital Signs Temp 98.4 F 06/27/19 18:00 Pulse 101 H 06/27/19 18:00 Resp 16 06/27/19 18:00 BP 115/53 L 06/27/19 18:00 Pulse Ox 97 06/27/19 18:00 Weight - Most Recent: 151 lb 8 oz I&O - Last 24 Hours: Intake & Output 06/27/19 06/27/19 06/27/19 06:59 14:59 22:59 Intake Total 1332 1050 400 Output Total 300 200 Balance 1032 850 400 Lab Results Last 24 Hours: Laboratory Results - last 24 hr 06/27/19 06/27/19 06/27/19 Range/Units 07:30 07:30 07:30 WBC (4.0-10.2) K/uL RBC (4.33-5.41) M/uL Hgb (13.1-16.8) g/dL Hct (39.0-49.0) % MCV (84.0-98.0) fL MCH (28.2-33.3) pg MCHC (31.7-36.0) g/dL RDW (11.2-14.1) % Plt Count (150-350) K/uL Neut % (Auto) (45.0-80.0) % Lymph % (Auto) (10.0-50.0) % [place] % (Auto) (2.0-14.0) % Eos % (Auto) (0.0-5.0) % Baso % (Auto) (0.0-2.0) % Neut # (Auto) (1.40-7.00) K/uL Lymph # (Auto) (0.50-3.50) K/uL [place] # (Auto) (0.00-1.00) K/uL Eos # (Auto) (0.00-0.50) K/uL Baso # (Auto) (0.00-0.20) K/uL PT 16.7 H (9.5-12.0) SEC INR 1.6 Sodium 139 (136-145) mmol/L Potassium 3.7 (3.5-5.1) mmol/L Chloride 102 (98-107) mmol/L Carbon Dioxide 27.6 (21.0-32.0) mmol/L BUN 29 H (7-18) mg/dL Creatinine 0.81 (0.51-1.17) mg/dL Est Cr Clr Drug Dosing TNP Estimated GFR (MDRD) > 60 mL/min Glucose 143 H (74-106) mg/dL POC Glucose (65-110) mg/dl Lactic Acid 3.1 H (0.4-2.0) mmol/L Calcium 9.0 (8.5-10.1) mg/dL Total Bilirubin 0.8 (0.2-1.0) mg/dL AST 39 H (15-37) U/L ALT 24 (12-78) U/L Alkaline Phosphatase 78 (46-116) IU/L Total Protein 6.5 (6.4-8.2) g/dL Albumin 2.9 L (3.4-5.0) g/dL 06/27/19 06/27/19 06/27/19 Range/Units 07:30 07:33 11:33 WBC 19.0 H (4.0-10.2) K/uL RBC 3.96 L (4.33-5.41) M/uL Hgb 12.5 L (13.1-16.8) g/dL Hct 40.1 (39.0-49.0) % MCV 101.3 H (84.0-98.0) fL MCH 31.6 (28.2-33.3) pg MCHC 31.2 L (31.7-36.0) g/dL RDW 13.7 (11.2-14.1) % Plt Count 228 (150-350) K/uL Neut % (Auto) 84.9 H (45.0-80.0) % Lymph % (Auto) 7.1 L (10.0-50.0) % [place] % (Auto) 7.5 (2.0-14.0) % Eos % (Auto) 0.3 (0.0-5.0) % Baso % (Auto) 0.2 (0.0-2.0) % Neut # (Auto) 16.13 H (1.40-7.00) K/uL Lymph # (Auto) 1.34 (0.50-3.50) K/uL [place] # (Auto) 1.42 H (0.00-1.00) K/uL Eos # (Auto) 0.06 (0.00-0.50) K/uL Baso # (Auto) 0.04 (0.00-0.20) K/uL PT (9.5-12.0) SEC INR Sodium (136-145) mmol/L Potassium (3.5-5.1) mmol/L Chloride (98-107) mmol/L Carbon Dioxide (21.0-32.0) mmol/L BUN (7-18) mg/dL Creatinine (0.51-1.17) mg/dL Est Cr Clr Drug Dosing Estimated GFR (MDRD) mL/min Glucose (74-106) mg/dL POC Glucose 131 H 266 H* (65-110) mg/dl Lactic Acid (0.4-2.0) mmol/L Calcium (8.5-10.1) mg/dL Total Bilirubin (0.2-1.0) mg/dL AST (15-37) U/L ALT (12-78) U/L Alkaline Phosphatase (46-116) IU/L Total Protein (6.4-8.2) g/dL Albumin (3.4-5.0) g/dL 06/27/19 06/27/19 Range/Units 17:04 20:39 WBC (4.0-10.2) K/uL RBC (4.33-5.41) M/uL Hgb (13.1-16.8) g/dL Hct (39.0-49.0) % MCV (84.0-98.0) fL MCH (28.2-33.3) pg MCHC (31.7-36.0) g/dL RDW (11.2-14.1) % Plt Count (150-350) K/uL Neut % (Auto) (45.0-80.0) % Lymph % (Auto) (10.0-50.0) % [place] % (Auto) (2.0-14.0) % Eos % (Auto) (0.0-5.0) % Baso % (Auto) (0.0-2.0) % Neut # (Auto) (1.40-7.00) K/uL Lymph # (Auto) (0.50-3.50) K/uL [place] # (Auto) (0.00-1.00) K/uL Eos # (Auto) (0.00-0.50) K/uL Baso # (Auto) (0.00-0.20) K/uL PT (9.5-12.0) SEC INR Sodium (136-145) mmol/L Potassium (3.5-5.1) mmol/L Chloride (98-107) mmol/L Carbon Dioxide (21.0-32.0) mmol/L BUN (7-18) mg/dL Creatinine (0.51-1.17) mg/dL Est Cr Clr Drug Dosing Estimated GFR (MDRD) mL/min Glucose (74-106) mg/dL POC Glucose 241 H 212 H (65-110) mg/dl Lactic Acid (0.4-2.0) mmol/L Calcium (8.5-10.1) mg/dL Total Bilirubin (0.2-1.0) mg/dL AST (15-37) U/L ALT (12-78) U/L Alkaline Phosphatase (46-116) IU/L Total Protein (6.4-8.2) g/dL Albumin (3.4-5.0) g/dL Med Orders - Current: Current Medications Acetaminophen (Tylenol Extra Strength) 500 mg PO BID [facility] Last Admin: 06/27/19 18:01 Dose: 500 mg Acetaminophen (Tylenol Extra Strength) 500 mg PO Q4HR PRN PRN Reason: Pain Last Admin: 06/26/19 11:09 Dose: 500 mg Albuterol/Ipratropium (Duoneb 3.0-0.5 Mg/3 Ml) 3 ml INH QIDRT [facility] Last Admin: 06/27/19 20:44 Dose: 3 ml Albuterol/Ipratropium (Duoneb 3.0-0.5 Mg/3 Ml) 3 ml NEB Q4HRRT PRN PRN Reason: Shortness of Breath Aspirin (Halfprin) 81 mg PO DAILY [facility] Last Admin: 06/27/19 07:38 Dose: 81 mg Azithromycin (Zithromax) 500 mg PO DAILY [facility] Stop: 07/02/19 08:01 Bisacodyl (Dulcolax) 10 mg PO BEDTIME [facility] Last Admin: 06/27/19 20:40 Dose: 10 mg Budesonide (Pulmicort) 0.5 mg INH BIDRT [facility] Last Admin: 06/27/19 20:53 Dose: 0.5 mg Finasteride (Proscar) 5 mg PO DAILY [facility] Last Admin: 06/27/19 07:38 Dose: 5 mg Fluticasone Propionate (Flonase) 0 gm NASBOTH BID [facility] Last Admin: 06/27/19 17:59 Dose: 1 spray Furosemide (Lasix) 40 mg PO DAILY [facility] Last Admin: 06/27/19 07:39 Dose: 40 mg Azithromycin 500 mg/ Sodium (Chloride) 250 mls @ 250 mls/hr IV Q24H [facility] Stop: 06/28/19 12:59 Last Admin: 06/27/19 12:02 Dose: 250 mls/hr Ceftriaxone Sodium 1 gm/ (Sodium Chloride) 100 mls @ 200 mls/hr IV Q24H [facility] Last Admin: 06/27/19 11:11 Dose: 200 mls/hr Sodium Chloride (Normal Saline) 500 mls @ 999 mls/hr IV .BOLUS [facility] Last Admin: 06/26/19 11:48 Dose: 999 mls/hr Sodium Chloride (Normal Saline) 1,000 mls @ 50 mls/hr IV ASDIRECTED [facility] Last Admin: 06/27/19 21:37 Dose: 100 mls/hr Metformin HCl (Glucophage Xr) 500 mg PO BIDMEALS [facility] Last Admin: 06/27/19 17:59 Dose: 500 mg Mometasone Furoate (Asmanex 220 Mcg) 2 puff INH BID [facility] Last Admin: 06/27/19 17:58 Dose: 2 puff Omeprazole (Omeprazole) 20 mg PO DAILY PRN PRN Reason: Indigestion Potassium Chloride (Klor-Con M20) 20 meq PO DAILY [facility] Last Admin: 06/27/19 07:40 Dose: 20 meq Prednisone (Prednisone) 10 mg PO DAILY [facility] Last Admin: 06/27/19 07:39 Dose: 10 mg Sodium Chloride (Saline Flush) 10 ml FLUSH ASDIRECTED PRN PRN Reason: Keep Vein Open Last Admin: 06/26/19 11:09 Dose: 10 ml Warfarin Sodium (Coumadin) 5 mg PO MO@1800 [facility] Last Admin: 06/26/19 17:25 Dose: 5 mg Warfarin Sodium (Coumadin) 6 mg PO SuTuWeThFrSa@1800 [facility] Last Admin: 06/27/19 18:01 Dose: 6 mg Discontinued Medications Magnesium Sulfate/Dextrose 1 (gm/ Premix) 100 mls @ 100 mls/hr IV ONETIME ONE Stop: 06/26/19 13:59 Last Admin: 06/26/19 13:20 Dose: 100 mls/hr Simvastatin (Zocor) 40 mg PO BEDTIME [facility] Last Admin: 06/27/19 20:41 Dose: 40 mg - Exam Quality Assessment: Supplemental Oxygen General: Alert, Cooperative, Mild Distress HEENT: Mucous Membr. Moist/[place] Neck: Trachea Midline, No JVD Lungs: Decreased Breath Sounds, Rales, Rhonchi, Wheezing Cardiovascular: Regular Rate, Regular Rhythm GI/Abdominal Exam: Normal Bowel Sounds, Soft, Non-Tender, Distended (Male) Exam: Deferred Back Exam: Normal Inspection Extremities: Non-Tender Skin: Ecchymosis Neurological: No New Focal Deficit Psy/Mental Status: Alert, Normal Affect, Normal Mood - Problem List & Annotations (1) Carcinoma, lung SNOMED Code(s): 677202579 Code(s): C34.90 - MALIGNANT NEOPLASM OF UNSP PART OF UNSP BRONCHUS OR LUNG Status: Acute Priority: High Current Visit: Yes Qualifiers: Laterality: right Qualified Code(s): C34.91 - Malignant neoplasm of unspecified part of right bronchus or lung (2) Fall SNOMED Code(s): 6950702, 804034264 Code(s): W19.XXXA - UNSPECIFIED FALL, INITIAL ENCOUNTER Status: Acute Priority: High Current Visit: Yes Annotation/Comment:: Fall at home by bed. Noted to be weak/have fever (3) Head contusion SNOMED Code(s): 473677369 Code(s): S00.93XA - CONTUSION OF UNSPECIFIED PART OF HEAD, INITIAL ENCOUNTER Status: Acute Priority: High Current Visit: Yes Onset Date: 06/26/19 Qualifiers: Laterality: unspecified laterality Annotation/Comment:: Contusion of forehead. No acute changes noted on head CT (4) Hypomagnesemia SNOMED Code(s): 678655672 Code(s): E83.42 - HYPOMAGNESEMIA Status: Acute Priority: Medium Current Visit: Yes Annotation/Comment:: Replacement ordered. (5) Palliative care patient SNOMED Code(s): 818781197 Code(s): Z51.5 - ENCOUNTER FOR PALLIATIVE CARE Status: Acute Priority: High Current Visit: Yes Annotation/Comment:: Consult hospice. Patient would likely benefit from involvement given persistent declining health. (6) Pneumonia SNOMED Code(s): 169302425 Code(s): J18.9 - PNEUMONIA, UNSPECIFIED ORGANISM Status: Acute Priority: High Current Visit: Yes Annotation/Comment:: Suspected pneumonia given fever and chest xray changes. Will initiate Zithromax and Rocephin for now. Cannot rule out malignancy in right lung per Radiology. Will obtain repeat chest CT for comparison. (7) Skin tear SNOMED Code(s): 512066733 Code(s): UXI6845 - Status: Acute Priority: Medium Current Visit: Yes Onset Date: 06/26/19 Annotation/Comment:: Scattered skin tears left arm in addition to skinned knees. Bandaged in ER. (8) COPD (chronic obstructive pulmonary disease) SNOMED Code(s): 05707122 Code(s): J44.9 - CHRONIC OBSTRUCTIVE PULMONARY DISEASE, UNSPECIFIED Status : Chronic Priority: Medium Current Visit: Yes Qualifiers: COPD type: COPD with acute lower respiratory infection Qualified Code(s): J44.0 - Chronic obstructive pulmonary disease with (acute) lower respiratory infection Annotation/Comment:: Continue nebs (9) Diabetes SNOMED Code(s): 55950027 Code(s): E11.9 - TYPE 2 DIABETES MELLITUS WITHOUT COMPLICATIONS Status: Chronic Priority: Low Current Visit: Yes Qualifiers: Diabetes mellitus type: type 2 Diabetes mellitus jail insulin use: without jail use Annotation/Comment:: last Hgb A1C 9 (10) Pulmonary fibrosis SNOMED Code(s): 33028119 Code(s): J84.10 - PULMONARY FIBROSIS, UNSPECIFIED Status: Chronic Priority: Medium Current Visit: Yes Annotation/Comment:: 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 Will repeat CT for comparison as noted above. (12) Warfarin anticoagulation SNOMED Code(s): 17070112, 513328433, 345327901 Code(s): Z79.01 - DIGESTER HAND (CURRENT) USE OF ANTICOAGULANTS Status: Chronic Priority: Low Current Visit: Yes Annotation/Comment:: INR 1.9 today. Will not acutely change patient's dose as side effect of antiobiotics may increase INR. Monitor closely. (13) Weakness generalized SNOMED Code(s): 22136106 Code(s): R53.1 - WEAKNESS Status: Chronic Priority: Medium Current Visit: Yes Annotation/Comment:: Chronic issues with weakess. Worsened over last 24 hours (14) BPH loc w/o ur obs/LUTS SNOMED Code(s): 180981915 Code(s): N40.0 - BENIGN PROSTATIC HYPERPLASIA WITHOUT LOWER URINRY TRACT SYMP Status: Acute Priority: Medium Current Visit: No (15) Compensated metabolic alkalosis SNOMED Code(s): 3535264 Code(s): E87.3 - ALKALOSIS Status: Acute Priority: High Current Visit: No (16) Compensated respiratory acidosis SNOMED Code(s): 24473947 Code(s): E87.2 - ACIDOSIS Status: Acute Priority: High Current Visit: No (17) Cyst of pancreas SNOMED Code(s): 28796813 Code(s): K86.2 - CYST OF PANCREAS Status: Acute Priority: Medium Current Visit: No (18) Dehydration with hyponatremia SNOMED Code(s): 76904006 Code(s): E87.1 - HYPO-OSMOLALITY AND HYPONATREMIA Status: Acute Current Visit: No (19) Dysphagia SNOMED Code(s): 34844785, 856274950 Code(s): R13.10 - DYSPHAGIA, UNSPECIFIED Status: Acute Priority: High Current Visit: No Qualifiers: Dysphagia type: unspecified Qualified Code(s): R13.10 - Dysphagia, unspecified (20) Hypoxemia SNOMED Code(s): 551163431 Code(s): R09.02 - HYPOXEMIA Status: Acute Priority: High Current Visit : No (21) Metabolic alkalosis with respiratory acidosis SNOMED Code(s): 018453737 Code(s): E87.4 - MIXED DISORDER OF ACID-BASE BALANCE Status: Acute Priority: High Current Visit: No (22) Pulmonary embolism SNOMED Code(s): 24349608 Code(s): I26.99 - OTHER PULMONARY EMBOLISM WITHOUT ACUTE COR PULMONALE Status: Acute Priority: High Current Visit: No Qualifiers: Chronicity: acute Acute cor pulmonale presence: without acute cor pulmonale Annotation/Comment:: on coumadin, continue to monitor INRs (23) SI (sacroiliac) joint inflammation SNOMED Code(s): 73577746 Code(s): M46.1 - SACROILIITIS, NOT ELSEWHERE CLASSIFIED Status: Acute Current Visit: No (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 ProBNP 426 (26) Comfort measures only status SNOMED Code(s): 73705303362678 Code(s): Z51.5 - ENCOUNTER FOR PALLIATIVE CARE Status: Chronic Priority: Medium Current Visit: No (27) Emphysema lung SNOMED Code(s): 26921457 Code(s): J43.9 - EMPHYSEMA, UNSPECIFIED Status: Chronic Priority: High Current Visit: No Qualifiers: Emphysema type: panlobular Qualified Code(s): J43.1 - Panlobular emphysema (28) Heart disease SNOMED Code(s): 19345080 Code(s): I51.9 - HEART DISEASE, UNSPECIFIED Status: Chronic Priority: Low Current Visit: No Onset Date: 06/04/15 Annotation/Comment:: Appears to be stable at this time. (29) Osteoarthritis SNOMED Code(s): 524458615 Code(s): M19.90 - UNSPECIFIED OSTEOARTHRITIS, UNSPECIFIED SITE Status: Chronic Priority: Low Current Visit: No Qualifiers: Osteoarthritis location: multiple joints Osteoarthritis type: primary Qualified Code(s): M15.0 - Primary generalized (osteo)arthritis Annotation/Comment:: Overall has been stable. (30) Peptic reflux disease SNOMED Code(s): 769738973 Code(s): K21.9 - GASTRO-ESOPHAGEAL REFLUX DISEASE WITHOUT ESOPHAGITIS Status: Chronic Priority: Low Current Visit: No Onset Date: 06/04/15 Annotation/Comment:: stable at this time - Problem List Review Problem List Initiated/Reviewed/Updated: Yes - My Orders Last 24 Hours: My Active Orders 06/27/19 22:19 CRP [C-REACTIVE PROTEIN] [CHEM] Routine 06/28/19 05:11 BASIC METABOLIC PANEL,BMP [CHEM] DAILY CBC WITH AUTO DIFF [HEME] DAILY CRP [C-REACTIVE PROTEIN] [CHEM] DAILY INR,PT,PROTHROMBIN TIME [COAG] DAILY LACTIC ACID [CHEM] Routine 06/29/19 05:11 BASIC METABOLIC PANEL,BMP [CHEM] DAILY CBC WITH AUTO DIFF [HEME] DAILY CRP [C-REACTIVE PROTEIN] [CHEM] DAILY INR,PT,PROTHROMBIN TIME [COAG] DAILY 06/29/19 08:00 Azithromycin [Zithromax] 500 mg PO DAILY 06/30/19 05:11 BASIC METABOLIC PANEL,BMP [CHEM] DAILY CBC WITH AUTO DIFF [HEME] DAILY CRP [C-REACTIVE PROTEIN] [CHEM] DAILY INR,PT,PROTHROMBIN TIME [COAG] DAILY - Plan Plan:: 06/27/19 Aj Small MD Still feeling very weak. Stomach "blown up" but not painful. He says he is passing gas per rectum. On treatment for pneumonia. When he is ready to go home he is ready to go on hospice.
[2019-06-28 07:44] LABS: CHLORIDE,CL 103 mmol/L (98-107); SODIUM,NA 140 mmol/L (136-145)
[2019-06-28] MEDS: Potassium Chloride 20 MEQ Tab.ER PO SCH (09:32)
[2019-06-28] MEDS: Acetaminophen 500 MG Tab PO SCH ×2 (09:32→17:26)
[2019-06-28] MEDS: predniSONE 5 MG Tab PO SCH (09:32)
[2019-06-28] MEDS: Finasteride 5 MG Tab PO SCH (09:34)
[2019-06-28] MEDS: Aspirin 81 MG Tab.EC PO SCH (09:35)
[2019-06-28] MEDS: metFORMIN 500 MG Tab.ER PO SCH ×2 (09:35→17:23)
[2019-06-28] MEDS: Albuterol/Ipratropium 3.0-0.5 MG/3 ML Neb Soln INH SCH ×4 (09:35→19:36)
[2019-06-28] MEDS: Furosemide 40 MG Tab PO SCH (09:35)
[2019-06-28] MEDS: Budesonide 0.5 MG/2 ML Neb Susp INH SCH ×2 (09:36→19:36)
[2019-06-28] MEDS: Mometasone Furoate Powder 220 MCG/Puff 14 Dose Inhaler INH SCH ×2 (09:36→17:26)
[2019-06-28] MEDS: Fluticasone Propionate Nasal Spray 16 GM Bottle NASBOTH SCH ×2 (09:36→17:24)
[2019-06-28] MEDS: cefTRIAXone 1 GM in Sodium Chloride 0.9% 100 ML IV SCH (11:05)
[2019-06-28] MEDS: Azithromycin 500 MG in Sodium Chloride 0.9% 250 ML IV SCH (11:59)
--- NOTE | 2019-06-28 13:32 | PCM.PN ---
- General Info Date of Service: 06/28/19 Admission Dx/Problem (Free Text): Admitted for further evaluation and treatment after experiencing increased weakness and fall. Noted to have redeveloped pneumonia. Probable lung cancer also however diagnosis has not been formalized in past. Subjective Update: overall feeling improved since admission. Functional Status: Reports: Pain Controlled, Tolerating Diet, Ambulating (with assistance), Urinating. Denies: New Symptoms - Review of Systems General: Reports: Weakness, Fatigue. Denies: Fever, Chills, Night Sweats HEENT: Denies: Ear Pain, Eye Pain, Headaches, Sinus Congestion, Visual Changes Pulmonary: Reports: Pleuritic Chest Pain (at times, right lower lung), Cough. Denies: Shortness of Breath, Sputum, Hemoptysis, Wheezing Cardiovascular: Reports: Dyspnea on Exertion. Denies: Palpitations, Edema, Lightheadedness Gastrointestinal: Denies: Abdominal Pain, Diarrhea, Difficulty Swallowing, Nausea, Vomiting Genitourinary: Denies: Frequency, Burning, Urgency, Hematuria Musculoskeletal: Reports: Other (diffuse aches/no focal acute worsening) Skin: Reports: Other (skin tears/bruising) Neurological: Reports: Difficulty Walking, Weakness, Other (no focal weakness/ changes). Denies: Confusion, Dizziness, Headache, Trouble Speaking, Change in Speech Psychiatric: Reports: No Symptoms - Patient Data Vitals - Most Recent: Last Vital Signs Temp 36.4 C 06/28/19 11:24 Pulse 98 06/28/19 11:24 Resp 18 06/28/19 11:24 BP 122/78 06/28/19 11:24 Pulse Ox 94 L 06/28/19 11:24 Weight - Most Recent: 68.719 kg I&O - Last 24 Hours: Intake & Output 06/27/19 06/28/19 06/28/19 22:59 06:59 14:59 Intake Total 400 1443 90 Balance 400 1443 90 Lab Results Last 24 Hours: Laboratory Results - last 24 hr 06/27/19 06/27/19 06/27/19 Range/Units 07:25 17:04 20:39 WBC (4.0-10.2) K/uL RBC (4.33-5.41) M/uL Hgb (13.1-16.8) g/dL Hct (39.0-49.0) % MCV (84.0-98.0) fL MCH (28.2-33.3) pg MCHC (31.7-36.0) g/dL RDW (11.2-14.1) % Plt Count (150-350) K/uL Neut % (Auto) (45.0-80.0) % Lymph % (Auto) (10.0-50.0) % Wake % (Auto) (2.0-14.0) % Eos % (Auto) (0.0-5.0) % Baso % (Auto) (0.0-2.0) % Neut # (Auto) (1.40-7.00) K/uL Lymph # (Auto) (0.50-3.50) K/uL Wake # (Auto) (0.00-1.00) K/uL Eos # (Auto) (0.00-0.50) K/uL Baso # (Auto) (0.00-0.20) K/uL PT (9.5-12.0) SEC INR Sodium (136-145) mmol/L Potassium (3.5-5.1) mmol/L Chloride (98-107) mmol/L Carbon Dioxide (21.0-32.0) mmol/L BUN (7-18) mg/dL Creatinine (0.51-1.17) mg/dL Est Cr Clr Drug Dosing Estimated GFR (MDRD) mL/min Glucose (74-106) mg/dL POC Glucose 241 H 212 H (65-110) mg/dl Lactic Acid (0.4-2.0) mmol/L Calcium (8.5-10.1) mg/dL C-Reactive Protein 31.5 H (<=0.9) mg/dL 06/28/19 06/28/19 06/28/19 Range/Units 07:15 07:15 07:15 WBC 12.6 H (4.0-10.2) K/uL RBC 3.50 L (4.33-5.41) M/uL Hgb 11.0 L D (13.1-16.8) g/dL Hct 35.3 L (39.0-49.0) % MCV 100.9 H (84.0-98.0) fL MCH 31.4 (28.2-33.3) pg MCHC 31.2 L (31.7-36.0) g/dL RDW 13.4 (11.2-14.1) % Plt Count 206 (150-350) K/uL Neut % (Auto) 85.4 H (45.0-80.0) % Lymph % (Auto) 5.0 L (10.0-50.0) % Wake % (Auto) 9.0 (2.0-14.0) % Eos % (Auto) 0.4 (0.0-5.0) % Baso % (Auto) 0.2 (0.0-2.0) % Neut # (Auto) 10.76 H (1.40-7.00) K/uL Lymph # (Auto) 0.63 (0.50-3.50) K/uL Wake # (Auto) 1.14 H (0.00-1.00) K/uL Eos # (Auto) 0.05 (0.00-0.50) K/uL Baso # (Auto) 0.02 (0.00-0.20) K/uL PT (9.5-12.0) SEC INR Sodium 140 (136-145) mmol/L Potassium 3.3 L (3.5-5.1) mmol/L Chloride 103 (98-107) mmol/L Carbon Dioxide 30.0 (21.0-32.0) mmol/L BUN 19 H (7-18) mg/dL Creatinine 0.61 (0.51-1.17) mg/dL Est Cr Clr Drug Dosing TNP Estimated GFR (MDRD) > 60 mL/min Glucose 150 H (74-106) mg/dL POC Glucose (65-110) mg/dl Lactic Acid 1.0 (0.4-2.0) mmol/L Calcium 8.8 (8.5-10.1) mg/dL C-Reactive Protein 27.1 H (<=0.9) mg/dL 06/28/19 06/28/19 06/28/19 Range/Units 07:15 07:18 11:15 WBC (4.0-10.2) K/uL RBC (4.33-5.41) M/uL Hgb (13.1-16.8) g/dL Hct (39.0-49.0) % MCV (84.0-98.0) fL MCH (28.2-33.3) pg MCHC (31.7-36.0) g/dL RDW (11.2-14.1) % Plt Count (150-350) K/uL Neut % (Auto) (45.0-80.0) % Lymph % (Auto) (10.0-50.0) % Wake % (Auto) (2.0-14.0) % Eos % (Auto) (0.0-5.0) % Baso % (Auto) (0.0-2.0) % Neut # (Auto) (1.40-7.00) K/uL Lymph # (Auto) (0.50-3.50) K/uL Wake # (Auto) (0.00-1.00) K/uL Eos # (Auto) (0.00-0.50) K/uL Baso # (Auto) (0.00-0.20) K/uL PT 20.1 H (9.5-12.0) SEC INR 1.9 Sodium (136-145) mmol/L Potassium (3.5-5.1) mmol/L Chloride (98-107) mmol/L Carbon Dioxide (21.0-32.0) mmol/L BUN (7-18) mg/dL Creatinine (0.51-1.17) mg/dL Est Cr Clr Drug Dosing Estimated GFR (MDRD) mL/min Glucose (74-106) mg/dL POC Glucose 128 H 143 H (65-110) mg/dl Lactic Acid (0.4-2.0) mmol/L Calcium (8.5-10.1) mg/dL C-Reactive Protein (<=0.9) mg/dL Med Orders - Current: Current Medications Acetaminophen (Tylenol Extra Strength) 500 mg PO BID [facility] Last Admin: 06/28/19 09:32 Dose: 500 mg Acetaminophen (Tylenol Extra Strength) 500 mg PO Q4HR PRN PRN Reason: Pain Last Admin: 06/26/19 11:09 Dose: 500 mg Albuterol/Ipratropium (Duoneb 3.0-0.5 Mg/3 Ml) 3 ml INH QIDRT [facility] Last Admin: 06/28/19 11:59 Dose: 3 ml Albuterol/Ipratropium (Duoneb 3.0-0.5 Mg/3 Ml) 3 ml NEB Q4HRRT PRN PRN Reason: Shortness of Breath Aspirin (Halfprin) 81 mg PO DAILY [facility] Last Admin: 06/28/19 09:35 Dose: 81 mg Azithromycin (Zithromax) 500 mg PO DAILY [facility] Stop: 07/02/19 08:01 Bisacodyl (Dulcolax) 10 mg PO BEDTIME [facility] Last Admin: 06/27/19 20:40 Dose: 10 mg Budesonide (Pulmicort) 0.5 mg INH BIDRT [facility] Last Admin: 06/28/19 09:36 Dose: 0.5 mg Finasteride (Proscar) 5 mg PO DAILY [facility] Last Admin: 06/28/19 09:34 Dose: 5 mg Fluticasone Propionate (Flonase) 0 gm NASBOTH BID [facility] Last Admin: 06/28/19 09:36 Dose: 1 spray Furosemide (Lasix) 40 mg PO DAILY [facility] Last Admin: 06/28/19 09:35 Dose: 40 mg Ceftriaxone Sodium 1 gm/ (Sodium Chloride) 100 mls @ 200 mls/hr IV Q24H [facility] Last Admin: 06/28/19 11:05 Dose: 200 mls/hr Sodium Chloride (Normal Saline) 500 mls @ 999 mls/hr IV .BOLUS [facility] Last Admin: 06/26/19 11:48 Dose: 999 mls/hr Sodium Chloride (Normal Saline) 1,000 mls @ 50 mls/hr IV ASDIRECTED [facility] Last Admin: 06/27/19 23:14 Dose: 50 mls/hr Magnesium Sulfate/Dextrose 1 (gm/ Premix) 100 mls @ 100 mls/hr IV ONETIME ONE Stop: 06/28/19 14:19 Magnesium Sulfate/Dextrose 1 (gm/ Premix) 100 mls @ 100 mls/hr IV ONETIME ONE Stop: 06/28/19 18:59 Metformin HCl (Glucophage Xr) 500 mg PO BIDMEALS [facility] Last Admin: 06/28/19 09:35 Dose: 500 mg Mometasone Furoate (Asmanex 220 Mcg) 2 puff INH BID [facility] Last Admin: 06/28/19 09:36 Dose: 2 puff Omeprazole (Omeprazole) 20 mg PO DAILY PRN PRN Reason: Indigestion Potassium Chloride (Klor-Con M20) 20 meq PO DAILY [facility] Last Admin: 06/28/19 09:32 Dose: 20 meq Prednisone (Prednisone) 10 mg PO DAILY [facility] Last Admin: 06/28/19 09:32 Dose: 10 mg Sodium Chloride (Saline Flush) 10 ml FLUSH ASDIRECTED PRN PRN Reason: Keep Vein Open Last Admin: 06/26/19 11:09 Dose: 10 ml Warfarin Sodium (Coumadin) 5 mg PO MO@1800 [facility] Last Admin: 06/26/19 17:25 Dose: 5 mg Warfarin Sodium (Coumadin) 6 mg PO SuTuWeThFrSa@1800 [facility] Last Admin: 06/27/19 18:01 Dose: 6 mg Discontinued Medications Azithromycin 500 mg/ Sodium (Chloride) 250 mls @ 250 mls/hr IV Q24H [facility] Stop: 06/28/19 12:59 Last Admin: 06/28/19 11:59 Dose: 250 mls/hr Magnesium Sulfate/Dextrose 1 (gm/ Premix) 100 mls @ 100 mls/hr IV ONETIME ONE Stop: 06/26/19 13:59 Last Admin: 06/26/19 13:20 Dose: 100 mls/hr Simvastatin (Zocor) 40 mg PO BEDTIME [facility] Last Admin: 06/27/19 20:41 Dose: 40 mg - Exam Quality Assessment: DVT Prophylaxis General: Alert, Oriented, Cooperative, No Acute Distress HEENT: Pupils Equal, Pupils Reactive, EOMI, Mucous Membr. Moist/[place] Neck: Supple Lungs: Normal Respiratory Effort, Rhonchi (mild, left lung anteriorly). No: Crackles, Rales, Stridor, Wheezing Cardiovascular: Regular Rate, Regular Rhythm, No Murmurs GI/Abdominal Exam: Normal Bowel Sounds, Soft, Non-Tender (Male) Exam: Deferred Back Exam: No: CVA Tenderness (L), CVA Tenderness (R), Muscle Spasm Extremities: No Pedal Edema, Normal Capillary Refill. No: Increased Warmth, Mottled, Pallor, Redness Peripheral Pulses: 2+: Radial (L), Radial (R) Skin: Warm, Dry, Ecchymosis Wound/Incisions: Healing Well Neurological: No New Focal Deficit Psy/Mental Status: Alert, Normal Affect, Normal Mood - Problem List & Annotations (1) Pneumonia SNOMED Code(s): 261064068 Code(s): J18.9 - PNEUMONIA, UNSPECIFIED ORGANISM Status: Acute Priority: High Current Visit: Yes Annotation/Comment:: Suspected pneumonia given fever and chest xray changes. Receiving Zithromax and Rocephin. Suspected malignancy of lung given changes observed over the past few months. Patient and family do not want this to be expored any further and refused CT of chest. (2) Fall SNOMED Code(s): 1086728, 847756845 Code(s): W19.XXXA - UNSPECIFIED FALL, INITIAL ENCOUNTER Status: Acute Priority: High Current Visit: Yes Annotation/Comment:: Fall at home by bed. Noted to be weak/have fever (3) Head contusion SNOMED Code(s): 245361991 Code(s): S00.93XA - CONTUSION OF UNSPECIFIED PART OF HEAD, INITIAL ENCOUNTER Status: Acute Priority: High Current Visit: Yes Onset Date: 06/26/19 Qualifiers: Laterality: unspecified laterality Annotation/Comment:: Contusion of forehead. No acute changes noted on head CT (4) Skin tear SNOMED Code(s): 079038720 Code(s): DDQ8230 - Status: Acute Priority: Medium Current Visit: Yes Onset Date: 06/26/19 Annotation/Comment:: Scattered skin tears left arm in addition to skinned knees. Bandaged in ER. Healing well. (5) Pulmonary nodules SNOMED Code(s): 268898029 Code(s): R91.8 - OTHER NONSPECIFIC ABNORMAL FINDING OF LUNG FIELD Status: Chronic Priority: High Current Visit: Yes Annotation/Comment:: Concern for malignancy per previous CT performed in May. See above (6) Hypomagnesemia SNOMED Code(s): 637192521 Code(s): E83.42 - HYPOMAGNESEMIA Status: Acute Priority: Medium Current Visit: Yes Annotation/Comment:: Replacement ordered. Recheck level in AM (7) Palliative care patient SNOMED Code(s): 463838361 Code(s): Z51.5 - ENCOUNTER FOR PALLIATIVE CARE Status: Acute Priority: High Current Visit: Yes Annotation/Comment:: Hospice consulted. Plan is to have patient's care be taken over by hospice at time of discharge. (8) Weakness generalized SNOMED Code(s): 36913651 Code(s): R53.1 - WEAKNESS Status: Chronic Priority: Medium Current Visit: Yes Annotation/Comment:: Chronic issues with weakess. (9) CHF (congestive heart failure) SNOMED Code(s): 91277072 Code(s): I50.9 - HEART FAILURE, UNSPECIFIED Status: Chronic Priority: Low Current Visit: No Annotation/Comment:: Appears to be stable. ProBNP 426 (10) Heart disease SNOMED Code(s): 31080897 Code(s): I51.9 - HEART DISEASE, UNSPECIFIED Status: Chronic Priority: Low Current Visit: No Onset Date: 06/04/15 Annotation/Comment:: Appears to be stable at this time. (11) Osteoarthritis SNOMED Code(s): 909044589 Code(s): M19.90 - UNSPECIFIED OSTEOARTHRITIS, UNSPECIFIED SITE Status: Chronic Priority: Low Current Visit: No Qualifiers: Osteoarthritis location: multiple joints Osteoarthritis type: primary Qualified Code(s): M15.0 - Primary generalized (osteo)arthritis Annotation/Comment:: Overall has been stable. (12) Peptic reflux disease SNOMED Code(s): 620230535 Code(s): K21.9 - GASTRO-ESOPHAGEAL REFLUX DISEASE WITHOUT ESOPHAGITIS Status: Chronic Priority: Low Current Visit: No Onset Date: 06/04/15 Annotation/Comment:: stable at this time (13) COPD (chronic obstructive pulmonary disease) SNOMED Code(s): 70126693 Code(s): J44.9 - CHRONIC OBSTRUCTIVE PULMONARY DISEASE, UNSPECIFIED Status : Chronic Priority: Medium Current Visit: Yes Qualifiers: COPD type: COPD with acute lower respiratory infection Qualified Code(s): J44.0 - Chronic obstructive pulmonary disease with (acute) lower respiratory infection Annotation/Comment:: Continue nebs (14) Pulmonary fibrosis SNOMED Code(s): 21980739 Code(s): J84.10 - PULMONARY FIBROSIS, UNSPECIFIED Status: Chronic Priority: Medium Current Visit: Yes Annotation/Comment:: 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 Additional 5mg Warfarin ordered today. Repeat lab in AM. No appreciable change despite receiving IV antibiotics. - Problem List Review Problem List Initiated/Reviewed/Updated: Yes - My Orders Last 24 Hours: My Active Orders 06/27/19 18:00 Warfarin [Coumadin] 6 mg PO SuTuWeThFrSa@1800 06/28/19 08:00 Vital Signs [RC] QID 06/28/19 13:20 Magnesium Sulfate/D5W [Magnesium Sulfate in D5W 100 Premix] 1 gm Premix Bag 1 bag IV ONETIME 06/28/19 18:00 Magnesium Sulfate/D5W [Magnesium Sulfate in D5W 100 Premix] 1 gm Premix Bag 1 bag IV ONETIME - Assessment Assessment:: as above - Plan Plan:: Will continue antibiotics. PT and OT to evaluate patient. However given poor prognosis due to suspected lung cancer and hospice plans he will likely not be a candidate for Swing Bed. Anticipate discharge home Wednesday on hospice at this point in time.
[2019-06-28] MEDS: Sodium Chloride 0.9% 1,000 ML IV SCH (17:20)
[2019-06-28] MEDS: Warfarin 2 MG Tab PO SCH (17:25)
[2019-06-28] MEDS ORDERED: Warfarin 5 MG Tab PO ONE (18:00)
[2019-06-28] MEDS: Bisacodyl 5 MG Tab PO SCH (19:36)
[2019-06-29 08:03] LABS: CHLORIDE,CL 104 mmol/L (98-107); SODIUM,NA 142 mmol/L (136-145)
[2019-06-29] MEDS: Finasteride 5 MG Tab PO SCH (09:09)
[2019-06-29] MEDS: metFORMIN 500 MG Tab.ER PO SCH ×2 (09:10→17:52)
[2019-06-29] MEDS: Potassium Chloride 20 MEQ Tab.ER PO SCH (09:11)
[2019-06-29] MEDS: predniSONE 5 MG Tab PO SCH (09:11)
[2019-06-29] MEDS: Acetaminophen 500 MG Tab PO SCH ×2 (09:11→17:52)
[2019-06-29] MEDS: Aspirin 81 MG Tab.EC PO SCH (09:11)
[2019-06-29] MEDS: Furosemide 40 MG Tab PO SCH (09:12)
[2019-06-29] MEDS: Azithromycin 250 MG Tab PO SCH (09:12)
[2019-06-29] MEDS: Fluticasone Propionate Nasal Spray 16 GM Bottle NASBOTH SCH ×2 (09:13→17:54)
[2019-06-29] MEDS: Budesonide 0.5 MG/2 ML Neb Susp INH SCH ×2 (09:13→19:51)
[2019-06-29] MEDS: Mometasone Furoate Powder 220 MCG/Puff 14 Dose Inhaler INH SCH ×2 (09:13→17:51)
[2019-06-29] MEDS: Albuterol/Ipratropium 3.0-0.5 MG/3 ML Neb Soln INH SCH ×4 (09:16→19:51)
[2019-06-29] MEDS: cefTRIAXone 1 GM in Sodium Chloride 0.9% 100 ML IV SCH (11:24)
--- NOTE | 2019-06-29 15:31 | PCM.PN ---
- General Info Date of Service: 06/29/19 Admission Dx/Problem (Free Text): Metastatic cancer Subjective Update: Patient is a poor historian secondary to his end-stage disease. Functional Status: Reports: Pain Controlled, Tolerating Diet (Although somewhat suboptimal intake), Urinating, Incentive Spirometry. Denies: Ambulating, New Symptoms Pain Score: 0 (Per family) - Review of Systems General: Reports: Fever, Weakness (Stable chronic), Fatigue. Denies: Chills, Night Sweats, Appetite (Borderline suboptimal) HEENT: Reports: No Symptoms Pulmonary: Reports: No Symptoms. Denies: Shortness of Breath, Pleuritic Chest Pain, Cough, Sputum, Hemoptysis, Wheezing Cardiovascular: Reports: No Symptoms. Denies: Edema Gastrointestinal: Reports: No Symptoms Genitourinary: Reports: No Symptoms Musculoskeletal: Reports: No Symptoms Skin: Reports: No Symptoms Neurological: Reports: Confusion (Borderline) Psychiatric: Reports: No Symptoms, Confusion (Borderline). Denies: Agitation, Hallucinations - Patient Data Vitals - Most Recent: Last Vital Signs Temp 36.7 C 06/29/19 15:16 Pulse 97 06/29/19 15:16 Resp 20 06/29/19 15:16 BP 146/70 H 06/29/19 15:16 Pulse Ox 97 06/29/19 15:16 Vital Signs - 24 hr 06/28/19 06/28/19 06/29/19 15:37 19:52 08:00 Temperature [ 37.3 C Axillary] Temperature [ 37.1 C 37.6 C Oral] Pulse, 92 85 93 Peripheral [ Right Pulse Oximetry] Respiratory 26 H 18 20 Rate Blood Pressure 112/53 L 145/62 H 142/70 H [Left Upper Arm ] O2 Sat by Pulse 98 94 L 96 Oximetry 06/29/19 06/29/19 11:13 15:16 Temperature [ Axillary] Temperature [ 37.1 C 36.7 C Oral] Pulse, 107 H 97 Peripheral [ Right Pulse Oximetry] Respiratory 28 H 20 Rate Blood Pressure 135/63 146/70 H [Left Upper Arm ] O2 Sat by Pulse 93 L 97 Oximetry Weight - Most Recent: 68.719 kg I&O - Last 24 Hours: Intake & Output 06/29/19 06/29/19 06/29/19 06:59 14:59 22:59 Intake Total 894 929 Output Total 250 Balance 644 929 Imaging Impressions - Last 24 Hours: None Lab Results Last 24 Hours: Laboratory Results - last 24 hr 06/28/19 06/28/19 06/29/19 Range/Units 17:01 21:14 07:30 WBC 10.3 H (4.0-10.2) K/uL RBC 3.30 L (4.33-5.41) M/uL Hgb 10.3 L (13.1-16.8) g/dL Hct 33.3 L (39.0-49.0) % MCV 100.9 H (84.0-98.0) fL MCH 31.2 (28.2-33.3) pg MCHC 30.9 L (31.7-36.0) g/dL RDW 13.1 (11.2-14.1) % Plt Count 232 (150-350) K/uL Neut % (Auto) 82.8 H (45.0-80.0) % Lymph % (Auto) 5.5 L (10.0-50.0) % [place] % (Auto) 10.9 (2.0-14.0) % Eos % (Auto) 0.5 (0.0-5.0) % Baso % (Auto) 0.3 (0.0-2.0) % Neut # (Auto) 8.54 H (1.40-7.00) K/uL Lymph # (Auto) 0.57 (0.50-3.50) K/uL [place] # (Auto) 1.13 H (0.00-1.00) K/uL Eos # (Auto) 0.05 (0.00-0.50) K/uL Baso # (Auto) 0.03 (0.00-0.20) K/uL PT (9.5-12.0) SEC INR Sodium (136-145) mmol/L Potassium (3.5-5.1) mmol/L Chloride (98-107) mmol/L Carbon Dioxide (21.0-32.0) mmol/L BUN (7-18) mg/dL Creatinine (0.51-1.17) mg/dL Est Cr Clr Drug Dosing Estimated GFR (MDRD) mL/min Glucose (74-106) mg/dL POC Glucose 271 H* 207 H (65-110) mg/dl Lactic Acid (0.4-2.0) mmol/L Calcium (8.5-10.1) mg/dL Magnesium (1.8-2.4) mg/dL Total Bilirubin (0.2-1.0) mg/dL AST (15-37) U/L ALT (12-78) U/L Alkaline Phosphatase (46-116) IU/L C-Reactive Protein (<=0.9) mg/dL Total Protein (6.4-8.2) g/dL Albumin (3.4-5.0) g/dL 06/29/19 06/29/19 06/29/19 Range/Units 07:30 07:30 07:30 WBC (4.0-10.2) K/uL RBC (4.33-5.41) M/uL Hgb (13.1-16.8) g/dL Hct (39.0-49.0) % MCV (84.0-98.0) fL MCH (28.2-33.3) pg MCHC (31.7-36.0) g/dL RDW (11.2-14.1) % Plt Count (150-350) K/uL Neut % (Auto) (45.0-80.0) % Lymph % (Auto) (10.0-50.0) % [place] % (Auto) (2.0-14.0) % Eos % (Auto) (0.0-5.0) % Baso % (Auto) (0.0-2.0) % Neut # (Auto) (1.40-7.00) K/uL Lymph # (Auto) (0.50-3.50) K/uL [place] # (Auto) (0.00-1.00) K/uL Eos # (Auto) (0.00-0.50) K/uL Baso # (Auto) (0.00-0.20) K/uL PT 28.8 H D (9.5-12.0) SEC INR 2.7 Sodium 142 (136-145) mmol/L Potassium 3.4 L (3.5-5.1) mmol/L Chloride 104 (98-107) mmol/L Carbon Dioxide 33.7 H (21.0-32.0) mmol/L BUN 15 (7-18) mg/dL Creatinine 0.55 (0.51-1.17) mg/dL Est Cr Clr Drug Dosing TNP Estimated GFR (MDRD) > 60 mL/min Glucose 150 H (74-106) mg/dL POC Glucose (65-110) mg/dl Lactic Acid 0.7 (0.4-2.0) mmol/L Calcium 8.5 (8.5-10.1) mg/dL Magnesium 1.6 L (1.8-2.4) mg/dL Total Bilirubin 0.4 (0.2-1.0) mg/dL AST 20 (15-37) U/L ALT 22 (12-78) U/L Alkaline Phosphatase 68 (46-116) IU/L C-Reactive Protein 19.8 H (<=0.9) mg/dL Total Protein 5.4 L (6.4-8.2) g/dL Albumin 2.1 L (3.4-5.0) g/dL 06/29/19 06/29/19 Range/Units 07:35 11:32 WBC (4.0-10.2) K/uL RBC (4.33-5.41) M/uL Hgb (13.1-16.8) g/dL Hct (39.0-49.0) % MCV (84.0-98.0) fL MCH (28.2-33.3) pg MCHC (31.7-36.0) g/dL RDW (11.2-14.1) % Plt Count (150-350) K/uL Neut % (Auto) (45.0-80.0) % Lymph % (Auto) (10.0-50.0) % [place] % (Auto) (2.0-14.0) % Eos % (Auto) (0.0-5.0) % Baso % (Auto) (0.0-2.0) % Neut # (Auto) (1.40-7.00) K/uL Lymph # (Auto) (0.50-3.50) K/uL [place] # (Auto) (0.00-1.00) K/uL Eos # (Auto) (0.00-0.50) K/uL Baso # (Auto) (0.00-0.20) K/uL PT (9.5-12.0) SEC INR Sodium (136-145) mmol/L Potassium (3.5-5.1) mmol/L Chloride (98-107) mmol/L Carbon Dioxide (21.0-32.0) mmol/L BUN (7-18) mg/dL Creatinine (0.51-1.17) mg/dL Est Cr Clr Drug Dosing Estimated GFR (MDRD) mL/min Glucose (74-106) mg/dL POC Glucose 145 H 192 H (65-110) mg/dl Lactic Acid (0.4-2.0) mmol/L Calcium (8.5-10.1) mg/dL Magnesium (1.8-2.4) mg/dL Total Bilirubin (0.2-1.0) mg/dL AST (15-37) U/L ALT (12-78) U/L Alkaline Phosphatase (46-116) IU/L C-Reactive Protein (<=0.9) mg/dL Total Protein (6.4-8.2) g/dL Albumin (3.4-5.0) g/dL Jarret Results Last 24 Hours: None Med Orders - Current: Current Medications Acetaminophen (Tylenol Extra Strength) 500 mg PO BID [facility] Last Admin: 06/29/19 09:11 Dose: 500 mg Acetaminophen (Tylenol Extra Strength) 500 mg PO Q4HR PRN PRN Reason: Pain Last Admin: 06/26/19 11:09 Dose: 500 mg Albuterol/Ipratropium (Duoneb 3.0-0.5 Mg/3 Ml) 3 ml INH QIDRT [facility] Last Admin: 06/29/19 11:24 Dose: 3 ml Albuterol/Ipratropium (Duoneb 3.0-0.5 Mg/3 Ml) 3 ml NEB Q4HRRT PRN PRN Reason: Shortness of Breath Aspirin (Halfprin) 81 mg PO DAILY [facility] Last Admin: 06/29/19 09:11 Dose: 81 mg Azithromycin (Zithromax) 500 mg PO DAILY [facility] Stop: 07/02/19 08:01 Last Admin: 06/29/19 09:12 Dose: 500 mg Bisacodyl (Dulcolax) 10 mg PO BEDTIME [facility] Last Admin: 06/28/19 19:36 Dose: 10 mg Budesonide (Pulmicort) 0.5 mg INH BIDRT [facility] Last Admin: 06/29/19 09:13 Dose: 0.5 mg Finasteride (Proscar) 5 mg PO DAILY [facility] Last Admin: 06/29/19 09:09 Dose: 5 mg Fluticasone Propionate (Flonase) 0 gm NASBOTH BID [facility] Last Admin: 06/29/19 09:13 Dose: 1 spray Furosemide (Lasix) 40 mg PO DAILY [facility] Last Admin: 06/29/19 09:12 Dose: 40 mg Ceftriaxone Sodium 1 gm/ (Sodium Chloride) 100 mls @ 200 mls/hr IV Q24H [facility] Last Admin: 06/29/19 11:24 Dose: 200 mls/hr Sodium Chloride (Normal Saline) 500 mls @ 999 mls/hr IV .BOLUS [facility] Last Admin: 06/26/19 11:48 Dose: 999 mls/hr Metformin HCl (Glucophage Xr) 500 mg PO BIDMEALS [facility] Last Admin: 06/29/19 09:10 Dose: 500 mg Mometasone Furoate (Asmanex 220 Mcg) 2 puff INH BID [facility] Last Admin: 06/29/19 09:13 Dose: 2 puff Omeprazole (Omeprazole) 20 mg PO DAILY PRN PRN Reason: Indigestion Potassium Chloride (Klor-Con M20) 20 meq PO DAILY [facility] Last Admin: 06/29/19 09:11 Dose: 20 meq Prednisone (Prednisone) 10 mg PO DAILY [facility] Last Admin: 06/29/19 09:11 Dose: 10 mg Sodium Chloride (Saline Flush) 10 ml FLUSH ASDIRECTED PRN PRN Reason: Keep Vein Open Last Admin: 06/26/19 11:09 Dose: 10 ml Warfarin Sodium (Coumadin) 5 mg PO MO@1800 [facility] Last Admin: 06/26/19 17:25 Dose: 5 mg Warfarin Sodium (Coumadin) 6 mg PO SuTuWeThFrSa@1800 [facility] Last Admin: 06/28/19 17:25 Dose: 6 mg Discontinued Medications Azithromycin 500 mg/ Sodium (Chloride) 250 mls @ 250 mls/hr IV Q24H [facility] Stop: 06/28/19 12:59 Last Admin: 06/28/19 11:59 Dose: 250 mls/hr Magnesium Sulfate/Dextrose 1 (gm/ Premix) 100 mls @ 100 mls/hr IV ONETIME ONE Stop: 06/26/19 13:59 Last Admin: 06/26/19 13:20 Dose: 100 mls/hr Sodium Chloride (Normal Saline) 1,000 mls @ 50 mls/hr IV ASDIRECTED [facility] Stop: 06/29/19 13:00 Last Admin: 06/28/19 17:20 Dose: 50 mls/hr Magnesium Sulfate/Dextrose 1 (gm/ Premix) 100 mls @ 100 mls/hr IV ONETIME ONE Stop: 06/28/19 14:19 Last Admin: 06/28/19 14:02 Dose: 100 mls/hr Magnesium Sulfate/Dextrose 1 (gm/ Premix) 100 mls @ 100 mls/hr IV ONETIME ONE Stop: 06/28/19 18:59 Last Admin: 06/28/19 17:20 Dose: 100 mls/hr Simvastatin (Zocor) 40 mg PO BEDTIME [facility] Last Admin: 06/27/19 20:41 Dose: 40 mg Warfarin Sodium (Coumadin) 5 mg PO ONETIME ONE Stop: 06/28/19 18:01 Last Admin: 06/28/19 17:24 Dose: 5 mg - Exam Quality Assessment: DVT Prophylaxis (Coumadin). No: Supplemental Oxygen, Central Line/PICC, Urine Catheter, Skin Breakdown, Restraints General: Cooperative, No Acute Distress, Sedated HEENT: Pupils Equal, Pupils Reactive, Mucous Membr. Moist/[place], Scleral Icterus Neck: Supple, Trachea Midline, No JVD, No Thyromegaly, Carotid Bruit (Mild bilateral carotid bruits). No: Lymphadenopathy Lungs: Normal Respiratory Effort, Rales (Mild diffuse bilateral), Rhonchi (Mild diffuse bilateral), Other (Nebulizer treatment in progress). No: Wheezing Cardiovascular: Regular Rate, Regular Rhythm, No Murmurs. No: Gallops, Rubs GI/Abdominal Exam: Normal Bowel Sounds, Soft, Non-Tender, No Organomegaly, No Distention, No Abnormal Bruit, No Mass. No: Guarding (Male) Exam: Deferred Back Exam: Normal Inspection, Full Range of Motion. No: CVA Tenderness (L), CVA Tenderness (R), Muscle Spasm Extremities: Normal Inspection, Normal Range of Motion, Non-Tender, No Pedal Edema, Normal Capillary Refill. No: Juan's Sign Peripheral Pulses: 2+: Radial (L), Radial (R), Dorsalis Pedis (L), Dorsalis Pedis (R) Skin: Warm, Dry, Intact Neurological: No New Focal Deficit, Other (Somewhat sedated) Psy/Mental Status: Normal Affect. No: Agitated, Hallucinations, Withdrawal Symptoms - Problem List & Annotations (1) Carcinoma, lung SNOMED Code(s): 943528100 Code(s): C34.90 - MALIGNANT NEOPLASM OF UNSP PART OF UNSP BRONCHUS OR LUNG Status: Chronic Priority: High Current Visit: Yes Qualifiers: Laterality: right Qualified Code(s): C34.91 - Malignant neoplasm of unspecified part of right bronchus or lung Annotation/Comment:: Extensive consultation with care management in our facility today. 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 Consider medication adjustment at discharge including discontinuation of Coumadin therapy , etc. (2) Palliative care patient SNOMED Code(s): 857136258 Code(s): Z51.5 - ENCOUNTER FOR PALLIATIVE CARE Status: Acute Priority: High Current Visit: Yes Annotation/Comment:: As above, which was confirmed by multiple family members today. (3) Pneumonia SNOMED Code(s): 067914073 Code(s): J18.9 - PNEUMONIA, UNSPECIFIED ORGANISM Status: Acute Priority: High Current Visit: Yes Annotation/Comment:: Suspected pneumonia given fever and chest xray changes. Receiving Zithromax and Rocephin. Suspected malignancy of lung given changes observed over the past few months. Patient and family do not want this to be explored any further and refused CT of chest. CRP still elevated. No further x-rays, blood work, etc. per the family's request. (4) Hypoalbuminemia SNOMED Code(s): 118014664 Code(s): E88.09 - OTH DISORDERS OF PLASMA-PROTEIN METABOLISM, NEC Status: Chronic Priority: Medium Current Visit: Yes Annotation/Comment:: Observe for now. Hospice patient (5) Hypokalemia SNOMED Code(s): 83234246 Code(s): E87.6 - HYPOKALEMIA Status: Acute Priority: Medium Current Visit: Yes Onset Date: 06/29/19 Annotation/Comment:: Potassium chloride today. (6) Anemia SNOMED Code(s): 568366421 Code(s): D64.9 - ANEMIA, UNSPECIFIED Status: Chronic Priority: Medium Current Visit: Yes Qualifiers: Anemia type: unspecified type Qualified Code(s): D64.9 - Anemia, unspecified Annotation/Comment:: Stable during this hospitalization. Observe for now. (7) COPD (chronic obstructive pulmonary disease) SNOMED Code(s): 17383887 Code(s): J44.9 - CHRONIC OBSTRUCTIVE PULMONARY DISEASE, UNSPECIFIED Status : Chronic Priority: Medium Current Visit: Yes Qualifiers: COPD type: COPD with acute lower respiratory infection Qualified Code(s): J44.0 - Chronic obstructive pulmonary disease with (acute) lower respiratory infection Annotation/Comment:: Continue nebs at discharge for comfort care. (8) Weakness generalized SNOMED Code(s): 01485145 Code(s): R53.1 - WEAKNESS Status: Chronic Priority: Medium Current Visit: Yes Annotation/Comment:: Chronic issues with weakess and end-stage disease as above. - Problem List Review Problem List Initiated/Reviewed/Updated: Yes - Assessment Assessment:: as above - Plan Plan:: Discharge to home tomorrow with hospice. Dr. Connolly to resume care in the a.m.
[2019-06-29] MEDS ORDERED: Potassium Chloride 10% 20 MEQ/15 ML Soln 15 ML UD Cup PO ONE (15:39)
[2019-06-29] MEDS: Warfarin 2 MG Tab PO SCH (17:51)
[2019-06-29] MEDS: Bisacodyl 5 MG Tab PO SCH (19:49)
[2019-06-30] MEDS: Fluticasone Propionate Nasal Spray 16 GM Bottle NASBOTH SCH (07:38)
[2019-06-30] MEDS: Aspirin 81 MG Tab.EC PO SCH (07:39)
[2019-06-30] MEDS: metFORMIN 500 MG Tab.ER PO SCH (07:39)
[2019-06-30] MEDS: predniSONE 5 MG Tab PO SCH (07:39)
[2019-06-30] MEDS: Budesonide 0.5 MG/2 ML Neb Susp INH SCH (07:39)
[2019-06-30] MEDS: Albuterol/Ipratropium 3.0-0.5 MG/3 ML Neb Soln INH SCH ×2 (07:39→11:29)
[2019-06-30] MEDS: Acetaminophen 500 MG Tab PO SCH (07:39)
[2019-06-30] MEDS: Finasteride 5 MG Tab PO SCH (07:39)
[2019-06-30] MEDS: Furosemide 40 MG Tab PO SCH (07:39)
[2019-06-30] MEDS: Azithromycin 250 MG Tab PO SCH (07:39)
[2019-06-30] MEDS: Potassium Chloride 20 MEQ Tab.ER PO SCH (07:45)
[2019-06-30] MEDS: Mometasone Furoate Powder 220 MCG/Puff 14 Dose Inhaler INH SCH (07:51)
[2019-06-30 08:06] LABS: CHLORIDE,CL 104 mmol/L (98-107); SODIUM,NA 144 mmol/L (136-145)
[2019-06-30] MEDS: cefTRIAXone 1 GM in Sodium Chloride 0.9% 100 ML IV SCH (11:29)
[2019-06-30] MEDS: Sodium Chloride 0.9% 10 ML Syringe FLUSH PRN (11:30)
--- NOTE | 2019-06-30 11:59 | PCM.DCSUM1 ---
Discharge Summary - Hospital Course Brief History: Patient admitted for treatment of pneumonia. Diagnosis: Stroke: No - Discharge Data Discharge Date: 06/30/19 Discharge Disposition: DC/Tfer to Hospice - Home 52 Condition: Poor - Referral to Home Health Primary Care Physician: Jessie Murillo MD - Discharge Diagnosis/Problem(s) (1) Pneumonia SNOMED Code(s): 142082541 ICD Code: J18.9 - PNEUMONIA, UNSPECIFIED ORGANISM Status: Acute Priority : High Current Visit: Yes Problem Details: Suspected pneumonia given fever and chest xray changes. Receiving Zithromax and Rocephin. Suspected malignancy of lung given changes observed over the past few months. Patient and family do not want this to be explored any further and refused CT of chest. CRP still elevated. No further x-rays, blood work, etc. per the family's request. (2) Fall SNOMED Code(s): 1795211, 959459130 ICD Code: W19.XXXA - UNSPECIFIED FALL, INITIAL ENCOUNTER Status: Acute Priority: High Current Visit: Yes Problem Details: Fall at home by bed. Noted to be weak/have fever (3) Head contusion SNOMED Code(s): 120671429 ICD Code: S00.93XA - CONTUSION OF UNSPECIFIED PART OF HEAD, INITIAL ENCOUNTER Status: Acute Priority: High Current Visit: Yes Onset Date: Problem Details: Contusion of forehead. No acute changes noted on head CT Qualifiers: Laterality: unspecified laterality (4) Skin tear SNOMED Code(s): 050381558 ICD Code: [id number] - Status: Acute Priority: Medium Current Visit: Yes Onset Date: 06/26/19 Problem Details: Scattered skin tears left arm in addition to skinned knees. Bandaged in ER. Healing well. (5) Pulmonary nodules SNOMED Code(s): 206044294 ICD Code: R91.8 - OTHER NONSPECIFIC ABNORMAL FINDING OF LUNG FIELD Status: Chronic Priority: High Current Visit: Yes Problem Details: Concern for malignancy per previous CT performed in May. See above (6) Hypomagnesemia SNOMED Code(s): 516953511 ICD Code: E83.42 - HYPOMAGNESEMIA Status: Acute Priority: Medium Current Visit: Yes Problem Details: Replacement ordered. (7) Palliative care patient SNOMED Code(s): 364384140 ICD Code: Z51.5 - ENCOUNTER FOR PALLIATIVE CARE Status: Acute Priority: High Current Visit: Yes Problem Details: As above, which was confirmed by multiple family members today. (8) Weakness generalized SNOMED Code(s): 78912976 ICD Code: R53.1 - WEAKNESS Status: Chronic Priority: Medium Current Visit: Yes Problem Details: Chronic issues with weakess and end-stage disease as above. (9) CHF (congestive heart failure) SNOMED Code(s): 70551383 ICD Code: I50.9 - HEART FAILURE, UNSPECIFIED Status: Chronic Priority: Low Current Visit: No Problem Details: Appears to be stable. ProBNP 426 (10) Heart disease SNOMED Code(s): 43119412 ICD Code: I51.9 - HEART DISEASE, UNSPECIFIED Status: Chronic Priority: Low Current Visit: No Onset Date: 06/04/15 Problem Details: Appears to be stable at this time. (11) Osteoarthritis SNOMED Code(s): 523055855 ICD Code: M19.90 - UNSPECIFIED OSTEOARTHRITIS, UNSPECIFIED SITE Status: Chronic Priority: Low Current Visit: No Problem Details: Overall has been stable. Qualifiers: Osteoarthritis location: multiple joints Osteoarthritis type: primary Qualified Code(s): M15.0 - Primary generalized (osteo)arthritis (12) Peptic reflux disease SNOMED Code(s): 042855008 ICD Code: K21.9 - GASTRO-ESOPHAGEAL REFLUX DISEASE WITHOUT ESOPHAGITIS Status: Chronic Priority: Low Current Visit: No Onset Date: 06/04/15 Problem Details: stable at this time (13) COPD (chronic obstructive pulmonary disease) SNOMED Code(s): 30144004 ICD Code: J44.9 - CHRONIC OBSTRUCTIVE PULMONARY DISEASE, UNSPECIFIED Status : Chronic Priority: Medium Current Visit: Yes Problem Details: Continue nebs at discharge for comfort care. 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 Anticipated discontinuation of Warfarin given placement on Hospice unless otherwise directed by Hospice. (17) Hypokalemia SNOMED Code(s): 82586587 ICD Code: E87.6 - HYPOKALEMIA Status: Acute Priority: Medium Current Visit: Yes Onset Date: 06/29/19 Problem Details: improved (18) Anemia SNOMED Code(s): 140659677 ICD Code: D64.9 - ANEMIA, UNSPECIFIED Status: Chronic Priority: Medium Current Visit: Yes Problem Details: Stable during this hospitalization. Qualifiers: Anemia type: unspecified type Qualified Code(s): D64.9 - Anemia, unspecified (19) Carcinoma, lung SNOMED Code(s): 454104657 ICD Code: C34.90 - MALIGNANT NEOPLASM OF UNSP PART OF UNSP BRONCHUS OR LUNG Status: Chronic Priority: High Current Visit: Yes Problem Details: Extensive consultation with care management in our facility yesterday. Initial plans for possible swing bed care have been changed to hospice care with patient to be discharged to home under hospice care, which has been arranged. custodial prognosis poor. Medication adjustment at discharge including discontinuation of Coumadin therapy, etc. Qualifiers: Laterality: right Qualified Code(s): C34.91 - Malignant neoplasm of unspecified part of right bronchus or lung (20) Hypoalbuminemia SNOMED Code(s): 261628004 ICD Code: E88.09 - OTH DISORDERS OF PLASMA-PROTEIN METABOLISM, NEC Status: Chronic Priority: Medium Current Visit: Yes Problem Details: Observe for now. Hospice patient - Patient Summary/Data Complications: none Consults: Consultations 06/26/19 10:39 Consult to Case Management/Plant Protection Supervisor [CONS] Routine Consult to Hospice [CONS] Routine 06/28/19 13:35 Consult to Occupational Therapy [OT Evaluation and Treatment] [CONS] Routine PT Evaluation and Treatment [CONS] Routine Hospital Course: Significant improvement after initiation of antibiotics. Identification of worsening appearance of right lung suggestive of tumor process discussed with patient and family. It was ultimately decided by them to set up hospice care given grave prognosis. - Patient Instructions Diet: Usual Diet as Tolerated Activity: As Tolerated Driving: Do Not Drive Showering/Bathing: May Shower Other/Special Instructions: Connect with Hospice this afternoon as scheduled. - Discharge Plan *PRESCRIPTION DRUG MONITORING PROGRAM REVIEWED*: Not Applicable *COPY OF PRESCRIPTION DRUG MONITORING REPORT IN PATIENT OLENA: Not Applicable Prescriptions/Med Rec: Azithromycin [Zithromax] 500 mg PO DAILY #3 tablet Home Medications: Home Meds Albuterol/Ipratropium [DuoNeb 3.0-0.5 MG/3 ML] 3 ml INH QID 01/12/15 [History] Aspirin [Halfprin] 81 mg PO DAILY 01/12/15 [History] Albuterol/Ipratropium [DuoNeb 3.0-0.5 MG/3 ML] 3 ml NEB Q4HRRT PRN #1 box [Rx] Fluticasone Propionate [Flonase] 1 spray NASBOTH BID 12/22/15 [History] Benzonatate 200 mg PO TID PRN 12/07/18 [History] Bisacodyl [Dulcolax] 10 mg PO BEDTIME tablet 12/23/18 [Rx] predniSONE [Prednisone] 10 mg PO DAILY #90 tab.ds.pk 12/23/18 [Rx] Budesonide [Pulmicort] 0.5 mg INH BID 05/09/19 [History] Mometasone Furoate [Asmanex 220 MCG] 2 puff INH BID 05/09/19 [History] Furosemide 40 mg PO DAILY #90 tablet 05/18/19 [Rx] Acetaminophen [Acetaminophen Extra Strength] 500 mg PO BID 06/26/19 [History] Acetaminophen [Acetaminophen Extra Strength] 500 mg PO Q4HR PRN 06/26/19 [ History] Azithromycin [Zithromax] 500 mg PO DAILY #3 tablet 06/30/19 [Rx] Forms: ED Department Discharge Referrals: Sheets-Jessie Small MD [Primary Care Provider] - - Discharge Summary/Plan Comment DC Time >30 min.: Yes - General Info Date of Service: 11/22/19 Admission Dx/Problem (Free Text: Metastatic cancer Subjective Update: Patient continues to feel better overall compared to admission. No new complaints. Functional Status: Reports: Pain Controlled, Tolerating Diet, Ambulating (only with assistance), Urinating. Denies: New Symptoms - Review of Systems General: Reports: Weakness, Fatigue. Denies: Fever, Malaise, Chills HEENT: Reports: No Symptoms (no acute changes) Pulmonary: Denies: Shortness of Breath, Pleuritic Chest Pain, Cough, Sputum, Hemoptysis, Wheezing Cardiovascular: Denies: Chest Pain, Palpitations, Lightheadedness Gastrointestinal: Reports: Constipation. Denies: Abdominal Pain, Diarrhea, Difficulty Swallowing, Hematochezia, Nausea, Vomiting Genitourinary: Denies: Dysuria, Frequency, Urgency, Hematuria, Flank Pain Musculoskeletal: Reports: Other (Chronic issues with arthritis, no acute changes ) Skin: Reports: Bruising, Other (skin tears) Neurological: Reports: Difficulty Walking, Weakness. Denies: Confusion, Dizziness, Headache, Syncope, Change in Speech Psychiatric: Reports: No Symptoms - Patient Data Vitals - Most Recent: Last Vital Signs Temp 37.5 C 06/30/19 08:00 Pulse 93 06/30/19 08:00 Resp 24 H 06/30/19 08:00 BP 118/64 06/30/19 08:00 Pulse Ox 95 06/30/19 08:00 Weight - Most Recent: 68.719 kg I&O - Last 24 hours: Intake & Output 06/29/19 06/30/19 06/30/19 22:59 06:59 14:59 Intake Total 100 100 240 Output Total 300 Balance -200 100 240 Lab Results - Last 24 hrs: Laboratory Results - last 24 hr 06/29/19 06/30/19 06/30/19 Range/Units 19:47 07:15 07:15 WBC 9.8 (4.0-10.2) K/uL RBC 3.41 L (4.33-5.41) M/uL Hgb 10.7 L (13.1-16.8) g/dL Hct 34.6 L (39.0-49.0) % MCV 101.5 H (84.0-98.0) fL MCH 31.4 (28.2-33.3) pg MCHC 30.9 L (31.7-36.0) g/dL RDW 13.2 (11.2-14.1) % Plt Count 248 (150-350) K/uL Neut % (Auto) 80.9 H (45.0-80.0) % Lymph % (Auto) 6.5 L (10.0-50.0) % [place] % (Auto) 11.6 (2.0-14.0) % Eos % (Auto) 0.7 (0.0-5.0) % Baso % (Auto) 0.3 (0.0-2.0) % Neut # (Auto) 7.95 H (1.40-7.00) K/uL Lymph # (Auto) 0.64 (0.50-3.50) K/uL [place] # (Auto) 1.14 H (0.00-1.00) K/uL Eos # (Auto) 0.07 (0.00-0.50) K/uL Baso # (Auto) 0.03 (0.00-0.20) K/uL PT (9.5-12.0) SEC INR Sodium 144 (136-145) mmol/L Potassium 3.7 (3.5-5.1) mmol/L Chloride 104 (98-107) mmol/L Carbon Dioxide 37.2 H (21.0-32.0) mmol/L BUN 13 (7-18) mg/dL Creatinine 0.52 (0.51-1.17) mg/dL Est Cr Clr Drug Dosing TNP Estimated GFR (MDRD) > 60 mL/min Glucose 155 H (74-106) mg/dL POC Glucose 298 H* (65-110) mg/dl Calcium 8.8 (8.5-10.1) mg/dL C-Reactive Protein 18.9 H (<=0.9) mg/dL 06/30/19 06/30/19 Range/Units 07:15 07:56 WBC (4.0-10.2) K/uL RBC (4.33-5.41) M/uL Hgb (13.1-16.8) g/dL Hct (39.0-49.0) % MCV (84.0-98.0) fL MCH (28.2-33.3) pg MCHC (31.7-36.0) g/dL RDW (11.2-14.1) % Plt Count (150-350) K/uL Neut % (Auto) (45.0-80.0) % Lymph % (Auto) (10.0-50.0) % [place] % (Auto) (2.0-14.0) % Eos % (Auto) (0.0-5.0) % Baso % (Auto) (0.0-2.0) % Neut # (Auto) (1.40-7.00) K/uL Lymph # (Auto) (0.50-3.50) K/uL [place] # (Auto) (0.00-1.00) K/uL Eos # (Auto) (0.00-0.50) K/uL Baso # (Auto) (0.00-0.20) K/uL PT 43.1 H D (9.5-12.0) SEC INR 4.0 Sodium (136-145) mmol/L Potassium (3.5-5.1) mmol/L Chloride (98-107) mmol/L Carbon Dioxide (21.0-32.0) mmol/L BUN (7-18) mg/dL Creatinine (0.51-1.17) mg/dL Est Cr Clr Drug Dosing Estimated GFR (MDRD) mL/min Glucose (74-106) mg/dL POC Glucose 148 H (65-110) mg/dl Calcium (8.5-10.1) mg/dL C-Reactive Protein (<=0.9) mg/dL Med Orders - Current: Current Medications Acetaminophen (Tylenol Extra Strength) 500 mg PO BID [facility] Last Admin: 06/30/19 07:39 Dose: 500 mg Acetaminophen (Tylenol Extra Strength) 500 mg PO Q4HR PRN PRN Reason: Pain Last Admin: 06/26/19 11:09 Dose: 500 mg Albuterol/Ipratropium (Duoneb 3.0-0.5 Mg/3 Ml) 3 ml INH QIDRT [facility] Last Admin: 06/30/19 11:29 Dose: 3 ml Albuterol/Ipratropium (Duoneb 3.0-0.5 Mg/3 Ml) 3 ml NEB Q4HRRT PRN PRN Reason: Shortness of Breath Aspirin (Halfprin) 81 mg PO DAILY [facility] Last Admin: 06/30/19 07:39 Dose: 81 mg Azithromycin (Zithromax) 500 mg PO DAILY [facility] Stop: 07/02/19 08:01 Last Admin: 06/30/19 07:39 Dose: 500 mg Bisacodyl (Dulcolax) 10 mg PO BEDTIME [facility] Last Admin: 06/29/19 19:49 Dose: 10 mg Budesonide (Pulmicort) 0.5 mg INH BIDRT [facility] Last Admin: 06/30/19 07:39 Dose: 0.5 mg Finasteride (Proscar) 5 mg PO DAILY [facility] Last Admin: 06/30/19 07:39 Dose: 5 mg Fluticasone Propionate (Flonase) 0 gm NASBOTH BID [facility] Last Admin: 06/30/19 07:38 Dose: 1 spray Furosemide (Lasix) 40 mg PO DAILY [facility] Last Admin: 06/30/19 07:39 Dose: 40 mg Ceftriaxone Sodium 1 gm/ (Sodium Chloride) 100 mls @ 200 mls/hr IV Q24H [facility] Last Admin: 06/30/19 11:29 Dose: 200 mls/hr Sodium Chloride (Normal Saline) 500 mls @ 999 mls/hr IV .BOLUS [facility] Last Admin: 06/26/19 11:48 Dose: 999 mls/hr Metformin HCl (Glucophage Xr) 500 mg PO BIDMEALS [facility] Last Admin: 06/30/19 07:39 Dose: 500 mg Mometasone Furoate (Asmanex 220 Mcg) 2 puff INH BID [facility] Last Admin: 06/30/19 07:51 Dose: 2 puff Omeprazole (Omeprazole) 20 mg PO DAILY PRN PRN Reason: Indigestion Potassium Chloride (Klor-Con M20) 20 meq PO DAILY [facility] Last Admin: 06/30/19 07:45 Dose: 20 meq Prednisone (Prednisone) 10 mg PO DAILY [facility] Last Admin: 06/30/19 07:39 Dose: 10 mg Sodium Chloride (Saline Flush) 10 ml FLUSH ASDIRECTED PRN PRN Reason: Keep Vein Open Last Admin: 06/30/19 11:30 Dose: 10 ml Warfarin Sodium (Coumadin) 5 mg PO MO@1800 [facility] Last Admin: 06/26/19 17:25 Dose: 5 mg Warfarin Sodium (Coumadin) 6 mg PO SuTuWeThFrSa@1800 [facility] Last Admin: 06/29/19 17:51 Dose: 6 mg Discontinued Medications Azithromycin 500 mg/ Sodium (Chloride) 250 mls @ 250 mls/hr IV Q24H [facility] Stop: 06/28/19 12:59 Last Admin: 06/28/19 11:59 Dose: 250 mls/hr Magnesium Sulfate/Dextrose 1 (gm/ Premix) 100 mls @ 100 mls/hr IV ONETIME ONE Stop: 06/26/19 13:59 Last Admin: 06/26/19 13:20 Dose: 100 mls/hr Sodium Chloride (Normal Saline) 1,000 mls @ 50 mls/hr IV ASDIRECTED [facility] Stop: 06/29/19 13:00 Last Admin: 06/28/19 17:20 Dose: 50 mls/hr Magnesium Sulfate/Dextrose 1 (gm/ Premix) 100 mls @ 100 mls/hr IV ONETIME ONE Stop: 06/28/19 14:19 Last Admin: 06/28/19 14:02 Dose: 100 mls/hr Magnesium Sulfate/Dextrose 1 (gm/ Premix) 100 mls @ 100 mls/hr IV ONETIME ONE Stop: 06/28/19 18:59 Last Admin: 06/28/19 17:20 Dose: 100 mls/hr Potassium Chloride (Potassium Chloride Solution) 20 meq PO ONETIME ONE Stop: 06/29/19 15:40 Last Admin: 06/29/19 17:51 Dose: Not Given Simvastatin (Zocor) 40 mg PO BEDTIME [facility] Last Admin: 06/27/19 20:41 Dose: 40 mg Warfarin Sodium (Coumadin) 5 mg PO ONETIME ONE Stop: 06/28/19 18:01 Last Admin: 06/28/19 17:24 Dose: 5 mg - Exam General: Reports: Alert, Oriented, Cooperative, No Acute Distress HEENT: Reports: Pupils Equal, Pupils Reactive, EOMI, Mucous Membr. Moist/[place] Neck: Reports: Supple Lungs: Reports: Decreased Breath Sounds (throughout). Denies: Crackles, Rales, Rhonchi, Rub, Stridor, Wheezing Cardiovascular: Reports: Regular Rate, Regular Rhythm GI/Abdominal Exam: Soft, Non-Tender, No Distention (Male) Exam: Deferred Rectal (Males) Exam: Deferred Back Exam: Denies: CVA Tenderness (L), CVA Tenderness (R), Muscle Spasm, Paraspinal Tenderness, Vertebral Tenderness Extremities: Other (thin skin, bruising on arms from fall/IV, bruising on face from fall, skin tears left arm from fall, healing abrasions on knees from fall) . No: Increased Warmth, Mottled, Pallor, Redness Wound/Incisions: Reports: Other (as above) Neurological: Reports: No New Focal Deficit, Normal Speech, Strength Equal Bilateral Psy/Mental Status: Reports: Alert, Normal Affect, Normal Mood
[2019-06-30 12:36] VITALS: BP 111/55; PULSE 97
== END 2019-06-30 13:25 | disposition hospice, home (50) | DRG 190 ==
LOC: LL.ED 09:34 → LL.MS 10:32 → UNDOADMIN 10:32 → LL.MS 10:36
PROVIDERS: ADMIT Emergency Medicine; ATTEND Family Medicine
DX: J44.0 Chronic obstructive pulmonary disease with (acute) lower respiratory infection (principal); J18.9 Pneumonia, unspecified organism; R41.82 Altered mental status, unspecified; C34.91 Malignant neoplasm of unspecified part of right bronchus or lung; E87.3 Alkalosis; E87.1 Hypo-osmolality and hyponatremia; K86.2 Cyst of pancreas; E87.4 Mixed disorder of acid-base balance; Z51.5 Encounter for palliative care; S00.93XA Contusion of unspecified part of head, initial encounter; E83.42 Hypomagnesemia; I50.9 Heart failure, unspecified; R91.8 Other nonspecific abnormal finding of lung field; M15.0 Primary generalized (osteo)arthritis; K21.9 Gastro-esophageal reflux disease without esophagitis; G89.29 Other chronic pain; H54.7 Unspecified visual loss; R53.1 Weakness; S41.012A Laceration without foreign body of left shoulder, initial encounter; S51.012A Laceration without foreign body of left elbow, initial encounter; I11.0 Hypertensive heart disease with heart failure; J84.10 Pulmonary fibrosis, unspecified; N40.0 Benign prostatic hyperplasia without lower urinary tract symptoms; R13.10 Dysphagia, unspecified; Z79.84 Long term (current) use of oral hypoglycemic drugs; E11.9 Type 2 diabetes mellitus without complications; Z79.51 Long term (current) use of inhaled steroids; D64.9 Anemia, unspecified; Z86.718 Personal history of other venous thrombosis and embolism; I25.10 Atherosclerotic heart disease of native coronary artery without angina pectoris; Z99.81 Dependence on supplemental oxygen; Z85.828 Personal history of other malignant neoplasm of skin; Z86.14 Personal history of Methicillin resistant Staphylococcus aureus infection; E78.00 Pure hypercholesterolemia, unspecified; F32.9 Major depressive disorder, single episode, unspecified; Z79.01 Long term (current) use of anticoagulants; Z88.2 Allergy status to sulfonamides; Z86.711 Personal history of pulmonary embolism; Z79.82 Long term (current) use of aspirin; Z79.52 Long term (current) use of systemic steroids; Z79.899 Other long term (current) drug therapy; W06.XXXA Fall from bed, initial encounter; Y92.009 Unspecified place in unspecified non-institutional (private) residence as the place of occurrence of the external cause
CPT/HCPCS: 36415; 70450; 71045; 72125; 73020-LT; 80048; 80053; 81001; 82962; 83605; 83735; 83880; 84484; 85025; 85610; 86140; 87804; 93005; 94640; 97162-GP; 99285-25; A9270-GY; J0456; J0696; J3475; J7030; J7040; J7050; J7620-GY